=== PATIENT | female | born 1965 | race Two or more races ===

== ENCOUNTER 2020-09-17 14:28 | Outpatient (REF) | payer MEDICARE, MEDICAID, SELFPAY ==
[2020-09-17 17:22] LABS: T4 Thyroxine 8.6 ug/dL (4.5-12.0); Thyroid Stimulating Hormone 0.69 uIU/mL (0.32-4.0)
[2020-09-17 17:29] LABS: Folate 14.8 ng/mL (> or = 4.0); Vitamin B12 167 pg/mL (200-900)
== END 2020-09-17 14:29 | disposition home or self-care (01) ==
LOC: HO.LAB 14:28
PROVIDERS: PCP Nurse Practitioner Family; Visit Provider Psychiatry & Neurology Neurology
DX: F44.5 Conversion disorder with seizures or convulsions (principal)
CPT/HCPCS: 82607; 82746; 84436; 84443

== ENCOUNTER → 2020-10-27 07:23 | Outpatient (REF) | payer MEDICARE, MEDICAID, SELFPAY ==
--- NOTE | 2020-10-27 08:00 | PFT_ITS ---
Forced vital capacity is slightly decreased. FEV1 slightly decreased, but FEV1/FVC ratio is normal. LOL79-64 slightly decreased. MVV also slightly decreased. Post bronchodilator therapy, there is no significant change. Total lung capacity and residual volume are both moderately decreased. Diffusion capacity normal. CONCLUSION: Restrictive pulmonary disorder, moderately severe. No significant obstructive airway disorder. Clinical correlation recommended. MD GOPI Miller/MODL / [id number]
== END ==
LOC: HO.SL 07:23
PROVIDERS: PCP Nurse Practitioner Family; Visit Provider Hospitalist
DX: G47.33 Obstructive sleep apnea (adult) (pediatric) (principal); J44.9 Chronic obstructive pulmonary disease, unspecified; R06.00 Dyspnea, unspecified
CPT/HCPCS: 94060; 94727; 94729

== ENCOUNTER → 2020-11-18 13:47 | Outpatient (REF) | payer MEDICARE, MEDICAID, SELFPAY | LOC: HO.SL 13:47 | PROVIDERS: PCP Nurse Practitioner Family; Visit Provider Hospitalist | DX: G47.33 Obstructive sleep apnea (adult) (pediatric) (principal) | CPT/HCPCS: 95806 ==

== ENCOUNTER 2020-11-27 09:53 | Outpatient (REF) | payer MEDICARE, MEDICAID, SELFPAY ==
--- NOTE | ~2020-11-27 | XR_ITS ---
EXAMINATION: XR CHEST CLINICAL INFORMATION: Other disorder of lung COMPARISON: None TECHNIQUE: 2 views of the chest were obtained. FINDINGS: The lung volumes are low. The cardiac and mediastinal contours are normal. The lungs are clear. There is no pleural effusion or pneumothorax. There are mild degenerative changes of the spine. XR/XR chest 2V IMPRESSION: Low lung volumes. No evidence for acute disease in the chest.
[2020-11-27 10:23] LABS: MANUAL DIFF FLAG NO
[2020-11-27 10:36] LABS: Basophils Percent Auto 0.5 % (0-2); Eosinophils Absolute Auto 0.1 X10*3/uL (0.0-0.4); Eosinophils Percent Auto 2.9 % (0-4); Hematocrit 41.7 % (37-47); Hemoglobin 13.5 g/dl (12.0-16.0); Imm Gran Abs Auto 0.01 X10*3/uL (0.00-0.03); Imm Gran Pct Auto 0.2 % (0.0-0.4); Lymphocytes Absolute Auto 1.8 X10*3/uL (1.2-4.9); Lymphocytes Percent Auto 43.9 % (20-40); Mean Corpuscular HGB Conc 32.4 g/dl (31.0-35.0); Mean Corpuscular Hemoglobin 29.9 pg (27.0-33.0); Mean Corpuscular Volume 92.5 fL (80-98); Mean Platelet Volume 9.7 fL (9.4-12.3); Monocytes Absolute Auto 0.3 X10*3/uL (0.1-1.2); Monocytes Percent Auto 8.2 % (2-11); Neutrophils Absolute Auto 1.9 X10*3/uL (2.0-8.3); Neutrophils Percent Auto 44.3 % (45-73); Platelet Count 241 X10*3/uL (160-400); Red Blood Count 4.51 X10*6/uL (4.20-5.50); Red Cell Distribution Width 12.8 % (11.0-16.0); White Blood Count 4.2 X10*3/uL (4.8-10.8)
[2020-11-27 11:08] LABS: Alanine Aminotransferase 31 U/L (0-31); Albumin Level 4.4 g/dL (3.5-5.0); Alkaline Phosphatase 72 U/L (39-117); Anion Gap 11 (12-20); Aspartate Amino Transferase 25 U/L (5-31); Bilirubin Total 0.4 mg/dL (0.0-1.0); Blood Urea Nitrogen 27 mg/dL (9-16); Calcium 9.5 mg/dL (8.4-10.2); Carbon Dioxide 30 mmol/L (22-29); Chloride 106 mmol/L (96-108); Cholesterol 227 mg/dL; Estimated Glomerular Filt Rate > 60; Glucose Fasting 85 mg/dL (60-99); HDL Cholesterol 58 mg/dL; LDL Cholesterol Calculated 153 mg/dl; Potassium 4.4 mmol/L (3.3-5.1); Sodium 143 mmol/L (135-145); Total Protein 7.2 g/dL (6.5-8.0); Triglycerides 82 mg/dL
[2020-11-27 11:33] LABS: TSH reflex Free T4 1.56 uIU/mL (0.32-4.0)
== END 2020-11-27 09:54 | disposition home or self-care (01) ==
LOC: HO.LAB 09:53
PROVIDERS: Absent Provider Hospitalist; PCP Nurse Practitioner Family; Visit Provider Nurse Practitioner Family
DX: J98.4 Other disorders of lung (principal); G47.33 Obstructive sleep apnea (adult) (pediatric); J45.40 Moderate persistent asthma, uncomplicated; I10 Essential (primary) hypertension; Z79.899 Other long term (current) drug therapy
CPT/HCPCS: 36415; 71046; 80053; 80061; 84443; 85025; 99212

== ENCOUNTER → 2021-03-12 09:40 | Outpatient (REF) | payer MEDICARE, MEDICAID, SELFPAY ==
--- NOTE | 2021-03-12 09:43 | CA_ITS ---
Acquisition Time: 2021-03-12 09:49:02 Total Exercise Time: 00:06:07 Test Indications: COPD Medications: SEE CHART Protocol: WALLY Max HR: 179 BPM 108% of Pred: 165 BPM Max BP: 096/062 mmHG Max Work Load: 7.1 METS Exercise stress test with exercise 6 min 7 sec of Wally protocol with request to stop due to inability to keep up with treadmill in stage 3, without anginal symptoms, with significant artifact during exercise making assessment for arrythmia inadequate, with low BP at baseline and minimal rise during exercise, with postive chronotronic response to exercise with pulse 43 ( 26% MPHR) at baseline and kourtney to 90 (54% MPHR) at peak exercise, with nondiagnostic EKGs for ischemia due to suboptimal heart rate and atifact during motion. Test reviewed with Dr Garner. Message sent to Genevieve HDZ with results, Recommend pharm nuclear stress test if further eval for ischemia is needed. Recommend holter to eval heart rate trend. Referred By: Aquilino Herrera Overread By: KEHINDE ERVIN
== END ==
LOC: HO.CARD 09:40
PROVIDERS: Visit Provider Nurse Practitioner Family
DX: R07.89 Other chest pain (principal)
CPT/HCPCS: 93017

== ENCOUNTER → 2021-04-06 12:25 | Outpatient (REF) | payer MEDICARE, MEDICAID, SELFPAY ==
--- NOTE | 2021-04-06 12:30 | ECG_ITS ---
Hook-up date: 2021-04-06 12:48:00 Duration: 26:08:00 Test Indications: CARDIAC ARRHYTHMIA, UNSPECIFIED Medications: 61381 QRS complexes * Ventricular ectopics which represent % of total QRS comp. * Supraventricular ectopics which represent % of total QRS comp. * Paced QRS complexs which represent % of total QRS comp. VENTRICULAR ECTOPY * Isolated * Bigeminal Cycles * Couplets * Runs * Beats in Runs * Beats LONGEST at * BPM at :: -- * Beats FASTEST at * BPM at :: -- SUPRAVENTRICULAR ECTOPY * Isolated * Couplets * Runs * Beats in Runs * Beats LONGEST at * BPM at :: -- * Beats FASTEST at * BPM at :: -- HEART RATES 39 MIN at 03:09:12 2021-04-07 52 AVG 97 MAX at 11:17:51 2021-04-07 LONGEST RR 1.5360 secs at 10:08:28 2021-04-07 S-T LEVELS Channel 1 - 128 mm at 12:48:00 2021-04-06 - 128 mm at 12:48:00 2021-04-06 Channel 2 - 128 mm at 12:48:00 2021-04-06 - 128 mm at 12:48:00 2021-04-06 Channel 3 - 128 mm at 03:20:71 -- - 128 mm at 03:20:71 Underlying rhythm is sinus bradycardia; Average ventricular rate 52/min; range 39-97/min; About 80% of the time, rate <60/min; Chest pain in patient diary associated with sinus rhythm. Referred By: Aquilino Herrera Overread By: BON IBARRA
== END ==
LOC: HO.CARD 12:25
PROVIDERS: Visit Provider Nurse Practitioner Family
DX: R07.89 Other chest pain (principal); I49.9 Cardiac arrhythmia, unspecified
CPT/HCPCS: 93225; 93226

== ENCOUNTER → 2021-04-09 08:02 | Outpatient (REF) | payer MEDICARE, MEDICAID, SELFPAY ==
--- NOTE | ~2021-04-09 | NM_ITS ---
Myocardial perfusion study Indication: Chest pain to evaluate for myocardial ischemia Technique: The patient was brought in for a Lexiscan perfusion study on 04/09/2021. Patient performed low-level exercise and was injected 0.4 mg of Lexiscan intravenously. Within a minute of injection, 25 mCi of sestamibi was given intravenously. Images were obtained using the SPECT gamma camera interlaced with the gating device. Images were obtained in supine position. Resting perfusion study was performed on 04/10/2021. Patient was administered 25 mCi of sestamibi intravenously at rest. Images were then obtained in supine position. Images obtained with and without CT attenuation. Total DLP 130 mGy-cm. Images were processed with the software and compared side to side in short axis, horizontal long axis and vertical long axis views. Findings: The stress perfusion study showed nonattenuated images show moderately reduced uptake in the apex of the LV myocardium. Remainder of the LV myocardium is normally perfused. Attenuation corrected images also shows small area of mildly reduced uptake in the apex of the LV myocardium.. The gated study shows normal LV systolic function with calculated LVEF of 72%. LV cavity is normal in size. The gated study shows normal systolic wall thickening and contraction of segments. Resting study shows no change in perfusion pattern compared to stress perfusion study. Gating at rest reveals normal systolic wall motion with ejection fraction at 70%. The findings are consistent with no reversible defect suggestive of ischemia. Fixed apical defect, nontransmural infarct cannot be entirely ruled out.. NM/NM beau perf SPECT rest & str Impression: 1. Myocardial perfusion imaging study shows no evidence of ischemia with fixed apical defect which may suggest nontransmural infarct 2. Gated LVEF is 72% 3. Transient ischemic dilatation not present EKG is nondiagnostic for ischemia
--- NOTE | 2021-04-09 08:35 | CA_ITS ---
Acquisition Time: 2021-04-09 08:33:25 Total Exercise Time: 00:02:00 Test Indications: Abnormal ECG Medications: SEE H Protocol: LEXISCAN Max HR: 094 BPM 56% of Pred: 165 BPM Max BP: 112/064 mmHG Max Work Load: 1.0 METS Pharmacological stress test using Lexiscan while sitting and kicking her feet. Pt tolerated well, denies any anginal sx. Feeling of dizziness reversed with Aminophyline. EKG with no arrhythmias, non-diagnostic for ischemia. Nuclear images to follow. Normotensive response to test. Test reviewed with Dr. Bar. Referred By: Aquilino Herrera Overread By: Vicky Acosta NP
== END ==
LOC: HO.CARD 08:02
PROVIDERS: Visit Provider Nurse Practitioner Family
DX: R07.89 Other chest pain (principal)
CPT/HCPCS: 78452; 93017; A9500; J0280; J2785

== ENCOUNTER → 2021-05-04 15:02 | Outpatient (BNVA) | payer MEDICARE, MEDICAID, SELFPAY | PROVIDERS: PCP Nurse Practitioner Family; Visit Provider Hospitalist | DX: G47.33 Obstructive sleep apnea (adult) (pediatric) (principal); J98.4 Other disorders of lung; J45.40 Moderate persistent asthma, uncomplicated | CPT/HCPCS: 99212 ==

== ENCOUNTER → 2021-06-08 19:42 | Outpatient (REF) | payer MEDICARE, MEDICAID, SELFPAY | LOC: HO.SL 19:42 | PROVIDERS: PCP Nurse Practitioner Family; Visit Provider Hospitalist | DX: G47.33 Obstructive sleep apnea (adult) (pediatric) (principal) | CPT/HCPCS: 95810 ==

== ENCOUNTER 2021-06-15 14:46 | Outpatient (REF) | payer MEDICARE, MEDICAID, SELFPAY ==
[2021-06-15 16:28] LABS: Alanine Aminotransferase 22 U/L (0-31); Albumin Level 4.4 g/dL (3.5-5.0); Alkaline Phosphatase 82 U/L (39-117); Anion Gap 11 (12-20); Aspartate Amino Transferase 19 U/L (5-31); Bilirubin Total 0.5 mg/dL (0.0-1.0); Blood Urea Nitrogen 22 mg/dL (9-16); Calcium 9.5 mg/dL (8.4-10.2); Carbon Dioxide 28 mmol/L (22-29); Chloride 108 mmol/L (96-108); Cholesterol 174 mg/dL; Estimated Glomerular Filt Rate 57; Glucose Random 78 mg/dL (60-115); HDL Cholesterol 63 mg/dL; LDL Cholesterol Calculated 89 mg/dl; Potassium 4.2 mmol/L (3.3-5.1); Sodium 143 mmol/L (135-145); Triglycerides 111 mg/dL
[2021-06-15 17:05] LABS: Folate > 20.0 ng/mL (> or = 4.0); Vitamin B12 456 pg/mL (200-900)
[2021-06-15 17:06] LABS: Appearance Urine HAZY; Color Urine YELLOW; Glucose Urine UA NEG (NEG); Leukocyte Esterase Urine 1+ (NEG); Nitrite Urine NEG (NEG); Specific Gravity - Urine >= 1.030 (1.005-1.025); Urine Blood NEG (NEG); Urine Ketones NEG (NEG); Urine Protein NEG (NEG-TRACE)
[2021-06-15 17:18] LABS: WBC Urine 30-49 /HPF (0-4)
[2021-06-15 17:19] LABS: Bacteria Urine TRACE /LPF; RBC Urine 0-2 /HPF (0); Squamous Epithelial Cell Urine TRACE /LPF
== END 2021-06-15 14:47 | disposition home or self-care (01) ==
LOC: HO.LAB 14:46
PROVIDERS: PCP Nurse Practitioner Family; Referring Provider Nurse Practitioner Family; Visit Provider Internal Medicine
DX: R07.2 Precordial pain (principal); R00.1 Bradycardia, unspecified; I10 Essential (primary) hypertension; R39.15 Urgency of urination; E78.5 Hyperlipidemia, unspecified; E53.8 Deficiency of other specified B group vitamins
CPT/HCPCS: 36415; 80053; 80061; 81001; 82607; 82746; 87086; 93005; 99202

== ENCOUNTER → 2021-07-02 14:59 | Outpatient (BNVA) | payer MEDICARE, MEDICAID, SELFPAY | PROVIDERS: PCP Nurse Practitioner Family; Visit Provider Hospitalist | DX: G47.33 Obstructive sleep apnea (adult) (pediatric) (principal); J98.4 Other disorders of lung; J45.40 Moderate persistent asthma, uncomplicated | CPT/HCPCS: 99212 ==

== ENCOUNTER 2021-07-03 14:32 | Outpatient (REF) | payer MEDICARE, MEDICAID, SELFPAY ==
--- NOTE | ~2021-07-03 | CT_ITS ---
EXAMINATION: CT HEAD WITHOUT CONTRAST CLINICAL INFORMATION: MCI. COMPARISON: None TECHNIQUE: Contiguous axial imaging was performed from the skull base to vertex without intravenous administration of contrast. This CT examination was performed using dose optimization techniques as appropriate, variously including the following: *Automated exposure control *Adjustment of mA and/or kV according to patient size (this includes techniques or standardized protocols for targeted exams where dose is matched to indication/reason for exam; i.e. extremities or head) *Use of iterative reconstruction technique DLP: 645 mGy-cm FINDINGS: There is no evidence of acute intracranial hemorrhage or territorial infarction. No abnormal mass effect or midline shift is seen. Godoy to white matter differentiation is well preserved. No extra-axial fluid collections are identified. The ventricles are normal in size. There is no abnormal attenuation within the brain parenchyma. The osseous structures and soft tissues are normal. The mastoid air cells and visualized portions of the paranasal sinuses are well aerated. CT/CT head/brain wo con IMPRESSION: No acute intracranial process seen.
== END 2021-07-03 14:33 | disposition home or self-care (01) ==
LOC: HO.CT 14:32
PROVIDERS: Visit Provider Psychiatry & Neurology Neurology
DX: G31.84 Mild cognitive impairment of uncertain or unknown etiology (principal)
CPT/HCPCS: 70450

== ENCOUNTER 2021-07-15 14:38 | Outpatient (REF) | payer MEDICARE, MEDICAID, SELFPAY ==
--- NOTE | ~2021-07-15 | MM_ITS ---
EXAMINATION: MM SCREENING DIGITAL BREAST TOMOSYNTHESIS, BILATERAL CLINICAL INFORMATION: Screening. Asymptomatic. The lifetime risk of breast cancer based on the Tyrer-Cuzick Model is 5%. COMPARISON: Mammography: 05/08/2020 (new baseline) TECHNIQUE: Digital breast tomosynthesis is performed in both the craniocaudal and mediolateral oblique views along with computer-aided detection (CAD). Synthesized 2D images are generated from the tomosynthesis. FINDINGS: There are scattered areas of fibroglandular density (ACR BI-RADS breast composition Category b). There are no significant masses, abnormal calcifications, or other abnormalities. Parenchymal pattern is similar to the prior new baseline exam. The axilla and skin contours are unremarkable. No significant changes. MM/MM tomosynthesis screening BI IMPRESSION: No significant changes from prior new baseline exam. ASSESSMENT: BI-RADS 1: Negative RECOMMENDATION: Routine annual mammography screening. This patient's information was entered into a reminder system with a target due date for their next mammogram.
== END 2021-07-15 14:39 | disposition home or self-care (01) ==
LOC: HO.MAMMO 14:38
PROVIDERS: Visit Provider Nurse Practitioner Family
DX: Z12.31 Encounter for screening mammogram for malignant neoplasm of breast (principal)
CPT/HCPCS: 77063; 77067

== ENCOUNTER → 2021-07-30 14:59 | Outpatient (BNVA) | payer MEDICARE, MEDICAID, SELFPAY | PROVIDERS: PCP Nurse Practitioner Family; Visit Provider Internal Medicine Gastroenterology | DX: G47.33 Obstructive sleep apnea (adult) (pediatric) (principal); Z83.71 Family history of colonic polyps | CPT/HCPCS: 99212 ==

== ENCOUNTER 2021-09-29 10:10 | Day surgery (SDC) | payer MEDICARE, MEDICAID, SELFPAY ==
[2021-09-22 11:01] VITALS: BMI 34.3
--- NOTE | 2021-09-28 09:56 | HO.ANESPROP2 ---
Documented by User: Yolande Elizabeth NP 09/28/21 10:00 [facility] Active Problems Active Problems: All Active Problems (Updated 07/30/21 @ 16:37 by Geovany Ulloa MD) Family history of colonic polyps (Acute) Colon cancer screening (Acute) Essential hypertension (Acute) Precordial chest pain (Acute) Urinary urgency (Acute) Bradycardia (Acute) Irregular heart rate (Acute) B12 deficiency (Acute) Chest discomfort (Acute) Asthma (Acute) Dyslipidemia (Acute) Chronic restrictive lung disease (Acute) Epilepsy (Acute) Epilepsy, unspecified, intractable, with status epilepticus (Acute) Age related osteoporosis (Acute) Essential (primary) hypertension (Acute) TRACI (obstructive sleep apnea) (Acute) Asthma-COPD overlap syndrome (Acute) Past Medical History Medical History Asthma Asthma-COPD overlap syndrome Chronic restrictive lung disease MCI (mild cognitive impairment) TRACI (obstructive sleep apnea) Family History Family History Father HTN (hypertension) Stroke Diabetes mellitus Maternal Grandmother Cancer Mother Diabetes mellitus HTN (hypertension) Stroke Surgical History Surgical History History of appendectomy History of hernia repair History of hysterectomy Hx of cholecystectomy Hx of colonoscopy Social History Social History Alcohol intake: never Patient Tobacco Use Status: Never used Tobacco e-Cigarette/Vaping Use: Never Used Use of substances other than those prescribed or required for medical reasons: No Are you DNR?: No Advance Directives: No Advance Directives Information Provided: Yes Meds Allergies Allergy/AdvReac Type Severity Reaction Status Date / Time aspirin Allergy Severe Swollen Verified 07/30/21 15:00 penicillamine Allergy Severe Rash and Verified 07/30/21 15:00 Hives povidone-iodine [Betadine] Allergy Severe Rash and Verified 07/30/21 15:00 Hives primidone Allergy Severe anger Verified 07/30/21 15:00 soap [Betadine] Allergy Severe Rash and Verified 07/30/21 15:00 Hives Peant Butter Allergy Severe Rash and Uncoded 07/30/21 15:00 Hives Seafood Allergy Severe Rash Uncoded 07/30/21 15:00 Home Medications Medication Instructions Recorded Confirmed Last Taken Type alendronate 70 mg tablet 70 mg PO QWEEK 11/03/20 07/30/21 Unknown History haloperidol 5 mg tablet 5 mg PO BEDTIME 11/03/20 07/30/21 Unknown History montelukast 10 mg tablet 10 mg PO DAILY 11/03/20 07/30/21 Unknown History prazosin 5 mg capsule 5 mg PO BEDTIME 11/03/20 07/30/21 Unknown History sertraline 100 mg tablet 200 mg PO DAILY 11/03/20 07/30/21 Unknown History prazosin 2 mg capsule 2 mg PO BEDTIME 02/24/21 07/30/21 Unknown History mirtazapine 7.5 mg tablet 7.5 mg PO BEDTIME 05/04/21 07/30/21 Unknown History aripiprazole 15 mg tablet 10 mg PO DAILY tab 07/30/21 07/30/21 Unknown History quetiapine 50 mg tablet 50 mg PO BEDTIME 07/30/21 07/30/21 Unknown History Exam Exam Date and Time: September 28, 2021 0956 Height,Weight and Vital Signs: Height 4 ft 11 in Weight 77.111 kg Pertinent Lab Results Pertinent Lab Results: Laboratory Tests 06/15/21 15:42 Sodium 143 Potassium 4.2 Chloride 108 Carbon Dioxide 28 BUN 22 H Creatinine 1.01 Laboratory Tests 11/27/20 09:58 WBC 4.2 L Hgb 13.5 Hct 41.7 Plt Count 241 Narrative Narrative: Per cardiac visit 05/2021: EKG 05/2021 sinus bradycardia; poor R-wave progression across the precordial leads most likely from his body habitus.? Echocardiogram from [facility] shows LVEF of 60-65%; wall motion abnormalities and otherwise unremarkable. In the exercise stress test, she was able to exercise for 7.1 Mets without any anginal-type symptoms with lot of artifact on the EKG part; suboptimal heart rate response possibly from beta-ragini use.? Study repeated with Lexiscan and that showed no evidence of any ischemia; fixed apical defect was noted and could not exclude nontransmural infarct, but gating was within normal limits. PFT 10/2020 CONCLUSION:? Restrictive pulmonary disorder, moderately severe. ? No significant obstructive airway disorder. ? Clinical correlation recommended. Assessment and Plan Assessment Anesthesia Assessment: Chart Reviewed Documented by User: Dallin Gage 09/29/21 11:15 HPI - Anesthesia Eval Consult details Narrative: 56 F for Colnoscopy PMFSH Past Medical History Medical History Asthma Asthma-COPD overlap syndrome Chronic restrictive lung disease MCI (mild cognitive impairment) TRACI (obstructive sleep apnea) Functional capacity: independent ambulation Family History Family History Father HTN (hypertension) Stroke Diabetes mellitus Maternal Grandmother Cancer Mother Diabetes mellitus HTN (hypertension) Stroke Family history of problems with anesthesia: No Surgical History Surgical History History of appendectomy History of hernia repair History of hysterectomy Hx of cholecystectomy Hx of colonoscopy History of Problems with Anesthesia: No Social History Social History Alcohol intake: never Patient Tobacco Use Status: Never used Tobacco e-Cigarette/Vaping Use: Never Used Use of substances other than those prescribed or required for medical reasons: No Are you DNR?: No Advance Directives: No Advance Directives Information Provided: Yes Meds Allergies Allergy/AdvReac Type Severity Reaction Status Date / Time aspirin Allergy Severe Swollen Verified 07/30/21 15:00 penicillamine Allergy Severe Rash and Verified 07/30/21 15:00 Hives povidone-iodine [Betadine] Allergy Severe Rash and Verified 07/30/21 15:00 Hives primidone Allergy Severe anger Verified 07/30/21 15:00 soap [Betadine] Allergy Severe Rash and Verified 07/30/21 15:00 Hives Peant Butter Allergy Severe Rash and Uncoded 07/30/21 15:00 Hives Seafood Allergy Severe Rash Uncoded 07/30/21 15:00 Home Medications Medication Instructions Recorded Confirmed Last Taken Type alendronate 70 mg tablet 70 mg PO QWEEK 11/03/20 07/30/21 Unknown History haloperidol 5 mg tablet 5 mg PO BEDTIME 11/03/20 07/30/21 Unknown History montelukast 10 mg tablet 10 mg PO DAILY 11/03/20 07/30/21 Unknown History prazosin 5 mg capsule 5 mg PO BEDTIME 11/03/20 07/30/21 Unknown History sertraline 100 mg tablet 200 mg PO DAILY 11/03/20 07/30/21 Unknown History prazosin 2 mg capsule 2 mg PO BEDTIME 02/24/21 07/30/21 Unknown History mirtazapine 7.5 mg tablet 7.5 mg PO BEDTIME 05/04/21 07/30/21 Unknown History aripiprazole 15 mg tablet 10 mg PO DAILY tab 07/30/21 07/30/21 Unknown History quetiapine 50 mg tablet 50 mg PO BEDTIME 07/30/21 07/30/21 Unknown History Exam Airway Mallampati Class: IV TM Dist: >3cm Neck ROM: Full Loose/Missing/Broken Teeth: Yes Heart: rrr Lungs: bl breath sounds Assessment and Plan Assessment Anesthesia Assessment: Anesthesia Plan Discussed (Patient declined credit administrator . Speaking pashto. ) Final Anesthetic Review Family History of Problems with Anesthesia: No History of Problems with Anesthesia: No NPO: Yes ASA Class: III Patient Risk: Intermediate Procedure Risk: Intermediate Anesthetic Plan Anesthetic Plan: MAC: Disposition: Standard PACU
--- NOTE | 2021-09-29 10:23 | MHC.SHP ---
Pre-Procedural Eval Section A Date of Service: 09/29/21 The patient is an INPATIENT: No The History & Physical has been completed within 30 days and I have reviewed it.: No Section B Chief Complaint: screening Details of Present Illness: Colon cancer screening Relevant Family History (Specify if Yes): Yes Relevant Social History: None Present Medications: see Short Stay Collaborative assessment Medical History: Significant History (Asthma-COPD overlap syndrome Chronic restrictive lung disease MCI (mild cognitive impairment) TRACI (obstructive sleep apnea)) History of Previous Operations: Relevant previous surgery/procedure and date(s) (History of appendectomy History of hernia repair History of hysterectomy Hx of cholecystectomy Hx of colonoscopy) Allergies: Allergies Allergy/AdvReac Type Severity Reaction Status Date / Time aspirin Allergy Severe Swollen Verified 07/30/21 15:00 penicillamine Allergy Severe Rash and Verified 07/30/21 15:00 Hives povidone-iodine [Betadine] Allergy Severe Rash and Verified 07/30/21 15:00 Hives primidone Allergy Severe anger Verified 07/30/21 15:00 soap [Betadine] Allergy Severe Rash and Verified 07/30/21 15:00 Hives Peant Butter Allergy Severe Rash and Uncoded 07/30/21 15:00 Hives Seafood Allergy Severe Rash Uncoded 07/30/21 15:00 Review of Systems Sugical H&P ROS: Negative: Constitution, Cardiovascular, Respiratory and Gastrointestinal Exam Surgical H&P Exam: Normal: Heart, Normal: Lungs, Normal: Extremities and Normal: Abdomen Plan Diagnosis/Plan: Unchanged I have reviewed the history and physical and performed a pertinent physical examination on my patient. No changes have occurred unless specified.
--- NOTE | 2021-09-29 10:25 | PM.PROC ---
Brief Operative Note Date of procedure: 09/29/21 Procedure: COLONOSCOPY TILL CECUM WITH Consent: Indications for the procedure and potential complications of bleeding, perforation, reaction to medications and missed diagnosis were discussed with the patient and informed consent was obtained. Instrument: Olympus PCF H 190 L variable stiffness pediatric colonoscope Monitoring: Vital signs and clinical assessment, intermittent blood pressure monitoring, continuous EKG monitoring, Pulse oximetry and Carbon Dioxide monitoring were done throughout the procedure. Colon withdrawl time was [] minutes. Procedure: The patient was placed in the left lateral decubitis position and pre-procedure medications were administered. After a digital rectal examination of the ano-rectum, the video colonoscope was inserted into the rectum and advanced through the colon to the cecum. The colonoscope was slowly withdrawn in a retrograde panoramic fashion and the colon mucosa was carefully examined including a retroflexed view of the rectum. Findings and interventions are described below. Procedure Difficulty: [Without difficulty] [LLQ pressure applied to intubate the transverse colon/cecum] Findings: Terminal Ileum: Not evaluated Cecum: Normal Ascending Colon: Normal Transverse Colon: Normal Descending Colon: Normal Sigmoid Colon: Moderate diverticulosis Rectum: Normal Ano-rectum: Moderate internal hemorrhoids Colon preparation: [Excellent] [Good] [Fair] [poor] Impression and Post Procedure Diagnosis: Colonoscopy Findings: [] polyps removed Moderate diverticulosis seen in the []colon Moderate hemorrhoids on retroflexed exam. Plan: Await pathology results Patient has an appointment on 10/15/21 in the GI Clinic with Geovany Ulloa M.D. Repeat Colonoscopy interval based on path results - in 3-5 years if polyps are adenomatous and 10 years if polyps are hyperplastic. Above findings were reviewed with the patient and [colon polyps] and [diverticulosis] handouts were given in the discharge area
[2021-09-29 10:40] VITALS: BP 121/65; PULSE 56; RESP 16; TEMP 36.8; O2SAT 98; BMI 33.5
[2021-09-29] MEDS: Lactated Ringers 1,000 ML 100 ML IVCONT (10:50)
--- NOTE | 2021-09-29 11:20 | P.BOP_ITS ---
Brief Operative Note Date of Service: 09/29/21 Pre-op diagnosis: Colon cancer screening Post-op diagnosis: other (Diverticulosis, hemorrhoids) Procedure: COLONOSCOPY TILL CECUM Consent: Indications for the procedure and potential complications of bleeding, perforation, reaction to medications and missed diagnosis were discussed with the patient and informed consent was obtained. Instrument: Olympus PCF H 190 L variable stiffness pediatric colonoscope Monitoring: Vital signs and clinical assessment, intermittent blood pressure monitoring, continuous EKG monitoring, Pulse oximetry and Carbon Dioxide monitoring were done throughout the procedure. Colon withdrawl time was 18 minutes. Procedure: The patient was placed in the left lateral decubitis position and pre-procedure medications were administered. After a digital rectal examination of the ano-rectum, the video colonoscope was inserted into the rectum and advanced through the colon to the cecum. The colonoscope was slowly withdrawn in a retrograde panoramic fashion and the colon mucosa was carefully examined including a retroflexed view of the rectum. Findings and interventions are described below. Procedure Difficulty: Without difficulty Findings: Terminal Ileum: Not evaluated Cecum: Normal Ascending Colon: Normal Transverse Colon: Normal Descending Colon: Normal Sigmoid Colon: Moderate diverticulosis Rectum: Normal Ano-rectum: Moderate internal hemorrhoids Colon preparation: Good Impression and Post Procedure Diagnosis: Colonoscopy Findings: No polyps were detected. Moderate diverticulosis seen in the sigmoid colon Moderate hemorrhoids on retroflexed exam. Plan: Patient has an appointment on 10/15/21 in the GI Clinic with Geovany Ulloa M.D. Repeat Colonoscopy in 5 years due to family hx of colon polyps (Mom in her 50's).. Above findings were reviewed with the patient and diverticulosis handouts were given in the discharge area Surgeon: Geovany Ulloa MD Anesthesia: MAC (Kiki Pacheco CRNA) Was an Fellmongering Machine Operator used for this Procedure?: Yes Fellmongering Machine Operator: Arianna Aguilar Estimated blood loss (mL): 0 Pathology: none sent Condition: stable Disposition: PACU
--- NOTE | 2021-09-29 11:24 | P.CONAN_ITS ---
[facility] Active Problems Active Problems: All Active Problems (Updated 07/30/21 @ 16:37 by Geovany Ulloa MD) Family history of colonic polyps (Acute) Colon cancer screening (Acute) Essential hypertension (Acute) Precordial chest pain (Acute) Urinary urgency (Acute) Bradycardia (Acute) Irregular heart rate (Acute) B12 deficiency (Acute) Chest discomfort (Acute) Asthma (Acute) Dyslipidemia (Acute) Chronic restrictive lung disease (Acute) Epilepsy (Acute) Epilepsy, unspecified, intractable, with status epilepticus (Acute) Age related osteoporosis (Acute) Essential (primary) hypertension (Acute) TRACI (obstructive sleep apnea) (Acute) Asthma-COPD overlap syndrome (Acute) Past Medical History Medical History Asthma Asthma-COPD overlap syndrome Chronic restrictive lung disease MCI (mild cognitive impairment) TRACI (obstructive sleep apnea) Functional capacity: independent ambulation Family History Family History Father HTN (hypertension) Stroke Diabetes mellitus Maternal Grandmother Cancer Mother Diabetes mellitus HTN (hypertension) Stroke Family history of problems with anesthesia: No Surgical History Surgical History History of appendectomy History of hernia repair History of hysterectomy Hx of cholecystectomy Hx of colonoscopy History of Problems with Anesthesia: No Social History Social History Alcohol intake: never Patient Tobacco Use Status: Never used Tobacco e-Cigarette/Vaping Use: Never Used Use of substances other than those prescribed or required for medical reasons: No Are you DNR?: No Advance Directives: No Advance Directives Information Provided: Yes Meds Allergies Allergy/AdvReac Type Severity Reaction Status Date / Time aspirin Allergy Severe Swollen Verified 07/30/21 15:00 penicillamine Allergy Severe Rash and Verified 07/30/21 15:00 Hives povidone-iodine [Betadine] Allergy Severe Rash and Verified 07/30/21 15:00 Hives primidone Allergy Severe anger Verified 07/30/21 15:00 soap [Betadine] Allergy Severe Rash and Verified 07/30/21 15:00 Hives Peant Butter Allergy Severe Rash and Uncoded 07/30/21 15:00 Hives Seafood Allergy Severe Rash Uncoded 07/30/21 15:00 Active Medications: Current Medications Albuterol Sulfate (Albuterol Sulfate (0.083%) 2.5 Mg/3 Ml Vial.Neb) 2.5 mg INHALE ONCE PRN PRN Reason: Shortness of Breath/Wheezing Lactated Ringer's (Lr) 1,000 mls @ 100 mls/hr IVCONT .Q10H SHALOM Last Admin: 09/29/21 10:50 Dose: 100 mls/hr Documented by: Home Medications Medication Instructions Recorded Confirmed Last Taken Type alendronate 70 mg tablet 70 mg PO QWEEK 11/03/20 07/30/21 Unknown History haloperidol 5 mg tablet 5 mg PO BEDTIME 11/03/20 07/30/21 Unknown History montelukast 10 mg tablet 10 mg PO DAILY 11/03/20 07/30/21 Unknown History prazosin 5 mg capsule 5 mg PO BEDTIME 11/03/20 07/30/21 Unknown History sertraline 100 mg tablet 200 mg PO DAILY 11/03/20 07/30/21 Unknown History prazosin 2 mg capsule 2 mg PO BEDTIME 02/24/21 07/30/21 Unknown History mirtazapine 7.5 mg tablet 7.5 mg PO BEDTIME 05/04/21 07/30/21 Unknown History aripiprazole 15 mg tablet 10 mg PO DAILY tab 07/30/21 07/30/21 Unknown History quetiapine 50 mg tablet 50 mg PO BEDTIME 07/30/21 07/30/21 Unknown History Exam Exam Date and Time: September 29, 2021 1124 Height,Weight and Vital Signs: Height 4 ft 11 in Weight 75.296 kg Last Vital Signs Temp 98.2 F 09/29/21 10:40 Pulse 56 09/29/21 10:40 Resp 16 09/29/21 10:40 BP 121/65 09/29/21 10:40 Pulse Ox 98 09/29/21 10:40 Assessment and Plan Assessment Anesthesia Assessment: Anesthesia Plan Discussed Final Anesthetic Review Family History of Problems with Anesthesia: No History of Problems with Anesthesia: No
[2021-09-29 12:05] VITALS: BP 100/54; PULSE 87; RESP 16; TEMP 36.1; O2SAT 98
[2021-09-29 12:20] VITALS: BP 116/63; PULSE 67; RESP 16; TEMP 36.1; O2SAT 100
--- NOTE | 2021-10-02 16:04 | P.OP_ITS ---
Operative Note Operative Note Date of Service: 09/29/21 Narrative: Pre-op diagnosis:?Colon cancer screening Post-op diagnosis:?other (Diverticulosis, hemorrhoids) Procedure:? COLONOSCOPY TILL CECUM Consent: Indications for the procedure and potential complications of bleeding, perforation, reaction to medications and missed diagnosis were discussed with the patient and informed consent was obtained. Instrument: Olympus PCF H 190 L variable stiffness pediatric colonoscope Monitoring: Vital signs and clinical assessment, intermittent blood pressure monitoring, continuous EKG monitoring, Pulse oximetry and Carbon Dioxide monitoring were done throughout the procedure. Colon withdrawl time was 18 minutes. Procedure: The patient was placed in the left lateral decubitis position and pre-procedure medications were administered. After a digital rectal examination of the ano-rectum, the video colonoscope was inserted into the rectum and advanced through the colon to the cecum. The colonoscope was slowly withdrawn in a retrograde panoramic fashion and the colon mucosa was carefully examined including a retroflexed view of the rectum. Findings and interventions are described below. Procedure Difficulty: Without difficulty Findings: Terminal Ileum: Not evaluated Cecum:? Normal Ascending Colon:? Normal Transverse Colon:? Normal Descending Colon:? Normal Sigmoid Colon:? Moderate diverticulosis Rectum:? Normal Ano-rectum:? Moderate internal hemorrhoids Colon preparation:? Good? Impression and Post Procedure Diagnosis: Colonoscopy Findings: No polyps were detected. Moderate diverticulosis seen in the sigmoid colon Moderate hemorrhoids on retroflexed exam. Plan: Patient has an appointment on 10/15/21 in the GI Clinic with? ? Geovany Ulloa M.D. Repeat Colonoscopy in 5 years due to family hx of colon polyps (Mom in her 50's).. Above findings were reviewed with the patient and diverticulosis handouts were given in the discharge area Surgeon:?Geovany Ulloa MD Anesthesia:?MAC (Kiki Pacheco CRNA) Was an Project Development Director used for this Procedure?:?Yes Project Development Director:?Arianna Aguilar Estimated blood loss (mL):?0 Pathology:?none sent Condition:?stable Disposition:?PACU
== END 2021-09-29 13:03 | disposition home or self-care (01) ==
PROVIDERS: PCP Nurse Practitioner Family; Visit Provider Internal Medicine Gastroenterology
PROC: 0DJD8ZZ Inspection of Lower Intestinal Tract, Via Natural or Artificial Opening Endoscopic (ICD-10-PCS; CPT 45378; principal; 2021-09-29 11:00)
DX: Z12.11 Encounter for screening for malignant neoplasm of colon (principal); Z83.71 Family history of colonic polyps; K57.30 Diverticulosis of large intestine without perforation or abscess without bleeding; K64.8 Other hemorrhoids; J44.9 Chronic obstructive pulmonary disease, unspecified; J98.4 Other disorders of lung; I10 Essential (primary) hypertension; G31.84 Mild cognitive impairment of uncertain or unknown etiology; G47.33 Obstructive sleep apnea (adult) (pediatric); Z79.51 Long term (current) use of inhaled steroids; Z79.899 Other long term (current) drug therapy; Z88.0 Allergy status to penicillin; Z90.49 Acquired absence of other specified parts of digestive tract
CPT/HCPCS: G0105

== ENCOUNTER → 2021-10-15 11:39 | Outpatient (BNVA) | payer MEDICARE, MEDICAID, SELFPAY | PROVIDERS: PCP Nurse Practitioner Family; Visit Provider Internal Medicine Gastroenterology | DX: K57.90 Diverticulosis of intestine, part unspecified, without perforation or abscess without bleeding (principal); K64.9 Unspecified hemorrhoids; Z83.71 Family history of colonic polyps; Z71.2 Person consulting for explanation of examination or test findings; Z79.899 Other long term (current) drug therapy | CPT/HCPCS: Q3014 ==

== ENCOUNTER → 2021-12-08 14:51 | Outpatient (BNVA) | payer MEDICARE, MEDICAID, SELFPAY | PROVIDERS: PCP Nurse Practitioner Family; Referring Provider Nurse Practitioner Family; Visit Provider Nurse Practitioner Family | DX: R07.2 Precordial pain (principal); R00.1 Bradycardia, unspecified; I10 Essential (primary) hypertension; Z79.899 Other long term (current) drug therapy | CPT/HCPCS: 93005; 99212 ==

== ENCOUNTER → 2022-01-04 14:37 | Outpatient (BNVA) | payer MEDICARE, MEDICAID, SELFPAY | PROVIDERS: PCP Nurse Practitioner Family; Visit Provider Hospitalist | DX: G47.33 Obstructive sleep apnea (adult) (pediatric) (principal); J45.40 Moderate persistent asthma, uncomplicated; J98.4 Other disorders of lung | CPT/HCPCS: 99212 ==

== ENCOUNTER → 2022-03-08 15:28 | Outpatient (REF) | payer MEDICARE, MEDICAID, SELFPAY | LOC: HO.SL 15:28 | PROVIDERS: PCP Nurse Practitioner Family; Visit Provider Hospitalist | DX: G47.33 Obstructive sleep apnea (adult) (pediatric) (principal) | CPT/HCPCS: 95806 ==

== ENCOUNTER 2022-03-23 10:37 | Outpatient (REF) | payer MEDICARE, MEDICAID, SELFPAY ==
[2022-03-23 11:21] LABS: Baso%MD 0.5 %; Eos%MD 2.1 %; Hematocrit 43.5 % (37.0-47.0); Hemoglobin 14.4 g/dl (12.0-16.0); IG%MD 0.5 %; Lymph%MD 45.7 %; Mean Corpuscular HGB Conc 33.1 g/dl (31.0-35.0); Mean Corpuscular Hemoglobin 29.4 pg (27.0-33.0); Mean Corpuscular Volume 88.8 fL (80.0-98.0); Mean Platelet Volume 9.1 fL (9.4-12.3); Mono%MD 8.4 %; Neut%MD 42.8 %; Platelet Count 212 X10*3/uL (160-400); Red Cell Distribution Width 12.7 % (11.0-16.0); White Blood Count 4.3 X10*3/uL (4.8-10.8)
[2022-03-23 11:39] LABS: Estimated Average Glucose 94 mg/dL; Hemoglobin A1c % 4.9 %
[2022-03-23 12:00] LABS: Anion Gap 12 (12-20); Blood Urea Nitrogen 22 mg/dL (9-16); Calcium 9.5 mg/dL (8.4-10.2); Carbon Dioxide 27 mmol/L (22-29); Chloride 107 mmol/L (96-108); Cholesterol 218 mg/dL; Estimated Glomerular Filt Rate > 60; Glucose Fasting 88 mg/dL (60-99); HDL Cholesterol 62 mg/dL; LDL Cholesterol Calculated 140 mg/dl; Potassium 4.2 mmol/L (3.3-5.1); Sodium 142 mmol/L (135-145); Triglycerides 81 mg/dL
[2022-03-23 12:27] LABS: Free T4 (Free Thyroxine) 1.16 ng/dL (0.71-1.85); Thyroid Stimulating Hormone 1.54 uIU/mL (0.32-4.0)
[2022-03-23 12:55] LABS: Band Neutrophils Percent 2 % (3-5); Basophils Abs Manual 0.1 X10*3/uL (0.0-0.2); Basophils Percent Manual 2 % (0-2); Eosinophils Absolute Manual 0.2 X10*3/uL (0.0-0.4); Eosinophils Percent Manual 4 % (0-4); Lymphocytes Absolute Manual 2.4 X10*3/uL (1.2-4.9); Lymphocytes Percent Manual 55 % (20-40); Monocytes Absolute Manual 0.2 X10*3/uL (0.1-1.2); Monocytes Percent Manual 5 % (2-11); Neutrophils Absolute Manual 1.5 X10*3/uL (2.0-8.3); Neutrophils Percent Manual 32 % (45-73)
[2022-03-23 12:57] LABS: Platelet Estimate NORMAL (NORMAL); Platelet Morphology Comment NORMAL; RBC Morphology NORMAL
[2022-03-25 01:25] LABS: Prolactin 1.8 ng/mL
== END 2022-03-23 10:38 | disposition home or self-care (01) ==
LOC: HO.LAB 10:37
PROVIDERS: PCP Nurse Practitioner Family; Visit Provider Clinical Nurse Specialist Psychiatric/Mental Health, Child & Adolescent
DX: F25.1 Schizoaffective disorder, depressive type (principal); Z79.899 Other long term (current) drug therapy
CPT/HCPCS: 36415; 80048; 80061; 83036; 84146; 84439; 84443; 85007; 85027

== ENCOUNTER 2022-04-16 13:59 | Outpatient (REF) | payer MEDICARE, MEDICAID, SELFPAY ==
[2022-04-16 14:42] LABS: COVID-19 Test Negative (Negative); IDNOW Serial# 16C4AD1C
== END 2022-04-16 14:00 | disposition home or self-care (01) ==
LOC: HO.LAB 13:59
PROVIDERS: PCP Nurse Practitioner Family; Visit Provider Hospitalist
DX: J44.9 Chronic obstructive pulmonary disease, unspecified (principal); J45.41 Moderate persistent asthma with (acute) exacerbation; J06.9 Acute upper respiratory infection, unspecified; J98.4 Other disorders of lung; G47.33 Obstructive sleep apnea (adult) (pediatric); Z20.822 Contact with and (suspected) exposure to COVID-19
CPT/HCPCS: 87635; 87811; 99212

== ENCOUNTER 2022-07-08 14:33 | Outpatient (REF) | payer OTHER, SELFPAY ==
--- NOTE | ~2022-07-08 | MM_ITS ---
EXAMINATION: BONE DENSITOMETRY CLINICAL INDICATION: Age-related osteoporosis without current pathological fracture. COMPARISON: Baseline BD dated 05/08/2020. TECHNIQUE: Using a infibond DXA System (software version: 13.1) manufactured by [employer], dual-energy x-ray absorptiometry was performed of the lumbar spine and left hip. The images are of good technical quality. Summary results are attached. FINDINGS: AP SPINE L1-L4: Current: BMD 1.113 g/cm2, Z-score -0.4, T-score -0.6, normal, 7.3% decrease from baseline (<5% change is not significant). Baseline: BMD 1.200 g/cm2. LEFT FEMUR, NECK: Current: BMD 1.034 g/cm2, Z-score 0.6, T-score 0.0, normal. Baseline: BMD 1.067 g/cm2. LEFT FEMUR, TOTAL: Current: BMD 1.085 g/cm2, Z-score 0.8, T-score 0.6, normal, 2.4% decrease from baseline (<5% change is not significant). Baseline: BMD 1.112 g/cm2. IDENTIFIED RISK FACTORS: Early menopause, secondary osteoporosis, hysterectomy, bilateral oophorectomy, anticonvulsant, osteoporosis, height loss. HISTORY OF FRACTURE: None listed. MEDICATIONS: Vitamin D, bisphosphonate. MM/XR DEXA axial skeleton IMPRESSION: 1. DIAGNOSIS: Normal bone density based on the lowest T-score value of -0.6 in the lumbar spine applying World Health Organization criteria. 2. 10-YEAR FRACTURE RISK PREDICTION, FRAX: According to the guidelines, FRAX calculation should only be performed on patients in the osteopenia bone density category. Therefore, FRAX was not performed on this patient. 3. Treatment Recommendations: NOF guidelines recommend consideration for treatment in postmenopausal women and men age 50 and older presenting with the following: -A hip or vertebral (clinical or morphometric) fracture. -T-score less than or equal to -2.5 at the femoral neck or spine after appropriate evaluation to exclude secondary causes. -Low bone mass at the hip or spine and a 10-year fracture probability by FRAX of greater than or equal to 3% for hip fracture or greater than or equal to 20% for major osteoporotic fracture based on the [place] adapted WHO algorithm. 4. Other Recommendations: All treatment decisions require clinical judgment and consideration of individual patient factors, including patient preferences, comorbidities, previous drug use, risk factors not captured in the FRAX model (e.g. frailty, falls, vitamin D deficiency, increased bone turnover, interval significant decline in bone density) and possible under or overestimation of fracture risk by FRAX. FUTURE SCAN RECOMMENDATION: People with diagnosed cases of osteoporosis or at high risk for fracture should have regular bone mineral density tests. For patients eligible for Medicare, routine testing is allowed once every 2 years. The testing frequency can be increased to one year for patients who have rapidly progressing disease, those who are receiving or discontinuing medical therapy to restore bone mass, or have additional risk factors.
== END 2022-07-08 14:34 | disposition home or self-care (01) ==
LOC: HO.MAMMO 14:33
PROVIDERS: PCP Nurse Practitioner Family; Visit Provider Nurse Practitioner Family
DX: Z13.820 Encounter for screening for osteoporosis (principal); M81.0 Age-related osteoporosis without current pathological fracture; Z78.0 Asymptomatic menopausal state
CPT/HCPCS: 77080

== ENCOUNTER 2022-07-19 14:20 | Outpatient (REF) | payer OTHER, SELFPAY ==
--- NOTE | ~2022-07-19 | MM_ITS ---
EXAMINATION: MM SCREENING DIGITAL BREAST TOMOSYNTHESIS, BILATERAL CLINICAL INFORMATION: Screening. Asymptomatic. The lifetime risk of breast cancer based on the Tyrer-Cuzick Model is 5%. COMPARISON: Mammography: 07/15/2021 and 05/08/2020. TECHNIQUE: Digital breast tomosynthesis is performed in both the craniocaudal and mediolateral oblique views along with computer-aided detection (CAD). Synthesized 2-D images are generated from the tomosynthesis. FINDINGS: There are scattered areas of fibroglandular density (ACR BI-RADS breast composition Category b). There is a stable parenchymal pattern within the right breast without new abnormal dominant mass or suspicious grouping of microcalcifications. Multiple circumscribed densities are noted within the left breast with one new one seen in the central region approximately 6 cm from the nipple measuring 8 x 6 mm in size with somewhat lobular border. Ultrasound examination is recommended for further evaluation. MM/MM tomosynthesis screening BI IMPRESSION: Left breast density for further evaluation with ultrasound. ASSESSMENT: BI-RADS 0: Incomplete - Need Additional Imaging Evaluation. RECOMMENDATION: Left breast ultrasound. This patient's information was entered into a reminder system with a target due date for their next mammogram.
== END 2022-07-19 14:21 | disposition home or self-care (01) ==
LOC: HO.MAMMO 14:20
PROVIDERS: PCP Nurse Practitioner Family; Visit Provider Nurse Practitioner Family
DX: Z12.31 Encounter for screening mammogram for malignant neoplasm of breast (principal)
CPT/HCPCS: 77063; 77067

== ENCOUNTER 2022-07-23 12:37 | Outpatient (REF) | payer OTHER, SELFPAY ==
--- NOTE | ~2022-07-23 | US_ITS ---
EXAMINATION: US DIAGNOSTIC ULTRASOUND BREAST, LEFT CLINICAL INFORMATION: Left breast density central aspect. COMPARISON: Mammography of July 19, 2022 and studies dating back to May 08, 2020. TECHNIQUE: Ultrasound of the breast is performed with real-time chacko scale imaging and color Doppler. FINDINGS: There are numerous cysts present with the largest being at approximately the 12:00 position 6 cm from the nipple measuring approximately 1.1 x 0.4 x 1.0 cm in size and likely represents the mammographic finding. There is no solid mass, architectural abnormality, duct ectasia, or edema in the soft tissue planes. Results are discussed with the patient at time of visit. US/US breast LT limited IMPRESSION: Numerous left breast cyst with no suspicious solid lesions identified. ASSESSMENT: BI-RADS 2: Benign RECOMMENDATION: Routine annual mammography screening. This patient's information was entered into a reminder system with a target due date for their next mammogram.
== END 2022-07-23 12:38 | disposition home or self-care (01) ==
LOC: HO.MAMMO 12:37
PROVIDERS: PCP Nurse Practitioner Family; Visit Provider Nurse Practitioner Family
DX: R92.2 Inconclusive mammogram (principal)
CPT/HCPCS: 76642

== ENCOUNTER 2022-08-04 09:56 | Outpatient (REF) | payer OTHER, SELFPAY ==
[2022-08-04 10:15] LABS: MANUAL DIFF FLAG NO
[2022-08-04 11:00] LABS: Basophils Percent Auto 0.7 % (0-2); Eosinophils Absolute Auto 0.1 X10*3/uL (0.0-0.4); Eosinophils Percent Auto 2.9 % (0-4); Hematocrit 41.4 % (37.0-47.0); Hemoglobin 13.7 g/dl (12.0-16.0); Imm Gran Abs Auto 0.03 X10*3/uL (0.00-0.03); Imm Gran Pct Auto 0.7 % (0.0-0.4); Lymphocytes Absolute Auto 1.8 X10*3/uL (1.2-4.9); Lymphocytes Percent Auto 39.5 % (20-40); Mean Corpuscular HGB Conc 33.1 g/dl (31.0-35.0); Mean Corpuscular Hemoglobin 29.3 pg (27.0-33.0); Mean Corpuscular Volume 88.7 fL (80.0-98.0); Monocytes Absolute Auto 0.4 X10*3/uL (0.1-1.2); Neutrophils Absolute Auto 2.1 x10*3/uL (2.0-8.3); Neutrophils Percent Auto 47.2 % (45-73); Platelet Count 227 X10*3/uL (160-400); Red Blood Count 4.67 X10*6/uL (4.20-5.50); Red Cell Distribution Width 12.7 % (11.0-16.0); White Blood Count 4.4 X10*3/uL (4.8-10.8)
[2022-08-04 11:29] LABS: Alanine Aminotransferase 28 U/L (0-31); Albumin Level 4.4 g/dL (3.5-5.0); Alkaline Phosphatase 82 U/L (39-117); Anion Gap 15 (12-20); Aspartate Amino Transferase 22 U/L (5-31); Bilirubin Total 0.4 mg/dL (0.0-1.0); Blood Urea Nitrogen 17 mg/dL (9-16); Calcium 9.6 mg/dL (8.4-10.2); Carbon Dioxide 26 mmol/L (22-29); Chloride 108 mmol/L (96-108); Cholesterol 162 mg/dL; Estimated Glomerular Filt Rate > 60; Glucose Random 90 mg/dL (60-115); HDL Cholesterol 57 mg/dL; LDL Cholesterol Calculated 84 mg/dl; Sodium 145 mmol/L (135-145); Total Protein 7.3 g/dL (6.5-8.0); Triglycerides 105 mg/dL
[2022-08-04 11:40] LABS: Appearance Urine Clear; Color Urine Yellow; Glucose Urine UA Negative (Negative); Leukocyte Esterase Urine Negative (Negative); Nitrite Urine Negative (Negative); Specific Gravity - Urine >= 1.030 (1.005-1.025); Urine Blood Negative (Negative); Urine Ketones Negative (Negative); Urine Protein Negative (Neg-Trace)
[2022-08-04 12:04] LABS: Folate 10.8 ng/mL (> or = 4.0); Vitamin B12 304 pg/mL (200-900)
== END 2022-08-04 09:57 | disposition home or self-care (01) ==
LOC: HO.LAB 09:56
PROVIDERS: PCP Nurse Practitioner Family; Visit Provider Nurse Practitioner Family
DX: E53.8 Deficiency of other specified B group vitamins (principal); E78.5 Hyperlipidemia, unspecified
CPT/HCPCS: 36415; 80053; 80061; 81003; 82607; 82746; 84443; 85025

== ENCOUNTER → 2022-08-17 13:31 | Outpatient (BNVA) | payer OTHER, SELFPAY | PROVIDERS: PCP Nurse Practitioner Family; Referring Provider Nurse Practitioner Family; Visit Provider Nurse Practitioner Family | DX: R00.1 Bradycardia, unspecified (principal); R53.1 Weakness; I10 Essential (primary) hypertension | CPT/HCPCS: 93005; 99212 ==

== ENCOUNTER → 2022-09-01 10:44 | Outpatient (REF) | payer OTHER, SELFPAY ==
--- NOTE | 2022-09-01 10:45 | HM_ITS ---
Conclusion: 1. Patient was monitored for total period of 6 days and 19 minutes 2. Baseline was normal sinus rhythm with average heart of 71 beats per minute 3. No significant pauses or bradycardia noted 4. Very rare ectopy noted 5. Patient reported symptoms of fatigue which correlated with sinus rhythm MTDD
== END ==
LOC: HO.CARD 10:44
PROVIDERS: Visit Provider Nurse Practitioner Family
DX: R00.1 Bradycardia, unspecified (principal); R35.1 Nocturia
CPT/HCPCS: 93242

== ENCOUNTER → 2022-09-07 14:15 | Outpatient (BNVA) | payer OTHER, SELFPAY | PROVIDERS: PCP Nurse Practitioner Family; Visit Provider Hospitalist | DX: J45.41 Moderate persistent asthma with (acute) exacerbation (principal); J98.4 Other disorders of lung; G47.33 Obstructive sleep apnea (adult) (pediatric); Z79.899 Other long term (current) drug therapy | CPT/HCPCS: 99212 ==

== ENCOUNTER → 2022-11-21 22:37 | Outpatient (REF) | payer OTHER, SELFPAY | LOC: HO.SL 22:37 | PROVIDERS: PCP Nurse Practitioner Family; Visit Provider Hospitalist | DX: G47.33 Obstructive sleep apnea (adult) (pediatric) (principal); Z86.73 Personal history of transient ischemic attack (TIA), and cerebral infarction without residual deficits | CPT/HCPCS: 95810 ==

== ENCOUNTER → 2022-12-07 15:28 | Outpatient (BNVA) | payer OTHER, SELFPAY | PROVIDERS: PCP Nurse Practitioner Family; Visit Provider Hospitalist | DX: G47.33 Obstructive sleep apnea (adult) (pediatric) (principal); J45.41 Moderate persistent asthma with (acute) exacerbation; J98.4 Other disorders of lung | CPT/HCPCS: Q3014 ==

== ENCOUNTER 2022-12-30 14:15 | Outpatient (REF) | payer OTHER, SELFPAY ==
[2022-12-30 16:38] LABS: MANUAL DIFF FLAG NO
[2022-12-30 16:40] LABS: Basophils Percent Auto 0.6 % (0-2); Eosinophils Absolute Auto 0.1 X10*3/uL (0.0-0.4); Eosinophils Percent Auto 1.4 % (0-4); Hematocrit 43.4 % (37.0-47.0); Hemoglobin 14.3 g/dl (12.0-16.0); Imm Gran Abs Auto 0.03 X10*3/uL (0.00-0.03); Imm Gran Pct Auto 0.6 % (0.0-0.4); Lymphocytes Absolute Auto 1.5 X10*3/uL (1.2-4.9); Lymphocytes Percent Auto 29.4 % (20-40); Mean Corpuscular HGB Conc 32.9 g/dl (31.0-35.0); Mean Platelet Volume 9.3 fL (9.4-12.3); Monocytes Absolute Auto 0.5 X10*3/uL (0.1-1.2); Monocytes Percent Auto 9.1 % (2-11); Neutrophils Absolute Auto 3.1 x10*3/uL (2.0-8.3); Neutrophils Percent Auto 58.9 % (45-73); Platelet Count 270 X10*3/uL (160-400); Red Blood Count 4.93 X10*6/uL (4.20-5.50); Red Cell Distribution Width 13.1 % (11.0-16.0); White Blood Count 5.2 X10*3/uL (4.8-10.8)
[2022-12-30 16:53] LABS: Appearance Urine Cloudy; Color Urine Yellow; Glucose Urine UA Negative (Negative); Leukocyte Esterase Urine Trace (Negative); Nitrite Urine Negative (Negative); PH 5.5 (5.0-9.0); Specific Gravity - Urine 1.025 (1.005-1.025); UMIC TRIGGER UA YES; Urine Blood Negative (Negative); Urine Ketones Negative (Negative); Urine Protein Negative (Neg-Trace)
[2022-12-30 16:59] LABS: Alanine Aminotransferase 19 U/L (0-31); Albumin Level 4.4 g/dL (3.5-5.0); Alkaline Phosphatase 87 U/L (39-117); Anion Gap 14 (12-20); Aspartate Amino Transferase 18 U/L (5-31); Bilirubin Total 0.5 mg/dL (0.0-1.0); Blood Urea Nitrogen 16 mg/dL (9-16); Calcium 9.8 mg/dL (8.4-10.2); Carbon Dioxide 28 mmol/L (22-29); Chloride 107 mmol/L (96-108); Estimated Glomerular Filt Rate > 60; Glucose Random 111 mg/dL (60-115); Potassium 4.4 mmol/L (3.3-5.1); Sodium 145 mmol/L (135-145); Total Protein 7.3 g/dL (6.5-8.0)
[2022-12-30 17:07] LABS: B Type Natriuretic Peptide < 10 pg/mL (<100)
[2022-12-30 17:07] LABS: Bacteria Urine 4+ (None Seen); Hyaline Casts Urine 0-2 /LPF (0-2); RBC Urine 0-2 /HPF (0-2); WBC Urine 0-5 /HPF (0-5)
== END 2022-12-30 14:16 | disposition home or self-care (01) ==
LOC: HO.HMGCLDS 14:15
PROVIDERS: PCP Nurse Practitioner Family; Visit Provider Nurse Practitioner Family
DX: R34 Anuria and oliguria (principal)
CPT/HCPCS: 36415; 80053; 81001; 83880; 85025; 87086

== ENCOUNTER 2023-05-09 13:45 | Outpatient (AMB) | payer OTHER, SELFPAY ==
[2023-05-09 14:09] VITALS: PULSE 70; O2SAT 97; BMI 40.1
--- NOTE | 2023-05-09 14:09 | A.OFFVIS_ITS ---
Intake Vital Signs 05/09/23 14:09 Height 4 ft 11 in Weight 198 lb 6.656 oz BMI 40.1 Pulse 70 Pulse Source Pulse Oximeter Pulse Oximetry (%) 97 Oxygen Delivery Method Room Air Intake Visit Reasons: Obstructive sleep apnea follow-up Elevator Constructor Helper Required: No Allergies aspirin Allergy (Severe, Verified 05/09/23 14:10) Swollen penicillamine Allergy (Severe, Verified 05/09/23 14:10) Rash and Hives povidone-iodine [Betadine] Allergy (Severe, Verified 05/09/23 14:10) Rash and Hives primidone Allergy (Severe, Verified 05/09/23 14:10) anger soap [Betadine] Allergy (Severe, Verified 05/09/23 14:10) Rash and Hives Peant Butter Allergy (Severe, Uncoded 05/09/23 14:10) Rash and Hives Seafood Allergy (Severe, Uncoded 05/09/23 14:10) Rash beta blockers Adverse Reaction (Intermediate, Uncoded 05/09/23 14:10) Unknown HPI HPI Comments History of Present Illness Details The patient is a 57-year-old woman with a known history of asthma COPD overlap syndrome in addition to obstructive sleep apnea. She recently moved from [place] back in September of this year. Since then she has been complaining of daytime drowsiness. Her [place] score is elevated 14/24. She did have a sleep study back in 2013 which she was noted to have an AHI around 34. She was placed on CPAP in the CPAP therapy has been affecting beneficial at the time. However, he has noted that her machine was very mold the and in compatible with use so therefore she could not use any longer. At this point the patient is symptomatic she has an underlying history of sleep apnea in needs to undergo a repeat sleep study in order to start CPAP therapy as soon as possible. She also has had respiratory symptoms for most of her life. She had pulmonary function studies demonstrating significant small airways disease. She has been on Symbicort 80 or 4.5 2 puffs twice a day. Although she still waking up with coughing wheezing. We did talk about her use of lisinopril can also worsen the her cough but she has been taking this for many years. We talked about optimizing her respiratory therapy as she continues to have wheezing. I did teacher how to use a spacer as well that she can use with along with her Symbicort. 12/07/2022 the patient has a telehealth visit today. The patient overall is doing well from a respiratory status. Has been using the Symbicort regularly with good effect. As far as her left-sided weakness appears to be stable. She did undergo a repeat sleep study in view of her ongoing daytime drowsiness in the fact that her initial sleep study was poor without any REM sleep. 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 Otherwise she has [id number] sleep apnea. The patient is significantly symptomatic in does have a history of cerebrovascular disease therefore be important to start her on PAP therapy. She had been on PAP therapy in the past before moving to the [facility]. Therefore, she is acquainted with the equipment and she is looking for to starting the therapy that was helping her in the past. 05/09/2023 the patient is here for pulmonary follow-up visit. The patient overall is doing about the same. Although she is complaining of significant headaches and sinus pressure. the patient has been using her new CPAP. She has a nasal mask. This is likely contributing to the sinus congestion. The patient would benefit from a fullface mask. I did have an F 30 mask available that she tried and she tolerated well. Therefore will go ahead and switch her at this time. The patient also has been using her respiratory therapy with good effect. the patient recently traveled to [place] to see a family member new 1 in the ICU was gravely ill. [facility] Medical History Asthma Asthma-COPD overlap syndrome Chronic restrictive lung disease Conversion disorder MCI (mild cognitive impairment) TRACI (obstructive sleep apnea) Surgical History History of appendectomy History of hernia repair History of hysterectomy Hx of cholecystectomy Hx of colonoscopy Family History Father HTN (hypertension) Stroke Diabetes mellitus Maternal Grandmother Cancer Mother Diabetes mellitus HTN (hypertension) Stroke Social History Housing: Apartment Alcohol intake: never Patient Tobacco Use Status: Never used Tobacco e-Cigarette/Vaping Use: Never Used Second Hand Smoke Exposure: No service: No Current occupational status: disabled Cognitive needs: No Hearing needs: No Vision needs: No Review of Systems Const Denies chills, Reports daytime sleepiness, Reports difficulty sleeping, Reports fatigue, Denies fever(s), Reports headache(s), Reports malaise, Reports snoring, Reports stops breathing during sleep and Reports weakness Eyes Denies blurry vision and Denies diplopia ENT Denies dizziness, Reports headache(s), Denies epistaxis, Reports nasal congestion, Reports nasal discharge, Reports sinus pressure and Reports sore throat Card Denies chest pain, Denies chest pain at rest, Denies chest pain with activity, Denies rapid heart rate, Denies dyspnea and Denies dyspnea on exertion Resp Denies cough, Denies dyspnea, Denies dyspnea on exertion and Reports snoring GI Denies abdominal pain, Denies melena, Denies hematochezia, Denies nausea and Denies vomiting Denies hematuria Neuro Denies dizziness, Reports headache(s), Reports Sensory deficit (Neuro) and Reports weakness Endo Reports fatigue Physical Exam Vital Signs: Last Vital Signs Pulse 70 05/09/23 14:09 Pulse Ox 97 05/09/23 14:09 Oxygen Delivery Method Room Air 05/09/23 14:09 BMI result Body Mass Index 40.1 Const General: alert HEENT Head: Yes normocephalic Face and sinus: Yes sinus tenderness Neck Neck: Yes normal visual inspection, Yes full ROM and Yes no lymphadenopathy Chest Chest palpation & inspection: normal inspection of the chest Resp Auscultation: wheezes and diminished lung sounds Cardio Rate: regular rate Rhythm: regular rhythm Heart sounds: S1 normal heart sound present and S2 normal heart sound present GI Palpation (GI): Soft to palpation and nontender Auscultation: normal bowel sounds Skin General skin exam: rashes and/or lesions noted Neuro Sensory Exam: Sensory deficit (Neuro) Assessment & Plan Assessment & Plan (1) Asthma: Code(s): J45.909 - Unspecified asthma, uncomplicated Qualifiers: Asthma complication type: with acute exacerbation Asthma persistence: persistent Asthma severity: moderate Qualified Code(s): J45.41 - Moderate persistent asthma with (acute) exacerbation (2) Chronic restrictive lung disease: Code(s): J98.4 - Other disorders of lung (3) TRACI (obstructive sleep apnea): Code(s): G47.33 - Obstructive sleep apnea (adult) (pediatric) Plan: No evidence of sleep apnea in the in lab PSG, although, no REM sleep (4) Sinusitis: Code(s): J32.9 - Chronic sinusitis, unspecified Qualifiers: Sinusitis location: unspecified location Chronicity: subacute Qualified Code(s): J01.90 - Acute sinusitis, unspecified Plan Continue Symbicort FRANNIE as needed Fluticasone nasal spray continue APAP adjusted 6-10 change CPAP mask to F30, start doxycycline F/U 4-6 months, should bring her cpap Medications: New doxycycline monohydrate 100 mg PO BID 14 days 28 tabs 0RF Changed From albuterol sulfate 90 mcg/actuation 2 puffs PO Q6H PRN 8.5 grams 6RF for wheezing To albuterol sulfate 90 mcg/actuation 2 puffs inhalation Q6H PRN 8.5 grams 11RF for wheezing Refilled Symbicort 160-4.5 mcg/actuation (budesonide-formoterol) 2 puffs PO BID 10.2 grams 11RF NS Coding Level of Care Code Est Pt Level 4 (15600) Diagnoses Asthma J45.41 Asthma complication type: with acute exacerbation Asthma persistence: persistent Asthma severity: moderate Chronic restrictive lung disease J98.4 TRACI (obstructive sleep apnea) G47.33 Sinusitis J01.90 Sinusitis location: unspecified location Chronicity: subacute Time Spent (min) 20
== END 2023-05-09 14:32 | disposition home or self-care (01) ==
PROVIDERS: PCP Nurse Practitioner Family; Visit Provider Hospitalist
DX: J45.41 Moderate persistent asthma with (acute) exacerbation (principal); J98.4 Other disorders of lung; G47.33 Obstructive sleep apnea (adult) (pediatric); J01.90 Acute sinusitis, unspecified
CPT/HCPCS: 99214

== ENCOUNTER → 2023-05-09 13:45 | Outpatient (BNVA) | payer OTHER, SELFPAY | PROVIDERS: Visit Provider Hospitalist | DX: J98.4 Other disorders of lung (principal); J45.41 Moderate persistent asthma with (acute) exacerbation; J01.90 Acute sinusitis, unspecified; G47.33 Obstructive sleep apnea (adult) (pediatric); Z99.89 Dependence on other enabling machines and devices | CPT/HCPCS: 99212 ==

== ENCOUNTER 2023-06-30 14:50 | Outpatient (AMB) | payer OTHER, SELFPAY ==
[2023-06-30 15:41] VITALS: BP 122/80; PULSE 98; BMI 39.1
--- NOTE | 2023-06-30 15:41 | MHC.OFFVIS ---
Intake Vital Signs 06/30/23 15:41 Height 4 ft 11 in Weight 193 lb 9.054 oz BMI 39.1 BP 122/80 Blood Pressure Location Lt brachial Position Sitting Pulse 98 Intake Visit Reasons: OVERDUE FOLLOW UP Intake Note: patient is having palpitations Dba Manager Required: No Allergies aspirin Allergy (Severe, Verified 06/30/23 15:43) Swollen penicillamine Allergy (Severe, Verified 06/30/23 15:43) Rash and Hives povidone-iodine [Betadine] Allergy (Severe, Verified 06/30/23 15:43) Rash and Hives primidone Allergy (Severe, Verified 06/30/23 15:43) anger soap [Betadine] Allergy (Severe, Verified 06/30/23 15:43) Rash and Hives Peant Butter Allergy (Severe, Uncoded 05/09/23 14:10) Rash and Hives Seafood Allergy (Severe, Uncoded 05/09/23 14:10) Rash beta blockers Adverse Reaction (Intermediate, Uncoded 05/09/23 14:10) Unknown Medication List - Last Reconciled 06/30/23 by Halle Peters NP-C albuterol sulfate 90 mcg/actuation 2 puffs inhalation Q6H PRN amitriptyline 50 mg PO BEDTIME aripiprazole 15 mg PO DAILY atorvastatin 10 mg PO BEDTIME blood pressure monitor (Blood Pressure Kit) As directed-brachial blood pressure monitor to check blood pressure daily. bupropion HCl 300 mg PO QAM cane As directed CPAP (CPAP Machine/Device) As directed diclofenac potassium 50 mg PO BID PRN epinephrine (EpiPen 2-John) 0.3 mg (0.3 mL) IM Q4H PRN fluticasone propionate 50 mcg/actuation 2 sprays intranasal DAILY 30 days folic acid 1 mg PO DAILY 90 days levothyroxine 25 mcg PO QAM losartan 50 mg PO DAILY montelukast 10 mg PO DAILY 90 days [shower chair As directed] Symbicort 160-4.5 mcg/actuation (budesonide-formoterol) 2 puffs PO BID NS temazepam 15 mg PO BEDTIME PRN thiamine HCl (vitamin B1) 100 mg PO DAILY walker daily use HPI OVERDUE FOLLOW UP HPI Details Marcela is a 58-year-old female with past medical history of hypertension, hyperlipidemia, obesity, obstructive sleep apnea, prior evaluation for chest discomfort without significant findings, admission to [facility] 08/11/2022 with inability to move left side. Testing did not confirm CVA. Neurology concluded complex migraine versus conversion disorder. She does have sinus bradycardia at times. She was previously on metoprolol which was stopped. Today she reports that she has been doing generally well since her last visit 08/17/2022. She is still having difficulty moving her left arm, at the shoulder. Left leg is now working well and she is able to ambulate. She tells me that neurology continues to say this is migraine related. She has no new neurological symptoms. She denies chest discomfort at rest or with activity. She can feel her heart beat fast at times. No shortness of breath, presyncope, syncope, PND, orthopnea or edema. She is mostly sedentary. She tells me that her mouth has been very dry and at time she has some difficulty with swallowing. [facility] Medical History Conversion disorder MCI (mild cognitive impairment) Asthma Chronic restrictive lung disease TRACI (obstructive sleep apnea) Asthma-COPD overlap syndrome Surgical History Hx of colonoscopy History of hernia repair Hx of cholecystectomy History of appendectomy History of hysterectomy Family History Father HTN (hypertension) Stroke Diabetes mellitus Maternal Grandmother Cancer Mother Diabetes mellitus HTN (hypertension) Stroke Social History Housing: Apartment Alcohol intake: never Patient Tobacco Use Status: Never used Tobacco e-Cigarette/Vaping Use: Never Used Second Hand Smoke Exposure: No service: No Current occupational status: disabled Cognitive needs: No Hearing needs: No Vision needs: No Review of Systems Const All systems reviewed & are unremarkable except as noted in HPI and below ENT Denies dizziness Card Denies chest pain, Denies chest pain at rest, Denies chest pain with activity, Reports rapid heart rate, Denies pedal edema, Denies edema, Denies leg edema, Denies lightheadedness, Denies palpitations, Denies dyspnea, Denies dyspnea on exertion and Denies orthopnea Resp Denies cough, Denies dyspnea and Denies dyspnea on exertion GI Denies hematochezia and Denies change in stool character Musc Details: Left arm weakness Denies abnormal gait, Reports limited range of motion, Denies muscle cramps, Denies muscle weakness, Denies numbness, Denies radiating pain into limb, Denies stiffness and Denies tingling Neuro Denies abnormal gait, Denies dizziness, Denies numbness and Denies tingling Endo Denies palpitations Physical Exam Vital Signs: Last Vital Signs Pulse 98 06/30/23 15:41 BP 122/80 06/30/23 15:41 BMI result Body Mass Index 39.1 Const General: cooperative, healthy appearing, comfortable and no acute distress Orientation/consciousness: patient oriented x3 Neck Neck: Yes normal visual inspection Resp Effort & Inspection: normal respiratory effort Auscultation: clear to auscultation bilaterally, no crackles, no rales, no rhonchi and no wheezes Cardio Jugular venous distension: no JVD Rate: regular rate Rhythm: regular rhythm Heart sounds: S1 normal heart sound present, S2 normal heart sound present, no murmurs and no rubs Neuro General: patient oriented x3 Extrem Other: Weakness and limited range of motion left arm General: Yes normal to inspection Psych Appearance: grossly normal Mental Status: mental status grossly normal Office Procedures EKG Details: Today, read by me, normal sinus rhythm, no acute ST or T-wave abnormalities, rate 88, QTC 445 milliseconds [id number], Complete Assessment & Plan Assessment & Plan (1) Bradycardia: Code(s): R00.1 - Bradycardia, unspecified Plan: Episode of symptomatic bradycardia during last [facility] admission, 07/2022. Also had hypotension with blood pressure down to 60/40. Notes indicate that she did take a dose of metoprolol prior to her ER arrival that day as she had an elevated blood pressure reading. She has a history of having bradycardia in the past with metoprolol use. She was evaluated by the manager spa Dr. Carranza, at [facility], notes reviewed. Electrolytes were stable, normal troponin, TSH and magnesium normal. There was no indication for permanent pacemaker placement. Her bradycardia was in the setting Temazipam and metoprolol. It was recommended that she not have any AV ridge blocking agents. It was also recommended that sleep apnea be treated if found to be present. She did have a sleep study on 03/15/2022 which was negative for sleep apnea, she did have moderate snoring. Holter monitor done 09/01/2022 for 6 days showed sinus rhythm with average heart rate 71, no significant pauses or bradycardia, rare ectopy. Today she reports some heart palpitations were heart is beating fast. No presyncope, syncope, falls. An EKG done today shows normal sinus rhythm, heart rate 88. Will recheck Holter monitor to assess for average heart rate, for any AFib, any concerning pauses or bradycardia. Plan to call her with results unless sooner visit as warranted. She continues to be off all rate slowing medications. Cardiology follow-up in 1 year, sooner if needed (2) Essential hypertension: Code(s): I10 - Essential (primary) hypertension Plan: History of hypertension. She had been stable on losartan 50 mg daily. During hospital admission last year she did have a hypotensive bradycardic episode as above. No documented hypotension since then. Continue current meds. (3) Left-sided weakness: Code(s): R53.1 - Weakness Plan: [facility] admission on 08/11/2022 with headache, dizziness, left-sided weakness. She did have a complete workup with a CT scan of the head showing no acute findings, MRI of the head and neck showing no occlusions or stenosis, MRI of the brain showing nonspecific flare hyperintensities. No finding suggestive of CVA. She was evaluated by Neurology which confirms no acute stroke, she is thought to have complex migraine versus conversion disorder. She has followed with Neurology as an outpatient and now felt to have more of a conversion disorder. She does have underlying psychiatric issues. Her mobility has increased over the last year. She has some weakness of the left arm however much improved. She is able to ambulate and use left leg normally now. Orders: Orders ECG 3 day holter monitor Today R00.1 - Bradycardia, unspecified, R00.2 - Palpitations Coding Level of Care Code Est Pt Level 4 (06268) Diagnoses Bradycardia R00.1 Essential hypertension I10 Left-sided weakness R53.1 CPT Codes EKG - CPT: 14793-[id number], Complete ([id number]) Time Spent (min) 28
== END 2023-06-30 16:12 | disposition home or self-care (01) ==
PROVIDERS: PCP Nurse Practitioner Family; Visit Provider Nurse Practitioner Family
DX: R00.1 Bradycardia, unspecified (principal)
CPT/HCPCS: 93010; 99214

== ENCOUNTER → 2023-06-30 14:50 | Outpatient (BNVA) | payer OTHER, SELFPAY | PROVIDERS: PCP Nurse Practitioner Family; Visit Provider Nurse Practitioner Family | DX: R00.1 Bradycardia, unspecified (principal); I10 Essential (primary) hypertension; R53.1 Weakness | CPT/HCPCS: 93005; 99212 ==

== ENCOUNTER 2023-07-04 14:47 | Outpatient (AMB) | payer OTHER, SELFPAY ==
[2023-07-04 15:03] VITALS: BP 128/82; PULSE 109; O2SAT 97; BMI 39.0
--- NOTE | 2023-07-04 15:03 | MHC.PC.OV ---
Vital Signs 07/04/23 15:03 Height 4 ft 11 in Weight 193 lb 2 oz BMI 39.0 BP 128/82 Blood Pressure Location Rt brachial Position Sitting Pulse 109 H Pulse Source Pulse Oximeter Pulse Oximetry (%) 97 Oxygen Delivery Method Room Air Intake Visit Reasons: 6m follow up Allergies aspirin Allergy (Severe, Verified 07/04/23 16:58) Swollen penicillamine Allergy (Severe, Verified 07/04/23 16:58) Rash and Hives povidone-iodine [Betadine] Allergy (Severe, Verified 07/04/23 16:58) Rash and Hives primidone Allergy (Severe, Verified 07/04/23 16:58) anger soap [Betadine] Allergy (Severe, Verified 07/04/23 16:58) Rash and Hives Peant Butter Allergy (Severe, Uncoded 07/04/23 16:58) Rash and Hives Seafood Allergy (Severe, Uncoded 07/04/23 16:58) Anaphylaxis beta blockers Adverse Reaction (Intermediate, Uncoded 07/04/23 16:58) Unknown Medication List - Last Reconciled 07/04/23 by BENNIE ReynaP- albuterol sulfate 90 mcg/actuation 2 puffs inhalation Q6H PRN amitriptyline 50 mg PO BEDTIME aripiprazole 15 mg PO DAILY atorvastatin 10 mg PO BEDTIME blood pressure monitor (Blood Pressure Kit) As directed-brachial blood pressure monitor to check blood pressure daily. bupropion HCl 300 mg PO QAM cane As directed CPAP (CPAP Machine/Device) As directed diclofenac potassium 50 mg PO BID PRN epinephrine (EpiPen 2-John) 0.3 mg (0.3 mL) IM Q4H PRN fluticasone propionate 50 mcg/actuation 2 sprays intranasal DAILY 30 days folic acid 1 mg PO DAILY 90 days hydroxyzine HCl 25 mg PO BID PRN levothyroxine 25 mcg PO QAM losartan 50 mg PO DAILY montelukast 10 mg PO DAILY 90 days [shower chair As directed] Symbicort 160-4.5 mcg/actuation (budesonide-formoterol) 2 puffs PO BID NS thiamine HCl (vitamin B1) 100 mg PO DAILY walker daily use Tobacco use date assessed: 07/04/23 Dental Screening Dental Screen Date: 07/04/23 Did you have a dental visit in the last 12 months?: Yes Did you have a dental problem in the last 6 months where you did not have access to dental care?: No Was dental information given to patient?: Patient has dentist HPI 6m follow up HPI Details Pt c/o dysphagia (only solids). She does report dry mouth due to medications. Will order barium swallow and refer to GI. Pt also c/o left shoulder pain. Will order XR. Pt has a hx of B12 deficiency, will order labs. Denies fever, chills, and dizziness. PFSH Medical History Conversion disorder MCI (mild cognitive impairment) Asthma Chronic restrictive lung disease TRACI (obstructive sleep apnea) Asthma-COPD overlap syndrome Surgical History Hx of colonoscopy History of hernia repair Hx of cholecystectomy History of appendectomy History of hysterectomy Family History Father HTN (hypertension) Stroke Diabetes mellitus Maternal Grandmother Cancer Mother Diabetes mellitus HTN (hypertension) Stroke Social History Housing: Apartment Alcohol intake: never Patient Tobacco Use Status: Never used Tobacco e-Cigarette/Vaping Use: Never Used Second Hand Smoke Exposure: No service: No Current occupational status: disabled Cognitive needs: No Hearing needs: No Vision needs: No Questionnaire Thrive Questionnaire Date Thrive assessed: 08/17/22 KIMBERLY-7 AMB Questionnaire KIMBERLY-7 Date KIMBERLY - 7 assessed: 08/17/22 Source: Developed by Drs. Americo Jimenez, Iris Ramirez, Patrick Trevino and colleagues, with an educational prabha from [employer]. Review of Systems Const Reports as per HPI Physical exam (Primary Care) Vital Signs: Last Vital Signs Pulse 109 H 07/04/23 15:03 BP 128/82 07/04/23 15:03 Pulse Ox 97 07/04/23 15:03 Oxygen Delivery Method Room Air 07/04/23 15:03 BMI result Body Mass Index 39.0 Tobacco/Smoking Status: Tobacco use Status Tobacco use date assessed 07/04/23 07/04/23 15:12 Patient Tobacco Use Status Never used Tobacco 07/04/23 15:12 e-Cigarette/Vaping Use Never Used 07/04/23 15:12 Thrive Assessment: Date of Thrive Assessment Date Thrive assessed 08/17/22 07/04/23 15:12 Const General: cooperative Nutritional Appearance: obese Orientation/consciousness: patient oriented x3 Resp Effort & Inspection: normal respiratory effort Auscultation: clear to auscultation bilaterally Cardio Rate: regular rate Rhythm: regular rhythm Heart sounds: S1 normal heart sound present and S2 normal heart sound present Neuro General: patient oriented x3 Extrem Other: left shoulder: + cotto, + jobes, + neers Psych Appearance: grossly normal Mental Status: mental status grossly normal Speech and movement: Normal speech and movement present Affect: normal affect Attitude: cooperative Thought process: Normal thought process present Thought content: Normal thought content present Insight: Good insight present (Psych) Judgement: Good judgement present (Psych) Assessment and Plan Assessment & Plan (1) Dysphagia: Code(s): R13.10 - Dysphagia, unspecified Plan: Barium swallow ordered, referred to GI (2) Palpitations: Code(s): R00.2 - Palpitations Plan: Labs ordered (3) B12 deficiency: Code(s): E53.8 - Deficiency of other specified B group vitamins Plan: Labs ordered (4) Left shoulder pain: Code(s): M25.512 - Pain in left shoulder Plan: XR ordered Plan The patient agreed to the use of a medical library assistant for this encounter. Scribed for SHALINI Rahman by Michaelle Ceja medical library assistant, on 07/04/2023 at 15:20 EST Orders: Orders Comprehensive [place]. Panel Fast Today R00.2 - Palpitations TSH reflex Free T4 Today R00.2 - Palpitations UA CC w/rflx Micro + Cult Today R00.2 - Palpitations XR shoulder LT min 2V Today M25.512 - Pain in left shoulder FL barium swallow modified Today R13.10 - Dysphagia, unspecified Complete Blood Count Auto Diff Today R00.2 - Palpitations Lipid Panel Today R00.2 - Palpitations Vitamin B12 and Folate Today E53.8 - Deficiency of other specified B group vitamins Referrals Gastroenterology Referral R13.10 - Dysphagia, unspecified Medications: Refilled epinephrine (EpiPen 2-John) 0.3 mg (0.3 mL) IM Q4H PRN 2 ea 1RF anaphylaxis Coding Level of Care Code Est Pt Level 3 (97565) Diagnoses Dysphagia R13.10 Palpitations R00.2 B12 deficiency E53.8 Left shoulder pain M25.512
== END 2023-07-04 15:38 | disposition home or self-care (01) ==
PROVIDERS: Visit Provider Nurse Practitioner Family
DX: R13.10 Dysphagia, unspecified (principal); R00.2 Palpitations; E53.8 Deficiency of other specified B group vitamins; M25.512 Pain in left shoulder
CPT/HCPCS: 99213

== ENCOUNTER 2023-07-04 15:34 | Outpatient (REF) | payer OTHER, SELFPAY ==
--- NOTE | ~2023-07-04 | XR_ITS ---
EXAMINATION: XR SHOULDER, LEFT CLINICAL INFORMATION: Pain. COMPARISON: None available. TECHNIQUE: AP neutral, Grashey and scapula Y views of the left shoulder are submitted. FINDINGS: Bony alignment and mineralization are normal. The glenohumeral joint is intact. There is mild to moderate osteoarthritic change of the glenohumeral joint. The acromioclavicular and coracoclavicular intervals are normal. There is cortical irregularity of the greater tuberosity of the proximal left humerus. No soft tissue calcification or foreign body is seen. There is no left pneumothorax. XR/XR shoulder LT min 2V IMPRESSION: 1. There is mild to moderate osteoarthritic change of the left glenohumeral joint. 2. There is cortical irregularity of the greater tuberosity of the proximal left humerus, which can be associated with rotator cuff impingement. No ana maria calcific tendinitis is noted.
== END 2023-07-04 15:35 | disposition home or self-care (01) ==
LOC: HO.HMGCX 15:34
PROVIDERS: PCP Nurse Practitioner Family; Visit Provider Nurse Practitioner Family
DX: M25.512 Pain in left shoulder (principal)
CPT/HCPCS: 73030

== ENCOUNTER → 2023-07-08 12:20 | Outpatient (REF) | payer OTHER, SELFPAY ==
--- NOTE | 2023-07-08 12:29 | HM_ITS ---
* Total monitoring time 3 days. * Underlying rhythm is sinus. Average ventricular rate 75/Min. Range 46 to 133/Min. * Very rare supraventricular and ventricular ectopy. * No sustained arrhythmias. * No significant pauses or AV blocks. * Tachycardia in patient diary correlates with sinus rhythm. MTDD
[2023-07-08 12:40] LABS: MANUAL DIFF FLAG NO
[2023-07-08 13:46] LABS: Basophils Percent Auto 0.7 % (0-2); Eosinophils Absolute Auto 0.1 X10*3/uL (0.0-0.4); Eosinophils Percent Auto 1.5 % (0-4); Hematocrit 43.5 % (37.0-47.0); Hemoglobin 14.3 g/dl (12.0-16.0); Imm Gran Abs Auto 0.03 X10*3/uL (0.00-0.03); Imm Gran Pct Auto 0.6 % (0.0-0.4); Lymphocytes Absolute Auto 1.7 X10*3/uL (1.2-4.9); Lymphocytes Percent Auto 32.2 % (20-40); Mean Corpuscular HGB Conc 32.9 g/dl (31.0-35.0); Mean Corpuscular Hemoglobin 28.9 pg (27.0-33.0); Mean Corpuscular Volume 88.1 fL (80.0-98.0); Mean Platelet Volume 9.4 fL (9.4-12.3); Monocytes Absolute Auto 0.3 X10*3/uL (0.1-1.2); Monocytes Percent Auto 6.4 % (2-11); Neutrophils Absolute Auto 3.1 x10*3/uL (2.0-8.3); Neutrophils Percent Auto 58.6 % (45-73); Platelet Count 276 X10*3/uL (160-400); Red Blood Count 4.94 X10*6/uL (4.20-5.50); Red Cell Distribution Width 13.3 % (11.0-16.0); White Blood Count 5.3 X10*3/uL (4.8-10.8)
[2023-07-08 13:58] LABS: Appearance Urine Cloudy; Color Urine Yellow; Glucose Urine UA Negative (Negative); Leukocyte Esterase Urine Trace (Negative); Nitrite Urine Negative (Negative); PH 5.5 (5.0-9.0); Specific Gravity - Urine 1.025 (1.005-1.025); UMIC TRIGGER UACC YES; Urine Blood Negative (Negative); Urine Ketones Negative (Negative); Urine Protein Negative (Neg-Trace)
[2023-07-08 14:11] LABS: Bacteria Urine 4+ (None Seen); Hyaline Casts Urine 0-2 /LPF (0-2); RBC Urine 0-2 /HPF (0-2); UACC Culture Trigger YES
[2023-07-08 14:58] LABS: Alanine Aminotransferase 18 U/L (0-31); Albumin Level 4.6 g/dL (3.5-5.0); Alkaline Phosphatase 95 U/L (39-117); Anion Gap 13 (12-20); Aspartate Amino Transferase 20 U/L (5-31); Bilirubin Total 0.4 mg/dL (0.0-1.0); Blood Urea Nitrogen 16 mg/dL (9-16); Calcium 9.9 mg/dL (8.4-10.2); Carbon Dioxide 25 mmol/L (22-29); Chloride 109 mmol/L (96-108); Cholesterol 162 mg/dL (<200); Estimated Glomerular Filt Rate > 60; Glucose Fasting 83 mg/dL (60-99); HDL Cholesterol 57 mg/dL (>40); LDL Cholesterol Calculated 88 mg/dL (<100); Sodium 143 mmol/L (135-145); TSH reflex Free T4 1.12 uIU/mL (0.32-4.0); Triglycerides 89 mg/dL (<150)
[2023-07-08 15:02] LABS: Folate 15.7 ng/mL (> or = 4.0); Vitamin B12 1131 pg/mL (200-900)
== END ==
LOC: HO.CARD 12:20
PROVIDERS: Absent Provider Nurse Practitioner Family; PCP Nurse Practitioner Family; Visit Provider Nurse Practitioner Family
DX: R00.1 Bradycardia, unspecified (principal); R00.2 Palpitations; E53.8 Deficiency of other specified B group vitamins; R82.90 Unspecified abnormal findings in urine; E78.5 Hyperlipidemia, unspecified; E66.9 Obesity, unspecified
CPT/HCPCS: 36415; 80053; 80061; 81001; 82607; 82746; 84443; 85025; 87086; 93242

== ENCOUNTER → 2023-07-08 12:29 | Outpatient (BNV) | payer OTHER, SELFPAY | PROVIDERS: Absent Provider Nurse Practitioner Family; PCP Nurse Practitioner Family; Visit Provider Internal Medicine | DX: I47.10 Supraventricular tachycardia, unspecified (principal) | CPT/HCPCS: 93244 ==

== ENCOUNTER 2023-07-25 14:48 | Outpatient (REF) | payer OTHER, SELFPAY ==
--- NOTE | ~2023-07-25 | MM_ITS ---
EXAMINATION: MM SCREENING DIGITAL BREAST TOMOSYNTHESIS, BILATERAL CLINICAL INFORMATION: Screening. Asymptomatic. COMPARISON: Mammography: This study is compared with prior exams dating back to 2019. TECHNIQUE: Digital breast tomosynthesis is performed in both the craniocaudal and mediolateral oblique views along with computer-aided detection (CAD). Synthesized 2D images are generated from the tomosynthesis. FINDINGS: There are scattered areas of fibroglandular density (ACR BI-RADS breast composition Category b). In the lateral aspect of the left breast, in the CC projection only, there are grouped punctate calcifications for which magnification imaging is advised. Magnification imaging should occur in the CC projection and whole breast magnification should occur in the lateral projection. In the right breast, there are no are no significant masses, abnormal calcifications, or other abnormalities. MM/MM tomosynthesis screening BI IMPRESSION: No mammographic evidence of malignancy. ASSESSMENT: BI-RADS BI-RADS 0 - Incomplete: Needs additional Imaging. RECOMMENDATION: Additional views of the left breast Radiology department staff will contact the patient for additional imaging. Additional Imaging required This examination should not preclude the clinical evaluation of a suspicious palpable abnormality. This patient's information was entered into a reminder system with a target due date for their next mammogram.
== END 2023-07-25 14:49 | disposition home or self-care (01) ==
LOC: HO.MAMMO 14:48
PROVIDERS: PCP Nurse Practitioner Family; Visit Provider Nurse Practitioner Family
DX: Z12.31 Encounter for screening mammogram for malignant neoplasm of breast (principal)
CPT/HCPCS: 77063; 77067

== ENCOUNTER → 2023-07-25 15:30 | Outpatient (BNV) | payer OTHER, SELFPAY | PROVIDERS: PCP Nurse Practitioner Family; Visit Provider Radiology Diagnostic Radiology | DX: Z12.31 Encounter for screening mammogram for malignant neoplasm of breast (principal) | CPT/HCPCS: 77063; 77067 ==

== ENCOUNTER 2023-08-12 10:42 | Outpatient (REF) | payer OTHER, SELFPAY ==
--- NOTE | ~2023-08-12 | FL_ITS ---
EXAMINATION: Modified Barium Swallows CLINICAL INFORMATION: Dysphagia COMPARISON: None TECHNIQUE: Modified barium swallow was performed under lateral fluoroscopy with patient in standing position. Different consistency of barium was administered by the speech therapist. FINDINGS: Following oral administration of multiple consistencies of barium, there is laryngeal penetration or aspiration noted. FLUOROSCOPY TIME: 40 seconds Number of Spot Images: 14 DOSE AREA PRODUCT: 301 uGy-m2 (microgray-meter squared) FL/FL barium swallow modified IMPRESSION: No laryngeal penetration or aspiration noted Refer to the speech therapy report for further clarification This procedure was performed by Amilcar Resendiz PA-C, and supervised by Dr. Allen
--- NOTE | 2023-08-12 13:10 | MHC.SL.IMP ---
Date of Plan of Treatment: 08/12/23 Onset of Symptoms/Illness: 07/04/23 Date Treatment Started: 08/12/23 Admitting Diagnosis: Dysphagia, unspecified Primary Speech & Language Diagnosis: R13.10 Dysphagia Secondary Speech & Language Diagnosis: Reason for Today's Visit: [id number] Modified Barium Swallow Study Comments: Pre-evaluation Dietary Consistencies: Regular Pre-evaluation Liquid Consistency: Thin Pre-evaluation Medication Administration: Whole with Liquid Medical History: Conversion disorder MCI (mild cognitive impairment) Asthma Chronic restrictive lung disease TRACI (obstructive sleep apnea) Asthma-COPD overlap syndrome Oral Motor Exam Facial Symmetry: Symmetrical Facial Movement: Oral-Facial Facial Miscellaneous Observations: Mouth Occlusion: Normal Oral-Facial Teeth Characteristics: Intact/Normal Oral-Facial Teeth Miscellaneous Observation: Oral-Facial Lip Pucker Description: Normal Oral-Facial Smile (Lips) Description: Normal Oral-Facial Puff Cheeks Description: Normal Oral-Facial Lip Miscellaneous Comment: Tongue Size: Normal Tongue Frenum Length: Normal Oral Expression Ability: Understands Concepts Is patient able to manage secretions?: Yes Is patient able to produce volitional cough?: Yes Food and Liquid Trials: Oral Impairment: Lip Closure: 1=Interlabial escape; no progression to anterior tip Oral Impairment: Tongue Control During Bolus Hold: 0=Cohesive bolus between tongue to palatal seal Oral Impairment: Bolus Preparation/Mastication: 0=Timely and efficient chewing and mashing Oral Impairment: Bolus Transport/Lingual Motion: 0=Brisk tongue motion Oral Impairment: Oral Residue: 1=Trace residue lining oral structures Oral Impairment:Initiation of Pharyngeal Swallow: 1=Bolus head in valleculae Pharyngeal Impairment: Soft Palate Elevation: 0=No bolus between soft palate (SP)/pharyngeal wall (PW) Pharyngeal Impairment: Laryngeal Elevation: 0=Complete superior movement of thyroid cartilage (see description) Pharyngeal Impairment: Anterior Hyoid Excursion: 0=Complete anterior movement Pharyngeal Impairment: Epiglottic Movement: 0=Complete inversion Pharyngeal Impairment: Laryngeal Vestibular Closure:: 0=Complete: no air/contrast in laryngeal vestibule Pharyngeal Impairment: Pharyngeal Stripping Wave: 0=Present: complete Pharyngeal Impairment: Pharyngeal Contraction: Did not test Pharyngeal Impairment: Pharyngoesophageal Segment Openin=Partial distention/partial duration: partial obstruction of flow Pharyngeal Impairment: Tongue Base (TB) Retraction: 1=Trace column of contrast/air between TB and posterior PW Pharyngeal Impairment: Pharyngeal Residue: 1=Trace residue within or on pharyngeal structures Pharyngeal Impairment: Esophageal Clearance Upright Position: 0=Complete clearance: esophageal coating Impressions and Recommendations Clinical Observations: Lip closure for intraoral bolus containment resulted in interlabial escape, without progression to the anterior lip. Tongue control during bolus hold maintained a cohesive bolus held between tongue to palate seal. Bolus preparation and mastication resulted in timely and efficient chewing and mashing. Bolus transport/lingual motion was with brisk tongue motion. Oral residue was a trace, lining oral structures. Initiation of the pharyngeal swallow occurred when the bolus head was in the valleculae. Soft palate elevation resulted in no bolus between the soft palate and the pharyngeal wall. Laryngeal elevation demonstrated complete superior movement of the thyroid cartilage with complete approximation of the arytenoids to the epiglottic petiole. Anterior hyoid excursion demonstrated complete anterior movement. Epiglottic movement resulted in complete inversion. Laryngeal vestibular closure was complete, as indicated by no air or contrast within the laryngeal vestibule at the height of the swallow. Pharyngeal stripping wave was present and complete. Pharyngeal contraction could not be determined due to logistical reasons not related to physiologic impairment. Pharyngoesophageal segment opening demonstrated partial distension/partial duration, with partial obstruction of bolus flow. Tongue base retraction allowed a trace column of contrast or air between the retracted tongue base and the posterior pharyngeal wall. Pharyngeal residue was a trace within or on pharyngeal structures. Esophageal clearance in the upright position could not be assessed due to logistical reasons not related to physiologic impairment. Oral Impairment Score: 1 Pharyngeal Impairment Score: 1 (absence of score, component 13) Esophageal Impairment Score: --- (absence of score, component 17) Laryngeal Penetration and Aspiration: Neither penetration nor aspiration was observed in today's study with Cookie, Pudding-thick, Thin. Summary: Pt demonstrated oropharyngeal swallow abilities deemed within functional limits with no risk to airway protection. Pharyngeal residue was mild and passage of the bolus was timely contrary to her reported symptoms. She had Puree Solids, Ground Solids and Advanced Solids in Barium contrast as well as Thin Liquid Barium. With solid trials there was notable retention in the distal esophagus which may warrant further diagnostic imaging via Esophogram or EGD. Given her primary complaint of dryness when she swallows, visual imaging may be preferred. Liquid Intake Recommendation: Thin Liquid Intake Strategies: Unrestricted Dietary Recommendations: Regular Medication Administration: Whole with Liquid Please contact the pharmacy regarding appropriate crushable or liquid drug formulations that are available whenever modified delivery is recommended. Compensatory Strategies Recommended: Sitting Upright (90 deg) Small Bites and Sips Alternate Liquids/Solids Rate of Ingestion Change Oral Check Supervision during eating and or drinking: None Needed Recommended Treatments: Compens. Strategy Educat. Recommendation for Speech Therapy: NA:Typical Evaluation Text Comment: It is important to note MBSS objective studies are snapshots in time and Patient function might vary with factors such as time of day or concomitant medical conditions. For this reason, the final treatment plan for this patient should rest with their medical care team. Additional recommendations should be considered with the totality of the Patient in mind. Thank for the opportunity to participate in the care of this patient. If you have any questions about the content of this report, please contact the [facility] at [facility]. Frequency/Duration: N/a Date Range for Service Requested: N/a Timeline to reassess: PRN Organization Development Consultant Clinician/Clinical Fellow: No Supervisory Statement: N/A Speech Language Pathologist: Tavon Oleary M.A., CCC-HOP WEIGHER
== END 2023-08-12 10:43 | disposition home or self-care (01) ==
LOC: HO.XRAY 10:42
PROVIDERS: PCP Nurse Practitioner Family; Visit Provider Nurse Practitioner Family
DX: R13.10 Dysphagia, unspecified (principal)
CPT/HCPCS: 74230; 92611

== ENCOUNTER → 2023-08-12 10:43 | Outpatient (BNV) | payer OTHER, SELFPAY | PROVIDERS: PCP Nurse Practitioner Family; Visit Provider Radiology Diagnostic Radiology | DX: R13.10 Dysphagia, unspecified (principal) | CPT/HCPCS: 74230 ==

== ENCOUNTER 2023-08-29 08:44 | Outpatient (REF) | payer OTHER, SELFPAY ==
--- NOTE | ~2023-08-29 | MM_ITS ---
EXAMINATION: MM DIAGNOSTIC DIGITAL MAMMOGRAPHY, LEFT CLINICAL INFORMATION: The patient presents for further evaluation of calcifications in the lateral aspect the left breast as noted on screening mammography from 07/25/2023. COMPARISON: Mammography: This study is compared with prior mammograms dating back to 2019. TECHNIQUE: Digital mammography is performed in the following views: Magnification imaging in the CC and lateral projections of the left breast was performed. FINDINGS: There are scattered areas of fibroglandular density (ACR BI-RADS breast composition Category b). There are faint, scattered calcifications in the lateral aspect of the left breast which are probably benign. Short interval six-month follow-up mammography is advised to document lack of significant change. Results are provided to the patient at time of visit by the technologist. MM/MM added views LT IMPRESSION: Probably benign left breast calcifications. Six-month follow-up mammography is advised. ASSESSMENT: BI-RADS BI-RADS 3 - Probably benign finding(s) - 12 month follow-up suggested RECOMMENDATION: 6 Month F/U This patient's information was entered into a reminder system with a target due date for their next mammogram.
== END 2023-08-29 08:45 | disposition home or self-care (01) ==
LOC: HO.MAMMO 08:44
PROVIDERS: PCP Nurse Practitioner Family; Visit Provider Nurse Practitioner Family
DX: R92.1 Mammographic calcification found on diagnostic imaging of breast (principal)
CPT/HCPCS: 77065

== ENCOUNTER → 2023-08-29 09:30 | Outpatient (BNV) | payer OTHER, SELFPAY | PROVIDERS: PCP Nurse Practitioner Family; Visit Provider Radiology Diagnostic Radiology | DX: R92.1 Mammographic calcification found on diagnostic imaging of breast (principal) | CPT/HCPCS: 77065 ==

== ENCOUNTER 2023-09-05 14:43 | Outpatient (AMB) | payer OTHER, SELFPAY ==
[2023-09-05 14:56] VITALS: PULSE 76; O2SAT 98; BMI 37.8
--- NOTE | 2023-09-05 14:56 | A.OFFVIS_ITS ---
Intake Vital Signs 09/05/23 14:56 Height 4 ft 11 in Weight 187 lb BMI 37.8 Pulse 76 Pulse Source Pulse Oximeter Pulse Oximetry (%) 98 Oxygen Delivery Method Room Air Intake Visit Reasons: Obstructive sleep apnea follow-up Continuous Pillowcase Cutter Required: No Allergies aspirin Allergy (Severe, Verified 09/05/23 14:57) Swollen penicillamine Allergy (Severe, Verified 09/05/23 14:57) Rash and Hives povidone-iodine [Betadine] Allergy (Severe, Verified 09/05/23 14:57) Rash and Hives primidone Allergy (Severe, Verified 09/05/23 14:57) anger soap [Betadine] Allergy (Severe, Verified 09/05/23 14:57) Rash and Hives Peant Butter Allergy (Severe, Uncoded 09/05/23 14:57) Rash and Hives Seafood Allergy (Severe, Uncoded 09/05/23 14:57) Anaphylaxis beta blockers Adverse Reaction (Intermediate, Uncoded 09/05/23 14:57) Unknown HPI HPI Comments History of Present Illness Details The patient is a 58-year-old woman with a known history of asthma COPD overlap syndrome in addition to obstructive sleep apnea. She recently moved from [place] back in September of this year. Since then she has been complaining of daytime drowsiness. Her [place] score is elevated 14/24. She did have a sleep study back in 2013 which she was noted to have an AHI around 34. She was placed on CPAP in the CPAP therapy has been affecting beneficial at the time. However, he has noted that her machine was very mold the and in compatible with use so therefore she could not use any longer. At this point the patient is symptomatic she has an underlying history of sleep apnea in needs to undergo a repeat sleep study in order to start CPAP therapy as soon as possible. She also has had respiratory symptoms for most of her life. She had pulmonary function studies demonstrating significant small airways disease. She has been on Symbicort 80 or 4.5 2 puffs twice a day. Although she still waking up with coughing wheezing. We did talk about her use of lisinopril can also worsen the her cough but she has been taking this for many years. We talked about optimizing her respiratory therapy as she continues to have wheezing. I did teacher how to use a spacer as well that she can use with along with her Symbicort. 12/07/2022 the patient has a telehealth v isit today. The patient overall is doing well from a respiratory status. Has been using the Symbicort regularly with good effect. As far as her left-sided weakness appears to be stable. She did undergo a repeat sleep study in view of her ongoing daytime drowsiness in the fact that her initial sleep study was poor without any REM sleep. 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 Otherwise she has [id number] sleep apnea. The patient is significantly symptomatic in does have a history of cerebrovascular disease therefore be important to start her on PAP therapy. She had been on PAP therapy in the past before moving to the [facility]. Therefore, she is acquainted with the equipment and she is looking for to starting the therapy that was helping her in the past. 05/09/2023 the patient is here for pulmonary follow-up visit. The patient overall is doing about the same. Although she is complaining of significant headaches and sinus pressure. the patient has been using her new CPAP. She has a nasal mask. This is likely contributing to the sinus congestion. The patient would benefit from a fullface mask. I did have an F 30 mask available that she tried and she tolerated well. Therefore will go ahead and switch her at this time. The patient also has been using her respiratory therapy with good effect. the patient recently traveled to [place] to see a family member new 1 in the ICU was gravely ill. 09/05/2023 the patient is here for pulmo nary follow-up visit. The patient overall is doing well. She continues uses CPAP every night. She is doing well with a fullface mask. Although she is still snoring. Her sister complained that she was still snoring while using her CPAP. I did download the machine. She is using more than 4 hours a night. Her average pressure is around 9.7 cm and it looks like the maximum pressure is at 10. Therefore likely the machine want to give her additional pressures. Will go ahead and increase her pressures up to 12 cm. I am hopeful that this will improve her snoring. Although her AHI is down to 0.6. As far as her breathing she has been doing well. She does have her inhaler she has not had to use her rescue therapy. She has not had any exacerbations. She continues use home as prescribed. [facility] Medical History Conversion disorder MCI (mild cognitive impairment) Asthma Chronic restrictive lung disease TRACI (obstructive sleep apnea) Asthma-COPD overlap syndrome Surgical History Hx of colonoscopy History of hernia repair Hx of cholecystectomy History of appendectomy History of hysterectomy Family History Father HTN (hypertension) Stroke Diabetes mellitus Maternal Grandmother Cancer Mother Diabetes mellitus HTN (hypertension) Stroke Social History Housing: Apartment Alcohol intake: never Patient Tobacco Use Status: Never used Tobacco e-Cigarette/Vaping Use: Never Used Second Hand Smoke Exposure: No service: No Current occupational status: disabled Cognitive needs: No Hearing needs: No Vision needs: No Review of Systems Const Denies chills, Denies daytime sleepiness, Denies fatigue, Denies fever(s), Denies headache(s) and Reports snoring Eyes Denies blurry vision and Denies diplopia ENT Denies dizziness, Reports dry mouth, Denies headache(s), Denies epistaxis, Reports nasal congestion, Reports nasal discharge, Reports sinus pressure and Reports sore throat Card Denies chest pain, Denies chest pain at rest, Denies chest pain with activity, Denies rapid heart rate, Denies dyspnea and Denies dyspnea on exertion Resp Denies cough, Denies dyspnea, Denies dyspnea on exertion and Reports snoring GI Denies abdominal pain, Denies melena, Denies hematochezia, Denies nausea and Denies vomiting Denies hematuria Neuro Denies dizziness, Denies headache(s) and Reports Sensory deficit (Neuro) Endo Denies fatigue Physical Exam Vital Signs: Last Vital Signs Pulse 76 09/05/23 14:56 Pulse Ox 98 09/05/23 14:56 Oxygen Delivery Method Room Air 09/05/23 14:56 BMI result Body Mass Index 37.8 Const General: alert HEENT Head: Yes normocephalic Face and sinus: Yes sinus tenderness Neck Neck: Yes normal visual inspection, Yes full ROM and Yes no lymphadenopathy Chest Chest palpation & inspection: normal inspection of the chest Resp Auscultation: wheezes and diminished lung sounds Cardio Rate: regular rate Rhythm: regular rhythm Heart sounds: S1 normal heart sound present and S2 normal heart sound present GI Palpation (GI): Soft to palpation and nontender Auscultation: normal bowel sounds Skin General skin exam: rashes and/or lesions noted Neuro Sensory Exam: Sensory deficit (Neuro) Assessment & Plan Assessment & Plan (1) Asthma: Code(s): J45.909 - Unspecified asthma, uncomplicated Qualifiers: Asthma complication type: with acute exacerbation Asthma persistence: persistent Asthma severity: moderate Qualified Code(s): J45.41 - Moderate persistent asthma with (acute) exacerbation (2) Chronic restrictive lung disease: Code(s): J98.4 - Other disorders of lung (3) TRACI (obstructive sleep apnea): Code(s): G47.33 - Obstructive sleep apnea (adult) (pediatric) Plan: No evidence of sleep apnea in the in lab PSG, although, no REM sleep Plan Continue Symbicort FRANNIE as needed Fluticasone nasal spray continue APAP adjusted 6-10 to 6-12 change CPAP mask to F30, need climate tubing F/U 8-12 months Coding Level of Care Code Est Pt Level 4 (73239) Diagnoses Moderate persistent asthma with acute exacerbation J45.41 Asthma complication type: with acute exacerbation Asthma persistence: persistent Asthma severity: moderate Chronic restrictive lung disease J98.4 TRACI (obstructive sleep apnea) G47.33 Time Spent (min) 17
== END 2023-09-05 15:15 | disposition home or self-care (01) ==
PROVIDERS: PCP Nurse Practitioner Family; Visit Provider Hospitalist
DX: J45.41 Moderate persistent asthma with (acute) exacerbation (principal); J98.4 Other disorders of lung; G47.33 Obstructive sleep apnea (adult) (pediatric)
CPT/HCPCS: 99214

== ENCOUNTER → 2023-09-05 14:43 | Outpatient (BNVA) | payer OTHER, SELFPAY | PROVIDERS: PCP Nurse Practitioner Family; Visit Provider Hospitalist | DX: G47.33 Obstructive sleep apnea (adult) (pediatric) (principal); J45.41 Moderate persistent asthma with (acute) exacerbation; J98.4 Other disorders of lung | CPT/HCPCS: 99212 ==

== ENCOUNTER 2023-09-12 07:11 | Outpatient (AMB) | payer OTHER, SELFPAY ==
--- NOTE | 2023-09-12 07:19 | MHC.OFFVIS ---
Intake Vital Signs 09/12/23 07:27 Height 4 ft 11 in Weight 189 lb BMI 38.2 BP 140/70 H Blood Pressure Location Lt brachial Position Sitting Intake Visit Reasons: Dysphagia Intake Note: Patient follow up for dysphagia. Patient cc: dysphagia, nauseas, acid reflex and she also complain having bad breath. Denies any other GI issues. Conditioner Tumbler Operator Required: Yes Conditioner Tumbler Operator Name: Andreina [id number] Patel [facility] [place] Accompanied by: Self / Same As Patient Allergies aspirin Allergy (Severe, Verified 09/12/23 07:22) Swollen penicillamine Allergy (Severe, Verified 09/12/23 07:22) Rash and Hives povidone-iodine [Betadine] Allergy (Severe, Verified 09/12/23 07:22) Rash and Hives primidone Allergy (Severe, Verified 09/12/23 07:22) anger soap [Betadine] Allergy (Severe, Verified 09/12/23 07:22) Rash and Hives Peant Butter Allergy (Severe, Uncoded 09/05/23 14:57) Rash and Hives Seafood Allergy (Severe, Uncoded 09/05/23 14:57) Anaphylaxis beta blockers Adverse Reaction (Intermediate, Uncoded 09/05/23 14:57) Unknown Medication List - Last Reconciled 09/12/23 by Geovany Ulloa MD albuterol sulfate 90 mcg/actuation 2 puffs inhalation Q6H PRN amitriptyline 50 mg PO BEDTIME aripiprazole 15 mg PO DAILY atorvastatin 10 mg PO BEDTIME blood pressure monitor (Blood Pressure Kit) As directed-brachial blood pressure monitor to check blood pressure daily. bupropion HCl 300 mg PO QAM cane As directed CPAP (CPAP Machine/Device) As directed diclofenac potassium 50 mg PO BID PRN epinephrine (EpiPen 2-John) 0.3 mg (0.3 mL) IM Q4H PRN fluticasone propionate 50 mcg/actuation 2 sprays intranasal DAILY 30 days folic acid 1 mg PO DAILY 90 days hydroxyzine HCl 25 mg PO BID PRN levothyroxine 25 mcg PO QAM losartan 50 mg PO DAILY montelukast 10 mg PO DAILY 90 days [shower chair As directed] Symbicort 160-4.5 mcg/actuation (budesonide-formoterol) 2 puffs PO BID NS thiamine HCl (vitamin B1) 100 mg PO DAILY walker daily use HPI Dysphagia HPI Details GI clinic visit for this 58-year-old female for evaluation of dysphagia. Patient returns after hiatus of 2 years (last seen in Sep, 2021 ? [facility] RE[facility] 09/29/21 COLONOSCOPY SHOWED No polyps were detected. Moderate diverticulosis seen in the sigmoid colon Moderate hemorrhoids on retroflexed exam. Plan: Patient has an appointment on 10/15/21 in the GI Clinic with? ? Geovany Ulloa M.D. Repeat Colonoscopy in 5 years due to family hx of colon polyps (Mom in her 50's).. ?TODAY'S VISIT: ?Telephone delivery engineer, Andreina #? [id number] [facility] [place] revenue field auditor, Laurie Patient cc: dysphagia, nauseas, acid reflex and she also complain having bad breath. Denies any other GI issues. Pt complains of dysphagia to solid food for the past two months Dysphagia is associated with hard foods like chicken. She had three episodes of food impaction and felt she was going to pass out. She had to regurgitate the food Mouth gets dry Pt also complains of intermittent heartburn and bad breath and takes TUMS prn. PAST VISITS: Colonoscopy results reviewed with the patient. She notes heartburn associated with intake of spicy foods Denies abd pain, and afraid to eat certain foods associated with choking She admits to wt loss of 5 lbs. Denies recent change in bowel habits, constipation, diarrhea,? black stools or rectal bleeding. ? Patient denies major cardiac? or pulmonary problems, ?Pt has asthma and admits to loud snoring and sleep apnea -? uses a CPAP machine. ?Denies problems with? anesthesia in the past. ?Denies being on chronic? anticoagulation. ?Patient denies known family history of colon cancer? or other GI malignancies. ?Mom had colon polyps in her 50's. ?GM may have? had gastric cancer. ENDOSCOPIC STUDIES:?Colonoscopy in [place] 5 yrs ago - negative per patient [facility] Medical History Conversion disorder MCI (mild cognitive impairment) Asthma Chronic restrictive lung disease TRACI (obstructive sleep apnea) Asthma-COPD overlap syndrome Surgical History Hx of colonoscopy History of hernia repair Hx of cholecystectomy History of appendectomy History of hysterectomy Family History Father HTN (hypertension) Stroke Diabetes mellitus Maternal Grandmother Cancer Mother Diabetes mellitus HTN (hypertension) Stroke Social History Housing: Apartment Alcohol intake: never Patient Tobacco Use Status: Never used Tobacco e-Cigarette/Vaping Use: Never Used Second Hand Smoke Exposure: No service: No Current occupational status: disabled Cognitive needs: No Hearing needs: No Vision needs: No Review of Systems Const All systems reviewed & are unremarkable except as noted in HPI and below Physical Exam Vital Signs: Last Vital Signs BP 140/70 H 09/12/23 07:27 BMI result Body Mass Index 38.2 Const General: healthy appearing and no acute distress Nutritional Appearance: obese Orientation/consciousness: patient oriented x3 Limitations: language barrier HEENT Head: Yes normal to inspection Ears: hearing grossly normal bilaterally Eyes Sclerae: sclerae normal Pupils: Equal, round and reactive pupils present Neck Neck: Yes normal visual inspection Chest Chest palpation & inspection: normal inspection of the chest Resp Effort & Inspection: normal respiratory effort Auscultation: clear to auscultation bilaterally Cardio Palpation: normal PMI Rate: regular rate Rhythm: regular rhythm Heart sounds: S1 normal heart sound present, S2 normal heart sound present and no murmurs GI Palpation (GI): Soft to palpation, nontender and No hepatosplenomegaly present Auscultation: normal bowel sounds Rectal Exam - Female: deferred Skin General skin exam: no rashes or lesions noted Neuro General: patient oriented x3, gait normal and moves all extremities Cranial nerves: Yes Equal, round and reactive pupils present Psych Appearance: grossly normal Mental Status: mental status grossly normal Assessment & Plan Assessment & Plan (1) Dysphagia: Code(s): R13.10 - Dysphagia, unspecified (2) Family history of colonic polyps: Code(s): Z83.71 - Family history of colonic polyps (3) Colon cancer screening: Comment: 09/29/21 colonoscopy showed moderate diverticulosis and moderate hemorrhoids. No polyps were detected. Plan: Repeat Colonoscopy in 5 years due to family hx of colon polyps (Mom in her 50's) - due in Sep, 2026. Code(s): Z12.11 - Encounter for screening for malignant neoplasm of colon (4) B12 deficiency: Code(s): E53.8 - Deficiency of other specified B group vitamins (5) GERD (gastroesophageal reflux disease): Code(s): K21.9 - Gastro-esophageal reflux disease without esophagitis Plan 58 YF with Htn, asthma-COPD overlap syndrome, TRACI seen in GI for evaluation of solid-food dysphagia for the past 2 months. Patient was advised further evaluation with an upper endoscopy with possible dilation - will be scheduled in Sep since pt will be in [place] from 09/13 till Oct 01, 2023 Colonoscopy procedure and potential complications including bleeding, perforation, reaction to anesthetic and aspiration were reviewed with the patient with the help of a Japanese revenue field auditor. She was advised to start omeprazole 20 mg daily. FU in 2 months Medications: New omeprazole 20 mg PO DAILY 30 days 30 caps 3RF K21.9 - Gastro-esophageal reflux disease without esophagitis Coding Level of Care Code Est Pt Level 4 (68165) Diagnoses Dysphagia R13.10 Family history of colonic polyps Z83.71 Colon cancer screening Z12.11 B12 deficiency E53.8 GERD (gastroesophageal reflux disease) K21.9 Time Spent (min) 25
[2023-09-12 07:27] VITALS: BP 140/70; BMI 38.2
== END 2023-09-12 07:58 | disposition home or self-care (01) ==
PROVIDERS: PCP Nurse Practitioner Family; Visit Provider Internal Medicine Gastroenterology
DX: R13.10 Dysphagia, unspecified (principal); Z83.71 Family history of colonic polyps; Z12.11 Encounter for screening for malignant neoplasm of colon; E53.8 Deficiency of other specified B group vitamins; K21.9 Gastro-esophageal reflux disease without esophagitis
CPT/HCPCS: 99214

== ENCOUNTER → 2023-09-12 07:11 | Outpatient (BNVA) | payer OTHER, SELFPAY | PROVIDERS: PCP Nurse Practitioner Family; Visit Provider Internal Medicine Gastroenterology | DX: Z12.11 Encounter for screening for malignant neoplasm of colon (principal); E53.8 Deficiency of other specified B group vitamins; K21.9 Gastro-esophageal reflux disease without esophagitis; R13.10 Dysphagia, unspecified; Z83.719 Family history of colon polyps, unspecified | CPT/HCPCS: 99212 ==

== ENCOUNTER 2023-10-04 15:15 | Outpatient (AMB) | payer OTHER, SELFPAY ==
--- NOTE | 2023-10-04 15:33 | MHC.PC.OV ---
Vital Signs 10/04/23 15:39 Height 4 ft 11 in Weight 185 lb BMI 37.4 BP 118/72 Blood Pressure Location Rt brachial Position Sitting Pulse 94 Pulse Source Pulse Oximeter Pulse Oximetry (%) 97 Oxygen Delivery Method Room Air Intake Visit Reasons: 3 month follow up Intake Note: Patient here to talk about sinus congestion, chest congestion and mentioned she had a fever the other day. states she started feeling this way on 09/28 Allergies aspirin Allergy (Severe, Verified 10/04/23 15:41) Swollen penicillamine Allergy (Severe, Verified 10/04/23 15:41) Rash and Hives povidone-iodine [Betadine] Allergy (Severe, Verified 10/04/23 15:41) Rash and Hives primidone Allergy (Severe, Verified 10/04/23 15:41) anger soap [Betadine] Allergy (Severe, Verified 10/04/23 15:41) Rash and Hives Peant Butter Allergy (Severe, Uncoded 10/04/23 15:41) Rash and Hives Seafood Allergy (Severe, Uncoded 10/04/23 15:41) Anaphylaxis beta blockers Adverse Reaction (Intermediate, Uncoded 10/04/23 15:41) Unknown Medication List - Last Reconciled 10/04/23 by Aquilino Herrera, PERL PROGRAMMER- albuterol sulfate 90 mcg/actuation 2 puffs inhalation Q6H PRN amitriptyline 100 mg PO BEDTIME aripiprazole 15 mg PO DAILY atorvastatin 10 mg PO BEDTIME blood pressure monitor (Blood Pressure Kit) As directed-brachial blood pressure monitor to check blood pressure daily. bupropion HCl 300 mg PO QAM cane As directed CPAP As directed CPAP (CPAP Machine/Device) As directed diclofenac potassium 50 mg PO BID PRN epinephrine (EpiPen 2-John) 0.3 mg (0.3 mL) IM Q4H PRN fluticasone propionate 50 mcg/actuation 2 sprays intranasal DAILY 30 days folic acid 1 mg PO DAILY 90 days hydroxyzine HCl 25 mg PO BID PRN levothyroxine 25 mcg PO QAM losartan 50 mg PO DAILY montelukast 10 mg PO DAILY 90 days omeprazole 20 mg PO DAILY 30 days [shower chair As directed] Symbicort 160-4.5 mcg/actuation (budesonide-formoterol) 2 puffs PO BID NS thiamine HCl (vitamin B1) 100 mg PO DAILY walker daily use Tobacco use date assessed: 10/04/23 Dental Screening Dental Screen Date: 10/04/23 Did you have a dental visit in the last 12 months?: Yes Did you have a dental problem in the last 6 months where you did not have access to dental care?: No Was dental information given to patient?: Patient has dentist HPI 3 month follow up HPI Details Pt c/o nasal and chest congestion since 09/28. She also had a recent subjective fever. Will swab for COVID/flu/RSV. Will send prednisone. Denies current fever, chills, chest pain, and shortness of breath. [facility] Medical History Conversion disorder MCI (mild cognitive impairment) Asthma Chronic restrictive lung disease TRACI (obstructive sleep apnea) Asthma-COPD overlap syndrome Surgical History Hx of colonoscopy History of hernia repair Hx of cholecystectomy History of appendectomy History of hysterectomy Family History Father HTN (hypertension) Stroke Diabetes mellitus Maternal Grandmother Cancer Mother Diabetes mellitus HTN (hypertension) Stroke Social History Housing: Apartment Alcohol intake: never Patient Tobacco Use Status: Never used Tobacco e-Cigarette/Vaping Use: Never Used Second Hand Smoke Exposure: No service: No Current occupational status: disabled Cognitive needs: No Hearing needs: No Vision needs: No Questionnaire PHQ-9 Over the last 2 weeks, how often have you been bothered by any of the following problems? 37477 - PHQ-9 Billing: Patient declined-do not bill Source: Developed by Drs. Americo Jimenez, Iris Ramirez, Patrick Trevino and colleagues, with an educational prabha from [employer]. Thrive Questionnaire Date Thrive assessed: 10/04/23 I am a: Patient What is your living situation today?: I have a steady place to live Within the past 12 months, did the food you bought not last and you didn't have the money to get more?: Sometimes True Within the past 12 months, did you worry whether your food would run out before you got money to buy more?: Sometimes True Do you have trouble paying for medicines?: No Do you have trouble getting transportation to medical appointments?: No Do you have trouble paying your heating and electricity bill?: No Do you have trouble taking care of your child, family member or friend?: No Do you have trouble with day-to-day activities such as bathing, preparing meals, shopping, managing finances, etc.?: Yes Are you currently unemployed and looking for a job?: No Are you interested in more education?: Yes AUDIT C Alcohol Use Questionnaire (AUDIT-C) 1. How often do you have a drink containing alcohol?: Never 3. How often do you have six or more drinks on one occasion?: Never Total Score: 0 Score Reviewed/Action Taken: No KIMBERLY-7 AMB Questionnaire KIMBERLY-7 Date KIMBERLY - 7 assessed: 10/04/23 Feeling nervous, anxious, or on edge: 3 = Nearly every day Not being able to stop or control worryin = Nearly every day Worrying too much about different things: 2 = More than half the days Trouble relaxin = Nearly every day Being so restless that it is hard to sit still: 3 = Nearly every day Becoming easily annoyed or irritable: 3 = Nearly every day Feeling afraid as if something awful might happen: 3 = Nearly every day Total KIMBERLY-7 score (0-4 normal; 5-9 mild; 10-14 moderate; 15-21 severe): 20 Source: Developed by Drs. Americo Jimenez, Iris Ramirez, Patrick Trevino and colleagues, with an educational prabha from [employer]. KIMBERLY-7 Assessment Billing KIMBERLY-7 Assessment Tool: KIMBERLY-7 Assessment 67734 Review of Systems Const Reports as per HPI Physical exam (Primary Care) Vital Signs: Last Vital Signs Pulse 94 10/04/23 15:39 BP 118/72 10/04/23 15:39 Pulse Ox 97 10/04/23 15:39 Oxygen Delivery Method Room Air 10/04/23 15:39 BMI result Body Mass Index 37.4 Tobacco/Smoking Status: Tobacco use Status Tobacco use date assessed 10/04/23 10/04/23 15:45 Patient Tobacco Use Status Never used Tobacco 10/04/23 15:35 e-Cigarette/Vaping Use Never Used 10/04/23 15:35 Thrive Assessment: Date of Thrive Assessment Date Thrive assessed 10/04/23 10/04/23 16:16 Const General: cooperative Nutritional Appearance: obese Orientation/consciousness: patient oriented x3 HENMT Ears: TM's normal bilaterally Neck Neck: Yes no lymphadenopathy Resp Effort & Inspection: normal respiratory effort Auscultation: wheezes throughout Cardio Rate: regular rate Rhythm: regular rhythm Heart sounds: S1 normal heart sound present and S2 normal heart sound present Neuro General: patient oriented x3 Psych Appearance: grossly normal Mental Status: mental status grossly normal Speech and movement: Normal speech and movement present Affect: normal affect Attitude: cooperative Thought process: Normal thought process present Thought content: Normal thought content present Insight: Good insight present (Psych) Judgement: Good judgement present (Psych) Assessment and Plan Assessment & Plan (1) Viral illness: Code(s): B34.9 - Viral infection, unspecified Plan: viral swab completed, prednisone given. Pt may take OTC muccinex Plan The patient agreed to the use of a medical claims processor for this encounter. Scribed for SHALINI Rahman by Michaelle Ceja medical claims processor, on 10/04/2023 at 16:05 EST. Orders: Orders SARS-CoV2/FLU/RSV Today R09.89 - Other specified symptoms and signs involving the circulatory and respiratory systems Medications: New prednisone 50 mg PO DAILY 6 tabs 0RF 6 days Coding Level of Care Code Est Pt Level 3 (82631) Diagnoses Viral illness B34.9 Additional Codes KIMBERLY-7 Assessment Billing - KIMBERLY-7 Assessment Tool: KIMBERLY-7 Assessment 86935 ([id number])
[2023-10-04 15:39] VITALS: BP 118/72; PULSE 94; O2SAT 97; BMI 37.4
== END 2023-10-04 16:50 | disposition home or self-care (01) ==
PROVIDERS: PCP Nurse Practitioner Family; Visit Provider Nurse Practitioner Family
DX: B34.9 Viral infection, unspecified (principal)
CPT/HCPCS: 99213

== ENCOUNTER 2023-10-04 16:08 | Outpatient (REF) | payer OTHER, SELFPAY ==
[2023-10-05 12:46] LABS: Influenza A PCR NEGATIVE (Negative); Influenza B PCR NEGATIVE (Negative); Resp Syncy Virus RNA Qual PCR NEGATIVE (Negative); SARS COV2 PCR INHOUSE POSITIVE (Negative)
== END 2023-10-04 16:09 | disposition home or self-care (01) ==
LOC: HO.LNP 16:08
PROVIDERS: Visit Provider Nurse Practitioner Family
DX: R09.89 Other specified symptoms and signs involving the circulatory and respiratory systems (principal); Z11.52 Encounter for screening for COVID-19; Z20.828 Contact with and (suspected) exposure to other viral communicable diseases
CPT/HCPCS: 0241U

== ENCOUNTER 2023-10-31 14:55 | Outpatient (AMB) | payer OTHER, SELFPAY ==
[2023-10-31 14:57] VITALS: BP 160/100; PULSE 62; TEMP 36.8; O2SAT 98; BMI 38.6
--- NOTE | 2023-10-31 14:57 | AM.OFFWIN_ITS ---
Intake Vital Signs 10/31/23 14:57 Height 4 ft 11 in Weight 86.636 kg BMI 38.6 BP 160/100 H Blood Pressure Location Rt brachial Position Sitting Pulse 62 Pulse Source Pulse Oximeter Temp 98.2 F Temp Source Temporal Artery Scan Pulse Oximetry (%) 98 Oxygen Delivery Method Room Air Intake Visit Reasons: EST/abd pain (lobby) Intake Note: pt is here today for abd pain started 1week ago Patient Tobacco Use Status: Never used Tobacco Allergies aspirin Allergy (Severe, Verified 10/31/23 14:57) Swollen penicillamine Allergy (Severe, Verified 10/31/23 14:57) Rash and Hives povidone-iodine [Betadine] Allergy (Severe, Verified 10/31/23 14:57) Rash and Hives primidone Allergy (Severe, Verified 10/31/23 14:57) anger soap [Betadine] Allergy (Severe, Verified 10/31/23 14:57) Rash and Hives Peant Butter Allergy (Severe, Uncoded 10/04/23 15:41) Rash and Hives Seafood Allergy (Severe, Uncoded 10/04/23 15:41) Anaphylaxis beta blockers Adverse Reaction (Intermediate, Uncoded 10/04/23 15:41) Unknown Do you need a note to return to daycare/school/sports/work: No HPI HPI Comments History of Present Illness Details 58-year-old female presents to the clini c for evaluation of abdominal pain, abdominal pain is diffuse in nature however worse in the epigastric region, worse after eating. Patient tells me this is the worse pain she has had and this is what prompted her to come in to the clinic to be evaluated. She has never had pain like this before. She tells me her gallbladder is clinically absent. She also reports consistent diarrhea over the past week. In tells me she has just not feeling right. Denies blood in diarrhea. Denies fevers, chills, chest pain, shortness of breath, nausea and vomiting. Physical exam moderate discomfort with palpation of abdomen to the upper quadrants including epigastric region. Normoactive bowel sounds. Negative Rovsing, McBurney's point. Concerns for GERD versus gastritis versus diverticulitis versus pancreatitis. Unlikely cholecystitis as it is absent. Unlikely surgical abdomen. No signs of sepsis at this time or disection. Plan patient will go to [facility] and will be going by private vehicle her sister will drive her. [facility] Medical History Conversion disorder MCI (mild cognitive impairment) Asthma Chronic restrictive lung disease TRACI (obstructive sleep apnea) Asthma-COPD overlap syndrome Surgical History Hx of colonoscopy History of hernia repair Hx of cholecystectomy History of appendectomy History of hysterectomy Family History Father HTN (hypertension) Stroke Diabetes mellitus Maternal Grandmother Cancer Mother Diabetes mellitus HTN (hypertension) Stroke Social History Housing: Apartment Alcohol intake: never Patient Tobacco Use Status: Never used Tobacco e-Cigarette/Vaping Use: Never Used Second Hand Smoke Exposure: No service: No Current occupational status: disabled Cognitive needs: No Hearing needs: No Vision needs: No Review of Systems Const All systems reviewed & are unremarkable except as noted in HPI and below Physical Exam Vital Signs: Last Vital Signs Temp 98.2 F 10/31/23 14:57 Pulse 62 10/31/23 14:57 BP 160/100 H 10/31/23 14:57 Pulse Ox 98 10/31/23 14:57 Oxygen Delivery Method Room Air 10/31/23 14:57 BMI result Body Mass Index 38.6 Hypertension likely secondary to pain. Appearance: Alert.? Oriented X3.? No acute distress.? Head: Normocephalic, atraumatic, no step-offs or deformities Eyes: Pupils equal, round and reactive to light.? ENT: Pharynx normal.? Neck: Normal inspection.? Neck supple.? CVS: Normal heart rate and rhythm.? Pulses normal.? Respiratory: No respiratory distress.? Breath sounds normal.? Abdomen: Soft amoderate discomfort with palpation of abdomen to the upper quadrants including epigastric region. Normoactive bowel sounds. Negative Rovsing, McBurney's point. Skin: Skin warm and dry.? Normal skin color.? Normal skin turgor.? Neuro: Oriented X 3.? No motor deficit.? 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 Assessment & Plan Assessment & Plan (1) Abdominal pain: Code(s): R10.9 - Unspecified abdominal pain Plan patient will go to [facility] for eval. Coding Level of Care Code Est Pt Level 3 (98017) Diagnoses Abdominal pain R10.9
== END 2023-10-31 15:48 | disposition home or self-care (01) ==
PROVIDERS: PCP Nurse Practitioner Family; Visit Provider Physician Assistant
DX: R10.9 Unspecified abdominal pain (principal)
CPT/HCPCS: 81003; 99213

== ENCOUNTER 2023-12-30 14:47 | Outpatient (AMB) | payer OTHER, SELFPAY ==
--- NOTE | 2023-12-30 14:57 | A.OFFVIS_ITS ---
Intake Vital Signs 12/30/23 14:58 Height 4 ft 11 in Weight 186 lb BMI 37.6 Pulse 71 Pulse Source Pulse Oximeter Pulse Oximetry (%) 97 Oxygen Delivery Method Room Air Intake Visit Reasons: traci Low Voltage Electrician Required: No Allergies aspirin Allergy (Severe, Verified 12/30/23 14:59) Swollen penicillamine Allergy (Severe, Verified 12/30/23 14:59) Rash and Hives povidone-iodine [Betadine] Allergy (Severe, Verified 12/30/23 14:59) Rash and Hives primidone Allergy (Severe, Verified 12/30/23 14:59) anger soap [Betadine] Allergy (Severe, Verified 12/30/23 14:59) Rash and Hives Peant Butter Allergy (Severe, Uncoded 12/30/23 14:59) Rash and Hives Seafood Allergy (Severe, Uncoded 12/30/23 14:59) Anaphylaxis beta blockers Adverse Reaction (Intermediate, Uncoded 12/30/23 14:59) Unknown HPI HPI Comments History of Present Illness Details The patient is a 58-year-old woman with a known history of asthma COPD overlap syndrome in addition to obstructive sleep apnea. She recently moved from [place] back in September of this year. Since then she has been complaining of daytime drowsiness. Her [place] score is elevated 14/24. She did have a sleep study back in 2013 which she was noted to have an AHI around 34. She was placed on CPAP in the CPAP therapy has been affecting beneficial at the time. However, he has noted that her machine was very mold the and in compatible with use so therefore she could not use any longer. At this point the patient is symptomatic she has an underlying history of sleep apnea in needs to undergo a repeat sleep study in order to start CPAP therapy as soon as possible. She also has had respiratory symptoms for most of her life. She had pulmonary function studies demonstrating significant small airways disease. She has been on Symbicort 80 or 4.5 2 puffs twice a day. Although she still waking up with coughing wheezing. We did talk about her use of lisinopril can also worsen the her cough but she has been taking this for many years. We talked about optimizing her respiratory therapy as she continues to have wheezing. I did teacher how to use a spacer as well that she can use with along with her Symbicort. 05/09/2023 the patient is here for pulmonary follow-up visit. The patient overall is doing about the same. Although she is complaining of significant headaches and sinus pressure. the patient has been using her new CPAP. She has a nasal mask. This is likely contributing to the sinus congestion. The patient would benefit from a fullface mask. I did have an F 30 mask available that she tried and she tolerated well. Therefore will go ahead and switch her at this time. The patient also has been using her respiratory therapy with good effect. the patient recently traveled to [place] to see a family member jessica Baldwin in the ICU was gravely ill. 09/05/2023 the patient is here for pulmo nary follow-up visit. The patient over all is doing well. She continues uses CPAP every night. She is doing well with a fullface mask. Although she is still snoring. Her sister complained that she was still snoring while using her CPAP. I did download the machine. She is using more than 4 hours a night. Her average pressure is around 9.7 cm and it looks like the maximum pressure is at 10. Therefore likely the machine want to give her additional pressures. Will go ahead and increase her pressures up to 12 cm. I am hopeful that this will improve her snoring. Although her AHI is down to 0.6. As far as her breathing she has been doing well. She does have her inhaler she has not had to use her rescue therapy. She has not had any exacerbations. She continues use home as prescribed. 12/30/2023 the patient is here for pulmona ry follow-up visit. Overall the patient has been doing well. She has been using the CPAP every night for more than 4 hours a night. The CPAP therapy has been affecting beneficial. Her AHI is been stable below 5. The patient also continues use respiratory therapy with good effect. Has not had any recent exacerbations. She does not use her rescue inhaler often. Typically this and twice a week. She did have a choking episode back in October. She was taken to [facility]. She had x-rays there. No evidence of any foreign body in the airway. She was able to vomit whenever she had stuck in her esophagus. She is back to her baseline. [facility] Medical History Conversion disorder MCI (mild cognitive impairment) Asthma Chronic restrictive lung disease TRACI (obstructive sleep apnea) Asthma-COPD overlap syndrome Surgical History Hx of colonoscopy History of hernia repair Hx of cholecystectomy History of appendectomy History of hysterectomy Family History Father HTN (hypertension) Stroke Diabetes mellitus Maternal Grandmother Cancer Mother Diabetes mellitus HTN (hypertension) Stroke Social History Housing: Apartment Alcohol intake: never Patient Tobacco Use Status: Never used Tobacco e-Cigarette/Vaping Use: Never Used Second Hand Smoke Exposure: No service: No Current occupational status: disabled Cognitive needs: No Hearing needs: No Vision needs: No Review of Systems Const Denies chills, Denies daytime sleepiness, Denies fatigue, Denies fever(s), Denies headache(s) and Reports snoring Eyes Denies blurry vision and Denies diplopia ENT Denies dizziness, Reports dry mouth, Denies headache(s), Denies epistaxis, Reports nasal congestion, Reports nasal discharge, Reports sinus pressure and Reports sore throat Card Denies chest pain, Denies chest pain at rest, Denies chest pain with activity, Denies rapid heart rate, Denies dyspnea and Denies dyspnea on exertion Resp Denies cough, Denies dyspnea, Denies dyspnea on exertion and Reports snoring GI Denies abdominal pain, Denies melena, Denies hematochezia, Denies nausea and Denies vomiting Denies hematuria Neuro Denies dizziness, Denies headache(s) and Reports Sensory deficit (Neuro) Endo Denies fatigue Physical Exam Vital Signs: Last Vital Signs Pulse 71 12/30/23 14:58 Pulse Ox 97 12/30/23 14:58 Oxygen Delivery Method Room Air 12/30/23 14:58 BMI result Body Mass Index 37.6 Const General: alert HEENT Head: Yes normocephalic Face and sinus: Yes sinus tenderness Neck Neck: Yes normal visual inspection, Yes full ROM and Yes no lymphadenopathy Chest Chest palpation & inspection: normal inspection of the chest Resp Auscultation: wheezes and diminished lung sounds Cardio Rate: regular rate Rhythm: regular rhythm Heart sounds: S1 normal heart sound present and S2 normal heart sound present GI Palpation (GI): Soft to palpation and nontender Auscultation: normal bowel sounds Skin General skin exam: rashes and/or lesions noted Neuro Sensory Exam: Sensory deficit (Neuro) Assessment & Plan Assessment & Plan (1) Asthma: Code(s): J45.909 - Unspecified asthma, uncomplicated Qualifiers: Asthma severity: moderate Asthma persistence: persistent Asthma complication type: with acute exacerbation Qualified Code(s): J45.41 - Moderate persistent asthma with (acute) exacerbation (2) Chronic restrictive lung disease: Code(s): J98.4 - Other disorders of lung (3) TRACI (obstructive sleep apnea): Code(s): G47.33 - Obstructive sleep apnea (adult) (pediatric) Plan Continue Symbicort FRANNIE as needed Fluticasone nasal spray continue APAP adjusted 6-12 CPAP mask to F30, need supplies F/U 8-12 months Coding Level of Care Code Est Pt Level 4 (84332) Diagnoses Moderate persistent asthma with acute exacerbation J45.41 Asthma severity: moderate Asthma persistence: persistent Asthma complication type: with acute exacerbation Chronic restrictive lung disease J98.4 TRACI (obstructive sleep apnea) G47.33 Time Spent (min) 16
[2023-12-30 14:58] VITALS: PULSE 71; O2SAT 97; BMI 37.6
== END 2023-12-30 15:18 | disposition home or self-care (01) ==
PROVIDERS: PCP Nurse Practitioner Family; Visit Provider Hospitalist
DX: J45.41 Moderate persistent asthma with (acute) exacerbation (principal); J98.4 Other disorders of lung; G47.33 Obstructive sleep apnea (adult) (pediatric)
CPT/HCPCS: 99214

== ENCOUNTER → 2023-12-30 14:47 | Outpatient (BNVA) | payer OTHER, SELFPAY | PROVIDERS: PCP Nurse Practitioner Family; Visit Provider Hospitalist | DX: G47.33 Obstructive sleep apnea (adult) (pediatric) (principal); J45.41 Moderate persistent asthma with (acute) exacerbation; J98.4 Other disorders of lung; M35.1 Other overlap syndromes; Z99.89 Dependence on other enabling machines and devices | CPT/HCPCS: 99212 ==

== ENCOUNTER 2024-01-09 12:56 | Outpatient (AMB) | payer OTHER, SELFPAY ==
--- NOTE | 2024-01-09 12:58 | MHC.PC.OV ---
Vital Signs 01/09/24 13:02 Weight 188 lb BP 122/78 Blood Pressure Location Lt brachial Position Sitting Pulse 81 Pulse Source Pulse Oximeter Pulse Oximetry (%) 97 Oxygen Delivery Method Room Air Intake Visit Reasons: 3 month fu Intake Note: Patient here to f/u on HTN. pt needs a refill on epi pen as she recently had to use her last on. Allergies aspirin Allergy (Severe, Verified 01/09/24 15:57) Swollen penicillamine Allergy (Severe, Verified 01/09/24 15:57) Rash and Hives povidone-iodine [Betadine] Allergy (Severe, Verified 01/09/24 15:57) Rash and Hives primidone Allergy (Severe, Verified 01/09/24 15:57) anger soap [Betadine] Allergy (Severe, Verified 01/09/24 15:57) Rash and Hives Peant Butter Allergy (Severe, Uncoded 01/09/24 15:57) Rash and Hives Seafood Allergy (Severe, Uncoded 01/09/24 15:57) Anaphylaxis beta blockers Adverse Reaction (Intermediate, Uncoded 01/09/24 15:57) Unknown Medication List - Last Reconciled 01/09/24 by Aquilino Herrera, MEDIA/INSTRUCTIONAL DESIGNER- albuterol sulfate 90 mcg/actuation 2 puffs inhalation Q6H PRN amitriptyline 100 mg PO BEDTIME aripiprazole 15 mg PO DAILY atorvastatin 10 mg PO BEDTIME blood pressure monitor (Blood Pressure Kit) As directed-brachial blood pressure monitor to check blood pressure daily. bupropion HCl XL 300 mg PO QAM cane As directed CPAP As directed CPAP (CPAP Machine/Device) As directed diclofenac potassium 50 mg PO BID PRN epinephrine (EpiPen 2-John) 0.3 mg (0.3 mL) IM Q4H PRN fluticasone propionate 50 mcg/actuation 2 sprays intranasal DAILY 30 days folic acid 1 mg PO DAILY 90 days hydroxyzine pamoate 25 mg PO BID levothyroxine 25 mcg PO QAM losartan 50 mg PO DAILY montelukast 10 mg PO DAILY 90 days omeprazole 20 mg PO DAILY 30 days [shower chair As directed] Symbicort 160-4.5 mcg/actuation (budesonide-formoterol) 2 puffs PO BID NS thiamine HCl (vitamin B1) 100 mg PO DAILY walker daily use Tobacco use date assessed: 10/04/23 Dental Screening Dental Screen Date: 10/04/23 HPI 3 month fu HPI Details HTN: Blood pressure is stable, managed with losartan 50mg. Will order labs. Denies chest pain, shortness of breath, headache, dizziness, and blurred vision. Pt c/o ongoing left shoulder pain. She has an XR which showed mild to moderate osteoarthritic change of the left glenohumeral joint. Cortical irregularity of the greater tuberosity of the proximal left humerus, which can be associated with rotator cuff impingement. No ana maria calcific tendinitis is noted. Will refer to PT. [facility] Medical History Conversion disorder MCI (mild cognitive impairment) Asthma Chronic restrictive lung disease RTACI (obstructive sleep apnea) Asthma-COPD overlap syndrome Surgical History Hx of colonoscopy History of hernia repair Hx of cholecystectomy History of appendectomy History of hysterectomy Family History Father HTN (hypertension) Stroke Diabetes mellitus Maternal Grandmother Cancer Mother Diabetes mellitus HTN (hypertension) Stroke Social History Housing: Apartment Alcohol intake: never Patient Tobacco Use Status: Never used Tobacco e-Cigarette/Vaping Use: Never Used Second Hand Smoke Exposure: No service: No Current occupational status: disabled Cognitive needs: No Hearing needs: No Vision needs: No Questionnaire Thrive Questionnaire Date Thrive assessed: 10/04/23 KIMBERLY-7 AMB Questionnaire KIMBERLY-7 Date KIMBERLY - 7 assessed: 10/04/23 Source: Developed by Drs. Americo Jimenez, Iris Ramirez, Patrick Trevino and colleagues, with an educational prabha from [employer]. Review of Systems Const Reports as per HPI Physical exam (Primary Care) Vital Signs: Last Vital Signs Pulse 81 01/09/24 13:02 BP 122/78 01/09/24 13:02 Pulse Ox 97 01/09/24 13:02 Oxygen Delivery Method Room Air 01/09/24 13:02 Tobacco/Smoking Status: Tobacco use Status Tobacco use date assessed 10/04/23 01/09/24 12:59 Patient Tobacco Use Status Never used Tobacco 01/09/24 12:59 e-Cigarette/Vaping Use Never Used 01/09/24 12:59 Thrive Assessment: Date of Thrive Assessment Date Thrive assessed 10/04/23 01/09/24 12:59 Const General: cooperative Orientation/consciousness: patient oriented x3 Resp Effort & Inspection: normal respiratory effort Auscultation: clear to auscultation bilaterally Cardio Rate: regular rate Rhythm: regular rhythm Heart sounds: S1 normal heart sound present and S2 normal heart sound present Neuro General: patient oriented x3 Psych Appearance: grossly normal Mental Status: mental status grossly normal Speech and movement: Normal speech and movement present Affect: normal affect Attitude: cooperative Thought process: Normal thought process present Thought content: Normal thought content present Insight: Good insight present (Psych) Judgement: Good judgement present (Psych) Assessment and Plan Assessment & Plan (1) Left shoulder pain: Code(s): M25.512 - Pain in left shoulder Plan: Referred to PT (2) Essential hypertension: Code(s): I10 - Essential (primary) hypertension Plan: Stable, labs ordered Plan The patient agreed to the use of a medical data entry clerk for this encounter. Scribed for SHALINI Rahman by Michaelle Ceja medical data entry clerk, on 01/09/2024 at 13:40 EST. Orders: Orders PT Evaluation and Treatment Today M25.512 - Pain in left shoulder Comprehensive [place]. Panel Fast Today I10 - Essential (primary) hypertension TSH reflex Free T4 Today I10 - Essential (primary) hypertension UA CC w/rflx Micro + Cult Today I10 - Essential (primary) hypertension Complete Blood Count Auto Diff Today I10 - Essential (primary) hypertension Lipid Panel Today I10 - Essential (primary) hypertension Medications: Refilled epinephrine (EpiPen 2-John) 0.3 mg (0.3 mL) IM Q4H PRN 2 ea 1RF anaphylaxis Coding Level of Care Code Est Pt Level 3 (84939) Diagnoses Left shoulder pain M25.512 Essential hypertension I10
[2024-01-09 13:02] VITALS: BP 122/78; PULSE 81; O2SAT 97
== END 2024-01-09 13:56 | disposition home or self-care (01) ==
PROVIDERS: PCP Nurse Practitioner Family; Visit Provider Nurse Practitioner Family
DX: M25.512 Pain in left shoulder (principal); I10 Essential (primary) hypertension
CPT/HCPCS: 99213

== ENCOUNTER 2024-01-13 08:18 | Outpatient (REF) | payer OTHER, SELFPAY ==
[2024-01-13 08:34] LABS: MANUAL DIFF FLAG NO
[2024-01-13 09:14] LABS: Appearance Urine Cloudy; Color Urine Dark Yellow; Glucose Urine UA Negative (Negative); Leukocyte Esterase Urine Trace (Negative); Nitrite Urine Negative (Negative); PH 5.5 (5.0-9.0); Specific Gravity - Urine >= 1.030 (1.005-1.025); UMIC TRIGGER UACC YES; Urine Blood Negative (Negative); Urine Ketones Trace mg/dL (Negative); Urine Protein Trace mg/dL (Neg-Trace)
[2024-01-13 09:19] LABS: Basophils Percent Auto 0.5 % (0-2); Eosinophils Absolute Auto 0.1 X10*3/uL (0.0-0.4); Eosinophils Percent Auto 1.5 % (0-4); Hematocrit 42.9 % (37.0-47.0); Hemoglobin 14.2 g/dl (12.0-16.0); Imm Gran Abs Auto 0.03 X10*3/uL (0.00-0.03); Imm Gran Pct Auto 0.5 % (0.0-0.4); Lymphocytes Absolute Auto 2.3 X10*3/uL (1.2-4.9); Lymphocytes Percent Auto 34.1 % (20-40); Mean Corpuscular HGB Conc 33.1 g/dl (31.0-35.0); Mean Corpuscular Hemoglobin 29.5 pg (27.0-33.0); Mean Corpuscular Volume 89.2 fL (80.0-98.0); Mean Platelet Volume 9.4 fL (9.4-12.3); Monocytes Absolute Auto 0.5 X10*3/uL (0.1-1.2); Monocytes Percent Auto 7.4 % (2-11); Neutrophils Absolute Auto 3.7 x10*3/uL (2.0-8.3); Platelet Count 293 X10*3/uL (160-400); Red Blood Count 4.81 X10*6/uL (4.20-5.50); Red Cell Distribution Width 13.3 % (11.0-16.0); White Blood Count 6.6 X10*3/uL (4.8-10.8)
[2024-01-13 09:19] LABS: Bacteria Urine None Seen (None Seen); RBC Urine 0-2 /HPF (0-2); WBC Urine 0-5 /HPF (0-5)
[2024-01-13 10:17] LABS: Alanine Aminotransferase 21 U/L (0-31); Albumin Level 4.7 g/dL (3.5-5.0); Alkaline Phosphatase 85 U/L (39-117); Anion Gap 13 (12-20); Aspartate Amino Transferase 24 U/L (5-31); Bilirubin Total 0.7 mg/dL (0.0-1.0); Blood Urea Nitrogen 15 mg/dL (9-16); Carbon Dioxide 28 mmol/L (22-29); Chloride 107 mmol/L (96-108); Cholesterol 177 mg/dL (<200); Estimated Glomerular Filt Rate > 60; Glucose Fasting 90 mg/dL (60-99); HDL Cholesterol 56 mg/dL (>40); LDL Cholesterol Calculated 106 mg/dL (<100); Potassium 3.8 mmol/L (3.3-5.1); Sodium 144 mmol/L (135-145); Triglycerides 77 mg/dL (<150)
[2024-01-13 10:22] LABS: TSH reflex Free T4 2.96 uIU/mL (0.32-4.0)
== END 2024-01-13 08:19 | disposition home or self-care (01) ==
LOC: HO.LAB 08:18
PROVIDERS: PCP Nurse Practitioner Family; Visit Provider Nurse Practitioner Family
DX: Z13.89 Encounter for screening for other disorder (principal)
CPT/HCPCS: 36415; 80053; 80061; 81001; 84443; 85025

== ENCOUNTER 2024-01-13 08:41 | Day surgery (SDC) | payer OTHER, SELFPAY ==
--- NOTE | 2024-01-13 09:22 | MHC.SHP ---
Pre-Procedural Eval Section A - 24 Hr Update-Section A only Date of Service: 01/13/24 The patient is an INPATIENT: No The patient has been examined within 24 hours of the surgical procedure. The History & Physical has been completed within 30 days and I have reviewed it.: No Section B - Complete if H&P > 30 days Chief Complaint: GERD, dysphagia Relevant Family History (Specify if Yes): No Relevant Social History: None Present Medications: see Short Stay Collaborative assessment Medical History: Significant History (Conversion disorder MCI (mild cognitive impairment) Asthma Chronic restrictive lung disease TRACI (obstructive sleep apnea) Asthma-COPD overlap syndrome) History of Previous Operations: Relevant previous surgery/procedure and date(s) (Hx of colonoscopy History of hernia repair Hx of cholecystectomy History of appendectomy History of hysterectomy) Allergies: Allergies Allergy/AdvReac Type Severity Reaction Status Date / Time aspirin Allergy Severe Swollen Verified 01/09/24 15:57 penicillamine Allergy Severe Rash and Verified 01/09/24 15:57 Hives povidone-iodine [Betadine] Allergy Severe Rash and Verified 01/09/24 15:57 Hives primidone Allergy Severe anger Verified 01/09/24 15:57 soap [Betadine] Allergy Severe Rash and Verified 01/09/24 15:57 Hives Peant Butter Allergy Severe Rash and Uncoded 01/09/24 15:57 Hives Seafood Allergy Severe Anaphylaxis Uncoded 01/09/24 15:57 beta blockers AdvReac Intermediate Unknown Uncoded 01/09/24 15:57 Review of Systems Sugical H&P ROS: Negative: Constitution, Cardiovascular, Respiratory and Gastrointestinal Exam Surgical H&P Exam: Normal: Heart, Normal: Lungs, Normal: Extremities and Normal: Abdomen Plan Diagnosis/Plan: Unchanged I have reviewed the history and physical and performed a pertinent physical examination on my patient. No changes have occurred unless specified. Time Spent With Patient Time: Total time managing care of this patient today ____ minutes.
[2024-01-13 09:41] VITALS: BP 134/64; PULSE 65; RESP 18; TEMP 36.2; O2SAT 96
--- NOTE | 2024-01-13 10:01 | W.PM.OPN ---
Operative Note Operative Note Date of Service: 01/13/24 Narrative: FLEXIBLE TRANSORAL UPPER GASTROINTESTINAL ENDOSCOPY WITH BIOPSIES AND ESOPHAGEAL BALLOON DILATION Pre-op diagnosis: GERD, Dysphagia Post-op diagnosis: GERD, Gastritis, gastric nodule Endoscopist:? Geovany Ulloa MD Anesthesia:?MAC UPPER ENDOSCOPY Consent: Indications for the procedure and potential complications of bleeding, perforation, reaction to medications and missed diagnosis were discussed with the patient and informed consent was obtained. Instrument: Olympus GIF H 190 mid size upper endoscope Monitoring: Vital signs and clinical assessment, continuous EKG monitoring, Pulse oximetry, Carbon Dioxide monitoring and blood pressure monitoring were done throughout the procedure. Procedure: The patient was placed in the left lateral decubitis position and pre-procedure medications were administered and a bite block was placed. The endoscope was inserted into the mouth and advanced under direct vision to the third part of duodenum. A careful inspection was made as the upper endoscope was withdrawn including a retroflexed examination of the proximal stomach; Findings and interventions are described below. Findings: Larynx: Normal Esophagus: GE junction at 33 cms. Mildly tortuous esophagus with increased tertiary contractions without stricture or ring. Empiric balloon dilation of distal esophagus was performed with a 20 mm (60 F) CRE balloon x 60 seconds Stomach: A 4-5 mm benign appearing nodule in the gastric fundus - biopsied. Mild gastric erythema with a few superficial erosions in the antrum - biopsies were obtained from the antrum. Grade 2 flap valve on retroflexed examination of the cardia. Duodenum: Mild duodenitis in the bulb and normal descending duodenum Intervention: Biopsies as noted above Impression and Post Procedure Diagnosis: Endoscopy Findings: ESOPHAGUS: Dysphagia likely due to esophageal motility disorder Esophageal balloon dilation was performed. STOMACH: Antral gastritis and benign-appearing nodule in the fundus DUODENUM: Mild duodenitis in the bulb Plan: Pt has a FU appointment on 01/26/[address] Ulloa. If dysphagia persists, I will schedule a barium swallow Above findings were reviewed with the patient and relevant handouts were given and the discharge area.
[2024-01-13] MEDS: Lactated Ringers 1,000 ML 50 ML IVCONT (10:22)
[2024-01-13 10:28] VITALS: BMI 37.8
--- NOTE | 2024-01-13 10:35 | HO.ANESPROP2 ---
[facility] Active Problems Active Problems: All Active Problems Viral illness (Acute) GERD (gastroesophageal reflux disease) (Acute) Left shoulder pain (Acute) Dysphagia (Acute) Palpitations (Acute) Sinusitis (Acute) Decreased urine output (Acute) CVA (cerebral vascular accident) (Acute) Left-sided weakness (Acute) Blurred vision, bilateral (Acute) URI (upper respiratory infection) (Acute) Medicare annual wellness visit, initial (Acute) Family history of colonic polyps (Acute) Colon cancer screening (Acute) Essential hypertension (Acute) Precordial chest pain (Acute) Urinary urgency (Acute) Bradycardia (Acute) Irregular heart rate (Acute) B12 deficiency (Acute) Chest discomfort (Acute) Asthma (Acute) Dyslipidemia (Acute) Chronic restrictive lung disease (Acute) Epilepsy (Acute) Epilepsy, unspecified, intractable, with status epilepticus (Acute) Age related osteoporosis (Acute) Essential (primary) hypertension (Acute) TRACI (obstructive sleep apnea) (Acute) Asthma-COPD overlap syndrome (Acute) Past Medical History Medical History Conversion disorder MCI (mild cognitive impairment) Asthma Chronic restrictive lung disease TRACI (obstructive sleep apnea) Asthma-COPD overlap syndrome Family History Family History Father HTN (hypertension) Stroke Diabetes mellitus Maternal Grandmother Cancer Mother Diabetes mellitus HTN (hypertension) Stroke Family history of problems with anesthesia: No Surgical History Surgical History Hx of colonoscopy History of hernia repair Hx of cholecystectomy History of appendectomy History of hysterectomy History of Problems with Anesthesia: No Social History Social History Housing: Apartment Alcohol intake: never Patient Tobacco Use Status: Never used Tobacco e-Cigarette/Vaping Use: Never Used Second Hand Smoke Exposure: No Use of substances other than those prescribed or required for medical reasons: No Are you DNR?: No Advance Directives: No Advance Directives Information Provided: Yes service: No Current occupational status: disabled Cognitive needs: No Hearing needs: No Vision needs: No Meds Allergies Allergy/AdvReac Type Severity Reaction Status Date / Time aspirin Allergy Severe Swollen Verified 01/09/24 15:57 penicillamine Allergy Severe Rash and Verified 01/09/24 15:57 Hives povidone-iodine [Betadine] Allergy Severe Rash and Verified 01/09/24 15:57 Hives primidone Allergy Severe anger Verified 01/09/24 15:57 soap [Betadine] Allergy Severe Rash and Verified 01/09/24 15:57 Hives Peant Butter Allergy Severe Rash and Uncoded 01/09/24 15:57 Hives Seafood Allergy Severe Anaphylaxis Uncoded 01/09/24 15:57 beta blockers AdvReac Intermediate Unknown Uncoded 01/09/24 15:57 Active Medications: Current Medications Lactated Ringer's (Lr) 1,000 mls @ 50 mls/hr IVCONT .Q20H SHALOM Last Admin: 01/13/24 10:22 Dose: 50 mls/hr Home Medications ?Medication ?Instructions ?Recorded ?Confirmed ?Last Taken ?Type aripiprazole 15 mg tablet 15 mg PO DAILY 08/17/22 01/13/24 01/13/24 History bupropion HCl 300 mg 24 hr tablet, 300 mg PO QAM 08/17/22 01/13/24 Unknown History extended release CPAP (CPAP Machine/Device) 05/09/23 01/09/24 Unknown History CPAP 10/04/23 01/09/24 Unknown History amitriptyline 50 mg tablet 100 mg PO BEDTIME 10/04/23 01/13/24 Unknown History hydroxyzine pamoate 25 mg capsule 25 mg PO BID 10/31/23 01/13/24 Unknown History Exam Height,Weight and Vital Signs: Height 4 ft 11 in Weight 85.003 kg Last Vital Signs Temp 97.1 F 01/13/24 09:41 Pulse 65 01/13/24 09:41 Resp 18 01/13/24 09:41 BP 134/64 01/13/24 09:41 Pulse Ox 96 01/13/24 09:41 O2 Del Method Room Air 01/13/24 09:41 Airway Mallampati Class: III TM Dist: >3cm Neck ROM: Full Assessment and Plan Assessment Anesthesia Assessment: Anesthesia Plan Discussed and Chart Reviewed Final Anesthetic Review Family History of Problems with Anesthesia: No History of Problems with Anesthesia: No NPO: Yes ASA Class: III Final Preanesthetic Review: No Changes in Pt Med Stat, Meds/Allgs Chart Reviewed, Consent Obtained/Reviewed and Anes Risks/Benef Reviewed Patient Risk: Intermediate Procedure Risk: Low Anesthetic Plan Anesthetic Plan: TIVA Disposition: Standard PACU
[2024-01-13 11:14] VITALS: BP 89/56; PULSE 76; RESP 16; TEMP 36.1; O2SAT 100
[2024-01-13 11:25] VITALS: BP 131/78; PULSE 72; RESP 16; O2SAT 98
[2024-01-13 11:38] VITALS: BP 121/74; PULSE 63; RESP 16; TEMP 36.1; O2SAT 99
== END 2024-01-13 11:53 | disposition home or self-care (01) ==
PROVIDERS: PCP Nurse Practitioner Family; Visit Provider Internal Medicine Gastroenterology
PROC: (CPT 43249; principal; 2024-01-13 10:40)
DX: K21.9 Gastro-esophageal reflux disease without esophagitis (principal); R13.10 Dysphagia, unspecified; K29.50 Unspecified chronic gastritis without bleeding; K31.9 Disease of stomach and duodenum, unspecified; K29.80 Duodenitis without bleeding; J44.9 Chronic obstructive pulmonary disease, unspecified; J98.4 Other disorders of lung; G47.33 Obstructive sleep apnea (adult) (pediatric); F06.70 Mild neurocognitive disorder due to known physiological condition without behavioral disturbance; F44.9 Dissociative and conversion disorder, unspecified; Z99.89 Dependence on other enabling machines and devices; Z79.899 Other long term (current) drug therapy; Z90.49 Acquired absence of other specified parts of digestive tract; Z88.0 Allergy status to penicillin; Z88.8 Allergy status to other drugs, medicaments and biological substances
CPT/HCPCS: 43249; 43239; 36415; 80053; 80061; 81001; 84443; 85025; 88305; 88313; 88342; C1726; J2704

== ENCOUNTER → 2024-01-13 08:41 | Outpatient (BNV) | payer OTHER, SELFPAY | PROVIDERS: PCP Nurse Practitioner Family; Visit Provider Internal Medicine Gastroenterology | DX: K21.9 Gastro-esophageal reflux disease without esophagitis (principal); K29.80 Duodenitis without bleeding; K31.89 Other diseases of stomach and duodenum; R13.10 Dysphagia, unspecified | CPT/HCPCS: 43239; 43249 ==

== ENCOUNTER 2024-01-26 09:29 | Outpatient (AMB) | payer OTHER, SELFPAY ==
--- NOTE | 2024-01-26 09:46 | MHC.OFFVIS ---
Vital Signs 01/26/24 09:47 Height 4 ft 11 in Weight 184 lb BMI 37.2 BP 139/67 Blood Pressure Location Lt brachial Position Sitting Pulse 90 Intake Visit Reasons: S/P EGD with dilation; Dr Ulloa Intake Note: Patient follow up for EGD with dilation results Sales Office Administrator Required: Yes Sales Office Administrator Name: [facility] Interpeter Accompanied by: Self / Same As Patient Allergies aspirin Allergy (Severe, Verified 01/26/24 09:45) Swollen penicillamine Allergy (Severe, Verified 01/26/24 09:45) Rash and Hives povidone-iodine [Betadine] Allergy (Severe, Verified 01/26/24 09:45) Rash and Hives primidone Allergy (Severe, Verified 01/26/24 09:45) anger soap [Betadine] Allergy (Severe, Verified 01/26/24 09:45) Rash and Hives Peant Butter Allergy (Severe, Uncoded 01/09/24 15:57) Rash and Hives Seafood Allergy (Severe, Uncoded 01/09/24 15:57) Anaphylaxis beta blockers Adverse Reaction (Intermediate, Uncoded 01/09/24 15:57) Unknown Medication List - Last Reconciled 01/26/24 by Geovany Ulloa MD albuterol sulfate 90 mcg/actuation 2 puffs inhalation Q6H PRN amitriptyline 100 mg PO BEDTIME aripiprazole 15 mg PO DAILY atorvastatin 10 mg PO BEDTIME blood pressure monitor (Blood Pressure Kit) As directed-brachial blood pressure monitor to check blood pressure daily. bupropion HCl XL 300 mg PO QAM cane As directed CPAP As directed CPAP (CPAP Machine/Device) As directed diclofenac potassium 50 mg PO BID PRN epinephrine (EpiPen 2-John) 0.3 mg (0.3 mL) IM Q4H PRN fluticasone propionate 50 mcg/actuation 2 sprays intranasal DAILY 30 days folic acid 1 mg PO DAILY 90 days hydroxyzine pamoate 25 mg PO BID levothyroxine 25 mcg PO QAM losartan 50 mg PO DAILY montelukast 10 mg PO DAILY 90 days omeprazole 20 mg PO DAILY 30 days [shower chair As directed] Symbicort 160-4.5 mcg/actuation (budesonide-formoterol) 2 puffs PO BID NS thiamine HCl (vitamin B1) 100 mg PO DAILY walker daily use HPI HPI S/P EGD with dilation; Dr Ulloa: Details: GI clinic visit for this 58-year-old female for evaluation of dysphagia. Patient returns after hiatus of 2 years (last seen in Sep, 2021 ? LABS IN? [facility] :12/20/19 REVIEWED 01/13/24 EGD SHOWED: ESOPHAGUS: Dysphagia likely due to esophageal motility disorder Esophageal balloon dilation was performed. STOMACH: Antral gastritis and benign-appearing nodule in the fundus DUODENUM: Mild duodenitis in the bulb Plan: If dysphagia persists, I will schedule a barium swallow BIOPSIES SHOWED: A. Gastric antrum, biopsy: Gastric antral mucosa with minimal chronic inactive gastritis; negative for H.pylori, intestinal metaplasia and dysplasia. B. Gastric fundus, nodule, biopsy: Gastric fundic mucosa with focal lymphoid aggregate and rare neutrophil, otherwise no specific change; negative for H pylori, intestinal metaplasia and dysplasia (see comment). C. Esophagus, proximal, biopsy: Squamous mucosa with no specific change; no columnar mucosa present 09/29/21 COLONOSCOPY SHOWED No polyps were detected. Moderate diverticulosis seen in the sigmoid colon Moderate hemorrhoids on retroflexed exam. Plan: Patient has an appointment on 10/15/21 in the GI Clinic with? ? Geovany Ulloa M.D. Repeat Colonoscopy in 5 years due to family hx of colon polyps (Mom in her 50's).. ?TODAY'S VISIT: ?[facility] [place] language therapist, Marya Patient cc: dysphagia, nauseas, acid reflex and she also complain having bad breath. Denies any other GI issues. EGD and biopsy results were reviewed with the patient Pt complains of dysphagia to solid food for the past two months Dysphagia is associated with hard foods like chicken. She had three episodes of food impaction and felt she was going to pass out. She had to regurgitate the food Mouth gets dry Pt also complains of intermittent heartburn and bad breath and takes TUMS prn. PAST VISITS: Colonoscopy results reviewed with the patient. She notes heartburn associated with intake of spicy foods Denies abd pain, and afraid to eat certain foods associated with choking She admits to wt loss of 5 lbs. Denies recent change in bowel habits, constipation, diarrhea,? black stools or rectal bleeding. ? Patient denies major cardiac? or pulmonary problems, ?Pt has asthma and admits to loud snoring and sleep apnea -? uses a CPAP machine. ?Denies problems with? anesthesia in the past. ?Denies being on chronic? anticoagulation. ?Patient denies known family history of colon cancer? or other GI malignancies. ?Mom had colon polyps in her 50's. ?GM may have? had gastric cancer. ENDOSCOPIC STUDIES:?Colonoscopy in [place] 5 yrs ago - negative per patient PFSH Medical History Conversion disorder MCI (mild cognitive impairment) Asthma Chronic restrictive lung disease TRACI (obstructive sleep apnea) Asthma-COPD overlap syndrome Surgical History History of esophagogastroduodenoscopy (EGD) Hx of colonoscopy History of hernia repair Hx of cholecystectomy History of appendectomy History of hysterectomy Family History Father HTN (hypertension) Stroke Diabetes mellitus Maternal Grandmother Cancer Mother Diabetes mellitus HTN (hypertension) Stroke Social History Housing: Apartment Alcohol intake: never Patient Tobacco Use Status: Never used Tobacco e-Cigarette/Vaping Use: Never Used Second Hand Smoke Exposure: No service: No Current occupational status: disabled Cognitive needs: No Hearing needs: No Vision needs: No Review of Systems Const All systems reviewed & are unremarkable except as noted in HPI and below Physical Exam Vital Signs: Last Vital Signs Pulse 90 01/26/24 09:47 BP 139/67 01/26/24 09:47 BMI result Body Mass Index 37.2 Const General: healthy appearing and no acute distress Nutritional Appearance: obese Orientation/consciousness: patient oriented x3 Limitations: language barrier and ambulation with cane HEENT Head: Yes normal to inspection Ears: hearing grossly normal bilaterally Mouth: Normal oral and palatal mucosa present Eyes Sclerae: sclerae normal Pupils: Equal, round and reactive pupils present Neck Neck: Yes normal visual inspection Chest Chest palpation & inspection: normal inspection of the chest Resp Effort & Inspection: normal respiratory effort Auscultation: clear to auscultation bilaterally Cardio Palpation: normal PMI Rate: regular rate Rhythm: regular rhythm Heart sounds: S1 normal heart sound present, S2 normal heart sound present and no murmurs GI Palpation (GI): Soft to palpation, nontender and No hepatosplenomegaly present Auscultation: normal bowel sounds Rectal Exam - Female: deferred Skin General skin exam: no rashes or lesions noted Neuro General: patient oriented x3, gait normal and moves all extremities Cranial nerves: Yes Equal, round and reactive pupils present Psych Appearance: grossly normal Mental Status: mental status grossly normal Assessment & Plan Assessment & Plan (1) B12 deficiency: Code(s): E53.8 - Deficiency of other specified B group vitamins Category: Medical (2) Colon cancer screening: Comment: 09/29/21 colonoscopy showed moderate diverticulosis and moderate hemorrhoids. No polyps were detected. Plan: Repeat Colonoscopy in 5 years due to family hx of colon polyps (Mom in her 50's) - due in Sep, 2026. Code(s): Z12.11 - Encounter for screening for malignant neoplasm of colon Category: Medical (3) Dysphagia: Code(s): R13.10 - Dysphagia, unspecified Category: Medical (4) GERD (gastroesophageal reflux disease): Code(s): K21.9 - Gastro-esophageal reflux disease without esophagitis Category: Medical Plan 58 YF with Htn, asthma-COPD overlap syndrome, TRACI seen in GI for evaluation of solid-food dysphagia for the past 2 months. Patient was advised further evaluation with an upper endoscopy with possible dilation - will be scheduled in Sep since pt will be in [place] from 09/13 till Oct 01, 2023 EGD procedure and potential complications including bleeding, perforation, reaction to anesthetic and aspiration were reviewed with the patient with the help of a Tajik language therapist. She was advised to start omeprazole 20 mg daily. 01/26/24 FU of solid food dysphagia for the past 6 months with 3 episodes of food impaction No change in symptoms after EGD and dilation Patient advised to schedule a barium swallow for further evaluation - I will contact her with results FU in 5 month Orders: Orders FL barium swallow Today R13.10 - Dysphagia, unspecified Coding Level of Care Code Est Pt Level 3 (85087) Diagnoses B12 deficiency E53.8 Colon cancer screening Z12.11 Dysphagia R13.10 GERD (gastroesophageal reflux disease) K21.9 Time Spent (min) 18
[2024-01-26 09:47] VITALS: BP 139/67; PULSE 90; BMI 37.2
== END 2024-01-26 10:47 | disposition home or self-care (01) ==
PROVIDERS: PCP Nurse Practitioner Family; Visit Provider Internal Medicine Gastroenterology
DX: E53.8 Deficiency of other specified B group vitamins (principal); Z12.11 Encounter for screening for malignant neoplasm of colon; R13.10 Dysphagia, unspecified; K21.9 Gastro-esophageal reflux disease without esophagitis
CPT/HCPCS: 99213

== ENCOUNTER → 2024-01-26 09:29 | Outpatient (BNVA) | payer OTHER, SELFPAY | PROVIDERS: PCP Nurse Practitioner Family; Visit Provider Internal Medicine Gastroenterology | DX: Z12.11 Encounter for screening for malignant neoplasm of colon (principal); K21.9 Gastro-esophageal reflux disease without esophagitis; E53.8 Deficiency of other specified B group vitamins; R13.10 Dysphagia, unspecified | CPT/HCPCS: 99212 ==

== ENCOUNTER 2024-02-29 10:00 | Outpatient (RCR) | payer OTHER, SELFPAY ==
--- NOTE | 2024-02-10 11:27 | MHC.PT.EP ---
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 SHE HAS A H/O EPILEPSY. SHE IS Rt HAND DOMINANT. TH EPt HAS DECR POSTURE, LIMTED Lt SH AROM, IMPINGEMENT TYPE PAIN PATTERN, (+) Lt SH COMPLEX STRENGTH DEFICITS, AND Lt ANT/POST SH PAIN. SHE IS LIMITED W ADLs REQ Lt UE LIFTING/ PUSHING/ SIDELYING. THE Pt HAS (+) NEER'S AND GAMEZ ITALIA SIGNS Lt. THE Pt WOULD BENEFIT FROM PT TO ADDRESS THE ABOVE FINDINGS, ESPEC PAIN MGMT. Frequency and Duration: The patient will be seen 2 x WK x 4 WKS Short Term Goals: *DECR Lt SH PAIN TO 2-310 *IMPROVE Lt SH AROM *INITIATE HEP-> ACTIV POST RC/ SCAP MM *INDEP POSTURAL CORRECTION Filter Changing Technician Goals: *INDEP HEP AND SELF SX MGMT TECHN *IMPROVED ADL KAYLA/PERF W Lt UE EVIDENT W IMPROVED SPADI (AT EVAL 11/130) *Lt SH STRENGTH IMPROVED BY 1 GRADE Treatment Plan: Modalities to reduce pain, spasms and effusion. Manual therapy to restore motion and function. Therapeutic exercise to improve strength and flexibility. Neuromuscular re-education for posture and balance. Therapeutic activities to return to functional activities of daily living. Electronically signed by: EMY CORNEJO,PT Please sign and return to therapist. Thank you for your referral.
--- NOTE | 2024-02-29 10:58 | MHC.PT.DC ---
[facility] [place] Office [place] Office [place] Office [address] Sabiha Diallo [address] [phone] F: [phone] F: [phone] F: [phone] F: [phone] Physical Therapy Discharge Report Diagnosis: PAIN IN LEFT SHOULDER Date of Surgery: Date of Evaluation: 02/10/24 Date of Discharge: 02/29/24 Treatments to Date: 7 Cancellations to Date: 0 No Shows to Date: 0 Discharge Status: Patient Elected to Stop Discharge Summary: THE Pt HAS INCR PAIN AND LIMITED MOBILITY IN HER Lt SH- SHE HAS A HEP OF MANAGEABLE THER EX- SHE REQUESTED D/C FROM PT AT THIS TIME AND HAS A F/U W HER MD ON April- HER AROM AND AAROM Lt SH IS LIMITED BY PAIN IN HER Lt SH (SUB ACROM/ SUPRASPIN, DELT, BICEP MM)- SHE DID NOT MEET HER PT GOALS-> EXACERBATION OF Lt SH S/P RECENT FALL-> REFERRING Pt BACK TO HER MD FOR FURTHER ASSESSMENT. Electronically signed by: EMY CORNEJO,PT Please sign and return to therapist. Thank you for your referral.
== END 2024-02-29 10:58 | disposition home or self-care (01) ==
LOC: HO.PT 10:00
PROVIDERS: PCP Nurse Practitioner Family; Visit Provider Nurse Practitioner Family
DX: M25.512 Pain in left shoulder (principal)
CPT/HCPCS: 97110; 97162

== ENCOUNTER 2024-03-01 10:35 | Outpatient (REF) | payer OTHER, SELFPAY ==
--- NOTE | ~2024-03-01 | MM_ITS ---
EXAMINATION: MM DIAGNOSTIC DIGITAL BREAST TOMOSYNTHESIS, LEFT CLINICAL INFORMATION: 6 month Follow-up microcalcifications upper outer quadrant left breast, mid to posterior one third. COMPARISON: Mammography: 08/29/2023, 07/25/2023 (BI-RADS 0), 07/19/2022, 07/15/2021, 05/08/2020. Left breast ultrasound 07/15/2022. TECHNIQUE: Digital left breast tomosynthesis is performed in both the craniocaudal and mediolateral oblique views along with computer-aided detection (CAD). Synthesized 2D images are generated from the tomosynthesis. In addition, 2-D spot magnification left CC and ML views were obtained. FINDINGS: There are scattered areas of fibroglandular density (ACR BI-RADS breast composition Category b). There are stable subtle punctate loosely grouped microcalcifications in the outer left breast, best appreciated on the CC projection. There appear to be 2 lateral groups, mid depth. On the prior ML view, these were noted in the upper mid aspect left breast, very loosely grouped. They're not well seen on today's ML magnification view.. In retrospect, these likely appear stable in hindsight dating back to 2019, with no aggressive changes, pleomorphism, linear, or branching forms, or suspicious distribution, although no more remote magnification views to directly compare to. These remain probably benign. Otherwise, stable circumscribed oval nodules in the mid and anterior left breast, known to represent simple cysts from prior ultrasound. Stable parenchymal pattern. No developing vicious mass or architectural distortion. No suspicious skin or axillary abnormality. MM/MM tomosynthesis diagnostic LT IMPRESSION: Stable loosely grouped microcalcifications lateral left breast. These remain probably benign. Six-month interval follow-up magnification views left breast recommended when the patient is due for bilateral screening. Similar left breast parenchymal pattern with several small stable cysts. No findings suspicious for malignancy. ASSESSMENT: BI-RADS BI-RADS 3 - Probably benign finding(s) - 6 month follow-up suggested RECOMMENDATION: 6 Month F/U Results were provided to the patient at time of visit by the technologist. This patient's information was entered into a reminder system with a target due date for their next mammogram.
== END 2024-03-01 10:36 | disposition home or self-care (01) ==
LOC: HO.MAMMO 10:35
PROVIDERS: PCP Nurse Practitioner Family; Visit Provider Nurse Practitioner Family
DX: R92.1 Mammographic calcification found on diagnostic imaging of breast (principal)
CPT/HCPCS: 77061; 77065

== ENCOUNTER → 2024-03-01 11:30 | Outpatient (BNV) | payer OTHER, SELFPAY | PROVIDERS: PCP Nurse Practitioner Family; Visit Provider Radiology Diagnostic Radiology | DX: R92.0 Mammographic microcalcification found on diagnostic imaging of breast (principal) | CPT/HCPCS: 77065; G0279 ==

== ENCOUNTER 2024-04-19 12:11 | Outpatient (AMB) | payer OTHER, SELFPAY ==
--- NOTE | 2024-04-19 12:36 | AM.OFFWIN_ITS ---
Intake Vital Signs 04/19/24 12:37 Height 4 ft 11 in Weight 195 lb BMI 39.4 BP 128/76 Blood Pressure Location Rt radial Position Standing Pulse 73 Pulse Source Pulse Oximeter Temp 98.4 F Temp Source Oral Pulse Oximetry (%) 98 Oxygen Delivery Method Room Air Intake Visit Reasons: BAck Pain Intake Note: pt is here c/o back pain. Started 02/13/24. Fell on sidewalk Patient Tobacco Use Status: Never used Tobacco Allergies aspirin Allergy (Severe, Verified 04/19/24 12:36) Swollen penicillamine Allergy (Severe, Verified 04/19/24 12:36) Rash and Hives povidone-iodine [Betadine] Allergy (Severe, Verified 04/19/24 12:36) Rash and Hives primidone Allergy (Severe, Verified 04/19/24 12:36) anger soap [Betadine] Allergy (Severe, Verified 04/19/24 12:36) Rash and Hives Peant Butter Allergy (Severe, Uncoded 04/19/24 12:36) Rash and Hives Seafood Allergy (Severe, Uncoded 04/19/24 12:36) Anaphylaxis beta blockers Adverse Reaction (Intermediate, Uncoded 04/19/24 12:36) Unknown Do you need a note to return to daycare/school/sports/work: No HPI BAck Pain HPI Details This note is constructed using voice recognition software. While every effort has been made to ensure accuracy, chemistry instructor errors may have been included. 58 y.o. female presents with a two-month history of low back pain after falling forward landing on the cement. She notes that she was seen in her home and initially prescribed a topical cream which did not seem to help. She later was seen in the emergency room last week, where she was prescribed muscle relaxer and lidocaine patch. She was unable to obtain the lidocaine patch due to insurance coverage, but was able to try the muscle relaxer which did not work unless she double the dose. Her pain persists in her lower back, and makes it difficult to get up and down off the toilet and perform her normal ADLs. She denies loss of control of bowel or bladder, Numbness or tingling in her legs. She is unable to take NSAIDs due to allergy profile, so she does take Tylenol which does nothing for her pain. She has an appointment pending with her primary care provider, however this is not until later next month. X-ray was obtained in the emergency room last week and reflected arthritis but no fracture present. [facility] Medical History Conversion disorder MCI (mild cognitive impairment) Asthma Chronic restrictive lung disease TRACI (obstructive sleep apnea) Asthma-COPD overlap syndrome Surgical History History of esophagogastroduodenoscopy (EGD) Hx of colonoscopy History of hernia repair Hx of cholecystectomy History of appendectomy History of hysterectomy Family History Father HTN (hypertension) Stroke Diabetes mellitus Maternal Grandmother Cancer Mother Diabetes mellitus HTN (hypertension) Stroke Social History Housing: Apartment Alcohol intake: never Patient Tobacco Use Status: Never used Tobacco e-Cigarette/Vaping Use: Never Used Second Hand Smoke Exposure: No service: No Current occupational status: disabled Cognitive needs: No Hearing needs: No Vision needs: No Review of Systems Const All systems reviewed & are unremarkable except as noted in HPI and below Physical Exam Vital Signs: Last Vital Signs Temp 98.4 F 04/19/24 12:37 Pulse 73 04/19/24 12:37 BP 128/76 04/19/24 12:37 Pulse Ox 98 04/19/24 12:37 Oxygen Delivery Method Room Air 04/19/24 12:37 BMI result Body Mass Index 39.4 Const General: cooperative, healthy appearing, comfortable, no acute distress and alert Orientation/consciousness: patient oriented x3 Limitations: no limitations General: Yes no CVA tenderness Back/Spine/Pelvis Other: Tender to palpation in lumbar region and radiating bilaterally. Patient declined to laterally rotate or extend due to pain. No palpable increase muscle bulging present. Intact distal neurovascular exam. Back: no CVA tenderness Skin General skin exam: no rashes or lesions noted, elasticity normal and turgor normal Neuro General: patient oriented x3 Extrem General: Yes normal to inspection, Yes full ROM, Yes capillary refill normal and Yes normal exam except as noted Psych Appearance: grossly normal Mental Status: mental status grossly normal Speech and movement: Normal speech and movement present Affect: normal affect Assessment & Plan Assessment & Plan (1) Low back pain: Code(s): M54.50 - Low back pain, unspecified Qualifiers: Chronicity: chronic Back pain laterality: bilateral Sciatica presence: without sciatica Qualified Code(s): M54.50 - Low back pain, unspecified; G89.29 - Other chronic pain Plan: Chronic low back pain following injury 2 months ago with follow-up x-ray negative for fracture, and no improvement with conservative measures. Given that her insurance did not cover the lidocaine 5% patches, I did instruct her to purchase the [id number] 4% patches to attempt relief. Additionally given that she is unable to take NSAIDs we did a trial of prednisone with taper for anti-inflammatory effects. Advised to keep appointment next month with PCP, may benefit from referral to pain management versus physical therapy versus both. Unfortunately she has been dealing with this for 2 months and not having any improvement. Advised to continue trial of muscle relaxers ordered in the emergency room but to attempt to maintain within the dosing that was ordered as additional dosing is not recommended. It is likely that the muscle relaxer we will not actually help her pain given the nature of injury and the prolonged time that she has dealt with this. We did not repeat imaging given that they were just obtained one-week ago. Message to PCP to facilitate coordination of care as able. Plan See above for full details and plan. Medications: New prednisone see taper instructions: 5 pills daily for 2 days, then 4 pills daily for 2 days, then 3 pills daily for 2 days, then 2 pills daily for 2 days, then 1 pill daily for 2 days. 10 mg PO DIRECTED 30 tabs 0RF Coding Level of Care Code Est Pt Level 4 (18190) Diagnoses Chronic bilateral low back pain without sciatica M54.50; G89.29 Chronicity: chronic Back pain laterality: bilateral Sciatica presence: without sciatica
[2024-04-19 12:37] VITALS: BP 128/76; PULSE 73; TEMP 36.9; O2SAT 98; BMI 39.4
== END 2024-04-19 14:04 | disposition home or self-care (01) ==
PROVIDERS: PCP Nurse Practitioner Family; Visit Provider Registered Nurse
DX: M54.50 Low back pain, unspecified (principal); G89.29 Other chronic pain
CPT/HCPCS: 99214

== ENCOUNTER 2024-04-30 15:04 | Outpatient (AMB) | payer MEDICARE, MEDICAID, SELFPAY ==
--- NOTE | 2024-04-30 15:33 | MHC.PC.OV ---
Vital Signs 04/30/24 15:36 Height 4 ft 11 in Weight 196 lb BMI 39.6 BP 120/80 Blood Pressure Location Lt brachial Position Sitting Pulse 85 Pulse Source Pulse Oximeter Pulse Oximetry (%) 98 Oxygen Delivery Method Room Air Intake Visit Reasons: Back pain-referral to pain manag Intake Note: Patient here to have pain management referral placed for back pain, she was recently seen in [place] and states she is unable to twist or bend which has been going on for about 2 months. Allergies aspirin Allergy (Severe, Verified 04/30/24 15:37) Swollen penicillamine Allergy (Severe, Verified 04/30/24 15:37) Rash and Hives povidone-iodine [Betadine] Allergy (Severe, Verified 04/30/24 15:37) Rash and Hives primidone Allergy (Severe, Verified 04/30/24 15:37) anger soap [Betadine] Allergy (Severe, Verified 04/30/24 15:37) Rash and Hives Peant Butter Allergy (Severe, Uncoded 04/30/24 15:37) Rash and Hives Seafood Allergy (Severe, Uncoded 04/30/24 15:37) Anaphylaxis beta blockers Adverse Reaction (Intermediate, Uncoded 04/30/24 15:37) Unknown Tobacco use date assessed: 10/04/23 Dental Screening Dental Screen Date: 10/04/23 HPI Back pain-referral to pain manag HPI Details Pt reports falling 2 months ago. She was seen in the ER on 04/10 due to low back pain. XR showed mild degenerative disc changes L1-2 and L2-3 disc levels with ventral spondylosis, no visible acute fracture or dislocation seen. Pt was d/c with methocarbamol. Pt was seen in the walk-in on 04/19 for ongoing pain. She was given prednisone. Pt reports ongoing pain today with radicular symptoms to her buttocks, she has no radicular symptoms down her legs. Will send lidocaine patches. Will also refer to PT and massage therapy. Denies any signs of cauda equina. [facility], [facility] Medical History (Updated 04/19/24 @ 15:16 by MINO Reyna) Conversion disorder MCI (mild cognitive impairment) Asthma Chronic restrictive lung disease TRACI (obstructive sleep apnea) Asthma-COPD overlap syndrome Surgical History History of esophagogastroduodenoscopy (EGD) Hx of colonoscopy History of hernia repair Hx of cholecystectomy History of appendectomy History of hysterectomy Family History Father HTN (hypertension) Stroke Diabetes mellitus Maternal Grandmother Cancer Mother Diabetes mellitus HTN (hypertension) Stroke Social History Housing: Apartment Alcohol intake: never Patient Tobacco Use Status: Never used Tobacco e-Cigarette/Vaping Use: Never Used Second Hand Smoke Exposure: No service: No Current occupational status: disabled Cognitive needs: No Hearing needs: No Vision needs: No Questionnaire PHQ-9 Over the last 2 weeks, how often have you been bothered by any of the following problems? 1. Little interest or pleasure in doing things: several days 2. Feeling down, depressed, or hopeless: several days 3. Trouble falling or staying asleep, or sleeping too much: several days 4. Feeling tired or having little energy: more than half the days 5. Poor appetite or overeating: nearly every day 6. Feeling bad about yourself - or that you are a failure or have let yourself or your family down: not at all 7. Trouble concentrating on things, such as reading the newspaper or watching television: several days 8. Moving or speaking so slowly that other people could have noticed. Or the opposite - being so fidgety or restless that you have been moving around a lot more than usual: more than half the days 9. Thoughts that you would be better off or of hurting yourself in some way: not at all Total score: 11 Depression Screening Interpretation: Positive Depression Screening Done: Yes 74389 - PHQ-9 Billing: Yes Source: Developed by Drs. Americo Jimenez, Iris Ramirez, Patrick Trevino and colleagues, with an educational prabha from [employer]. Thrive Questionnaire Date Thrive assessed: 10/04/23 I am a: Patient What is your living situation today?: I have a steady place to live Within the past 12 months, did the food you bought not last and you didn't have the money to get more?: Sometimes True Within the past 12 months, did you worry whether your food would run out before you got money to buy more?: Often true Do you have trouble paying for medicines?: Yes Do you have trouble getting transportation to medical appointments?: Yes Do you have trouble paying your heating and electricity bill?: No Do you have trouble taking care of your child, family member or friend?: No Do you have trouble with day-to-day activities such as bathing, preparing meals, shopping, managing finances, etc.?: Yes Are you currently unemployed and looking for a job?: No Are you interested in more education?: No Please select the resources that you would like help with: Food, Paying for medicine and Utilities Currently or been in a relationship where the following occur: No concerns reported THRIVE Score: 3 AUDIT C Alcohol Use Questionnaire (AUDIT-C) 1. How often do you have a drink containing alcohol?: Never Total Score: 0 KIMBERLY-7 AMB Questionnaire KIMBERLY-7 Date KIMBERLY - 7 assessed: 04/30/24 Feeling nervous, anxious, or on edge: 1 = Several days Not being able to stop or control worryin = More than half the days Worrying too much about different things: 2 = More than half the days Trouble relaxin = More than half the days Being so restless that it is hard to sit still: 2 = More than half the days Becoming easily annoyed or irritable: 1 = Several days Feeling afraid as if something awful might happen: 1 = Several days Total KIMBERLY-7 score (0-4 normal; 5-9 mild; 10-14 moderate; 15-21 severe): 11 Source: Developed by Drs. Americo Jimenez, Iris Ramirez, Patrick Trevino and colleagues, with an educational prabha from [employer]. KIMBERLY-7 Assessment Billing KIMBERLY-7 Assessment Tool: KIMBERLY-7 Assessment 31226 Review of Systems Const Reports as per HPI Physical exam (Primary Care) Vital Signs: Last Vital Signs Pulse 85 04/30/24 15:36 BP 120/80 04/30/24 15:36 Pulse Ox 98 04/30/24 15:36 Oxygen Delivery Method Room Air 04/30/24 15:36 BMI result Body Mass Index 39.6 Tobacco/Smoking Status: Tobacco use Status Tobacco use date assessed 10/04/23 04/30/24 15:35 Patient Tobacco Use Status Never used Tobacco 04/30/24 15:35 e-Cigarette/Vaping Use Never Used 04/30/24 15:35 PHQ-9: PHQ-9 Score PHQ-9: Total score 11 04/30/24 15:46 Depression Screening Interpretation: Positive Thrive Assessment: Date of Thrive Assessment Date Thrive assessed 10/04/23 04/30/24 15:35 Currently or been in a relationship where the following occur: No concerns reported Const General: cooperative Nutritional Appearance: obese Orientation/consciousness: patient oriented x3 Resp Effort & Inspection: normal respiratory effort Auscultation: clear to auscultation bilaterally Cardio Rate: regular rate Rhythm: regular rhythm Heart sounds: S1 normal heart sound present and S2 normal heart sound present Back/Spine/Pelvis Other: no increase in lower back pain with heel and toe walking, tenderness with palpation of lower transverse back Neuro General: patient oriented x3 Psych Appearance: grossly normal Mental Status: mental status grossly normal Speech and movement: Normal speech and movement present Affect: normal affect Attitude: cooperative Thought process: Normal thought process present Thought content: Normal thought content present Insight: Good insight present (Psych) Judgement: Good judgement present (Psych) Assessment and Plan Assessment & Plan (1) Lower back pain: Code(s): M54.50 - Low back pain, unspecified Plan: massage therapy and PT Orders: Orders PT Evaluation and Treatment Today M54.50 - Low back pain, unspecified Referrals Massage Therapy Referral M54.50 - Low back pain, unspecified Medications: New lidocaine 5% leave on most painful area for up to 12 hrs 2 patches topical DAILY 30 ea 0RF Coding Level of Care Code Est Pt Level 3 (49967) Diagnoses Lower back pain M54.50 Additional Codes KIMBERLY-7 Assessment Billing - KIMBERLY-7 Assessment Tool: KIMBERLY-7 Assessment 85269 ([id number])
[2024-04-30 15:36] VITALS: BP 120/80; PULSE 85; O2SAT 98; BMI 39.6
== END 2024-04-30 16:44 | disposition home or self-care (01) ==
PROVIDERS: PCP Nurse Practitioner Family; Visit Provider Nurse Practitioner Family
DX: M54.50 Low back pain, unspecified (principal)
CPT/HCPCS: 99213

== ENCOUNTER 2024-05-30 09:13 | Outpatient (REF) | payer OTHER, MEDICAID, SELFPAY ==
--- NOTE | ~2024-05-30 | FL_ITS ---
EXAMINATION: XR FLUOROSCOPY UPPER GI WITH AIR CLINICAL INFORMATION: Dysphagia. Recent EGD did not demonstrate a stricture. COMPARISON: None TECHNIQUE: Fluoroscopic air contrast upper GI examination was performed utilizing standard techniques with thin and thick barium and effervescent granules. Numerous spot images were obtained. FINDINGS: Lateral cine images of the oropharynx and hypopharynx demonstrate normal swallow mechanism with normal epiglottic inversion and soft palate elevation. Trace laryngeal penetration is seen with thick barium. No tracheal penetration, glottic or subglottic aspiration identified. No nasopharyngeal reflux present. Hypopharyngeal structures appear normal without evidence of mass or diverticulum. There was no significant cricopharyngeal achalasia. Cholecystectomy clips are present. Dual and single contrast images of the esophagus demonstrate a normal caliber and contour. The mid and distal esophageal mucosa has a granular appearance, suggestive of esophagitis. Esophageal peristalsis is mild to moderately disorganized. There is mild to moderate narrowing of the GE junction appears represent a wide open Schatzki's ring. A small type I hiatal hernia is present. Gastroesophageal reflux is observed up to the level of the aortic arch. Dual contrast and single contrast images of the stomach demonstrated a normal contour. There are a few small focal areas of contrast pooling in the fundus the stomach that could represent small superficial ulcers. No masses are seen. Contrast freely passed into the gastric antrum and duodenal bulb without delay. Single and air-contrast images of the duodenal bulb demonstrate no abnormality. The duodenal sweep has a normal appearance, course, and mucosal fold appearance. The imaged proximal jejunum has a normal fold pattern and caliber. FLUOROSCOPY TIME: 3 minutes 59 seconds Number of Spot Images: 6 Number of Cine: 14 DOSE AREA PRODUCT: 2610 uGy-m2 (microgray-meter squared) FL/FL barium swallow IMPRESSION: 1. Trace laryngeal penetration with thick barium. 2. Mild to moderately disorganized esophageal peristalsis. 3. Mild narrowing of the GE junction that appears to represent a wide open Schatzki's ring. 4. Small type I hiatal hernia with moderate gastroesophageal reflux. 5. There are few small foci of contrast pooling in the fundus of the stomach that could represent small superficial apthous ulcers. Recommend correlation with recent EGD. This procedure was performed by Amilcar Resendiz PA-C, and supervised by Dr. Allen Electronically signed by: Jhony Allen MD 05/31/2024 10:46 AM EDT RP
== END 2024-05-30 09:14 | disposition home or self-care (01) ==
LOC: HO.XRAY 09:13
PROVIDERS: PCP Nurse Practitioner Family; Visit Provider Internal Medicine Gastroenterology
DX: R13.10 Dysphagia, unspecified (principal)
CPT/HCPCS: 74220

== ENCOUNTER → 2024-05-30 09:16 | Outpatient (BNV) | payer MEDICARE, MEDICAID, SELFPAY | PROVIDERS: PCP Nurse Practitioner Family; Visit Provider Radiology Diagnostic Radiology | DX: R13.10 Dysphagia, unspecified (principal) | CPT/HCPCS: 74246 ==

== ENCOUNTER 2024-06-28 10:18 | Outpatient (AMB) | payer MEDICARE, OTHER, MEDICAID, SELFPAY ==
--- NOTE | 2024-06-28 10:36 | A.OFFVIS_ITS ---
Vital Signs 06/28/24 10:39 Height 4 ft 11 in Weight 198 lb BMI 40.0 BP 136/64 Blood Pressure Location Lt brachial Position Sitting Pulse 87 Intake Visit Reasons: 5 month follow up Intake Note: Patient follow up for B12 deficiency and Barium swallow results. Patient cc: still with difficulty swallowing. 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 Accompanied by: Self / Same As Patient Allergies aspirin Allergy (Severe, Verified 06/28/24 10:36) Swollen penicillamine Allergy (Severe, Verified 06/28/24 10:36) Rash and Hives povidone-iodine [Betadine] Allergy (Severe, Verified 06/28/24 10:36) Rash and Hives primidone Allergy (Severe, Verified 06/28/24 10:36) anger soap [Betadine] Allergy (Severe, Verified 06/28/24 10:36) Rash and Hives Peant Butter Allergy (Severe, Uncoded 04/30/24 15:37) Rash and Hives Seafood Allergy (Severe, Uncoded 04/30/24 15:37) Anaphylaxis beta blockers Adverse Reaction (Intermediate, Uncoded 04/30/24 15:37) Unknown Medication List - Last Reconciled 06/28/24 by Geovany Ulloa MD albuterol sulfate 90 mcg/actuation 2 puffs inhalation Q6H PRN amitriptyline 100 mg PO BEDTIME aripiprazole 15 mg PO DAILY atorvastatin 10 mg PO BEDTIME blood pressure monitor (Blood Pressure Kit) As directed-brachial blood pressure monitor to check blood pressure daily. bupropion HCl XL 300 mg PO QAM cane As directed CPAP As directed CPAP (CPAP Machine/Device) As directed diclofenac potassium 50 mg PO BID PRN diclofenac sodium 1% (Arthritis Pain (diclofenac)) 2 grams topical QID epinephrine (EpiPen 2-John) 0.3 mg (0.3 mL) IM Q4H PRN fluticasone propionate 50 mcg/actuation 2 sprays intranasal DAILY 30 days folic acid 1 mg PO DAILY 90 days hydroxyzine pamoate 25 mg PO BID levothyroxine 25 mcg PO QAM lidocaine 5% 2 patches topical DAILY losartan 50 mg PO DAILY montelukast 10 mg PO DAILY 90 days omeprazole 20 mg PO DAILY 30 days [shower chair As directed] Symbicort 160-4.5 mcg/actuation (budesonide-formoterol) 2 puffs PO BID NS thiamine HCl (vitamin B1) 100 mg PO DAILY walker daily use HPI HPI 5 month follow up: Details: GI clinic visit for this 58-year-old female for evaluation of dysphagia. 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 Can have a food impaction when she eats meats. Barium swallow results were reviewed PAST VISITS: Patient cc: dysphagia, nauseas, acid reflex and she also complain having bad breath. Denies any other GI issues. EGD and biopsy results were reviewed with the patient Pt complains of dysphagia to solid food for the past two months Dysphagia is associated with hard foods like chicken. She had three episodes of food impaction and felt she was going to pass out. She had to regurgitate the food Mouth gets dry Pt also complains of intermittent heartburn and bad breath and takes TUMS prn. PAST VISITS: Colonoscopy results reviewed with the patient. She notes heartburn associated with intake of spicy foods Denies abd pain, and afraid to eat certain foods associated with choking She admits to wt loss of 5 lbs. Denies recent change in bowel habits, constipation, diarrhea,? black stools or rectal bleeding. ? Patient denies major cardiac? or pulmonary problems, ?Pt has asthma and admits to loud snoring and sleep apnea -? uses a CPAP machine. ?Denies problems with? anesthesia in the past. ?Denies being on chronic? anticoagulation. ?Patient denies known family history of colon cancer? or other GI malignancies. ?Mom had colon polyps in her 50's. ?GM may have? had gastric cancer. ENDOSCOPIC STUDIES:?Colonoscopy in [place] 5 yrs ago - negative per patient LABS IN? MEDITECH :12/20/19 REVIEWED 05/30/24: BARIUM SWALLOW SHOWED: 1. Trace laryngeal penetration with thick barium. 2. Mild to moderately disorganized esophageal peristalsis. 3. Mild narrowing of the GE junction that appears to represent a wide open Schatzki's ring. 4. Small type I hiatal hernia with moderate gastroesophageal reflux. 5. There are few small foci of contrast pooling in the fundus of the stomach that could represent small superficial apthous ulcers. Recommend correlation with recent EGD. Of note - pt had an EGD with dilation in December, 01/13/24 EGD SHOWED: ESOPHAGUS: Dysphagia likely due to esophageal motility disorder Esophageal balloon dilation was performed. STOMACH: Antral gastritis and benign-appearing nodule in the fundus DUODENUM: Mild duodenitis in the bulb Plan: If dysphagia persists, I will schedule a barium swallow BIOPSIES SHOWED: A. Gastric antrum, biopsy: Gastric antral mucosa with minimal chronic inactive gastritis; negative for H.pylori, intestinal metaplasia and dysplasia. B. Gastric fundus, nodule, biopsy: Gastric fundic mucosa with focal lymphoid aggregate and rare neutrophil, otherwise no specific change; negative for H pylori, intestinal metaplasia and dysplasia (see comment). C. Esophagus, proximal, biopsy: Squamous mucosa with no specific change; no columnar mucosa present 09/29/21 COLONOSCOPY SHOWED No polyps were detected. Moderate diverticulosis seen in the sigmoid colon Moderate hemorrhoids on retroflexed exam. Plan: Patient has an appointment on 10/15/21 in the GI Clinic with? ? Geovany Ulloa M.D. Repeat Colonoscopy in 5 years due to family hx of colon polyps (Mom in her 50's).. [facility] Medical History (Updated 06/28/24 @ 11:12 by Geovany Ulloa MD) Conversion disorder MCI (mild cognitive impairment) Asthma Chronic restrictive lung disease TRACI (obstructive sleep apnea) Asthma-COPD overlap syndrome Surgical History History of esophagogastroduodenoscopy (EGD) Hx of colonoscopy History of hernia repair Hx of cholecystectomy History of appendectomy History of hysterectomy Family History Father HTN (hypertension) Stroke Diabetes mellitus Maternal Grandmother Cancer Mother Diabetes mellitus HTN (hypertension) Stroke Social History Housing: Apartment Alcohol intake: never Patient Tobacco Use Status: Never used Tobacco e-Cigarette/Vaping Use: Never Used Second Hand Smoke Exposure: No service: No Current occupational status: disabled Cognitive needs: No Hearing needs: No Vision needs: No Review of Systems Const All systems reviewed & are unremarkable except as noted in HPI and below Physical Exam Vital Signs: Last Vital Signs Pulse 87 06/28/24 10:39 BP 136/64 06/28/24 10:39 BMI result Body Mass Index 40.0 Const General: healthy appearing and no acute distress Nutritional Appearance: obese (morbidly obese) Orientation/consciousness: patient oriented x3 Limitations: no limitations HEENT Head: Yes normal to inspection Ears: hearing grossly normal bilaterally Mouth: Normal oral and palatal mucosa present Eyes Sclerae: sclerae normal Pupils: Equal, round and reactive pupils present Neck Neck: Yes normal visual inspection Chest Chest palpation & inspection: normal inspection of the chest Resp Effort & Inspection: normal respiratory effort Auscultation: clear to auscultation bilaterally Cardio Palpation: normal PMI Rate: regular rate Rhythm: regular rhythm Heart sounds: S1 normal heart sound present, S2 normal heart sound present and no murmurs GI Palpation (GI): Soft to palpation, nontender and No hepatosplenomegaly present Auscultation: normal bowel sounds Rectal Exam - Female: deferred Skin General skin exam: no rashes or lesions noted Neuro General: patient oriented x3, gait normal and moves all extremities Cranial nerves: Yes Equal, round and reactive pupils present Psych Appearance: grossly normal Mental Status: mental status grossly normal Assessment & Plan Assessment & Plan (1) B12 deficiency: Code(s): E53.8 - Deficiency of other specified B group vitamins Category: Medical (2) Colon cancer screening: Comment: 09/29/21 colonoscopy showed moderate diverticulosis and moderate hemorrhoids. No polyps were detected. Plan: Repeat Colonoscopy in 5 years due to family hx of colon polyps (Mom in her 50's) - due in Sep, 2026. Code(s): Z12.11 - Encounter for screening for malignant neoplasm of colon Category: Medical (3) Dysphagia: Code(s): R13.10 - Dysphagia, unspecified Category: Medical (4) GERD (gastroesophageal reflux disease): Code(s): K21.9 - Gastro-esophageal reflux disease without esophagitis Category: Medical (5) Morbid obesity: Code(s): E66.01 - Morbid (severe) obesity due to excess calories Category: Medical Plan 59 YF with Htn, asthma-COPD overlap syndrome, TRACI seen in GI for evaluation of solid-food dysphagia for the past several months. EGD was performed and findings as noted above. She was advised to start omeprazole 20 mg daily. 01/26/24 FU of solid food dysphagia for the past 6 months with 3 episodes of food impaction No change in symptoms after EGD and dilation Patient advised to schedule a barium swallow for further evaluation - I will contact her with results 06/28/24 Barium swallow results were reviewed Pt advised to chew her food well, cut meat into small pieces, eat slowly and take sips of fluids while eating. Can be scheduled for a repeat EGD when she has her next colonoscopy in Sep, 2026 Pt advised to call if she notices worsening dysphagia Morbid obesity with normal LFTs - advised wt reduction, ultrasound with elastography to rule out occult cirrhosis FU in 6 months Orders: Orders US abdomen ortiz w elastography Today E66.01 - Morbid (severe) obesity due to excess calories Coding Level of Care Code Est Pt Level 3 (29832) Diagnoses B12 deficiency E53.8 Colon cancer screening Z12.11 Dysphagia R13.10 GERD (gastroesophageal reflux disease) K21.9 Morbid obesity E66.01 Time Spent (min) 20
[2024-06-28 10:39] VITALS: BP 136/64; PULSE 87; BMI 40.0
== END 2024-06-28 11:15 | disposition home or self-care (01) ==
PROVIDERS: PCP Nurse Practitioner Family; Visit Provider Internal Medicine Gastroenterology
DX: E53.8 Deficiency of other specified B group vitamins (principal); Z12.11 Encounter for screening for malignant neoplasm of colon; R13.10 Dysphagia, unspecified; K21.9 Gastro-esophageal reflux disease without esophagitis; E66.01 Morbid (severe) obesity due to excess calories
CPT/HCPCS: 99213

== ENCOUNTER → 2024-06-28 10:18 | Outpatient (BNVA) | payer OTHER, SELFPAY | PROVIDERS: PCP Nurse Practitioner Family; Visit Provider Internal Medicine Gastroenterology | DX: Z12.11 Encounter for screening for malignant neoplasm of colon (principal); K21.9 Gastro-esophageal reflux disease without esophagitis; E53.8 Deficiency of other specified B group vitamins; R13.10 Dysphagia, unspecified; E66.01 Morbid (severe) obesity due to excess calories; Z68.41 Body mass index [BMI] 40.0-44.9, adult | CPT/HCPCS: 99212 ==

== ENCOUNTER 2024-07-05 13:57 | Outpatient (AMB) | payer OTHER, MEDICAID, SELFPAY ==
[2024-07-05 14:02] VITALS: BP 130/80; PULSE 80; BMI 39.8
--- NOTE | 2024-07-05 14:02 | A.OFFVIS_ITS ---
Vital Signs 07/05/24 14:02 Height 4 ft 11 in Weight 197 lb 1.492 oz BMI 39.8 BP 130/80 Blood Pressure Location Lt brachial Position Sitting Pulse 80 Pulse Source Monitor Intake Visit Reasons: 1 yr follow up All Purpose Clerk Required: No Allergies aspirin Allergy (Severe, Verified 07/05/24 14:05) Swollen penicillamine Allergy (Severe, Verified 07/05/24 14:05) Rash and Hives povidone-iodine [Betadine] Allergy (Severe, Verified 07/05/24 14:05) Rash and Hives primidone Allergy (Severe, Verified 07/05/24 14:05) anger soap [Betadine] Allergy (Severe, Verified 07/05/24 14:05) Rash and Hives Peant Butter Allergy (Severe, Uncoded 07/05/24 14:05) Rash and Hives Seafood Allergy (Severe, Uncoded 07/05/24 14:05) Anaphylaxis beta blockers Adverse Reaction (Intermediate, Uncoded 07/05/24 14:05) Unknown Medication List - Last Reconciled 07/05/24 by KELTON Hdez albuterol sulfate 90 mcg/actuation 2 puffs inhalation Q6H PRN amitriptyline 100 mg PO BEDTIME aripiprazole 15 mg PO DAILY atorvastatin 10 mg PO BEDTIME blood pressure monitor (Blood Pressure Kit) As directed-brachial blood pressure monitor to check blood pressure daily. bupropion HCl XL 300 mg PO QAM cane As directed CPAP As directed CPAP (CPAP Machine/Device) As directed diclofenac potassium 50 mg PO BID PRN diclofenac sodium 1% (Arthritis Pain (diclofenac)) 2 grams topical QID epinephrine (EpiPen 2-John) 0.3 mg (0.3 mL) IM Q4H PRN fluticasone propionate 50 mcg/actuation 2 sprays intranasal DAILY 30 days folic acid 1 mg PO DAILY 90 days hydroxyzine pamoate 25 mg PO BID levothyroxine 25 mcg PO QAM lidocaine 5% 2 patches topical DAILY losartan 50 mg PO DAILY montelukast 10 mg PO DAILY 90 days omeprazole 20 mg PO DAILY 30 days [shower chair As directed] Symbicort 160-4.5 mcg/actuation (budesonide-formoterol) 2 puffs PO BID NS thiamine HCl (vitamin B1) 100 mg PO DAILY walker daily use HPI HPI 1 yr follow up: Details: Marcela is a 59-year-old female with past medical history of hypertension, hyperlipidemia, obesity, obstructive sleep apnea, prior evaluation for chest discomfort without significant findings, sinus bradycardia, admission to [facility] 08/11/2022 with inability to move left side. Testing did not confirm CVA. Neurology concluded complex migraine versus conversion disorder. She now presents for follow-up. Today she reports that she has been doing generally well since her last visit 06/30/2023. She is able to move her left arm but states she does have some arthritis in the shoulder. Her left leg is working well and she is able to ambulate normally. She has no new neurological symptoms. She denies chest discomfort at rest or with activity. No heart palpitations, lightheadedness, presyncope, syncope. No shortness of breath, PND, orthopnea or edema. She is mostly sedentary. Her brother recently of an MD, age 65. She tells me that her mother had fatal MD at age 63. She has another brother who has diabetes and did have a heart attack age 45. He is still alive. [facility] Medical History Conversion disorder MCI (mild cognitive impairment) Asthma Chronic restrictive lung disease TRACI (obstructive sleep apnea) Asthma-COPD overlap syndrome Surgical History History of esophagogastroduodenoscopy (EGD) Hx of colonoscopy History of hernia repair Hx of cholecystectomy History of appendectomy History of hysterectomy Family History Father HTN (hypertension) Stroke Diabetes mellitus Maternal Grandmother Cancer Mother Diabetes mellitus HTN (hypertension) Stroke Brother Stroke Social History Housing: Apartment Alcohol intake: never Patient Tobacco Use Status: Never used Tobacco e-Cigarette/Vaping Use: Never Used Second Hand Smoke Exposure: No service: No Current occupational status: disabled Cognitive needs: No Hearing needs: No Vision needs: No Review of Systems Const All systems reviewed & are unremarkable except as noted in HPI and below ENT Denies dizziness Card Denies chest pain, Denies chest pain at rest, Denies chest pain with activity, Denies rapid heart rate, Denies pedal edema, Denies edema, Denies leg edema, Denies lightheadedness, Denies palpitations, Denies dyspnea, Denies dyspnea on exertion and Denies orthopnea Resp Denies cough, Denies dyspnea and Denies dyspnea on exertion GI Denies hematochezia and Denies change in stool character Musc Denies abnormal gait, Denies limited range of motion, Denies muscle cramps, Denies muscle weakness, Denies numbness, Denies radiating pain into limb, Denies stiffness and Denies tingling Neuro Denies abnormal gait, Denies dizziness, Denies numbness and Denies tingling Endo Denies palpitations Physical Exam Vital Signs: Last Vital Signs Pulse 80 07/05/24 14:02 BP 130/80 07/05/24 14:02 BMI result Body Mass Index 39.8 Const General: cooperative, healthy appearing, comfortable and no acute distress Orientation/consciousness: patient oriented x3 Neck Neck: Yes normal visual inspection Resp Effort & Inspection: normal respiratory effort Auscultation: clear to auscultation bilaterally, no crackles, no rales, no rhon chi and no wheezes Cardio Jugular venous distension: no JVD Rate: regular rate Rhythm: regular rhythm Heart sounds: S1 normal heart sound present, S2 normal heart sound present, no murmurs and no rubs Neuro General: patient oriented x3 Extrem Other: Weakness and limited range of motion left arm General: Yes normal to inspection Psych Appearance: grossly normal Mental Status: mental status grossly normal Office Procedures EKG Details: Today, read by me, normal sinus rhythm, rate 80, QTC 438 milliseconds [id number], Complete Assessment & Plan Assessment & Plan (1) Bradycardia: Code(s): R00.1 - Bradycardia, unspecified Category: Medical Plan: Episode of symptomatic bradycardia during [facility] admission, 07/2022. Also had hypotension with blood pressure down to 60/40. Notes indicate that she did take a dose of metoprolol prior to her ER arrival that day as she had an elevated blood pressure reading. She has a history of having bradycardia in the past with metoprolol use. She was evaluated by the social media specialist Dr. Carranza, at [facility], notes reviewed. Electrolytes were stable, normal troponin, TSH and magnesium normal. There was no indication for permanent pacemaker placement. Her bradycardia was in the setting Temazipam and metoprolol. It was recommended that she not have any AV ridge blocking agents. It was also recommended that sleep apnea be treated if found to be present. She did have a sleep study on 03/15/2022 which was negative for sleep apnea, she did have moderate snoring. Holter monitor done 09/01/2022 for 6 days showed sinus rhythm with average heart rate 71, no significant pauses or bradycardia, rare ectopy. A repeat Holter was done 07/08/2023 showing sinus rhythm with average heart rate 73. Today she reports doing well since her last visit a year ago. EKG today shows sinus rhythm rate 80. She has had no lightheadedness, presyncope, syncope, falls. She remains off all rate slowing medications. Cardiology follow-up in 1 year, sooner if needed (2) Essential hypertension: Code(s): I10 - Essential (primary) hypertension Category: Medical Plan: History of hypertension. She continues on losartan 50 mg daily. Labs done 01/13/2024 showed potassium 3.8, creatinine 0.86. No med changes made. (3) Left-sided weakness: Code(s): R53.1 - Weakness Category: Medical Plan: [facility] admission on 08/11/2022 with headache, dizziness, left-sided weakness. She did have a complete workup with a CT scan of the head showing no acute findings, MRI of the head and neck showing no occlusions or stenosis, MRI of the brain showing nonspecific flare hyperintensities. No finding suggestive of CVA. She was evaluated by Neurology which confirms no acute stroke, she is thought to have complex migraine versus conversion disorder. She has followed with Neurology as an outpatient and now felt to have more of a conversion disorder. She does have underlying psychiatric issues. Her mobility has essentially normalized since that time. (4) Family history of early CAD: Code(s): Z82.49 - Family history of ischemic heart disease and other diseases of the circulatory system Category: Medical Plan: She reports family history of early CAD. Younger brother had MD age 45, he does have diabetes. Older brother had fatal MD recently, age 65. Mother had fatal MD age 63. Patient has no known history of CAD. She denies any anginal sounding symptoms. Signs and symptoms of angina reviewed with her in detail. Continue with risk factor modification including good blood pressure and cholesterol control. She does not have diabetes. Continue activity as tolerated. Benefits a weight loss reviewed. Plan Time spent on chart review, documentation, interview, assessment Coding Level of Care Code Est Pt Level 4 (74769) Complex EM visit Add On G2211 Diagnoses Bradycardia R00.1 Essential hypertension I10 Left-sided weakness R53.1 Family history of early CAD Z82.49 CPT Codes EKG - CPT: [id number], Complete ([id number]) Time Spent (min) 30
== END 2024-07-05 14:33 | disposition home or self-care (01) ==
PROVIDERS: PCP Nurse Practitioner Family; Visit Provider Nurse Practitioner Family
DX: R00.1 Bradycardia, unspecified (principal); I10 Essential (primary) hypertension; R53.1 Weakness; Z82.49 Family history of ischemic heart disease and other diseases of the circulatory system
CPT/HCPCS: 93010; 99214; G2211

== ENCOUNTER → 2024-07-05 13:57 | Outpatient (BNVA) | payer OTHER, MEDICAID, SELFPAY | PROVIDERS: PCP Nurse Practitioner Family; Visit Provider Nurse Practitioner Family | DX: I10 Essential (primary) hypertension (principal); E78.5 Hyperlipidemia, unspecified; E66.9 Obesity, unspecified; R00.1 Bradycardia, unspecified; R53.1 Weakness; G47.33 Obstructive sleep apnea (adult) (pediatric); Z82.49 Family history of ischemic heart disease and other diseases of the circulatory system; Z68.39 Body mass index [BMI] 39.0-39.9, adult | CPT/HCPCS: 93005; 99212 ==

== ENCOUNTER 2024-07-16 10:00 | Outpatient (RCR) | payer OTHER, SELFPAY ==
--- NOTE | 2024-06-22 14:07 | MHC.PT.EP ---
[facility] [place] [facility] [place] [facility] [place] [facility] [address] [phone] F: [phone] F: [phone] F: [phone] F: [phone] Physical Therapy Plan of Care Date of Evaluation: 06/22/24 Date of Surgery: Diagnosis: Low back pain Assessment: Pt is a 59 y/o F with hx of epilepsy, conversion disorder and mild cognitive impairment who is referred to PT for eval and treat of low back pain resulting in decreased tolerance or ability for bending forward to lift something, sleeping, walking and sitting for extended periods of time secondary to decreased lumbar ROM, decreased hip strength, R anterior innominate rotation and TTP over R PSIS. Pt is motivated and is deemed an appropriate candidate to receive skilled PT services to address their physical impairments in order to improve their function. Frequency and Duration: The patient will be seen 2x/week for 4 weeks. Short Term Goals: Initiate home exercise program. Pt will report at most 4/10 pain; initial 7/10. Pt will improve lumbar flex ROM to 80%; initial 40%. Snf Goals: Pt will report I with home exercise program. Pt will report being able to walk intermediate distances; initial unable to walk intermediate distance due to pain. Pt will report pain does not disturb sleep; initial sleep is only 3/4 of normal amount due to pain. Pt will improve Janee score by at least 10 points. Treatment Plan: Modalities to reduce pain, spasms and effusion. Manual therapy to restore motion and function. Therapeutic exercise to improve strength and flexibility. Neuromuscular re-education for posture and balance. Therapeutic activities to return to functional activities of daily living. Electronically signed by: Howard Perea PT. Please sign and return to therapist. Thank you for your referral.
--- NOTE | 2024-07-16 11:17 | MHC.PT.DC ---
[facility] [place] Office [place] [facility] [place] Office [address] Sabiha Diallo 140 [facility] [phone] F: [phone] F: [phone] F: [phone] F: [phone] Physical Therapy Discharge Report Diagnosis: Low back pain Date of Surgery: Date of Evaluation: 06/22/24 Date of Discharge: 07/16/24 Treatments to Date: 8 Cancellations to Date: No Shows to Date: Discharge Status: Achieved Goals Improved Function Independent with HEP Discharge Summary: Pt has been an active and motivated participant in her therapy in and out of the clinic, she persists with lower levels of pain which she reports is manageable with the help of her program. She is in agreement with DC at this time. Electronically signed by: Howard Perea PT. Please sign and return to therapist. Thank you for your referral.
--- NOTE | 2024-07-16 11:31 | MHC.PT.DC ---
[facility] [place] Office [place] Office [place] Office [address] Sabiha Diallo 140 [facility] [phone] F: [phone] F: [phone] F: [phone] F: [phone] Physical Therapy Discharge Report Diagnosis: Low back pain Date of Surgery: Date of Evaluation: 06/22/24 Date of Discharge: 07/16/24 Treatments to Date: 8 Cancellations to Date: No Shows to Date: Discharge Status: Achieved Goals Improved Function Independent with HEP Discharge Summary: Pt has been an active and motivated participant in her therapy in and out of the clinic, she persists with lower levels of pain which she reports is manageable with the help of her program. She is in agreement with DC at this time. Electronically signed by: Howard Perea PT. Please sign and return to therapist. Thank you for your referral.
== END 2024-07-16 11:29 | disposition home or self-care (01) ==
LOC: HO.PT 10:00
PROVIDERS: PCP Nurse Practitioner Family; Visit Provider Nurse Practitioner Family
DX: M54.50 Low back pain, unspecified (principal)
CPT/HCPCS: 97110; 97161

== ENCOUNTER 2024-07-18 07:18 | Outpatient (REF) | payer OTHER, SELFPAY | END 2024-07-18 07:19 | disposition home or self-care (01) | LOC: HO.US 07:18 | PROVIDERS: PCP Nurse Practitioner Family; Visit Provider Internal Medicine Gastroenterology | DX: E66.01 Morbid (severe) obesity due to excess calories (principal) | CPT/HCPCS: 76705; 76981 ==

== ENCOUNTER 2024-10-18 12:47 | Outpatient (REF) | payer OTHER, SELFPAY ==
--- NOTE | ~2024-10-18 | MM_ITS ---
EXAMINATION: MM DIAGNOSTIC DIGITAL BREAST TOMOSYNTHESIS, BILATERAL CLINICAL INFORMATION: 1 year follow-up for calcifications in the lateral left breast on CC view. COMPARISON: Mammography: Comparison is made with relevant prior exams. TECHNIQUE: Digital breast mammography with tomosynthesis is performed in both the craniocaudal and mediolateral oblique views along with computer-aided detection (CAD). FINDINGS: The breasts are heterogeneously dense, which may obscure small masses (ACR BI-RADS breast composition Category c). There are bilateral circumscribed oval masses which wax and wane consistent with benign fibrocystic changes some are stable. Punctate grouped calcifications best seen lateral breast CC magnification views are not significantly changed from prior magnification views dating back for one year. No suspicious masses or other abnormal findings. Results are provided to the patient at time of visit by the technologist. MM/MM tomosynthesis diagnostic BI IMPRESSION: Right: Benign. Left: Calcifications in the lateral left breast stable for one year on magnification views. Recommend diagnostic follow up in one year when the patient is due for bilateral mammography to demonstrate 2 years of stability. ASSESSMENT: BI-RADS BI-RADS 3 - Probably benign finding(s) - 12 month follow-up suggested RECOMMENDATION: 12 month diagnostic follow up This patient's information was entered into a reminder system with a target due date for their next mammogram. Electronically signed by: Yessi Raza DO 10/18/2024 01:46 PM [facility]IDEL
== END 2024-10-18 12:48 | disposition home or self-care (01) ==
LOC: HO.MAMMO 12:47
PROVIDERS: PCP Nurse Practitioner Family; Visit Provider Nurse Practitioner Family
DX: R92.1 Mammographic calcification found on diagnostic imaging of breast (principal)
CPT/HCPCS: 77062; 77066

== ENCOUNTER → 2024-10-18 13:00 | Outpatient (BNV) | payer OTHER, SELFPAY | PROVIDERS: PCP Nurse Practitioner Family; Visit Provider Internal Medicine | DX: R92.1 Mammographic calcification found on diagnostic imaging of breast (principal) | CPT/HCPCS: 77066; G0279 ==

== ENCOUNTER 2024-11-15 15:34 | Outpatient (AMB) | payer OTHER, SELFPAY ==
[2024-11-15 16:03] VITALS: BP 136/80; PULSE 68; TEMP 36.8; O2SAT 98
--- NOTE | 2024-11-15 16:03 | AM.OFFWIN_ITS ---
Intake Vital Signs 11/15/24 16:03 Weight 206 lb BP 136/80 Blood Pressure Location Lt brachial Position Sitting Pulse 68 Pulse Source Pulse Oximeter Temp 98.3 F Temp Source Oral Pulse Oximetry (%) 98 Oxygen Delivery Method Room Air Intake Visit Reasons: EP Eye irritation, sore throat, ear pain, headache Intake Note: Patient here bilat eye redness and discharge, bilat ear pain and headaches which started two days ago. Patient Tobacco Use Status: Never used Tobacco Allergies aspirin Allergy (Severe, Verified 11/15/24 16:09) Swollen penicillamine Allergy (Severe, Verified 11/15/24 16:09) Rash and Hives povidone-iodine [Betadine] Allergy (Severe, Verified 11/15/24 16:09) Rash and Hives primidone Allergy (Severe, Verified 11/15/24 16:09) anger soap [Betadine] Allergy (Severe, Verified 11/15/24 16:09) Rash and Hives Peant Butter Allergy (Severe, Uncoded 11/15/24 16:09) Rash and Hives Seafood Allergy (Severe, Uncoded 11/15/24 16:09) Anaphylaxis beta blockers Adverse Reaction (Intermediate, Uncoded 11/15/24 16:09) Unknown Do you need a note to return to daycare/school/sports/work: No HPI HPI Comments History of Present Illness Details 59 y/o female patient who presents to [facility] walk in clinic with c/o B/L ear pain/pressure, B/L eye irritation/redness/discharged and headaches x 2 days. [facility] Medical History (Updated 11/15/24 @ 16:31 by Marleny Ames NP) Bacterial conjunctivitis Acute respiratory disease Conversion disorder MCI (mild cognitive impairment) Asthma Chronic restrictive lung disease TRACI (obstructive sleep apnea) Asthma-COPD overlap syndrome Surgical History History of esophagogastroduodenoscopy (EGD) Hx of colonoscopy History of hernia repair Hx of cholecystectomy History of appendectomy History of hysterectomy Family History Father HTN (hypertension) Stroke Diabetes mellitus Maternal Grandmother Cancer Mother Diabetes mellitus HTN (hypertension) Stroke Brother Stroke Social History Housing: Apartment Alcohol intake: never Patient Tobacco Use Status: Never used Tobacco e-Cigarette/Vaping Use: Never Used Second Hand Smoke Exposure: No service: No Current occupational status: disabled Cognitive needs: No Hearing needs: No Vision needs: No Review of Systems Const All systems reviewed & are unremarkable except as noted in HPI and below Physical Exam Vital Signs: Last Vital Signs Temp 98.3 F 11/15/24 16:03 Pulse 68 11/15/24 16:03 BP 136/80 11/15/24 16:03 Pulse Ox 98 11/15/24 16:03 Oxygen Delivery Method Room Air 11/15/24 16:03 Const General: cooperative and no acute distress Nutritional Appearance: obese Orientation/consciousness: patient oriented x3 HEENT Head: Yes normocephalic Ears: external ears normal and TM abnormal bulging bilateral and with fluid behind the TM bilateral General nose exam: Abnormal mucous membranes and turbinates present boggy and Nasal discharge present Face and sinus: Yes sinus tenderness Mouth: moist mucous membranes Throat: Yes uvula midline Eyes Conjunctivae: conjunctival abnormal left conjunctival injection and discharge Pupils: Equal, round and reactive pupils present EOM: EOMs intact bilaterally Resp Effort & Inspection: normal respiratory effort and able to speak in complete sentences Auscultation: clear to auscultation bilaterally, no crackles, no rales, no rhonchi and no wheezes Cardio Heart sounds: S1 normal heart sound present and S2 normal heart sound present Neuro General: patient oriented x3 Cranial nerves: Yes Equal, round and reactive pupils present Assessment & Plan Assessment & Plan (1) Acute respiratory disease: Code(s): J06.9 - Acute upper respiratory infection, unspecified Plan: Ordered SARs OTC cold remedies Acetaminophen for pain relief Rest and hydrate well with warm fluids. (2) Bacterial conjunctivitis: Code(s): H10.9 - Unspecified conjunctivitis Plan: Wash eyes with warm clean water and soap Maintain good Hand hygiene Ordered Abx eye Drops. Orders: Orders SARS-CoV2/FLU/RSV Today J06.9 - Acute upper respiratory infection, unspecified Medications: New ciprofloxacin HCl 0.3% put 1-2 drps in affected eye(s) every 2hr up to 8 times/day x2days; then 4 times/day x5days ophthalmic (eye) 5 mL 0RF H10.9 - Unspecified conjunctivitis pseudoephedrine HCl ER (Sudafed 12 Hour) 120 mg PO Q12H 30 tabs 0RF J06.9 - Acute upper respiratory infection, unspecified Coding Level of Care Code Est Pt Level 4 (47054) Diagnoses Acute respiratory disease J06.9 Bacterial conjunctivitis H10.9 Time Spent (min) 20
--- OUTSIDE RECORDS SUMMARY | 2024-11-15 16:35 | XMS_ITS | Continuity of Care Document ---
Author Organization [employer] [place] [facility] [employer] Address [address] [place] [address] Care Team Providers Care Toy Stuffer Name Role Phone HIM CCA OTHER Assessment Encounter Date Assessment Date Assessment LastModified by Organization Details LastModified Time 11/14/2024 11/14/2024 I provided real -time medical direction via phone for this encounter and was available for additional phone-based assistance as needed. I have reviewed and agree with the Assessment and Plan as documented by the Molded Goods Inspector Trimmer. Patient given the opportunity to ask questions. Our service contacted for an assessment of: Viral URI symptoms As per above, patient with approximately several days of viral URI symptoms. Denies fever or chills. Denies chest pain, shortness of breath, dyspnea on exertion. Positive nasal congestion and dry cough. Positive sick contacts. Patient also had right eye erythema that subsequently improved and now has developed left eye conjunctiva erythema without any drainage. She has felt that her eyes have been itchy bilaterally. Per eating disorder specialist on the scene, vital signs are stable and patient is afebrile. No wheezing heard on exam. COVID and Flu are both negative. See uploaded pictures. No increased work of breathing and no distress. No drainage from either eye. Vision grossly intact. Impression: Common cold and viral URI Plan: Continue with [id number] medications to control symptoms. Red flags discussed as to when to seek a higher level care. I do not see any evidence of bacterial conjunctivitis. Given the fact that she had improvement in the right eye symptoms without any course of treatment suggest dry eye over viral conjunctivitis or bacterial conjunctivitis. Will monitor and we discussed red flags as to when to recall the service. Patient agreement with the plan Allergies: Reviewed PCP f/u: We discussed the diagnostic uncertainty of home visits and the risk associated with this. In this case, the patient and I felt this to be an acceptable and reasonable amount of risk given the benefit of avoiding an ED visit. We discussed the need to seek care urgently/emergent ly in the setting of any new or worsening serious symptoms, particularly fever chills [email or web address] Not available 11/14/2024 22:33:36 Plan of Treatment Reminders Order Date Submit Date Provider Last Modified By Organization Details Last Modified Time Details Appointments None recorded. Lab rapid flu (A+B) [address], [id number], 22:31:53 rapid SARS CoV 2 Ag, QL IA, respiratory specimen [address], [address] [place] [address], [phone], 22:31:54 Referral None recorded. Procedures None recorded. Surgeries None recorded. Imaging None recorded. Medication Orders None recorded. Patient TargetsNo targets recorded. Patient InstructionsNo instructions recorded. Reason for Referral None Reported. Results Created Date Observation Date Name Description Value Unit Range Abnormal Flag Note LastModifiedBy Organization Detail LastModifiedTime 11/14/1911/14/2024 rapid SARS CoV 2 Ag, QL IA, respi rator y speci men rapid SARS CoV 2 Ag, QL IA, respiratory specimen negati ve Not Available [facility] [address] [place] [address], [phone], 11/14/2024 22:31:42 11/14/19 25 11/14/2024 rapid flu (A+B) Flu negati ve Not Available [facility] [address] [place] [address], [phone], 11/14/2024 22:31:41 Result Notes None recorded. Medical Equipment None Reported. Allergies Allergen ID Allergen Name Allergen Category Reaction Reaction Severity Criticality Documentation Date Start Date Code Code System Note Provider Name and Address Organization Details Recorded Time 48076 Product containin g penicilli n (product) medicatio n Not available Not available Not available 11/14/2024 02957 8001 SNOMED Not Available [facility] - [facility] 10:56:19 48617 aspirin medicatio n Not available Not available Not available 11/14/2024 1191 RxNorm Not Available [facility] - [facility] 5 10:56:19 Medications Name Sig Start Date Stop Date Status Note LastModified by Organization Details LastModified Time losartan 50 mg tablet TAKE 1 TABLET BY MOUTH DAILY active Not Available Not Available No t Available atorvastatin 10 mg tablet TAKE 1 TABLET BY MOUTH AT BEDTIME active Not Available Not Available No t Available sucralfate 1 gram tablet TAKE 1 TABLET BY MOUTH FOUR TIMES DAILY active Not Available Not Available No t Available omeprazole 40 mg capsule,delay ed release TAKE 1 CAPSULE BY MOUTH DAILY active Not Available Not Available No t Available doxycycline monohydrate 100 mg tablet TAKE 1 TABLET BY MOUTH TWICE DAILY FOR 14 DAYS active Not Available Not Available No t Available amitriptyline 50 mg tablet TAKE 1 TABLET BY MOUTH EVERY DAY AT BEDTIME active Not Available Not Available N ot Available acetaminophen 500 mg tablet TAKE 2 TABLETS BY MOUTH EVERY 8 HOURS FOR 5 DAYS NEEDED active Not Available Not Available No t Available levothyroxine 25 mcg tablet TAKE 1 TABLET BY MOUTH EVERY MORNING active Not Available Not Available No t Available famotidine 20 mg tablet TAKE 1 TABLET BY MOUTH TWICE DAILY NEEDED FOR GI DISTRESS active Not Available Not Available No t Available prednisone 50 mg tablet TAKE 1 TABLET BY MOUTH DAILY FOR 6 DAYS active Not Available Not Available No t Available montelukast 10 mg tablet TAKE 1 TABLET BY MOUTH DAILY active Not Available Not Available No t Available epinephrine 0.3 mg/0.3 mL injection, auto-injector INJECT 0.3 ML IN THE MUSCLE EVERY 4 HOURS NEEDED FOR ANAPHYLAXI S. CALL 911 active Not Available Not Available No t Available albuterol sulfate HFA 90 mcg/actuation aerosol inhaler INHALE 2 PUFFS BY MOUTH EVERY 6 HOURS NEEDED FOR WHEEZING active Not Available Not Available No t Available amitriptyline 100 mg tablet TAKE 1 TABLET BY MOUTH EVERY DAY AT BEDTIME active Not Available Not Available N ot Available hydroxyzine pamoate 25 mg capsule TAKE 1 CAPSULE BY MOUTH TWICE DAILY NEEDED active Not Available Not Available No t Available aripiprazole 10 mg tablet TAKE 1 TABLET BY MOUTH 1 TIME DAILY active Not Available Not Available N ot Available aripiprazole 15 mg tablet TAKE 1 TABLET BY MOUTH ONCE DAILY active Not Available Not Available No t Available bupropion HCl XL 300 mg 24 hr tablet, extended release TAKE 1 TABLET BY MOUTH EVERY MORNING active Not Available Not Available No t Available Symbicort 160 mcg-4.5 mcg/actuation HFA aerosol inhaler INHALE 2 PUFFS BY MOUTH TWICE DAILY active Not Available Not Available No t Available diclofenac 1 % topical gel APPLY 2 GRAMS TOPICALLY TO THE AFFECTED AREA FOUR TIMES DAILY active Not Available Not Available No t Available Vitals Date Recorded Respiratory rate Heart rate Body height Body weight Body temperature Oxygen saturation Oxygen saturation in Arterial blood by Pulse oximetry Systolic blood pressure Diastolic blood pressure Provider Name and Address Organization Details Last Updated DateTime 14 /min 80 /min 167.64 cm 01628.4 g 98 [degF] 98 % 98 % 170 mm[Hg] 90 mm[Hg] Not Available [facility] 20:15:50 Social History None recorded. Functional Status None recorded. Mental Status None recorded. Family History Nothing Reported. Medical History No medical history recorded. Gynecological HistoryNo gynecological history recorded. Obstetrics History GPAL:G 0 P 0 0 0 0 Past Encounters Encounter ID Performer Location Encounter Start Date Encounter Closed Date Diagnosis/Indication Diagnosis SNOMED-CT Code Diagnosis ICD10 Code Diagnosis Note [id number] Soheila Braxton MD [facility] [address] [place] [phone] 11/14/2024 20:15:45 11/15/2024 08:43:51 Viral syndrome 648478186 B34.9 Health Concerns Section Related Observation LastModified by Organization Detai ls LastModified Time None Recorded Concern Status LastModified by Organization Details LastModified Time None Recorded Payers Encounter Date Sequence Insurance Name Policy Number Policy Borjas Covered Member ID Borjas Member ID Guarantor Name 11/14/2024 1 [facility] - DOS ON OR AFTER 2022 - DUAL ELIGIBLE - SNF OPTIONS AND ONE CARE (MEDICARE REPLACEMENT/ADV ANTAGE - HMO) Marcela Medellin [id number] Marcela Medellin Notes Date Note Type Note Provider Name and Address Organization Details Recorded Time 11/14/2024 text/html [facility] Nurse Triage Notes (Arianna Stein - RN): Denies: Sudden onset of dental pain, unable to manage own secretions Nosebleed lasting longer than one hour; unable to stop bleeding Throat swelling/difficult swallowing Chief Complaints: Sore throat, Earache PMH: COPD/Asthma, Hyperlipidemia, Hypertension, Hypothyroidism PMH Reviewed at 11/14/2024:56 Allergies Reviewed at 11/14/2024:56 Comments: Patient calling in to place a referral, identified via name and . In addition to PMH patient has a fatty liver. Patient with an earache, sore throat, headache, red eyes, stuffy nose and chills. She denies fever, no body aches, no chest congestion or wheezing. She would like to be evaluated. Molded Goods Inspector Trimmer Organization Information for Aquilino [employer] Legal Name: [facility] Transportation Address: [address] [place] [address], [place], [facility], Ict Analyst: Amos Gates MD CLIA No.: [id number] Molded Goods Inspector Trimmer POC Test Results from [facility] Rapid COVID antigen (19:43:42) COVID: - Rapid influenza antigen (19:43:42) Flu: - .................... .................... .................... .................... .................... .................... .................... . Molded Goods Inspector Trimmer Note From [facility]: Patient alert and oriented complains of cold symptoms, nasal congestion, sore throat, cough head congestion times four days. patient reports her right eye was red and itchy, it resolves, but now left eye is red and itchy with discharge. Patient reports normal vision. Patient complains of frequent nonproductive cough. Patient denies chest pain, nausea, difficulty breathing, fever, chills, vomiting, or diarrhea. Patient denies abdominal pain or any other pain or complaints. Patient pink warm dry secondary exam unremarkable. Lung sounds clear negative increase work of breathing positive full sentences, lymph nodes, swollen and tender on right side. Eyes in pictures left eye red with yellow discharge. Abdomen soft non tender extremities unremarkable no edema noted. Patient negative for Covid and flu via rapid POC. [facility] advises patient likely viral infection that will pass in 7 to 10 days. Red flags, patient education what to expect next steps, supportive care and others discussed. Patient demonstrates understanding of care and plan. .................... .................... .................... .................... .................... .................... .................... . [facility] Consulted: Soheila Braxton .................... .................... .................... .................... .................... .................... .................... . Disposition: Fulfilled Soheila Braxton MD [address] [facility],[address], [place], [phone], [facility] 11/14/2024 22:34:00 OBGyn Episode No OBEpisode recorded.
--- OUTSIDE RECORDS SUMMARY | 2024-11-15 16:35 | XMS_ITS | Data Portability ---
Author Organization [facility] [employer] Address [address] [place] [address] Care Team Providers Care Die Casting Supervisor Name Role Phone HIM CCA OTHER Assessment Encounter Date Assessment Date Assessment LastModified by Organization Details LastModified Time 11/14/2024 11/14/2024 I provided real -time medical direction via phone for this encounter and was available for additional phone-based assistance as needed. I have reviewed and agree with the Assessment and Plan as documented by the Nursing Education Specialist. Patient given the opportunity to ask questions. [...] her eyes have been itchy bilaterally. Per animated cartoons painter on the scene, vital signs are stable and patient is afebrile. No wheezing heard on exam. COVID and Flu are both negative. See uploaded pictures. No increased work of breathing and no distress. No drainage from either eye. Vision grossly intact. Impression: Common cold and viral URI Plan: Continue with [id number] medications to control symptoms. Red flags discussed [...] or worsening serious symptoms, particularly fever chills [facility]4 Not available 11/14/2024 22:33:36 Plan of Treatment Reminders Order Date Submit Date Provider Last Modified By Organization Details Last Modified Time Details Appointments None recorded. Lab rapid flu (A+B) 2024 025 [place] [address] Main - [facility], [address] [place] [address], [phone], 5 22:31:53 rapid SARS CoV 2 Ag, QL IA, respiratory specimen [address], [address] [place] [address], [id number], 22:31:54 Referral None recorded. Procedures None recorded. Surgeries None recorded. Imaging None recorded. Medication Orders acetaminoph en 500 mg tablet 2023 024 gbaci Not available 14:56:15 acetaminoph en 500 mg tablet 2023 024 [id number], [address] [place], [place], [phone], 4 14:58:01 diclofenac 1 % topical gel 2023 [facility] #[id number], [address], [place], [phone], 4 14:58:05 Patient TargetsNo targets recorded. Patient InstructionsNo instructions recorded. Reason for Referral None Reported. Results Created Date Observation Date Name Description Value Unit Range Abnormal Flag Note LastModifiedBy Organization Detail LastModifiedTime 11/14/19 25 11/14/2024 rapid SARS CoV 2 Ag, QL IA, respi rator y speci men rapid SARS CoV 2 Ag, QL IA, respiratory specimen negati ve Not Available Main - [facility] ed [address] [place] [address], [phone], 11/14/2024 22:31:42 11/14/19 25 11/14/2024 rapid flu (A+B) Flu negati ve Not Available Main - [facility] ed [address] [facility], [place], [phone], 11/14/2024 22:31:41 Result Notes None recorded. Medical Equipment None Reported. Allergies Allergen ID Allergen Name Allergen Category Reaction Reaction Severity Criticality Documentation Date Start Date Code Code System Note Provider Name and Address Organization Details Recorded Time 57323 Product containin g penicilli n (product) medicatio n Not available Not available Not available 11/14/2024 62369 8001 SNOMED Not Available [facility] - production 5 10:56:19 35363 aspirin medicatio n Not available Not available Not available 11/14/2024 1191 RxNorm Not Available [facility] 10:56:19 Medications Name Sig [...] Available No t Available Vitals Date Recorded Body temperature Heart rate Respiratory rate Oxygen saturation Oxygen saturation in Arterial blood by Pulse oximetry Systolic blood pressure Diastolic blood pressure Provider Name and Address Organization Details Last Updated DateTime 4 98.4 [degF] 83 /min 16 /min 97 % 97 % 144 mm[Hg] 92 mm[Hg] Not Available [employer] - production 4 14:52:47 Date Recorded Respiratory rate Heart rate Body height Body weight Body temperature Oxygen saturation Oxygen saturation in Arterial blood by Pulse oximetry Systolic blood pressure Diastolic blood pressure Provider Name and Address Organization Details Last Updated DateTime 5 14 /min 80 /min 167.64 cm 74557.4 g 98 [degF] 98 % 98 % 170 mm[Hg] 90 mm[Hg] Not Available [facility] - production 5 20:15:50 Social History None recorded. Functional Status None recorded. Mental Status None recorded. Family History Nothing Reported. Medical History No medical history recorded. Gynecological HistoryNo gynecological history recorded. Obstetrics History GPAL:G 0 P 0 0 0 0 Past Encounters Encounter ID Performer Location Encounter Start Date Encounter Closed Date Diagnosis/Indication Diagnosis SNOMED-CT Code Diagnosis ICD10 Code Diagnosis Note [id number] MAYRA DONOVAN MD Main - [facility] [address] [place] [phone] 02/22/2024 14:52:45 02/23/2024 10:29:44 Contusion of left chest wall [id number] [id number] S20.212A Evaluation in the field was performed by my animated cartoons painter colleague, as noted above, I provided real-time direction and supervisio n for this visit. 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 Denies any bruising or abrasions. Pt with c/o left breast and left chest area pain especially when she moves around, moves her arms around or takes a deep breathe. Denies headstrike , SOB, chest pressure, N/V.Pt is allergic to NSAIDs and has not Tylenol at home, so has not taken anything for pain. Pt with known left shoulder chronic pain and currently is working with PT. Impression :Contusion of the left shoulder and left anterior chest wall Plan:-Pt allergic to NSAIDs. Tylenol 1000 mg PO x1 given by the animated cartoons painter. Rx sent to her pharmacy for 30 tablet ( 1 gram every 8 hrs as needed x5 day )-Diclofen ac gel sent to her pharmacy-A dvised to f/u with PCP in few days-Red flags discussed with the patient Primary care, consider__ _ Dispositio n: We discussed the diagnostic uncertaint y of home visits and the risk associated with this. In this case, the patient and I felt this to be an acceptable and reasonable amount of risk given the benefit of avoiding an ED visit. We discussed the need to seek care urgently/e mergently in the setting of any new or worsening serious symptoms, particular ly worsening pain, SOB, nausea, vomiting , fever, cough , dizziness or any other concerns. [id number] Soheila Braxton MD Main - [facility] [address] [place] [phone] 11/14/2024 20:15:45 11/15/2024 08:43:51 Viral syndrome [id number] B34.9 Health Concerns Section Related Observation LastModified by Organization Detai ls LastModified Time None Recorded Concern Status LastModified by Organization Details LastModified Time None Recorded Advance Directives Directive None Recorded Payers Encounter Date Sequence Insurance Name Policy Number Policy Borjas Covered Member ID Borjas Member ID Guarantor Name 02/22/2024 1 [facility] - DOS ON OR AFTER 2022 - DUAL ELIGIBLE - LONGTERM OPTIONS AND ONE CARE (MEDICARE REPLACEMENT/ADV ANTAGE - HMO) Marcela Terrellro [id number] Marcela Terrellro 11/14/2024 1 [facility] - DOS ON OR AFTER 2022 - DUAL ELIGIBLE - LONGTERM OPTIONS AND ONE CARE (MEDICARE REPLACEMENT/ADV ANTAGE - HMO) Marcela Terrellro [id number] Marcela Medellin Notes Date Note Type Note Provider Name and Address Organization Details Recorded Time 02/22/2024 text/html HPI: Molly is a 58 yo Omani/Occitan speaking female with hx of asthma, COPD, Chronic restrictive lung disease, MCI, Migraines, Hemiplegia affecting left nondominant side, schizoaffective disorder, MDD, KIMBERLY, PTSD, conversion disorder with motor symptom or deficit, conversion 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 Allergies to PCN, ASA, Peanut Butter OS, povidone iodine, Primidone, and Feliz Crab (anaphylaxis). Mbr Service Rep calling into the CRU with Mbr on the line reporting that Molly fell on Tuesday and her chest still hurts from the fall. Denies any bruising or abrasions. This CRU RN was connected to the Mbr and the Mbr reported that she fell outside on the sidewalk Tuesday and hit her left chest area. Mbr c/o left breast and left chest area pain especially when she moves around, moves her arms around or takes a deep breathe. Reports a little SOB but denies any other s/s. Mbr denies hitting her head when she fell. Mbr reported that she did not go to seek medical attention or call her MD. Mbr states her left chest and left breast area still hurts but does not want to go to the hospital. Offerd INSTED for eval and assessment and she agreed. Confirmed address and phone number. Instructed Mbr to call 911 with worsening s/s, sob. ..................... ..................... ..................... ..................... ..................... ..................... ............... [facility] Nurse Triage Notes (Devika Hinojosa): Comments: Member is aware we do not offer exrays but wanted an assessment to be completed ..................... ..................... ..................... ..................... ..................... ..................... ............... Nursing Education Specialist Note From Channing Wan: Dispatched to the call address for the female with shoulder/chest pain. Pt states she tripped over uneven sidewalk on Tuesday. She states she fell flat on her chest, denies LOC or head strike. Pt advises that she has arthritis in that shoulder and cannot lift it beyond horizontal at baseline and gets PT. Pt states she has not taken anything for the pain as she is allergic to NSAIDs and has no Tylenol in the home. Pt denies shortness of breath of difficulty breathing but states when she takes a deep breath the movement of the shoulder and muscles in that area hurt. Pt was found opening door, CAOx4, airway open and patent, breathing non labored, able to speak in full sentences, -JVD, -HEENT, skin color appropriate for race/warm/dry with good turgor, mucous membranes pink and moist, +CMSx4, -bruising or deformities noted. [facility] consulted. Pt given 1g PO Tylenol and script called into preferred pharmacy. Red flags discussed. ALL times are approx. ..................... ..................... ..................... ..................... ..................... ..................... ............... Disposition: Fulfilled MAYRA DONOVAN MD [address] [place] [address],[address], [place], [phone], [facility] 02/22/2024 15:43:17 11/14/2024 text/html [facility] Nurse Triage Notes (Arianna Stein - RN): Denies: Sudden onset of dental pain, unable to manage own secretions Nosebleed lasting longer than one hour; unable to stop bleeding Throat swelling/difficult swallowing Chief Complaints: Sore throat, Earache PMH: COPD/Asthma, Hyperlipidemia, Hypertension, Hypothyroidism PMH Reviewed at 11/14/2024 - 10:56 Allergies Reviewed at 11/14/2024 - 10:56 Comments: Patient calling in to place a referral, identified via name and . In addition to PMH patient has a fatty liver. Patient with an earache, sore throat, headache, red eyes, stuffy nose and chills. She denies fever, no body aches, no chest congestion or wheezing. She would like to be evaluated. Nursing Education Specialist Organization Information for [facility] [email or web address] Legal Name: [facility] Address: [address] [place] [address], [place] [address], Dev Manager: Amos GRIFFIN No.: [id number] Nursing Education Specialist POC Test Results from Aquilino Edwards - [facility] Rapid COVID antigen (19:43:42) COVID: - Rapid influenza antigen (19:43:42) Flu: - ..................... ..................... ..................... ..................... ..................... ..................... ............... Nursing Education Specialist Note From Aquilino Edwards: Patient alert and [...] for Covid and flu via rapid POC. [facility] advises patient likely viral infection that will pass in 7 to 10 days. Red flags, patient education what to expect next steps, supportive care and others discussed. Patient demonstrates understanding of care and plan. ..................... ..................... ..................... ..................... ..................... ..................... ............... [facility] Consulted: Soheila Braxton ..................... ..................... ..................... ..................... ..................... ..................... ............... Disposition: Fulfilled Soheila Braxton MD [address] [facility], [place], [address], [employer] 11/14/2024 22:34:00 OBGyn Episode No OBEpisode recorded.
== END 2024-11-15 16:31 | disposition home or self-care (01) ==
PROVIDERS: PCP Nurse Practitioner Family; Visit Provider Nurse Practitioner Family
DX: J06.9 Acute upper respiratory infection, unspecified (principal); H10.9 Unspecified conjunctivitis

== ENCOUNTER 2024-11-15 15:34 | Outpatient (REF) | payer OTHER, SELFPAY ==
[2024-11-16 12:31] LABS: Influenza A PCR NEGATIVE (Negative); Influenza B PCR NEGATIVE (Negative); Resp Syncy Virus RNA Qual PCR NEGATIVE (Negative); SARS COV2 PCR INHOUSE NEGATIVE (Negative)
== END 2024-11-15 15:35 | disposition home or self-care (01) ==
LOC: HO.LAB 15:34
PROVIDERS: PCP Nurse Practitioner Family; Visit Provider Nurse Practitioner Family
DX: J06.9 Acute upper respiratory infection, unspecified (principal); H10.9 Unspecified conjunctivitis
CPT/HCPCS: 0241U; 99212

== ENCOUNTER 2024-12-25 10:08 | Outpatient (AMB) | payer OTHER, SELFPAY ==
--- NOTE | 2024-12-25 10:26 | MHC.OFFVIS ---
Vital Signs 12/25/24 10:27 Height 4 ft 11 in Weight 210 lb BMI 42.4 BP 125/62 Blood Pressure Location Lt brachial Position Sitting Pulse 59 Pulse Oximetry (%) 98 Oxygen Delivery Method Room Air Intake Visit Reasons: f/u dysphagia GERD and B12 deficiency Intake Note: Patient follow up for B12 deficiency and US result. Patient denies any GI issues for today. Assistant Press Operator Offset Required: No Accompanied by: Self / Same As Patient Allergies aspirin Allergy (Severe, Verified 12/25/24 10:26) Swollen penicillamine Allergy (Severe, Verified 12/25/24 10:26) Rash and Hives povidone-iodine [Betadine] Allergy (Severe, Verified 12/25/24 10:26) Rash and Hives primidone Allergy (Severe, Verified 12/25/24 10:26) anger soap [Betadine] Allergy (Severe, Verified 12/25/24 10:26) Rash and Hives Peant Butter Allergy (Severe, Uncoded 11/15/24 16:09) Rash and Hives Seafood Allergy (Severe, Uncoded 11/15/24 16:09) Anaphylaxis beta blockers Adverse Reaction (Intermediate, Uncoded 11/15/24 16:09) Unknown Medication List - Last Reconciled 12/25/24 by Geovany Ulloa MD albuterol sulfate 90 mcg/actuation 2 puffs inhalation Q6H PRN amitriptyline 100 mg PO BEDTIME aripiprazole 15 mg PO DAILY atorvastatin 10 mg PO BEDTIME blood pressure monitor (Blood Pressure Kit) As directed-brachial blood pressure monitor to check blood pressure daily. bupropion HCl XL 300 mg PO QAM cane As directed ciprofloxacin HCl 0.3% put 1-2 drps in affected eye(s) every 2hr up to 8 times/day x2days; then 4 times/day x5days ophthalmic (eye) CPAP As directed CPAP (CPAP Machine/Device) As directed diclofenac potassium 50 mg PO BID PRN diclofenac sodium 1% (Arthritis Pain (diclofenac)) 2 grams topical QID epinephrine (EpiPen 2-John) 0.3 mg (0.3 mL) IM Q4H PRN fluticasone propionate 50 mcg/actuation 2 sprays intranasal DAILY 30 days folic acid 1 mg PO DAILY 90 days hydroxyzine pamoate 25 mg PO BID levothyroxine 25 mcg PO QAM lidocaine 5% 2 patches topical DAILY losartan 50 mg PO DAILY montelukast 10 mg PO DAILY 90 days omeprazole 20 mg PO DAILY 30 days pseudoephedrine HCl ER (Sudafed 12 Hour) 120 mg PO Q12H [shower chair As directed] Symbicort 160-4.5 mcg/actuation (budesonide-formoterol) 2 puffs PO BID NS thiamine HCl (vitamin B1) 100 mg PO DAILY walker daily use HPI HPI f/u dysphagia GERD and B12 deficiency: Details: GI clinic visit for this 59-year-old female for evaluation of dysphagia. 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 Doing OK Notes improvement in swallowing with dietary modification Wt gain of 50 lbs over the past 4 years Pt attributes her wt gain to using Prednisone in the past - had it 2-3 times last year PAST VISITS: Patient returns after hiatus of 2 years (last seen in Sep, 2021) Patient cc: dysphagia, nauseas, acid reflex and she also complain having bad breath. Continues to have dysphagia Intermittent food impaction (approx once a month) and feels dizzy and feels she is going to pass out. Can have a food impaction when she eats meats. Barium swallow results were reviewed EGD and biopsy results were reviewed with the patient Pt complains of dysphagia to solid food for the past two months Dysphagia is associated with hard foods like chicken. She had three episodes of food impaction and felt she was going to pass out. She had to regurgitate the food Mouth gets dry Pt also complains of intermittent heartburn and bad breath and takes TUMS prn. PAST VISITS: Colonoscopy results reviewed with the patient. She notes heartburn associated with intake of spicy foods Denies abd pain, and afraid to eat certain foods associated with choking She admits to wt loss of 5 lbs. Denies recent change in bowel habits, constipation, diarrhea,? black stools or rectal bleeding. ? Patient denies major cardiac? or pulmonary problems, ?Pt has asthma and admits to loud snoring and sleep apnea -? uses a CPAP machine. ?Denies problems with? anesthesia in the past. ?Denies being on chronic? anticoagulation. ?Patient denies known family history of colon cancer? or other GI malignancies. ?Mom had colon polyps in her 50's. ?GM may have? had gastric cancer. ENDOSCOPIC STUDIES:?Colonoscopy in [place] 5 yrs ago - negative per patient LABS IN? MEDITECH :12/20/19 REVIEWED 05/30/24: BARIUM SWALLOW SHOWED: 1. Trace laryngeal penetration with thick barium. 2. Mild to moderately disorganized esophageal peristalsis. 3. Mild narrowing of the GE junction that appears to represent a wide open Schatzki's ring. 4. Small type I hiatal hernia with moderate gastroesophageal reflux. 5. There are few small foci of contrast pooling in the fundus of the stomach that could represent small superficial apthous ulcers. Recommend correlation with recent EGD. Of note - pt had an EGD with dilation in December, 01/13/24 EGD SHOWED: ESOPHAGUS: Dysphagia likely due to esophageal motility disorder Esophageal balloon dilation was performed. STOMACH: Antral gastritis and benign-appearing nodule in the fundus DUODENUM: Mild duodenitis in the bulb Plan: If dysphagia persists, I will schedule a barium swallow BIOPSIES SHOWED: A. Gastric antrum, biopsy: Gastric antral mucosa with minimal chronic inactive gastritis; negative for H.pylori, intestinal metaplasia and dysplasia. B. Gastric fundus, nodule, biopsy: Gastric fundic mucosa with focal lymphoid aggregate and rare neutrophil, otherwise no specific change; negative for H pylori, intestinal metaplasia and dysplasia (see comment). C. Esophagus, proximal, biopsy: Squamous mucosa with no specific change; no columnar mucosa present 09/29/21 COLONOSCOPY SHOWED No polyps were detected. Moderate diverticulosis seen in the sigmoid colon Moderate hemorrhoids on retroflexed exam. Plan: Patient has an appointment on 10/15/21 in the GI Clinic with? ? Geovany Ulloa M.D. Repeat Colonoscopy in 5 years due to family hx of colon polyps (Mom in her 50's) [facility] Medical History (Updated 12/25/24 @ 11:18 by Geovany Ulloa MD) Bacterial conjunctivitis Acute respiratory disease Conversion disorder MCI (mild cognitive impairment) Asthma Chronic restrictive lung disease TRACI (obstructive sleep apnea) Asthma-COPD overlap syndrome Surgical History History of esophagogastroduodenoscopy (EGD) Hx of colonoscopy History of hernia repair Hx of cholecystectomy History of appendectomy History of hysterectomy Family History Father HTN (hypertension) Stroke Diabetes mellitus Maternal Grandmother Cancer Mother Diabetes mellitus HTN (hypertension) Stroke Brother Stroke Social History Housing: Apartment Alcohol intake: never Patient Tobacco Use Status: Never used Tobacco e-Cigarette/Vaping Use: Never Used Second Hand Smoke Exposure: No service: No Current occupational status: disabled Cognitive needs: No Hearing needs: No Vision needs: No Review of Systems Const All systems reviewed & are unremarkable except as noted in HPI and below Physical Exam Vital Signs: Last Vital Signs Pulse 59 12/25/24 10:27 BP 125/62 12/25/24 10:27 Pulse Ox 98 12/25/24 10:27 Oxygen Delivery Method Room Air 12/25/24 10:27 BMI result Body Mass Index 42.4 Const General: healthy appearing and no acute distress Nutritional Appearance: obese Orientation/consciousness: patient oriented x3 Limitations: language barrier HEENT Head: Yes normal to inspection Ears: hearing grossly normal bilaterally Eyes Sclerae: sclerae normal Pupils: Equal, round and reactive pupils present Neck Neck: Yes normal visual inspection Chest Chest palpation & inspection: normal inspection of the chest Resp Effort & Inspection: normal respiratory effort Auscultation: clear to auscultation bilaterally Cardio Palpation: normal PMI Rate: regular rate Rhythm: regular rhythm Heart sounds: S1 normal heart sound present, S2 normal heart sound present and no murmurs GI Palpation (GI): Soft to palpation, nontender and No hepatosplenomegaly present Auscultation: normal bowel sounds Rectal Exam - Female: deferred Skin General skin exam: no rashes or lesions noted Neuro General: patient oriented x3, gait normal and moves all extremities Cranial nerves: Yes Equal, round and reactive pupils present Psych Appearance: grossly normal Mental Status: mental status grossly normal Assessment & Plan Assessment & Plan (1) B12 deficiency: Code(s): E53.8 - Deficiency of other specified B group vitamins Category: Medical (2) Colon cancer screening: Comment: 09/29/21 colonoscopy showed moderate diverticulosis and moderate hemorrhoids. No polyps were detected. Plan: Repeat Colonoscopy in 5 years due to family hx of colon polyps (Mom in her 50's) - due in Sep, 2026. Code(s): Z12.11 - Encounter for screening for malignant neoplasm of colon Category: Medical (3) Family history of colonic polyps: Code(s): Z83.71 - Family history of colonic polyps Category: Medical (4) Dysphagia: Code(s): R13.10 - Dysphagia, unspecified Category: Medical (5) GERD (gastroesophageal reflux disease): Code(s): K21.9 - Gastro-esophageal reflux disease without esophagitis Category: Medical (6) Morbid obesity with BMI of 40.0-44.9, adult: Code(s): E66.01 - Morbid (severe) obesity due to excess calories; Z68.41 - Body mass index [BMI] 40.0-44.9, adult Category: Medical Plan 59 YF with Htn, asthma-COPD overlap syndrome, TRACI seen in GI for evaluation of solid-food dysphagia for the past several months. EGD was performed and findings as noted above. She was advised to start omeprazole 20 mg daily. 01/26/24 FU of solid food dysphagia for the past 6 months with 3 episodes of food impaction No change in symptoms after EGD and dilation Patient advised to schedule a barium swallow for further evaluation - I will contact her with results 06/28/24 Barium swallow results were reviewed Pt advised to chew her food well, cut meat into small pieces, eat slowly and take sips of fluids while eating. Can be scheduled for a repeat EGD when she has her next colonoscopy in Sep, 2026 Pt advised to call if she notices worsening dysphagia Morbid obesity with normal LFTs - advised wt reduction, ultrasound with elastography to rule out occult cirrhosis 12/25/24 Notes improvement in swallowing with dietary modification Wt gain of 50 lbs over the past 4 years Pt attributes her wt gain to using Prednisone in the past - had it 2-3 times last year Ref to Talent Development Manager for dietary advice regarding wt loss FU in 6 month Orders: Referrals Talent Development Manager Nutrition Referral E66.01 - Morbid (severe) obesity due to excess calories, Z68.41 - Body mass index [BMI] 40.0-44.9, adult Coding Level of Care Code Est Pt Level 3 (51431) Diagnoses B12 deficiency E53.8 Colon cancer screening Z12.11 Family history of colonic polyps Z83.71 Dysphagia R13.10 GERD (gastroesophageal reflux disease) K21.9 Morbid obesity with BMI of 40.0-44.9, adult E66.01; Z68.41 Time Spent (min) 19
[2024-12-25 10:27] VITALS: BP 125/62; PULSE 59; O2SAT 98; BMI 42.4
--- OUTSIDE RECORDS SUMMARY | 2024-12-25 11:51 | XMS_ITS | Data Portability ---
Author Organization [employer] [place] Address [address] [place] [address] Care Team Providers Care Director Customer Name Role Phone HIM CCA OTHER Assessment Encounter Date Assessment Date Assessment LastModified by Organization Details LastModified Time 11/14/2024 11/14/2024 I provided real -time medical direction via phone for this encounter and was available for additional phone-based assistance as needed. I have reviewed and agree with the Assessment and Plan as documented by the Vac Press Operator. Patient given the opportunity to ask questions. [...] her eyes have been itchy bilaterally. Per [facility] on the scene, vital signs are stable and patient is afebrile. No wheezing heard on exam. COVID and Flu are both negative. See uploaded pictures. No increased work of breathing and no distress. No drainage from either eye. Vision grossly intact. Impression: Common cold and viral URI Plan: Continue with [id number] medications to control symptoms. Red flags discussed [...] or worsening serious symptoms, particularly fever chills [facility] Not available 11/14/2024 22:33:36 Plan of Treatment Reminders Order Date Submit Date Provider Last Modified By Organization Details Last Modified Time Details Appointments None recorded. Lab rapid flu (A+B) 2024 025 [place] [id number] Main - [facility], [address] [place] [address], [phone], 5 22:31:53 rapid SARS CoV 2 Ag, QL IA, respiratory specimen [address], [address] [place] [address], [phone], 22:31:54 Referral None recorded. Procedures None recorded. Surgeries None recorded. Imaging None recorded. Medication Orders acetaminoph en 500 mg tablet 2023 024 [facility] Not available 14:56:15 acetaminoph en 500 mg tablet 2023 024 [facility][id number], [address] [place], [place], [phone], 4 14:58:01 diclofenac 1 % topical gel 2023 [facility] #[id number], [address] [place], [place], [phone], 4 14:58:05 Patient TargetsNo targets recorded. Patient InstructionsNo instructions recorded. Reason for Referral None Reported. Results Created Date Observation Date Name Description Value Unit Range Abnormal Flag Note LastModifiedBy Organization Detail LastModifiedTime 11/14/19 25 11/14/2024 rapid SARS CoV 2 Ag, QL IA, respi rator y speci men rapid SARS CoV 2 Ag, QL IA, respiratory specimen negati ve Not Available Main - [facility] ed [address] [place] [address], [phone], 11/14/2024 22:31:42 11/14/19 25 11/14/2024 rapid flu (A+B) Flu negati ve Not Available Main - [facility] ed [address] [facility], [place], [phone], 11/14/2024 22:31:41 Result Notes None recorded. Medical Equipment None Reported. Allergies Allergen ID Allergen Name Allergen Category Reaction Reaction Severity Criticality Documentation Date Start Date Code Code System Note Provider Name and Address Organization Details Recorded Time 39608 Product containin g penicilli n (product) medicatio n Not available Not available Not available 11/14/2024 59032 8001 SNOMED Not Available [facility] - production 5 10:56:19 76735 aspirin medicatio n Not available Not available Not available 11/14/2024 1191 RxNorm Not Available [facility] - production 5 10:56:19 Medications Name Sig [...] % 144 mm[Hg] 92 mm[Hg] Not Available [employer] - production 4 14:52:47 Date Recorded Respiratory rate Heart rate Body height Body weight Body temperature Oxygen saturation Oxygen saturation in Arterial blood by Pulse oximetry Systolic blood pressure Diastolic blood pressure Provider Name and Address Organization Details Last Updated DateTime 5 14 /min 80 /min 167.64 cm 27558.4 g 98 [degF] 98 % 98 % 170 mm[Hg] 90 mm[Hg] Not Available [facility] - production 5 20:15:50 Social History None recorded. Functional Status None recorded. Mental Status None recorded. Family History Nothing Reported. Medical History No medical history recorded. Gynecological HistoryNo gynecological history recorded. Obstetrics History GPAL:G 0 P 0 0 0 0 Past Encounters Encounter ID Performer Location Encounter Start Date Encounter Closed Date Diagnosis/Indication Diagnosis SNOMED-CT Code Diagnosis ICD10 Code Diagnosis Note [id number] MAYRA DONOVAN MD Main - [facility] [address] [place] [phone] 02/22/2024 14:52:45 02/23/2024 10:29:44 Contusion of left chest wall [id number] S20.212A Evaluation in the field was performed by my [facility] colleague, as noted above, I provided real-time [...] 1000 mg PO x1 given by the [facility]. Rx sent to her pharmacy for 30 [...] cough , dizziness or any other concerns. [id number] Soheila Braxton MD Main - [facility] [address] [place] [phone] 11/14/2024 20:15:45 11/15/2024 08:43:51 Viral syndrome [id number] B34.9 Health Concerns Section Related Observation LastModified by Organization Detai ls LastModified Time None Recorded Concern Status LastModified by Organization Details LastModified Time None Recorded Advance Directives Directive None Recorded Payers Encounter Date Sequence Insurance Name Policy Number Policy Borjas Covered Member ID Borjas Member ID Guarantor Name 02/22/2024 1 [facility] - DOS ON OR AFTER 2022 - DUAL ELIGIBLE - FDC OPTIONS AND ONE CARE (MEDICARE REPLACEMENT/ADV ANTAGE - HMO) Marcela Terrellro [id number] Marcela Terrellro 11/14/2024 1 [facility] - DOS ON OR AFTER 2022 - DUAL ELIGIBLE - FDC OPTIONS AND ONE CARE (MEDICARE REPLACEMENT/ADV ANTAGE - HMO) Marcela Terrellro [id number] Marcela Medellin Notes Date Note Type Note Provider Name and Address Organization Details Recorded Time 02/22/2024 text/html HPI: Molly is a 58 yo Yoruba/Czech speaking female with hx of asthma, COPD, [...] ..................... ..................... ..................... ..................... ..................... ..................... ............... Vac Press Operator Note From Channing Wan: Dispatched to the [...] ..................... ............... Disposition: Fulfilled MAYRA DONOVAN MD [address] [place] [address],[address], [place], [address], [employer] 02/22/2024 15:43:17 11/14/2024 text/html CRC Nurse Triage [...] wheezing. She would like to be evaluated. Vac Press Operator Organization Information for Aquilino Edwards [employer] Name: [facility] Address: [address] [place] [address], [place] [address], Senior Warehouse Clerk: Amos GRIFFIN No.: [id number] Vac Press Operator POC Test Results from Aquilino Edwards - [facility] Rapid COVID antigen (19:43:42) COVID: - Rapid influenza antigen (19:43:42) Flu: - ..................... ..................... ..................... ..................... ..................... ..................... ............... Vac Press Operator Note From Aquilino Edwards: Patient alert and [...] for Covid and flu via rapid POC. [facility] advises patient likely viral infection that will pass in 7 to 10 days. Red flags, patient education what to expect next steps, supportive care and others discussed. Patient demonstrates understanding of care and plan. ..................... ..................... ..................... ..................... ..................... ..................... ............... [facility] Consulted: Soheila Braxton ..................... ..................... ..................... ..................... ..................... ..................... ............... Disposition: Fulfilled Soheila Braxton MD [address] [facility],[address], [place], [address], [employer] 11/14/2024 22:34:00 OBGyn Episode No OBEpisode recorded.
== END 2024-12-26 11:24 | disposition home or self-care (01) ==
LOC: HO.HGI 10:09
PROVIDERS: PCP Nurse Practitioner Family; Visit Provider Internal Medicine Gastroenterology
DX: E53.8 Deficiency of other specified B group vitamins (principal); R13.10 Dysphagia, unspecified; K21.9 Gastro-esophageal reflux disease without esophagitis; E66.01 Morbid (severe) obesity due to excess calories; Z68.41 Body mass index [BMI] 40.0-44.9, adult
CPT/HCPCS: 99213

== ENCOUNTER → 2024-12-25 10:08 | Outpatient (BNVA) | payer OTHER, SELFPAY | PROVIDERS: PCP Nurse Practitioner Family; Visit Provider Internal Medicine Gastroenterology | DX: K21.9 Gastro-esophageal reflux disease without esophagitis (principal); R13.10 Dysphagia, unspecified; E53.8 Deficiency of other specified B group vitamins; E66.01 Morbid (severe) obesity due to excess calories; Z68.41 Body mass index [BMI] 40.0-44.9, adult; Z83.719 Family history of colon polyps, unspecified | CPT/HCPCS: 99212 ==

== ENCOUNTER 2025-01-01 15:05 | Outpatient (AMB) | payer OTHER, MEDICAID, SELFPAY ==
[2025-01-01 15:10] VITALS: BP 120/68; PULSE 89; O2SAT 96; BMI 43.2
--- NOTE | 2025-01-01 15:10 | A.OFFVIS_ITS ---
Vital Signs 01/01/25 15:10 Height 4 ft 11 in Weight 213 lb 13.574 oz BMI 43.2 BP 120/68 Blood Pressure Location Rt radial Position Sitting Pulse 89 Pulse Source Pulse Oximeter Pulse Oximetry (%) 96 Oxygen Delivery Method Room Air Intake Visit Reasons: Obstructive sleep apnea Allergies aspirin Allergy (Severe, Verified 01/01/25 15:14) Swollen penicillamine Allergy (Severe, Verified 01/01/25 15:14) Rash and Hives povidone-iodine [Betadine] Allergy (Severe, Verified 01/01/25 15:14) Rash and Hives primidone Allergy (Severe, Verified 01/01/25 15:14) anger soap [Betadine] Allergy (Severe, Verified 01/01/25 15:14) Rash and Hives Peant Butter Allergy (Severe, Uncoded 01/01/25 15:14) Rash and Hives Seafood Allergy (Severe, Uncoded 01/01/25 15:14) Anaphylaxis beta blockers Adverse Reaction (Intermediate, Uncoded 01/01/25 15:14) Unknown HPI Comments Details: The patient is a 59-year-old woman with a known history of asthma COPD overlap syndrome in addition to obstructive sleep apnea. She recently moved from [place] back in September of this year. Since then she has been complaining of daytime drowsiness. Her Lagrange score is elevated 14/24. She did have a sleep study back in 2013 which she was noted to have an AHI around 34. She was placed on CPAP in the CPAP therapy has been affecting beneficial at the time. However, he has noted that her machine was very mold the and in compatible with use so therefore she could not use any longer. At this point the patient is symptomatic she has an underlying history of sleep apnea in needs to undergo a repeat sleep study in order to start CPAP therapy as soon as possible. She also has had respiratory symptoms for most of her life. She had pulmonary function studies demonstrating significant small airways disease. She has been on Symbicort 80 or 4.5 2 puffs twice a day. Although she still waking up with coughing wheezing. We did talk about her use of lisinopril can also worsen the her cough but she has been taking this for many years. We talked about optimizing her respiratory therapy as she continues to have wheezing. I did teacher how to use a spacer as well that she can use with along with her Symbicort. 05/09/2023 the patient is here for pulmonary follow-up visit. The patient overall is doing about the same. Although she is complaining of significant headaches and sinus pressure. the patient has been using her new CPAP. She has a nasal mask. This is likely contributing to the sinus congestion. The patient would benefit from a fullface mask. I did have an F 30 mask available that she tried and she tolerated well. Therefore will go ahead and switch her at this time. The patient also has been using her respiratory therapy with good effect. the patient recently traveled to [place] to see a family member jessica Baldwin in the ICU was gravely ill. 09/05/2023 the patient is here for pulmonary follow-up visit. The patient overall is doing well. She continues uses CPAP every night. She is doing well with a fullface mask. Although she is still snoring. Her sister complained that she was still snoring while using her CPAP. I did download the machine. She is using more than 4 hours a night. Her average pressure is around 9.7 cm and it looks like the maximum pressure is at 10. Therefore likely the machine want to give her additional pressures. Will go ahead and increase her pressures up to 12 cm. I am hopeful that this will improve her snoring. Although her AHI is down to 0.6. As far as her breathing she has been doing well. She does have her inhaler she has not had to use her rescue therapy. She has not had any exacerbations. She continues use home as prescribed. 12/30/2023 the patient is here for pulmonary follow-up visit. Overall the patient has been doing well. She has been using the CPAP every night for more than 4 hours a night. The CPAP therapy has been affecting beneficial. Her AHI is been stable below 5. The patient also continues use respiratory therapy with good effect. Has not had any recent exacerbations. She does not use her rescue inhaler often. Typically this and twice a week. She did have a choking episode back in October. She was taken to [facility]. She had x-rays there. No evidence of any foreign body in the airway. She was able to vomit whenever she had stuck in her esophagus. She is back to her baseline. 01/01/2025 the patient is here for pulmonary follow-up visit. Since we last spoke about a year ago she has been sick about 3 4 time. She had multiple viral syndrome so with the winter. More recently she gets sick again with a respiratory virus. Has significant sinus congestion. Moderate severity. The patient also also having significant chest tightness and wheezing. She has been using her rescue inhaler although has not not been helping much. She also has been using her Symbicort. She picked up [id number] Mucinex although is on ly slightly helpful. She has been noticing increasing wheezing is bothering her. The patient is also trying to lose weight. She is trying to avoid prednisone because of the weight gain issues. Although right now she does have significant wheezing. Will try to provide her with a nebulizer. I did call [facility] to see they can deliver BATOOL. In addition to that she will start doxycycline for sinusitis and also bronchitis. If the patient is no better she will start a short Medrol pack of 6 days. She is also in the meantime continue to uses CPAP. CPAP therapy has been affecting beneficial. He is actually APAP set up 6-12. Her average pressure is 12. Therefore increase it to maximum 14. The patient is also having a dry mouth. We did talk about how to change her temperature and humidity to avoid drying out the water too quickly. The patient will return 6 months. If she has any issues she will call for an earlier assessment. [facility] Medical History (Updated 01/01/25 @ 15:57 by Aleksander Braxton MD) Bacterial conjunctivitis Acute respiratory disease Conversion disorder MCI (mild cognitive impairment) Asthma Chronic restrictive lung disease TRACI (obstructive sleep apnea) Asthma-COPD overlap syndrome Surgical History History of esophagogastroduodenoscopy (EGD) Hx of colonoscopy History of hernia repair Hx of cholecystectomy History of appendectomy History of hysterectomy Family History Father HTN (hypertension) Stroke Diabetes mellitus Maternal Grandmother Cancer Mother Diabetes mellitus HTN (hypertension) Stroke Brother Stroke Social History Housing: Apartment Alcohol intake: never Patient Tobacco Use Status: Never used Tobacco e-Cigarette/Vaping Use: Never Used Second Hand Smoke Exposure: No service: No Current occupational status: disabled Cognitive needs: No Hearing needs: No Vision needs: No Review of Systems Const Denies chills, Denies daytime sleepiness, Denies fatigue, Denies fever(s), Denies headache(s) and Reports snoring Eyes Denies blurry vision and Denies diplopia ENT Denies dizziness, Reports dry mouth, Denies headache(s), Denies epistaxis, Reports nasal congestion, Reports nasal discharge, Reports sinus pressure and Reports sore throat Card Denies chest pain, Denies chest pain at rest, Denies chest pain with activity, Denies rapid heart rate, Denies dyspnea and Reports dyspnea on exertion Resp Reports chest congestion, Reports cough, Denies dyspnea, Reports dyspnea on exertion, Reports snoring and Reports wheezing GI Denies abdominal pain, Denies melena, Denies hematochezia, Denies nausea and Denies vomiting Denies hematuria Neuro Denies dizziness, Denies headache(s) and Reports Sensory deficit (Neuro) Endo Denies fatigue Aller/Immun Reports wheezing Physical Exam Vital Signs: Last Vital Signs Pulse 89 01/01/25 15:10 BP 120/68 01/01/25 15:10 Pulse Ox 96 01/01/25 15:10 Oxygen Delivery Method Room Air 01/01/25 15:10 BMI result Body Mass Index 43.2 Const General: alert HEENT Head: Yes normocephalic Face and sinus: Yes sinus tenderness Neck Neck: Yes normal visual inspection, Yes full ROM and Yes no lymphadenopathy Chest Chest palpation & inspection: normal inspection of the chest Resp Effort & Inspection: prolonged expiratory phase Auscultation: wheezes and diminished lung sounds Cardio Rate: regular rate Rhythm: regular rhythm Heart sounds: S1 normal heart sound present and S2 normal heart sound present GI Palpation (GI): Soft to palpation and nontender Auscultation: normal bowel sounds Skin General skin exam: rashes and/or lesions noted Neuro Sensory Exam: Sensory deficit (Neuro) Assessment & Plan Assessment & Plan (1) Asthma: Code(s): J45.909 - Unspecified asthma, uncomplicated Category: Medical Qualifiers: Asthma severity: moderate Asthma persistence: persistent Asthma complication type: with acute exacerbation Qualified Code(s): J45.41 - Moderate persistent asthma with (acute) exacerbation (2) Chronic restrictive lung disease: Code(s): J98.4 - Other disorders of lung Category: Medical (3) TRACI (obstructive sleep apnea): Code(s): G47.33 - Obstructive sleep apnea (adult) (pediatric) Category: Medical (4) Bronchitis: Code(s): J40 - Bronchitis, not specified as acute or chronic Category: Medical (5) Sinusitis: Code(s): J32.9 - Chronic sinusitis, unspecified Category: Medical Qualifiers: Sinusitis location: unspecified location Chronicity: subacute Qualified Code(s): J01.90 - Acute sinusitis, unspecified Plan Needs a nebulizer for xopenex/albuterol start Doxycycline start Medrol in 24-48 hours if no better Continue Symbicort FRANNIE as needed Fluticasone nasal spray continue APAP adjusted 6-12->8-14 CPAP mask to F30, need supplies F/U 6 months Medications: New levalbuterol HCl 1.25 mg (3 mL) inhalation BID 30 days 180 mL 6RF J44.9 - Chronic obstructive pulmonary disease, unspecified albuterol sulfate 90 mcg/actuation 2 inhalations inhalation Q6H 30 days PRN 18 grams 12RF shortness of breath or wheezing J44.9 - Chronic obstructive pulmonary disease, unspecified doxycycline monohydrate 100 mg PO BID 14 days 28 tabs 0RF methylprednisolone (Medrol (John)) PO PER PKG DIR 6 days 21 ea 0RF Refilled Symbicort 160-4.5 mcg/actuation (budesonide-formoterol) 2 puffs PO BID 10.2 grams 11RF NS Coding Level of Care Code Est Pt Level 4 (37335) Complex EM visit Add On G2211 Diagnoses Moderate persistent asthma with acute exacerbation J45.41 Asthma severity: moderate Asthma persistence: persistent Asthma complication type: with acute exacerbation Chronic restrictive lung disease J98.4 TRACI (obstructive sleep apnea) G47.33 Bronchitis J40 Subacute sinusitis, unspecified location J01.90 Sinusitis location: unspecified location Chronicity: subacute Time Spent (min) 17
== END 2025-01-01 15:52 | disposition home or self-care (01) ==
LOC: HO.HPS 15:06
PROVIDERS: PCP Nurse Practitioner Family; Visit Provider Hospitalist
DX: J45.41 Moderate persistent asthma with (acute) exacerbation (principal); J98.4 Other disorders of lung; G47.33 Obstructive sleep apnea (adult) (pediatric); J40 Bronchitis, not specified as acute or chronic; J01.90 Acute sinusitis, unspecified
CPT/HCPCS: 99214; G2211

== ENCOUNTER → 2025-01-01 15:05 | Outpatient (BNVA) | payer OTHER, SELFPAY | PROVIDERS: PCP Nurse Practitioner Family; Visit Provider Hospitalist | DX: J45.41 Moderate persistent asthma with (acute) exacerbation (principal); J98.4 Other disorders of lung; J40 Bronchitis, not specified as acute or chronic; J01.90 Acute sinusitis, unspecified; G47.33 Obstructive sleep apnea (adult) (pediatric); R07.89 Other chest pain; Z99.89 Dependence on other enabling machines and devices | CPT/HCPCS: 99212 ==

== ENCOUNTER 2025-02-04 09:30 | Outpatient (AMB) | payer OTHER, SELFPAY ==
--- OUTSIDE RECORDS SUMMARY | 2025-02-04 09:45 | XMS_ITS | Data Portability ---
Author Organization [employer] [facility] [place] Address [address] [place] [address] Care Team Providers Care Roping Tender Name Role Phone HIM CCA OTHER Assessment Encounter Date Assessment Date Assessment LastModified by Organization Details LastModified Time 11/14/2024 11/14/2024 I provided real -time medical direction via phone for this encounter and was available for additional phone-based assistance as needed. I have reviewed and agree with the Assessment and Plan as documented by the Revenue Stamp Cutter. Patient given the opportunity to ask questions. [...] her eyes have been itchy bilaterally. Per reading interventionist on the scene, vital signs are stable and patient is afebrile. No wheezing heard on exam. COVID and Flu are both negative. See uploaded pictures. No increased work of breathing and no distress. No drainage from either eye. Vision grossly intact. Impression: Common cold and viral URI Plan: Continue with [id number]-cxvadce medications to control symptoms. Red flags discussed [...] or worsening serious symptoms, particularly fever chills [email or web address] Not available 11/14/2024 22:33:36 Plan of Treatment Reminders Order Date Submit Date Provider Last Modified By Organization Details Last Modified Time Details Appointments None recorded. Lab rapid flu (A+B) [address], [phone] 22:31:53 rapid SARS CoV 2 Ag, QL IA, respiratory specimen [address], [address] [place] [address], [phone] 22:31:54 Referral None recorded. Procedures None recorded. Surgeries None recorded. Imaging None recorded. Medication Orders acetaminoph en 500 mg tablet 2023 024 [email or web address] Not available 14:56:15 acetaminoph en 500 mg tablet 2023 024 [id number], [address], [place], [id number], 4 14:58:01 diclofenac 1 % topical gel 2023 024 [facility] #[id number], [address], [place], [id number], 4 14:58:05 Patient TargetsNo targets recorded. Patient InstructionsNo instructions recorded. Reason for Referral None Reported. Results Created Date Observation Date Name Description Value Unit Range Abnormal Flag Note LastModifiedBy Organization Detail LastModifiedTime 11/14/1911/14/2024 rapid SARS CoV 2 Ag, QL IA, respi rator y speci men rapid SARS CoV 2 Ag, QL IA, respiratory specimen negati ve Not Available [facility] ed [address] [place] [address], [phone] 11/14/2024 22:31:42 11/14/1911/14/2024 rapid flu (A+B) Flu negati ve Not Available [facility] [address] [place] [address], [phone] 11/14/2024 22:31:41 Result Notes None recorded. Medical Equipment None Reported. Allergies Allergen ID Allergen Name Allergen Category Reaction Reaction Severity Criticality Documentation Date Start Date Code Code System Note Provider Name and Address Organization Details Recorded Time 71038 Product containin g penicilli n (product) medicatio n Not available Not available Not available 11/14/2024 95163 8001 SN[facility]ED [facility] 10:56:19 50776 aspirin medicatio n Not available Not available Not available 11/14/2024 1191 RxNorm Not Available [facility] 10:56:19 Medications Name Sig [...] % 144 mm[Hg] 92 mm[Hg] Not Available [employer] 4 14:52:47 Date Recorded Respiratory rate Heart rate Body height Body weight Body temperature Oxygen saturation Oxygen saturation in Arterial blood by Pulse oximetry Systolic blood pressure Diastolic blood pressure Provider Name and Address Organization Details Last Updated DateTime 5 14 /min 80 /min 167.64 cm 59853.4 g 98 [degF] 98 % 98 % 170 mm[Hg] 90 mm[Hg] Not Available [facility] 5 20:15:50 Social History None recorded. Functional Status None recorded. Mental Status None recorded. Family History Nothing Reported. Medical History No medical history recorded. Gynecological HistoryNo gynecological history recorded. Obstetrics History GPAL:G 0 P 0 0 0 0 Past Encounters Encounter ID Performer Location Encounter Start Date Encounter Closed Date Diagnosis/Indication Diagnosis SNOMED-CT Code Diagnosis ICD10 Code Diagnosis Note [id number] MAYRA DONOVAN MD [facility] [address] [place] [phone] 02/22/2024 14:52:45 02/23/2024 10:29:44 Contusion of left chest wall [id number] S20.212A Evaluation in the field was performed by my reading interventionist colleague, as noted above, I provided real-time [...] 1000 mg PO x1 given by the reading interventionist. Rx sent to her pharmacy for 30 [...] cough , dizziness or any other concerns. [id number] Soheila Braxton MD [facility] [address] [place] [phone] 11/14/2024 20:15:45 11/15/2024 08:43:51 Viral syndrome [id number] B34.9 Health Concerns Section Related Observation LastModified by Organization Giorgi ross LastModified Time None Recorded Concern Status LastModified by Organization Details LastModified Time None Recorded Advance Directives Directive None Recorded Payers Insurance Date Sequence Insurance Name Policy Number Policy Borjas Covered Member ID Borjas Member ID Guarantor Name 11/14/2024 1 [facility] - DOS ON OR AFTER 2022 - DUAL ELIGIBLE - SNF OPTIONS AND ONE CARE (MEDICARE REPLACEMENT/ADV ANTAGE - HMO) Marcela Medellin [id number] Marcela Medellin Notes Date Note Type Note Provider Name and Address Organization Details Recorded Time 02/22/2024 text/html HPI: Molly is a 58 yo Belarusian/Martiniquais speaking female with hx of asthma, COPD, [...] not want to go to the hospital. [facility] for eval and assessment and she agreed. Confirmed address and phone number. Instructed Mbr to call 911 with worsening s/s, sob. ..................... ..................... ..................... ..................... ..................... ..................... ............... [facility] Nurse Triage Notes (Devika Hinojosa): Comments: Member is aware we do not offer exrays but wanted an assessment to be completed ..................... ..................... ..................... ..................... ..................... ..................... ............... Revenue Stamp Cutter Note From Channing Wan: Dispatched to the [...] and moist, +CMSx4, -bruising or deformities noted. C consulted. Pt given 1g PO Tylenol and script called into preferred pharmacy. Red flags discussed. ALL times are approx. ..................... ..................... ..................... ..................... ..................... ..................... ............... Disposition: Romi DONOVAN MD [address] [facility],[address], [place], [phone], [employer] 02/22/2024 15:43:17 11/14/2024 text/html [facility] Nurse Triage Notes (Arianna Stein - RN): Denies: Sudden onset of dental pain, unable to manage own secretions Nosebleed lasting longer than one hour; unable to stop bleeding Throat swelling/difficult swallowing Chief Complaints: Sore throat, Earache PMH: COPD/Asthma, Hyperlipidemia, Hypertension, Hypothyroidism PMH Reviewed at 11/14/2024:56 Allergies Reviewed at 11/14/2024 10:56 Comments: Patient calling in to place a referral, identified via name and . In addition to PMH patient has a fatty liver. Patient with an earache, sore throat, headache, red eyes, stuffy nose and chills. She denies fever, no body aches, no chest congestion or wheezing. She would like to be evaluated. Revenue Stamp Cutter Organization Information for [facility] Business Legal Name: [facility] Address: [address] [place], [place] [address] [address], Patient Biller: Amos Gates MD CLIA No.: [id number] Revenue Stamp Cutter POC Test Results from [facility] Rapid COVID antigen (19:43:42) COVID: - Rapid influenza antigen (19:43:42) Flu: - ..................... ..................... ..................... ..................... ..................... ..................... ............... Revenue Stamp Cutter Note From [facility]: Patient alert and [...] for Covid and flu via rapid POC. [facility] advises patient likely viral infection that will pass in 7 to 10 days. Red flags, patient education what to expect next steps, supportive care and others discussed. Patient demonstrates understanding of care and plan. ..................... ..................... ..................... ..................... ..................... ..................... ............... [facility] Consulted: Soheila Braxton ..................... ..................... ..................... ..................... ..................... ..................... ............... Disposition: Romi Braxton MD [address] [place] [address],[address] [facility], [place], [phone], [employer] 11/14/2024 22:34:00 OBGyn Episode No OBEpisode recorded.
--- NOTE | 2025-02-04 10:20 | A.OFFVIS_ITS ---
VS Expanded 02/04/25 10:21 02/06/25 11:48 Height 4 ft 11 in 4 ft 11 in Weight 215 lb 6.266 oz 215 lb BMI 43.5 43.4 Intake Visit Reasons: obesity Allergies aspirin Allergy (Severe, Verified 01/01/25 15:14) Swollen penicillamine Allergy (Severe, Verified 01/01/25 15:14) Rash and Hives povidone-iodine [Betadine] Allergy (Severe, Verified 01/01/25 15:14) Rash and Hives primidone Allergy (Severe, Verified 01/01/25 15:14) anger soap [Betadine] Allergy (Severe, Verified 01/01/25 15:14) Rash and Hives Peant Butter Allergy (Severe, Uncoded 01/01/25 15:14) Rash and Hives Seafood Allergy (Severe, Uncoded 01/01/25 15:14) Anaphylaxis beta blockers Adverse Reaction (Intermediate, Uncoded 01/01/25 15:14) Unknown Nutrition Presentation Details: Pt presents for MNT for obesity. 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 Pt reports trying multiple diet plans for weight loss without success, and doing combination of meal replacements and meal supplements Typical meal water, 8 am: high protein pancakes with light syrup, water L: rice/chicken/salad D:same as lunch snack:fruit/ogurts food frequency fish: allergic dairy : 0-2/d non starchy vex/wk starches >20 beverages: water/tea/diet sodas fried foods : 0/reports using air fryer pastries and similar: 0-1/d physical activity: ADL etoh/smoking - denies pt taking MVI + additional vitamin on and off (B1, B12,folic acid, vit D, Vit C BS Monitoring Most Recent Diabetes Results: No Data to Display THO-Zttehou-Kp.Jeor Equation Height: 4 ft 11 in Weight: 215 lb Resting Metabolic Rate: 1459.59 Calculated Activity Level: Sedentary Calories Needed to Maintain Weight: 1751.51 Diagnosis Nutrition problem #1: overweight/obesity As related to (etiology) #1: diagnosis As evidenced by (sign/symptom) #1: high BMI PFSH Medical History (Updated 01/01/25 @ 15:57 by Aleksander Braxton MD) Bacterial conjunctivitis Acute respiratory disease Conversion disorder MCI (mild cognitive impairment) Asthma Chronic restrictive lung disease TRACI (obstructive sleep apnea) Asthma-COPD overlap syndrome Surgical History History of esophagogastroduodenoscopy (EGD) Hx of colonoscopy History of hernia repair Hx of cholecystectomy History of appendectomy History of hysterectomy Family History Father HTN (hypertension) Stroke Diabetes mellitus Maternal Grandmother Cancer Mother Diabetes mellitus HTN (hypertension) Stroke Brother Stroke Social History Housing: Apartment Alcohol intake: never Patient Tobacco Use Status: Never used Tobacco e-Cigarette/Vaping Use: Never Used Second Hand Smoke Exposure: No service: No Current occupational status: disabled Cognitive needs: No Hearing needs: No Vision needs: No Assessment & Plan Assessment & Plan (1) Morbid obesity: Code(s): E66.01 - Morbid (severe) obesity due to excess calories Category: Medical Plan: Wt: 98 Kg ( 02/17 ) Est kcal needs as per MSJ: 1700 (40% carb, 30% protein/fat) Est fluid needs as per 25-30 ml/d: 2900 Est prot per day as per 1 g/kg bw: 98 Recommend fiber intake : 8-10 g per day and gradually increase to 25-28 g per day for women and 35-38 g for men or as tolerated Recommend sodium intake per day : less than 1500 mg less than 2000 mg Educated patient on: ( R = reviewed V = verbalizes understanding N/R = needs review N/A = not applicable * Food sources of carbohydrate, adequate serving sizes and its role in various health conditions: R V N/R * Differences between complex carbohydrates a simple carbohydrates, role of fiber in diet: R * Lean protein sources of foods: R * Differences between types of fats and role in diet (mono on saturated fat fatty acids, saturated fatty acids, trans fats): R V N/R * Food sources of sodium in salt and healthy modifications for heart health in kidney health: R V R/V * Vitamins and minerals: R V N/R * Healthy plate method concept: R V N/R * Physical activity: Benefits a precaution: R Patient Instructions: Choose whole grain foods and foods with fiber in the diet practice mindful eating Have a meal routine ,3 meals per day , measure food portion sizes and reduce total carb at dinner to 45 g or less and 0-15 g as snack see meal ideas Coding Level of Care Code Nutr Indiv Intake (39963) Diagnoses Morbid obesity E66.01 Time Spent (min) 30
[2025-02-04 10:21] VITALS: BMI 43.5
[2025-02-06 11:48] VITALS: BMI 43.4
== END 2025-02-04 10:47 | disposition home or self-care (01) ==
LOC: HO.ENCR 09:30
PROVIDERS: PCP Nurse Practitioner Family; Visit Provider Dietitian, Registered
DX: E66.01 Morbid (severe) obesity due to excess calories (principal)

== ENCOUNTER → 2025-02-04 09:30 | Outpatient (BNVA) | payer OTHER, SELFPAY | PROVIDERS: PCP Nurse Practitioner Family; Visit Provider Dietitian, Registered | DX: E66.01 Morbid (severe) obesity due to excess calories (principal); Z68.41 Body mass index [BMI] 40.0-44.9, adult | CPT/HCPCS: 97802 ==

== ENCOUNTER 2025-02-21 11:10 | Outpatient (AMB) | payer OTHER, SELFPAY ==
[2025-02-21 11:12] VITALS: BP 126/88; PULSE 78; RESP 16; TEMP 36.9; O2SAT 95; BMI 43.2
--- NOTE | 2025-02-21 11:12 | A.OFFPC_ITS ---
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: No Accompanied by: Self / Same As Patient Allergies aspirin Allergy (Severe, Verified 02/21/25 11:12) Swollen penicillamine Allergy (Severe, Verified 02/21/25 11:12) Rash and Hives povidone-iodine [Betadine] Allergy (Severe, Verified 02/21/25 11:12) Rash and Hives primidone Allergy (Severe, Verified 02/21/25 11:12) anger soap [Betadine] Allergy (Severe, Verified 02/21/25 11:12) Rash and Hives Peant Butter Allergy (Severe, Uncoded 02/21/25 11:12) Rash and Hives Seafood Allergy (Severe, Uncoded 02/21/25 11:12) Anaphylaxis beta blockers Adverse Reaction (Intermediate, Uncoded 02/21/25 11:12) Unknown Tobacco use date assessed: 02/21/25 Dental Screening Dental Screen Date: 02/21/25 Did you have a dental visit in the last 12 months?: No Did you have a dental problem in the last 6 months where you did not have access to dental care?: No Was dental information given to patient?: Patient has dentist HPI Labs HPI Details Chief Complaint The patient is here for management of chronic conditions and laboratory evaluation. History of Present Illness The patient is a 59-year-old female presenting with chronic disease management and laboratory evaluation. She has a history of essential hypertension, with no recent symptoms such as chest pain, shortness of breath, headaches, or blurred vision. Her asthma is well controlled without recent exacerbations. The patient also has a history of dyslipidemia, necessitating a lipid panel for assessment. Her morbid obesity is being monitored as part of her health management strategy. A history of vitamin B12 deficiency is noted, and re-evaluation is planned. Social History Health Maintenance Review of Systems - Cardiovascular: Denies chest pain. - Respiratory: Denies shortness of breat h; has a history of asthma. - Neurological: Denies headaches and césar rred vision. Physical Exam General: Cooperative, healthy appearing, comfortable, no acute distress and well developed Orientation: Patient oriented x3 Limitations: No limitations Head: Normal to inspection Ears: Hearing grossly normal bilaterally Nose: Normal external nose present Face and sinus: Normal facial exam Eyes: Appearance normal, both eyes and all related structures Neck: Normal visual inspection and Yes full ROM Respiratory: Normal respiratory effort and able to speak in complete sentences. Clear to auscultation bilaterally Cardiovascular: Regular rate and rhythm. Normal S1 and S2, no carotid bruits noted GI: Normal to inspection. Soft to palpation and nontender Skin: No rashes or lesions noted Neuro: Patient oriented x3 Extremities: Normal to inspection Results - Labs: Lipid panel, CBC, CMP, vitamin D , vitamin B12 re-evaluation planned. Plan I will conduct laboratory evaluations to manage essential hypertension effectively. The lipid panel will guide dyslipidemia management. As the patient's asthma is well controlled, no changes are necessary. Re-evaluation of vitamin levels will determine continued supplementation needs. Monitoring and lifestyle advice for morbid obesity will continue. Discussion Notes I discussed with the patient the importance of ongoing management for her chronic conditions. We reviewed the plan for laboratory evaluations, including a lipid panel and vitamin B12 re-evaluation. I emphasized the necessity of monitoring her essential hypertension and discussed that her asthma is currently well managed. I outlined the role of lifestyle modifications in managing morbid obesity and the benefits of controlling dyslipidemia to reduce cardiovascular risk. Patient Instructions - Continue current asthma management anju n as symptoms are controlled. - Undergo scheduled laboratory evaluatio ns. - Monitor blood pressure and report any changes or symptoms. - Maintain lifestyle modifications to minal hale in weight management. - Follow up on vitamin B12 re-evaluation results. [facility] Medical History Bacterial conjunctivitis Acute respiratory disease Conversion disorder MCI (mild cognitive impairment) Asthma Chronic restrictive lung disease TRACI (obstructive sleep apnea) Asthma-COPD overlap syndrome Surgical History History of esophagogastroduodenoscopy (EGD) Hx of colonoscopy History of hernia repair Hx of cholecystectomy History of appendectomy History of hysterectomy Family History Father HTN (hypertension) Stroke Diabetes mellitus Maternal Grandmother Cancer Mother Diabetes mellitus HTN (hypertension) Stroke Brother Stroke Social History (Reviewed 02/21/25 @ 11:13 by JAQUAN Dias Housing: Apartment Alcohol intake: never Patient Tobacco Use Status: Never used Tobacco e-Cigarette/Vaping Use: Never Used Second Hand Smoke Exposure: No service: No Current occupational status: disabled Cognitive needs: Yes (walker sometimes) Hearing needs: Yes (b/l hearing aids) Vision needs: Yes (rx glasses) Questionnaire PHQ-9 Over the last 2 weeks, how often have you been bothered by any of the following problems? 1. Little interest or pleasure in doing things: not at all 2. Feeling down, depressed, or hopeless: not at all 3. Trouble falling or staying asleep, or sleeping too much: not at all 4. Feeling tired or having little energy: not at all 5. Poor appetite or overeating: not at all 6. Feeling bad about yourself - or that you are a failure or have let yourself or your family down: not at all 7. Trouble concentrating on things, such as reading the newspaper or watching television: not at all 8. Moving or speaking so slowly that other people could have noticed. Or the opposite - being so fidgety or restless that you have been moving around a lot more than usual: not at all 9. Thoughts that you would be better off or of hurting yourself in some way: not at all Total score: 0 Source: Developed by Drs. Americo Jimenez, Iris Ramirez, Patrick Trevino and colleagues, with an educational prabha from [employer]. Thrive Questionnaire Date Thrive assessed: 02/21/25 I am a: Patient What is your living situation today?: I have a steady place to live Within the past 12 months, did the food you bought not last and you didn't have the money to get more?: Never true Within the past 12 months, did you worry whether your food would run out before you got money to buy more?: Never true Do you have trouble paying for medicines?: No Do you have trouble getting transportation to medical appointments?: No Do you have trouble paying your heating and electricity bill?: No Do you have trouble taking care of your child, family member or friend?: No Do you have trouble with day-to-day activities such as bathing, preparing meals, shopping, managing finances, etc.?: No Are you currently unemployed and looking for a job?: No Are you interested in more education?: No Please select the resources that you would like help with: None THRIVE Score: 0 AUDIT C Alcohol Use Questionnaire (AUDIT-C) 1. How often do you have a drink containing alcohol?: Never 3. How often do you have six or more drinks on one occasion?: Never Total Score: 0 KIMBERLY-7 AMB Questionnaire KIMBERLY-7 Date KIMBERLY - 7 assessed: 02/21/25 Feeling nervous, anxious, or on edge: 0 = Not at all Not being able to stop or control worryin = Not at all Worrying too much about different things: 0 = Not at all Trouble relaxin = Not at all Being so restless that it is hard to sit still: 0 = Not at all Becoming easily annoyed or irritable: 0 = Not at all Feeling afraid as if something awful might happen: 0 = Not at all Total KIMBERLY-7 score (0-4 normal; 5-9 mild; 10-14 moderate; 15-21 severe): 0 Source: Developed by Drs. Americo Jimenez, Iris Ramirez, Patrick Trevino and colleagues, with an educational prabha from [employer]. Physical exam (Primary Care) Vital Signs: Last Vital Signs Temp 98.5 F 02/21/25 11:12 Pulse 78 02/21/25 11:12 Resp 16 02/21/25 11:12 BP 126/88 02/21/25 11:12 Pulse Ox 95 02/21/25 11:12 Oxygen Delivery Method Room Air 02/21/25 11:12 BMI result Body Mass Index 43.2 Tobacco/Smoking Status: Tobacco use Status Tobacco use date assessed 02/21/25 02/21/25 11:14 Patient Tobacco Use Status Never used Tobacco 02/21/25 11:14 e-Cigarette/Vaping Use Never Used 02/21/25 11:14 PHQ-9: PHQ-9 Score PHQ-9: Total score 0 02/21/25 11:32 Thrive Assessment: Date of Thrive Assessment Date Thrive assessed 02/21/25 02/21/25 11:14 Coding Level of Care Code Est Pt Level 3 (62008) Diagnoses Essential hypertension I10 Vitamin D deficiency E55.9 B12 deficiency E53.8 Assessment & Plan Assessment & Plan (1) Essential hypertension: Code(s): I10 - Essential (primary) hypertension Category: Medical (2) Vitamin D deficiency: Code(s): E55.9 - Vitamin D deficiency, unspecified Category: Medical (3) B12 deficiency: Code(s): E53.8 - Deficiency of other specified B group vitamins Category: Medical Plan . Orders: Orders Complete Blood Count Auto Diff Today I10 - Essential (primary) hypertension Vitamin D 25-OH Total Today E55.9 - Vitamin D deficiency, unspecified Vitamin B12 and Folate Today E53.8 - Deficiency of other specified B group vitamins Comprehensive [place]. Panel Fast Today I10 - Essential (primary) hypertension TSH reflex Free T4 Today I10 - Essential (primary) hypertension UA CC w/rflx Micro + Cult Today I10 - Essential (primary) hypertension Lipid Panel Today I10 - Essential (primary) hypertension
--- OUTSIDE RECORDS SUMMARY | 2025-02-21 11:37 | XMS_ITS | Data Portability ---
Author Organization [facility] Address [address] [place] [address] Care Team Providers Care Electric Range Preparer Name Role Phone HIM CCA OTHER Assessment Encounter Date Assessment Date Assessment LastModified by Organization Details LastModified Time 11/14/2024 11/14/2024 I provided real -time medical direction via phone for this encounter and was available for additional phone-based assistance as needed. I have reviewed and agree with the Assessment and Plan as documented by the Instrument Room Technician. Patient given the opportunity to ask questions. [...] her eyes have been itchy bilaterally. Per termite exterminator helper on the scene, vital signs are stable and patient is afebrile. No wheezing heard on exam. COVID and Flu are both negative. See uploaded pictures. No increased work of breathing and no distress. No drainage from either eye. Vision grossly intact. Impression: Common cold and viral URI Plan: Continue with qpqf-aon-yugobku medications to control symptoms. Red flags discussed [...] recorded. Lab rapid flu (A+B) [address], [phone] 22:31:53 rapid SARS CoV 2 Ag, QL IA, respiratory specimen [address], [address] [place] [address], [phone] 22:31:54 Referral None recorded. Procedures None recorded. Surgeries None recorded. Imaging None recorded. Medication Orders acetaminoph en 500 mg tablet 2023 024 gbaci Not available 14:56:15 acetaminoph en 500 mg tablet 2023 024 [facility] #[id number], [address], [place], [id number], 4 14:58:01 diclofenac 1 % topical gel 2023 024 [facility] #51555, [address], [place], [id number], 4 14:58:05 Patient TargetsNo targets recorded. Patient InstructionsNo instructions recorded. Reason for Referral None Reported. Results Created Date Observation Date Name Description Value Unit Range Abnormal Flag Note LastModifiedBy Organization Detail LastModifiedTime 11/14/1911/14/2024 rapid SARS CoV 2 Ag, QL IA, respi rator y speci men rapid SARS CoV 2 Ag, QL IA, respiratory specimen negati ve Not Available [facility] [address] [place] [address], [phone] 11/14/2024 22:31:42 11/14/1911/14/2024 rapid flu (A+B) Flu negati ve Not Available [facility] [address] [place] [address], [phone] 11/14/2024 22:31:41 Result Notes None recorded. Medical Equipment None Reported. Allergies Allergen ID Allergen Name Allergen Category Reaction Reaction Severity Criticality Documentation Date Start Date Code Code System Note Provider Name and Address Organization Details Recorded Time 03072 Product containin g penicilli n (product) medicatio n Not available Not available Not available 11/14/2024 14685 8001 SNOMED Not Available [facility] 5 10:56:19 54081 aspirin medicatio n Not available Not available Not available 11/14/2024 1191 RxNorm Not Available [facility] 5 10:56:19 Medications Name Sig [...] 5 14 /min 80 /min 167.64 cm 46262.4 g 98 [degF] 98 % 98 % 170 mm[Hg] 90 mm[Hg] Not Available [facility] 5 20:15:50 Date Recorded Body temperature Heart rate Respiratory rate Oxygen saturation Oxygen saturation in Arterial blood by Pulse oximetry Systolic blood pressure Diastolic blood pressure Provider Name and Address Organization Details Last Updated DateTime 4 98.4 [degF] 83 /min 16 /min 97 % 97 % 144 mm[Hg] 92 mm[Hg] Not Available [facility] 4 14:52:47 Social History None recorded. Functional Status None recorded. Mental Status None recorded. Family History Nothing Reported. Medical History No medical history recorded. Gynecological HistoryNo gynecological history recorded. Obstetrics History GPAL:G 0 P 0 0 0 0 Past Encounters Encounter ID Performer Location Encounter Start Date Encounter Closed Date Diagnosis/Indication Diagnosis SNOMED-CT Code Diagnosis ICD10 Code Diagnosis Note [id number] MAYRA DONOVAN MD [facility] - [facility] [address] [place] [phone] 02/22/2024 14:52:45 02/23/2024 10:29:44 Contusion of left chest wall [id number] S20.212A Evaluation in the field was performed by my termite exterminator helper colleague, as noted above, I provided real-time [...] 1000 mg PO x1 given by the termite exterminator helper. Rx sent to her pharmacy for 30 [...] cough , dizziness or any other concerns. [id number] Soheila Braxton MD Main - [facility] [address] [place] [phone] 11/14/2024 20:15:45 11/15/2024 08:43:51 Viral syndrome 953252874 B34.9 Health Concerns Section Related Observation LastModified by Organization Giorgi ross LastModified Time None Recorded Concern Status LastModified by Organization Details LastModified Time None Recorded Advance Directives Directive None Recorded Payers Insurance Date Sequence Insurance Name Policy Number Policy Borjas Covered Member ID Borjas Member ID Guarantor Name 11/14/2024 1 [facility] - DOS ON OR AFTER 2022 - DUAL ELIGIBLE - GROUP HOME OPTIONS AND ONE CARE (MEDICARE REPLACEMENT/ADV ANTAGE - HMO) Marcela Medellin [id number] Marcela Medellin Notes Date Note Type Note Provider Name and Address Organization Details Recorded Time 02/22/2024 text/html HPI: Molly is a 58 yo Korean/Serbian speaking female with hx of asthma, COPD, [...] ..................... ..................... ..................... ..................... ..................... ..................... ............... Instrument Room Technician Note From Channing Wan: Dispatched to the [...] ..................... ............... Disposition: Romi DONOVAN MD [address] [facility],[address], [place], [address], [employer] [employer] 02/22/2024 15:43:17 11/14/2024 text/html CRC Nurse Triage [...] wheezing. She would like to be evaluated. Instrument Room Technician Organization Information for [facility] Business Legal Name: [facility] Address: [address] [place], [place] [address] [place] [address], Pusher Runner: Amos Gates MD CLIA No.: [id number] Instrument Room Technician POC Test Results from [facility] Rapid COVID antigen (19:43:42) COVID: - Rapid influenza antigen (19:43:42) Flu: - ..................... ..................... ..................... ..................... ..................... ..................... ............... Instrument Room Technician Note From Aquilino Edwards: Patient alert and [...] for Covid and flu via rapid POC. [facility] advises patient likely viral infection that will pass in 7 to 10 days. Red flags, patient education what to expect next steps, supportive care and others discussed. Patient demonstrates understanding of care and plan. ..................... ..................... ..................... ..................... ..................... ..................... ............... [facility] Consulted: Soheila Braxton ..................... ..................... ..................... ..................... ..................... ..................... ............... Disposition: Romi Braxton MD [address] [place] [address],[address] [facility], [place], [phone], [facility] 11/14/2024 22:34:00 OBGyn Episode No OBEpisode recorded.
== END 2025-02-21 11:48 | disposition home or self-care (01) ==
LOC: HO.HMCC 11:10
PROVIDERS: PCP Nurse Practitioner Family; Visit Provider Nurse Practitioner Family
DX: I10 Essential (primary) hypertension (principal); E55.9 Vitamin D deficiency, unspecified; E53.8 Deficiency of other specified B group vitamins

== ENCOUNTER → 2025-02-21 11:10 | Outpatient (BNVA) | payer OTHER, SELFPAY | PROVIDERS: PCP Nurse Practitioner Family; Visit Provider Nurse Practitioner Family | DX: I10 Essential (primary) hypertension (principal); E55.9 Vitamin D deficiency, unspecified; E53.8 Deficiency of other specified B group vitamins; E66.01 Morbid (severe) obesity due to excess calories; Z68.41 Body mass index [BMI] 40.0-44.9, adult | CPT/HCPCS: 96127; 99212 ==

== ENCOUNTER 2025-03-18 09:13 | Outpatient (AMB) | payer OTHER, SELFPAY ==
--- NOTE | 2025-03-18 09:28 | A.OFFVIS_ITS ---
VS Expanded 03/18/25 09:30 Height 4 ft 11 in Weight 218 lb 4.122 oz BMI 44.1 Intake Visit Reasons: obesity Allergies aspirin Allergy (Severe, Verified 03/24/25 18:05) Swollen penicillamine Allergy (Severe, Verified 03/24/25 18:05) Rash and Hives povidone-iodine (Betadine) Allergy (Severe, Verified 03/24/25 18:05) Rash and Hives soap (Betadine) Allergy (Severe, Verified 03/24/25 18:05) Rash and Hives Peant Butter Allergy (Severe, Uncoded 02/21/25 11:12) Rash and Hives Seafood Allergy (Severe, Uncoded 02/21/25 11:12) Anaphylaxis beta blockers Adverse Reaction (Intermediate, Uncoded 02/21/25 11:12) Unknown Nutrition Presentation Details: Pt presents for MNT f/u for obesity Pt reports following a [employer] meal plan since Oct 2023 (20 g protein shake with the meals, 2-3 times d, often has the protein with the meal ) 9-9:30 B: [employer] protein 2 eggs scrambled/with ham with onion/peppers and slice of bread whole wheat, coffee with diet sugar 1 pm: crackers/fruits dinner: 3 pm 1 cup of rice, chicken fricassee and pasta salad and water snack: fruits or cherries or limbel or yogurt Physical activity ADL etoh/smoking: denies BS Monitoring Most Recent Diabetes Results: Cholesterol, (<200) 170 mg/dL 03/27/25 HDL Cholesterol, (>40) 55 mg/dL 03/27/25 Triglycerides, (<150) 100 mg/dL 03/27/25 Creatinine, (0.5-1.4) 0.72 mg/dL 03/27/25 BUN, (9-16) 33 mg/dL H 03/27/25 Sodium, (135-145) 140 mmol/L 03/27/25 Potassium, (3.3-5.1) 4.2 mmol/L 03/27/25 Chloride, (96-108) 105 mmol/L 03/27/25 Carbon Dioxide, (22-29) 27 mmol/L 03/27/25 Calcium, (8.4-10.2) 9.6 mg/dL 03/27/25 AST, (5-31) 23 U/L 03/27/25 ALT, (0-31) 26 U/L 03/27/25 Total Protein, (6.5-8.0) 7.3 g/dL 03/27/25 Albumin, (3.5-5.0) 4.4 g/dL 03/27/25 [facility] Medical History Bacterial conjunctivitis Acute respiratory disease Conversion disorder MCI (mild cognitive impairment) Asthma Chronic restrictive lung disease TRACI (obstructive sleep apnea) Asthma-COPD overlap syndrome Surgical History History of esophagogastroduodenoscopy (EGD) Hx of colonoscopy History of hernia repair Hx of cholecystectomy History of appendectomy History of hysterectomy Family History Father HTN (hypertension) Stroke Diabetes mellitus Maternal Grandmother Cancer Mother Diabetes mellitus HTN (hypertension) Stroke Brother Stroke Social History Housing: Apartment Alcohol intake: never Patient Tobacco Use Status: Never used Tobacco e-Cigarette/Vaping Use: Never Used Second Hand Smoke Exposure: No service: No Current occupational status: disabled Cognitive needs: Yes (walker sometimes) Hearing needs: Yes (b/l hearing aids) Vision needs: Yes (rx glasses) Assessment & Plan Assessment & Plan (1) Morbid obesity: Code(s): E66.01 - Morbid (severe) obesity due to excess calories Category: Medical Plan: Wt: 98 Kg ( 02/17 ), 99kg(03/20) Est kcal needs as per MSJ: 1700 (40% carb, 30% protein/fat) Est fluid needs as per 25-30 ml/d: 2900 Est prot per day as per 1 g/kg bw: 98 Recommend fiber intake : 8-10 g per day and gradually increase to 25-28 g per day for women and 35-38 g for men or as tolerated Recommend sodium intake per day : less than 1500 mg less than 2000 mg Educated patient on: ( R = reviewed V = verbalizes understanding N/R = needs review N/A = not applicable * Food sources of carbohydrate, adequate serving sizes and its role in various health conditions: R * Differences between complex carbohydrates a simple carbohydrates, role of fiber in diet: R * Lean protein sources of foods: R * Differences between types of fats and role in diet (mono on saturated fat fatty acids, saturated fatty acids, trans fats): R * Food sources of sodium in salt and healthy modifications for heart health in kidney health: R V R/V * Vitamins and minerals: R V N/R * Healthy plate method concept: R * Physical activity: Benefits a precaution: R Patient Instructions: Work on including salads made from non starchy vegetables - incluye ensaladas de vegetales sin almidon Have the protein shake as your snack at noon instead of with your breakfast- Sallie la proteina ame cervantes merienda a las 12 en vez de beberla con el desayuno keep a food record and bring to your next follow up - Mantenga un record de comidas y traigalo con usted a la proxima semana Coding Level of Care Code Nutr Indiv Subseq (09089) Diagnoses Morbid obesity E66.01 Time Spent (min) 30
[2025-03-18 09:30] VITALS: BMI 44.1
--- OUTSIDE RECORDS SUMMARY | 2025-03-18 09:56 | XMS_ITS | Data Portability ---
Author Organization [facility] Address [address] [place] [address] Care Team Providers Care Cavalry Scout Name Role Phone HIM CCA OTHER Assessment Encounter Date Assessment Date Assessment LastModified by Organization Details LastModified Time 11/14/2024 11/14/2024 I provided real -time medical direction via phone for this encounter and was available for additional phone-based assistance as needed. I have reviewed and agree with the Assessment and Plan as documented by the Test Desk Supervisor. Patient given the opportunity to ask questions. [...] her eyes have been itchy bilaterally. Per manager operational on the scene, vital signs are stable and patient is afebrile. No wheezing heard on exam. COVID and Flu are both negative. See uploaded pictures. No increased work of breathing and no distress. No drainage from either eye. Vision grossly intact. Impression: Common cold and viral URI Plan: Continue with kmmq-esx-tgzodlh medications to control symptoms. Red flags discussed [...] recorded. Lab rapid flu (A+B) [address], [address] [place] [address], [phone] 5 22:31:53 rapid SARS CoV 2 Ag, QL IA, respiratory specimen [address], [address] [place] [address], [phone] 22:31:54 Referral None recorded. Procedures None recorded. Surgeries None recorded. Imaging None recorded. Medication Orders acetaminoph en 500 mg tablet 2023 024 gbaci Not available 14:56:15 acetaminoph en 500 mg tablet 2023 [facility]51564, [address], [place], [id number], 4 14:58:01 diclofenac 1 % topical gel 2023 [facility] #29892, [address], [place], [id number], 4 14:58:05 Patient TargetsNo targets recorded. Patient InstructionsNo instructions recorded. Reason for Referral None Reported. Results Created Date Observation Date Name Description Value Unit Range Abnormal Flag Note LastModifiedBy Organization Detail LastModifiedTime 11/14/1911/14/2024 rapid SARS CoV 2 Ag, QL IA, respi rator y speci men rapid SARS CoV 2 Ag, QL IA, respiratory specimen negati ve Not Available [facility] ed [address] [place] [address], [phone] 11/14/2024 22:31:42 11/14/19 25 11/14/2024 rapid flu (A+B) Flu negati ve Not Available [facility] ed [address] [place], [phone] 11/14/2024 22:31:41 Result Notes None recorded. Medical Equipment None Reported. Allergies Allergen ID Allergen Name Allergen Category Reaction Reaction Severity Criticality Documentation Date Start Date Code Code System Note Provider Name and Address Organization Details Recorded Time 55772 Product containin g penicilli n (product) medicatio n Not available Not available Not available 11/14/2024 72808 8001 SNOMED Not Available [facility] - production 5 10:56:19 98934 aspirin medicatio n Not available Not available [...] 5 14 /min 80 /min 167.64 cm 90488.4 g 98 [degF] 98 % 98 % 170 mm[Hg] 90 mm[Hg] Not Available [facility] 5 20:15:50 Date Recorded Body temperature Heart rate Respiratory rate Oxygen saturation Oxygen saturation in Arterial blood by Pulse oximetry Systolic blood pressure Diastolic blood pressure Provider Name and Address Organization Details Last Updated DateTime 4 98.4 [degF] 83 /min 16 /min 97 % 97 % 144 mm[Hg] 92 mm[Hg] Not Available [facility] 4 14:52:47 Social History None recorded. Functional Status None recorded. Mental Status None recorded. Family History Nothing Reported. Medical History No medical history recorded. Gynecological HistoryNo gynecological history recorded. Obstetrics History GPAL:G 0 P 0 0 0 0 Past Encounters Encounter ID Performer Location Encounter Start Date Encounter Closed Date Diagnosis/Indication Diagnosis SNOMED-CT Code Diagnosis ICD10 Code Diagnosis Note [id number] MAYRA DONOVAN MD [facility] - [facility] [address] [place] [phone] 02/22/2024 14:52:45 02/23/2024 10:29:44 Contusion of left chest wall [id number] S20.212A Evaluation in the field was performed by my manager operational colleague, as noted above, I provided real-time [...] 1000 mg PO x1 given by the manager operational. Rx sent to her pharmacy for 30 [...] cough , dizziness or any other concerns. [id number] Soheila Braxton MD Main - [facility] [address] [place] [address] 11/14/2024 20:15:45 11/15/2024 08:43:51 Viral syndrome [id number] B34.9 Health Concerns Section Related Observation LastModified by Organization Detai ls LastModified Time None Recorded Concern Status LastModified by Organization Details LastModified Time None Recorded Advance Directives Directive None Recorded Payers Insurance Date Sequence Insurance Name Policy Number Policy Borjas Covered Member ID Borjas Member ID Guarantor Name 11/14/2024 1 [facility] - DOS ON OR AFTER 2022 - DUAL ELIGIBLE - PENITENTIARY OPTIONS AND ONE CARE (MEDICARE REPLACEMENT/ADV ANTAGE - HMO) Marcela Medellin [id number] Marcela Medellin Notes Date Note Type Note Provider Name and Address Organization Details Recorded Time 02/22/2024 text/html HPI: Molly is a 58 yo Russian/Macanese speaking female with hx of asthma, COPD, [...] ..................... ..................... ..................... ..................... ..................... ..................... ............... Test Desk Supervisor Note From Channing Wan: Dispatched to the [...] ..................... ..................... ............... Disposition: Romi DONOVAN MD [address] [place] [address],[address], [place], [address], [facility] 02/22/2024 15:43:17 11/14/2024 text/html CRC Nurse Triage Notes (Arianna Stein - RN): Denies: Sudden onset of dental pain, unable to manage own secretions Nosebleed lasting longer than one hour; unable to stop bleeding Throat swelling/difficult swallowing Chief Complaints: Sore throat, Earache PMH: COPD/Asthma, Hyperlipidemia, Hypertension, Hypothyroidism PMH Reviewed at 11/14/2024 10:56 Allergies Reviewed at 11/14/2024 10:56 Comments: Patient calling in to place a referral, identified via name and . In addition to PMH patient has a fatty liver. Patient with an earache, sore throat, headache, red eyes, stuffy nose and chills. She denies fever, no body aches, no chest congestion or wheezing. She would like to be evaluated. Test Desk Supervisor Organization Information for Aquilino Edwards Business Legal Name: [facility] Address: [address] [place] [address], [place] [address], Canning Machine Operator: Amos Gates MD CLIA No.: [id number] Test Desk Supervisor POC Test Results from [facility] Rapid COVID antigen (19:43:42) COVID: - Rapid influenza antigen (19:43:42) Flu: - ..................... ..................... ..................... ..................... ..................... ..................... ............... Test Desk Supervisor Note From Aquilino Edwards: Patient alert and [...] for Covid and flu via rapid POC. [facility] advises patient likely viral infection that will pass in 7 to 10 days. Red flags, patient education what to expect next steps, supportive care and others discussed. Patient demonstrates understanding of care and plan. ..................... ..................... ..................... ..................... ..................... ..................... ............... [facility] Consulted: Soheila Braxton ..................... ..................... ..................... ..................... ..................... ..................... ............... Disposition: Fulfilled Soheila Braxton MD [address] [place] [address],[address] [facility], [place], [address], [employer] 11/14/2024 22:34:00 OBGyn Episode No OBEpisode recorded.
== END 2025-03-18 10:19 | disposition home or self-care (01) ==
LOC: HO.ENCR 09:13
PROVIDERS: PCP Nurse Practitioner Family; Visit Provider Dietitian, Registered
DX: E66.01 Morbid (severe) obesity due to excess calories (principal)

== ENCOUNTER → 2025-03-18 09:13 | Outpatient (BNVA) | payer OTHER, SELFPAY | PROVIDERS: PCP Nurse Practitioner Family; Visit Provider Dietitian, Registered | DX: E66.01 Morbid (severe) obesity due to excess calories (principal); Z68.41 Body mass index [BMI] 40.0-44.9, adult; Z71.3 Dietary counseling and surveillance | CPT/HCPCS: 97803 ==

== ENCOUNTER 2025-03-24 17:51 | Emergency (ER) | payer OTHER, SELFPAY ==
--- NOTE | ~2025-03-24 | CT_ITS ---
CLINICAL HISTORY: LUQ pain --- Additional Notes or Special Instructions: pancreatitis? CT ABDOMEN AND PELVIS WITHOUT CONTRAST COMPARISON: None provided. FINDINGS: Exam is mildly motion limited. Exam is also limited due to the lack of IV contrast. Mild nonspecific ground-glass changes are noted within the lower lungs. There also mild atelectatic changes in the left lower lung. Fatty liver is noted. Cholecystectomy clips are present. Stomach is not optimally distended which limits assessment. No CT evidence of acute pancreatitis. Spleen and adrenal glands are unremarkable. Both kidneys are unremarkable. No renal calculi or hydronephrosis. No calculi in the ureters and urinary bladder. Urinary bladder is distended. Calcified phleboliths are noted in the pelvis. The uterus is absent. No evidence of an abdominal aortic aneurysm. No evidence of a bowel obstruction or free air. No pericolonic inflammation. Appendix is not definitively visualized. No lymphadenopathy or loculated fluid collection. No evidence of a bowel containing hernia. Small fat containing umbilical hernia is noted. Bone windows demonstrate no acute abnormalities. Multilevel degenerative changes are noted within the visualized spine. IMPRESSION: 1. No CT evidence of acute pancreatitis. 2. No renal calculi or hydronephrosis. No calculi in the ureters and urinary bladder. 3. No evidence of a bowel obstruction or free air. No pericolonic inflammation. 4. Fatty liver. 5. Mild nonspecific ground-glass changes in the lower lungs. Mild atelectatic changes in the left lower lung. 6. Additional findings are detailed above. This document has been electronically signed by: Etienne Carrizales M.D. on 03/24/2025 23:15:04
[2025-03-24 17:59] VITALS: BP 147/79; PULSE 80; RESP 18; TEMP 36.6; O2SAT 97; BMI 44.3
--- NOTE | 2025-03-24 17:59 | ED_ITS ---
HPI - Abdominal Pain General Chief Complaint: Abdominal Pain Stated Complaint: left abd pain Time Seen by Provider: 03/24/25 20:34 Source: patient Limitations: language barrier History of Present Illness ED Provider: Letty Louis PA-C HPI narrative: 59-year-old female who is morbidly obese with history of asthma COPD overlap, TRACI, hypertension, hyperlipidemia, hypothyroidism, prior CVA with a residual left-sided weakness, who presents with abdominal pain since earlier today. Pain along left side of the abdomen, she describes as ?inflammation?. Pain is nonradiating. Worse with movement of the torso. Patient denies new exercise, heavy lifting or trauma that could have cause her discomfort. Denies nausea vomiting diarrhea or constipation. Denies dysuria hematuria or fever. Related Data Home Medications ?Medication ?Instructions ?Recorded ?Confirmed aripiprazole 15 mg tablet 15 mg PO DAILY 08/17/2210/20 bupropion HCl 300 mg 24 hr tablet, 300 mg PO QAM 08/1712/25/24 extended release CPAP (CPAP Machine/Device) 05/09/23 12/25/24 CPAP 10/04/23 12/25/24 hydroxyzine pamoate 25 mg capsule 25 mg PO BID 4 12/25/24 amitriptyline 100 mg tablet 100 mg PO BEDTIME 04/19/24 12/25/24 diclofenac sodium 1 % topical gel 2 g topical QID 03/2712/25/24 (Arthritis Pain (diclofenac)) ascorbic acid (vitamin C) 500 mg mg PO 01/01/25 capsule cholecalciferol (vitamin D3) 50 50 mcg PO DAILY mcg (2,000 unit) capsule magnesium 250 mg tablet 250 mg PO DAILY 01/01/25 mecobalamin (vitamin B12) 1,000 1,000 mcg PO DAILY 05/20 mcg chewable tablet (B12 Active) multivitamin (Daily Multi-Vitamin 1 tab PO DAILY 01/01 tablet) Previous Rx's ?Medication ?Instructions ?Recorded blood pressure monitor (Blood #1 ea 10/17/20 Pressure Kit) cane #1 ea 11/04/20 shower chair #1 ea 11/04/20 diclofenac potassium 50 mg tablet 50 mg PO BID PRN for pain #60 tabs 06/29/21 fluticasone propionate 50 2 spray intranasal DAILY 30 days 01/04/22 mcg/actuation nasal #15.8 mL spray,suspension thiamine HCl (vitamin B1) 100 mg 100 mg PO DAILY #90 t abs 08/10/22 tablet walker #1 ea 08/17/22 montelukast 10 mg tablet 10 mg PO DAILY 90 days #90 t abs 12/28/22 folic acid 1 mg tablet 1 mg PO DAILY 90 days #90 ta bs 01/17/23 omeprazole 20 mg capsule,delayed 20 mg PO DAILY 30 day s #30 caps 09/12/23 release epinephrine 0.3 mg/0.3 mL 0.3 mg (0.3 mL) IM Q4H PRN 0 01/09/24 injection, auto-injector (EpiPen anaphylaxis #2 ea 2-John) atorvastatin 10 mg tablet 10 mg PO BEDTIME #90 tabs losartan 50 mg tablet 50 mg PO DAILY #90 tabs 03/27 12/17 lidocaine 5 % topical patch 2 patch topical DAILY #30 ea 04/30/24 Symbicort 160 mcg-4.5 2 puff PO BID #10.2 grams mcg/actuation HFA aerosol inhaler (budesonide-formoterol) albuterol sulfate 90 mcg/actuation 2 inh inhalation Q6 H PRN shortness 01/01/25 aerosol inhaler of breath or wheezing 30 day s #18 grams doxycycline monohydrate 100 mg 100 mg PO BID 14 days # 28 tabs 01/01/25 tablet levalbuterol HCl 1.25 mg/3 mL 1.25 mg (3 mL) inhalatio n BID 30 01/01/25 solution for nebulization days #180 mL methylprednisolone 4 mg tablets in See Rx Instructions PO PER PKG DIR 01/01/25 a dose pack (Medrol (John)) 6 days #21 ea levothyroxine 25 mcg tablet 25 mcg PO QAM #90 tabs Allergies Allergy/AdvReac Type Severity Reaction Status Date / Time aspirin Allergy Severe Swollen Verified 03/24/25 18:05 penicillamine Allergy Severe Rash and Verified 03/24/25 18:05 Hives povidone-iodine (Betadine) Allergy Severe Rash and Verified 03/24/25 18:05 Hives soap (Betadine) Allergy Severe Rash and Verified 03/24/25 18:05 Hives Peant Butter Allergy Severe Rash and Uncoded 02/21/25 11:12 Hives Seafood Allergy Severe Anaphylaxis Uncoded 02/21/25 11:12 beta blockers AdvReac Intermediate Unknown Uncoded 02/21/25 11:12 Review of Systems Review of Systems Yes all other systems are reviewed and are negative Constitutional: Denies fatigue and Denies fever(s) Cardiovascular: Denies chest pain and Denies dyspnea Respiratory: Denies cough and Denies dyspnea Gastrointestinal: Reports abdominal pain, Denies constipation, Denies diarrhea, Denies nausea and Denies vomiting Genitourinary: Denies dysuria Endocrine: Denies fatigue PMFSH Past Medical History Attestation statement: The following information was validated with the patient. Medical History Bacterial conjunctivitis Acute respiratory disease Conversion disorder MCI (mild cognitive impairment) Asthma Chronic restrictive lung disease TRACI (obstructive sleep apnea) Asthma-COPD overlap syndrome Surgical History History of esophagogastroduodenoscopy (EGD) Hx of colonoscopy History of hernia repair Hx of cholecystectomy History of appendectomy History of hysterectomy Family History Family History Father HTN (hypertension) Stroke Diabetes mellitus Maternal Grandmother Cancer Mother Diabetes mellitus HTN (hypertension) Stroke Brother Stroke Social History Social History Housing: Apartment Alcohol intake: never Patient Tobacco Use Status: Never used Tobacco e-Cigarette/Vaping Use: Never Used Second Hand Smoke Exposure: No service: No Current occupational status: disabled Cognitive needs: Yes (walker sometimes) Hearing needs: Yes (b/l hearing aids) Vision needs: Yes (rx glasses) Physical Exam ED Vital Signs: Vital Signs - 24 hr 03/24/25 17:59 Temperature 97.9 F Pulse Rate 80 Respiratory Rate 18 Blood Pressure 147/79 H Pulse Oximetry 97 Oxygen Delivery Method Room Air BMI result Body Mass Index 44.3 Const Other: Alert Orientation/consciousness: patient oriented x3 Resp Effort & Inspection: normal respiratory effort Cardio Other: Normal peripheral perfusion GI Other: Abdomen is soft, obese, pain out of proportion with palpation of the abdomen, there was no objective guarding Skin Other: Warm dry no rash Neuro General: patient oriented x3, no focal motor deficits and CN's II-XI intact bilaterally Psych Other: Cooperative Course Course Course Narrative: 03/24/251803 ANDREINA Marie This is a Rapid Medical Examination (RME) performed by Stevie Enriquez PA-C in triage. Full HPI, ROS, assessment and treatment plan per primary provider in the Main ED. Hx: 59 yo F here for eval of LUQ abd pain. worse w/ breathing. assoc nausea w/o vomiting. normal BM today. no urinary sx. PE/vitals: ttp of LUQ Plan: labs Medical Decision Making Medical Decision Making [facility] Narrative: 59-year-old female who is morbidly obese with history of asthma COPD overlap, TRACI, hypertension, hyperlipidemia, hypothyroidism, prior CVA with a residual left-sided weakness, who presents with abdominal pain since earlier today. Pain along left side of the abdomen, she describes as ?inflammation?. Pain is nonradiating. Worse with movement of the torso. Patient denies new exercise, heavy lifting or trauma that could have cause her discomfort. Denies nausea vomiting diarrhea or constipation. Denies dysuria hematuria or fever. Problem: Morbid obesity History: Per patient I have considered the following differential diagnoses: Pancreatitis, diverticulitis, renal colic, abdominal wall strain Plan: Patient's exam is most consistent with some form of abdominal wall strain. Pain worse with movement. She has no mechanism of injury to account for the discomfort. Her pain is out of proportion with her exam, airing on the side of caution obtaining a CT scan. Given left-sided symptoms thought about pancreatitis, although she has no focal left upper quadrant pain. Likewise, thought about diverticulitis, however no focal left lower quadrant pain. Thought about renal colic, however her symptoms are not colicky in nature, she has no related symptoms. She has no active GI symptoms. We will be giving methocarbamol for her discomfort. Screening labs and urinalysis we will be obtained. I have independently reviewed the following tests: Labs: No leukocytosis, not anemic, no electrolyte abnormality, urine not infected, LFTs and lipase normal CT abdomen and pelvis:IMPRESSION: 1. No CT evidence of acute pancreatitis. 2. No renal calculi or hydronephrosis. No calculi in the ureters and urinary bladder. 3. No evidence of a bowel obstruction or free air. No pericolonic inflammation. 4. Fatty liver. 5. Mild nonspecific ground-glass changes in the lower lungs. Mild atelectatic changes in the left lower lung. 6. Additional findings are detailed above. Lab Data 03/24/25 18:23 03/24/25 18:23 Labs: Lab Results 03/24/25 Range/Units 18:23 WBC 7.1 (4.8-10.8) X10*3/uL RBC 4.46 (4.20-5.50) X10*6/uL Hgb 13.0 (12.0-16.0) g/dl Hct 38.4 (37.0-47.0) % MCV 86.1 (80.0-98.0) fL MCH 29.1 (27.0-33.0) pg MCHC 33.9 (31.0-35.0) g/dl RDW 13.4 (11.0-16.0) % Plt Count 255 (160-400) X10*3/uL MPV 8.8 L (9.4-12.3) fL Immature Gran % (Auto) 1.0 H (0.0-0.4) % Neut % (Auto) 56.9 (45-73) % Lymph % (Auto) 29.6 (20-40) % [place] % (Auto) 9.6 (2-11) % Eos % (Auto) 2.3 (0-4) % Baso % (Auto) 0.6 (0-2) % Lymph # (Auto) 2.1 (1.2-4.9) X10*3/uL [place] # (Auto) 0.7 (0.1-1.2) X10*3/uL Eos # (Auto) 0.2 (0.0-0.4) X10*3/uL Baso # (Auto) 0.0 (0.0-0.2) X10*3/uL Abs Immat Gran (auto) 0.07 H (0.00-0.03) X10*3/uL Absolute Neuts (auto) 4.0 (2.0-8.3) x10*3/uL Absolute Nucleated RBC 0.000 (0.0-0.012) X10*3/uL Nucleated RBC % (auto) 0.0 (0.0-0.2) /100WBC Sodium 140 (135-145) mmol/L Potassium 4.3 (3.3-5.1) mmol/L Chloride 106 (96-108) mmol/L Carbon Dioxide 23 (22-29) mmol/L Anion Gap 15 (12-20) BUN 28 H (9-16) mg/dL Creatinine 0.86 (0.5-1.4) mg/dL Estim Creat Clear Calc 73.0 Estimated GFR > 60 Random Glucose 101 (60-115) mg/dL Calcium 9.6 (8.4-10.2) mg/dL Magnesium 2.1 (1.6-2.6) mg/dL Total Bilirubin 0.3 (0.0-1.0) mg/dL AST 30 (5-31) U/L ALT 27 (0-31) U/L Alkaline Phosphatase 89 (39-117) U/L Total Protein 7.7 (6.5-8.0) g/dL Albumin 4.5 (3.5-5.0) g/dL Lipase 29 (8-78) U/L Medications Administered Discontinued Medications Generic Name Dose Route Start Last Admin Trade Name Freq PRN Reason Stop Dose Admin Methocarbamol 1,500 mg 03/25/25 00:27 03/25/25 00:32 Methocarbamol 750 Mg Tablet PO 03/25/25 00:28 1,500 mg ONCE ONE Administration Discharge Plan Discharge Clinical Impression: Abdominal wall pain Patient Disposition: Home, Self-Care Instructions: Abdominal Pain (ED) Additional Instructions: All of your screening labs were normal. There were no acute abnormalities noted on the CT scan of your abdomen and pelvis. Your symptoms are most consistent with the abdominal wall pain. Use the methocarbamol as needed for your discomfort, this is a muscle relaxant, it will cause drowsiness do not drive or operate machinery while taking the medication. You should follow up with your primary care provider for your ongoing discomfort within this region. Prescriptions: No Action (DME) blood pressure monitor [Blood Pressure Kit] Kit See Rx Instructions .ROUTE .MEDSUPPLY Qty: 1 0RF Rx Instructions: As directed-brachial blood pressure monitor to check blood pressure daily. (DME) shower chair See Rx Instructions .Route .MEDSUPPLY Qty: 1 0RF Rx Instructions: As directed (DME) cane Device See Rx Instructions .ROUTE .MEDSUPPLY Qty: 1 0RF Rx Instructions: As directed diclofenac potassium 50 mg tablet 50 mg PO BID PRN (Reason: for pain) Qty: 60 1RF thiamine HCl (vitamin B1) 100 mg tablet 100 mg PO DAILY Qty: 90 0RF montelukast 10 mg tablet 10 mg PO DAILY 90 Days Qty: 90 1RF folic acid 1 mg tablet 1 mg PO DAILY 90 Days Qty: 90 0RF atorvastatin 10 mg tablet 10 mg PO BEDTIME Qty: 90 1RF losartan 50 mg tablet 50 mg PO DAILY Qty: 90 3RF levothyroxine 25 mcg tablet 25 mcg PO QAM Qty: 90 1RF (DME) CPAP Device See Rx Instructions .Route Rx Instructions: As directed hydroxyzine pamoate 25 mg capsule 25 mg PO BID lidocaine 5 % adhesive patch,medicated 2 patch topical DAILY Qty: 30 0RF Rx Instructions: leave on most painful area for up to 12 hrs bupropion HCl 300 mg tablet extended release 24 hr 300 mg PO QAM (DME) walker [facility] [place] Rx Instructions .Route Qty: 1 0RF Rx Instructions: daily use epinephrine [EpiPen 2-John] 0.3 mg/0.3 mL auto-injector 0.3 mg IM Q4H PRN (Reason: anaphylaxis) Qty: 2 1RF amitriptyline 100 mg tablet 100 mg PO BEDTIME diclofenac sodium [Arthritis Pain (diclofenac)] 1 % gel 2 g topical QID Rx Instructions: apply to single elbow, wrist or hand; for hand includes palm/fingers/back of hand fluticasone propionate 50 mcg/actuation spray,suspension 2 spray intranasal DAILY 30 Days Qty: 15.8 11RF (DME) CPAP Machine/Device Device See Rx Instructions .Route Rx Instructions: As directed aripiprazole 15 mg tablet 15 mg PO DAILY omeprazole 20 mg capsule,delayed release(DR/EC) 20 mg PO DAILY 30 Days Qty: 30 3RF ascorbic acid (vitamin C) 500 mg capsule PO cholecalciferol (vitamin D3) 50 mcg (2,000 unit) capsule 50 mcg PO DAILY multivitamin [Daily Multi-Vitamin] Tablet 1 tab PO DAILY mecobalamin (vitamin B12) [B12 Active] 1,000 mcg tablet,chewable 1,000 mcg PO DAILY magnesium 250 mg tablet 250 mg PO DAILY levalbuterol HCl 1.25 mg/3 mL solution for nebulization 1.25 mg inhalation BID 30 Days Qty: 180 6RF budesonide-formoterol [Symbicort] 160-4.5 mcg/actuation HFA aerosol inhaler 2 puff PO BID Qty: 10.2 11RF doxycycline monohydrate 100 mg tablet 100 mg PO BID 14 Days Qty: 28 0RF methylprednisolone [Medrol (John)] 4 mg tablets,dose pack See Rx Instructions PO PER PKG DIR 6 Days Qty: 21 0RF Rx Instructions: PO PER PKG DIR albuterol sulfate 90 mcg/actuation HFA aerosol inhaler 2 inh inhalation Q6H PRN (Reason: shortness of breath or wheezing) 30 Days Qty: 18 12RF Interventions: ED Discharge Assessment Last Done: 03/25/25 01:11 Discharge Date/Time: 03/25/25 01:12 Print Language: Solomon Islander
[2025-03-24 18:29] LABS: Basophils Percent Auto 0.6 % (0-2); Eosinophils Absolute Auto 0.2 X10*3/uL (0.0-0.4); Eosinophils Percent Auto 2.3 % (0-4); Hematocrit 38.4 % (37.0-47.0); Imm Gran Abs Auto 0.07 X10*3/uL (0.00-0.03); Lymphocytes Absolute Auto 2.1 X10*3/uL (1.2-4.9); Lymphocytes Percent Auto 29.6 % (20-40); MANUAL DIFF FLAG NO; Mean Corpuscular HGB Conc 33.9 g/dl (31.0-35.0); Mean Corpuscular Hemoglobin 29.1 pg (27.0-33.0); Mean Corpuscular Volume 86.1 fL (80.0-98.0); Mean Platelet Volume 8.8 fL (9.4-12.3); Monocytes Absolute Auto 0.7 X10*3/uL (0.1-1.2); Monocytes Percent Auto 9.6 % (2-11); Neutrophils Percent Auto 56.9 % (45-73); Platelet Count 255 X10*3/uL (160-400); Red Blood Count 4.46 X10*6/uL (4.20-5.50); Red Cell Distribution Width 13.4 % (11.0-16.0); White Blood Count 7.1 X10*3/uL (4.8-10.8)
[2025-03-24 18:49] LABS: Alanine Aminotransferase 27 U/L (0-31); Albumin Level 4.5 g/dL (3.5-5.0); Alkaline Phosphatase 89 U/L (39-117); Anion Gap 15 (12-20); Aspartate Amino Transferase 30 U/L (5-31); Bilirubin Total 0.3 mg/dL (0.0-1.0); Blood Urea Nitrogen 28 mg/dL (9-16); Calcium 9.6 mg/dL (8.4-10.2); Carbon Dioxide 23 mmol/L (22-29); Chloride 106 mmol/L (96-108); Estimated Glomerular Filt Rate > 60; Glucose Random 101 mg/dL (60-115); Lipase 29 U/L (8-78); Magnesium 2.1 mg/dL (1.6-2.6); Potassium 4.3 mmol/L (3.3-5.1); Sodium 140 mmol/L (135-145); Total Protein 7.7 g/dL (6.5-8.0)
--- OUTSIDE RECORDS SUMMARY | 2025-03-24 19:08 | XMS_ITS | Data Portability ---
Author Organization [facility], [facility] Address [address] [place] [address] Care Team Providers Care Manager Credit Risk Name Role Phone HIM CCA OTHER Assessment Encounter Date Assessment Date Assessment LastModified by Organization Details LastModified Time 11/14/2024 11/14/2024 I provided real -time medical direction via phone for this encounter and was available for additional phone-based assistance as needed. I have reviewed and agree with the Assessment and Plan as documented by the Community Worker. Patient given the opportunity to ask questions. [...] her eyes have been itchy bilaterally. Per casualty claim adjuster on the scene, vital signs are stable and patient is afebrile. No wheezing heard on exam. COVID and Flu are both negative. See uploaded pictures. No increased work of breathing and no distress. No drainage from either eye. Vision grossly intact. Impression: Common cold and viral URI Plan: Continue with [id number] medications to control symptoms. Red flags discussed [...] recorded. Lab rapid flu (A+B) [address], [address] [place] [address], [phone] 5 22:31:53 rapid SARS CoV 2 Ag, QL IA, respiratory specimen [address], [address] [place] [address], [phone] 22:31:54 Referral None recorded. Procedures None recorded. Surgeries None recorded. Imaging None recorded. Medication Orders acetaminoph en 500 mg tablet 2023 024 gbaci Not available 14:56:15 acetaminoph en 500 mg tablet 2023 [facility] #[id number], [address] [place], [place], [phone], 4 14:58:01 diclofenac 1 % topical gel 2023 [facility] #[id number], [address] [place], [place], [phone], 4 14:58:05 Patient TargetsNo targets recorded. Patient InstructionsNo instructions recorded. Reason for Referral None Reported. Results Created Date Observation Date Name Description Value Unit Range Abnormal Flag Note LastModifiedBy Organization Detail LastModifiedTime 11/14/1911/14/2024 rapid SARS CoV 2 Ag, QL IA, respi rator y speci men rapid SARS CoV 2 Ag, QL IA, respiratory specimen negati ve Not Available [facility] ed [address] [place] [address], [id number] 11/14/2024 22:31:42 11/14/19 25 11/14/2024 rapid flu (A+B) Flu negati ve Not Available [facility] [address] [place], [phone] 11/14/2024 22:31:41 Result Notes None recorded. Medical Equipment None Reported. Allergies Allergen ID Allergen Name Allergen Category Reaction Reaction Severity Criticality Documentation Date Start Date Code Code System Note Provider Name and Address Organization Details Recorded Time 74807 Product containin g penicilli n (product) medicatio n Not available Not available Not available 11/14/2024 59841 8001 SNOMED Not Available [facility] - production 5 10:56:19 26305 aspirin medicatio n Not available Not available [...] 5 14 /min 80 /min 167.64 cm 32689.4 g 98 [degF] 98 % 98 % 170 mm[Hg] 90 mm[Hg] Not Available [facility] 5 20:15:50 Date Recorded Body temperature Heart rate Respiratory rate Oxygen saturation Oxygen saturation in Arterial blood by Pulse oximetry Systolic blood pressure Diastolic blood pressure Provider Name and Address Organization Details Last Updated DateTime 4 98.4 [degF] 83 /min 16 /min 97 % 97 % 144 mm[Hg] 92 mm[Hg] Not Available [facility] 4 14:52:47 Social History None recorded. Functional Status None recorded. Mental Status None recorded. Family History Nothing Reported. Medical History No medical history recorded. Gynecological HistoryNo gynecological history recorded. Obstetrics History GPAL:G 0 P 0 0 0 0 Past Encounters Encounter ID Performer Location Encounter Start Date Encounter Closed Date Diagnosis/Indication Diagnosis SNOMED-CT Code Diagnosis ICD10 Code Diagnosis Note [id number] MAYRA DONOVAN MD [facility] - [facility] [address] [place] [phone] 02/22/2024 14:52:45 02/23/2024 10:29:44 Contusion of left chest wall [id number] S20.212A Evaluation in the field was performed by my casualty claim adjuster colleague, as noted above, I provided real-time [...] 1000 mg PO x1 given by the casualty claim adjuster. Rx sent to her pharmacy for 30 [...] cough , dizziness or any other concerns. [id number] Soheila Braxton MD Main - [facility] [address] [place] [phone] 11/14/2024 20:15:45 11/15/2024 08:43:51 Viral syndrome [id number] B34.9 Health Concerns Section Related Observation LastModified by Organization Detai ls LastModified Time None Recorded Concern Status LastModified by Organization Details LastModified Time None Recorded Advance Directives Directive None Recorded Payers Insurance Date Sequence Insurance Name Policy Number Policy Borjas Covered Member ID Borjas Member ID Guarantor Name 11/14/2024 1 [facility] - DOS ON OR AFTER 2022 - DUAL ELIGIBLE - NURSING HOME OPTIONS AND ONE CARE (MEDICARE REPLACEMENT/ADV ANTAGE - HMO) Marcela Medellin [id number] Marcela Medellin Notes Date Note Type Note Provider Name and Address Organization Details Recorded Time 02/22/2024 text/html HPI: Molly is a 58 yo Danish/Kuwaiti speaking female with hx of asthma, COPD, [...] ..................... ..................... ..................... ..................... ..................... ..................... ............... Community Worker Note From Channing Wan: Dispatched to the [...] ..................... ..................... ............... Disposition: Romi DONOVAN MD [address] [place] [address],[address], [place], [phone], [facility] 02/22/2024 15:43:17 11/14/2024 text/html CRC Nurse Triage [...] wheezing. She would like to be evaluated. Community Worker Organization Information for [facility] Business Legal Name: [facility] Address: [address] [place] [address], [place] [address], [employer]: Amos Gates MD CLIA No.: [id number] Community Worker POC Test Results from [facility] Rapid COVID antigen (19:43:42) COVID: - Rapid influenza antigen (19:43:42) Flu: - ..................... ..................... ..................... ..................... ..................... ..................... ............... Community Worker Note From [facility]: Patient alert and [...] for Covid and flu via rapid POC. [facility] advises patient likely viral infection that will pass in 7 to 10 days. Red flags, patient education what to expect next steps, supportive care and others discussed. Patient demonstrates understanding of care and plan. ..................... ..................... ..................... ..................... ..................... ..................... ............... [facility] Consulted: Soheila Braxton ..................... ..................... ..................... ..................... ..................... ..................... ............... Disposition: Fulfilled Soheila Braxton MD [address] [place] [address],[address] [facility], [place], [phone], [facility] [facility], [facility] 11/14/2024 22:34:00 OBGyn Episode No OBEpisode recorded.
[2025-03-25] MEDS: methocarbamoL 750 MG TABLET 1500 MG PO (00:32)
--- NOTE | 2025-03-25 00:33 | PC.NURSE ---
provider Roz Hurst into discuss plan of care with pt, medicated per mar. pt resting in stretcher.
[2025-03-25 01:09] VITALS: BP 137/76; PULSE 70; RESP 16; TEMP 36.7; O2SAT 98
--- NOTE | 2025-03-25 01:10 | PC.NURSE ---
medicated per mar, reviewed discharge instructions wit pt. pt verbalized understanding, no sign of distress upon discharge.
[2025-03-25 01:11] VITALS: BP 137/76; PULSE 70; RESP 16; TEMP 36.7; O2SAT 98
== END 2025-03-25 01:12 | disposition home or self-care (01) ==
PROVIDERS: Physician Assistant Medical; Emergency Provider Emergency Medicine; PCP Nurse Practitioner Family
DX: R10.9 Unspecified abdominal pain (principal); J44.9 Chronic obstructive pulmonary disease, unspecified; I10 Essential (primary) hypertension; E03.9 Hypothyroidism, unspecified; E78.5 Hyperlipidemia, unspecified; E66.9 Obesity, unspecified; Z68.41 Body mass index [BMI] 40.0-44.9, adult
CPT/HCPCS: 36415; 74176; 80053; 83690; 83735; 85025; 99284

== ENCOUNTER → 2025-03-24 20:56 | Outpatient (BNV) | payer OTHER, SELFPAY | PROVIDERS: Emergency Provider Emergency Medicine; PCP Nurse Practitioner Family; Visit Provider Radiology Diagnostic Radiology | DX: R10.12 Left upper quadrant pain (principal) | CPT/HCPCS: 74176 ==

== ENCOUNTER 2025-03-27 07:12 | Outpatient (REF) | payer OTHER, SELFPAY ==
[2025-03-27 07:32] LABS: MANUAL DIFF FLAG NO
[2025-03-27 07:55] LABS: Hematocrit 39.8 % (37.0-47.0); Hemoglobin 13.1 g/dl (12.0-16.0); Imm Gran Abs Auto 0.06 X10*3/uL (0.00-0.03); Imm Gran Pct Auto 1.0 % (0.0-0.4); Lymphocytes Absolute Auto 1.7 X10*3/uL (1.2-4.9); Mean Corpuscular HGB Conc 32.9 g/dl (31.0-35.0); Mean Corpuscular Hemoglobin 28.9 pg (27.0-33.0); Mean Corpuscular Volume 87.7 fL (80.0-98.0); NRBC Abs Auto 0.000 X10*3/uL (0.0-0.012); NRBC Pct Auto 0.0 /100WBC (0.0-0.2); Platelet Count 266 X10*3/uL (160-400); Red Blood Count 4.54 X10*6/uL (4.20-5.50); White Blood Count 5.9 X10*3/uL (4.8-10.8)
[2025-03-27 08:01] LABS: Appearance Urine Clear; Glucose Urine UA Negative (Negative); PH 5.5 (5.0-9.0); Specific Gravity - Urine 1.025 (1.005-1.025); UMIC TRIGGER UACC YES
[2025-03-27 08:35] LABS: Alanine Aminotransferase 26 U/L (0-31); Albumin Level 4.4 g/dL (3.5-5.0); Alkaline Phosphatase 89 U/L (39-117); Anion Gap 12 (12-20); Aspartate Amino Transferase 23 U/L (5-31); Blood Urea Nitrogen 33 mg/dL (9-16); Calcium 9.6 mg/dL (8.4-10.2); Carbon Dioxide 27 mmol/L (22-29); Chloride 105 mmol/L (96-108); Cholesterol 170 mg/dL (<200); Estimated Glomerular Filt Rate > 60; HDL Cholesterol 55 mg/dL (>40); Potassium 4.2 mmol/L (3.3-5.1); Sodium 140 mmol/L (135-145); Total Protein 7.3 g/dL (6.5-8.0); Triglycerides 100 mg/dL (<150)
[2025-03-27 09:07] LABS: Folate 9.0 ng/mL (> or = 4.0); Vitamin B12 381 pg/mL (200-900)
== END 2025-03-27 07:13 | disposition home or self-care (01) ==
LOC: HO.LAB 07:12
PROVIDERS: PCP Nurse Practitioner Family; Visit Provider Nurse Practitioner Family
DX: I10 Essential (primary) hypertension (principal); E53.8 Deficiency of other specified B group vitamins; E55.9 Vitamin D deficiency, unspecified
CPT/HCPCS: 36415; 80053; 80061; 81001; 81003; 82306; 82607; 82746; 84443; 85025

== ENCOUNTER 2025-04-12 14:34 | Outpatient (AMB) | payer OTHER, SELFPAY ==
[2025-04-12 14:36] VITALS: BP 152/90; PULSE 85; TEMP 36.9; O2SAT 95; BMI 45.4
--- NOTE | 2025-04-12 14:36 | MHC.OFFWIV ---
Intake Vital Signs 04/12/25 14:36 04/12/25 14:45 Height 4 ft 11 in Weight 225 lb BMI 45.4 BP 152/90 H 144/90 H Blood Pressure Location Rt brachial Rt brachial Position Sitting Sitting Pulse 85 Pulse Source Pulse Oximeter Temp 98.4 F Temp Source Oral Pulse Oximetry (%) 95 Oxygen Delivery Method Room Air Intake Visit Reasons: EP-b/l legs pain & swollen Intake Note: presents with bilateral leg swelling and right leg pain Patient Tobacco Use Status: Never used Tobacco Allergies aspirin Allergy (Severe, Verified 04/12/25 14:39) Swollen penicillamine Allergy (Severe, Verified 03/24/25 18:05) Rash and Hives povidone-iodine (Betadine) Allergy (Severe, Verified 03/24/25 18:05) Rash and Hives soap (Betadine) Allergy (Severe, Verified 03/24/25 18:05) Rash and Hives Peant Butter Allergy (Severe, Uncoded 02/21/25 11:12) Rash and Hives Seafood Allergy (Severe, Uncoded 02/21/25 11:12) Anaphylaxis beta blockers Adverse Reaction (Intermediate, Uncoded 02/21/25 11:12) Unknown Do you need a note to return to daycare/school/sports/work: No HPI EP-b/l legs pain & swollen HPI Details This is a 59-year-old female patient presents to the walk-in clinic today with a 2 day history of mild lower leg swelling. She states that she noticed her lower legs were a little puffy yesterday, and this has continued today. Denies any pain. Denies any calf pain, shortness of breath, respiratory difficulty/cough or fatigue. No history of CHF. History of hypertension, on losartan. Followed by weight management she has been working on weight loss. Seeing endocrinology via weight management program next week. [facility] Medical History Bacterial conjunctivitis Acute respiratory disease Conversion disorder MCI (mild cognitive impairment) Asthma Chronic restrictive lung disease TRACI (obstructive sleep apnea) Asthma-COPD overlap syndrome Surgical History History of esophagogastroduodenoscopy (EGD) Hx of colonoscopy History of hernia repair Hx of cholecystectomy History of appendectomy History of hysterectomy Family History Father HTN (hypertension) Stroke Diabetes mellitus Maternal Grandmother Cancer Mother Diabetes mellitus HTN (hypertension) Stroke Brother Stroke Social History Housing: Apartment Alcohol intake: never Patient Tobacco Use Status: Never used Tobacco e-Cigarette/Vaping Use: Never Used Second Hand Smoke Exposure: No service: No Current occupational status: disabled Cognitive needs: Yes (walker sometimes) Hearing needs: Yes (b/l hearing aids) Vision needs: Yes (rx glasses) Review of Systems Const All systems reviewed & are unremarkable except as noted in HPI and below Physical Exam Vital Signs: BMI result Body Mass Index 45.4 Const General: cooperative, healthy appearing, comfortable and no acute distress Resp Effort & Inspection: normal respiratory effort Auscultation: clear to auscultation bilaterally Cardio Palpation: normal PMI Rate: regular rate Rhythm: regular rhythm Skin General skin exam: no rashes or lesions noted Extrem Other: No calf tenderness, negative Homans sign bilaterally. mild, non-pitting edema bilateral lower extremities, from knees down. Normal pulses distally. Normal circulation, movement, sensation. General: Yes capillary refill normal Psych Appearance: grossly normal Mental Status: mental status grossly normal Speech and movement: Normal speech and movement present Assessment & Plan Assessment & Plan (1) Swelling of both lower extremities: Code(s): M79.89 - Other specified soft tissue disorders Plan: She has mild, nonpitting lower extremity edema which is new over the last 1-2 days. We discussed trying some compression stockings over the next couple of days to see if this is beneficial. Also encouraged her to keep sodium intake down, which she has been trying to do for weight loss measures anyway. She had recent labs done earlier this month, which are reviewed, and are unremarkable. Aside from the mild edema, physical exam is unremarkable. She does not have any history of CHF, and no current symptoms of such. I encouraged her to elevate legs, try compression stockings, push fluids, and if she is not improved by next week, or certainly if she develops any of the aforementioned symptoms, to return to care or go to the emergency department for evaluation. Patient verbalizes understanding and agrees to plan. Coding Level of Care Code Est Pt Level 4 (26110) Diagnoses Swelling of both lower extremities M79.89
--- OUTSIDE RECORDS SUMMARY | 2025-04-12 14:36 | XMS_ITS | Data Portability ---
Author Organization [employer], [facility] Address [address] [place] [address] Care Team Providers Care Insulation Cupola Charger Name Role Phone HIM CCA OTHER Assessment Encounter Date Assessment Date Assessment LastModified by Organization Details LastModified Time 11/14/2024 11/14/2024 I provided real -time medical direction via phone for this encounter and was available for additional phone-based assistance as needed. I have reviewed and agree with the Assessment and Plan as documented by the Chronic Manager. Patient given the opportunity to ask questions. [...] her eyes have been itchy bilaterally. Per aluminizer on the scene, vital signs are stable and patient is afebrile. No wheezing heard on exam. COVID and Flu are both negative. See uploaded pictures. No increased work of breathing and no distress. No drainage from either eye. Vision grossly intact. Impression: Common cold and viral URI Plan: Continue with ulhx-ipb-uejkpke medications to control symptoms. Red flags discussed [...] recorded. Lab rapid flu (A+B) [address], [address] [place] [address], [id number] 5 22:31:53 rapid SARS CoV 2 Ag, QL IA, respiratory specimen [address], [address] [place] [address], [phone] 22:31:54 Referral None recorded. Procedures None recorded. Surgeries None recorded. Imaging None recorded. Medication Orders acetaminoph en 500 mg tablet 2023 024 gbaci Not available 14:56:15 acetaminoph en 500 mg tablet 2023 [facility] #[id number], [address], [id number], 4 14:58:01 diclofenac 1 % topical gel 2023 [facility] #[id number], [address], [place], [id number], 4 14:58:05 Patient TargetsNo targets recorded. Patient InstructionsNo instructions recorded. Reason for Referral None Reported. Results Created Date Observation Date Name Description Value Unit Range Abnormal Flag Note LastModifiedBy Organization Detail LastModifiedTime 11/14/1911/14/2024 rapid SARS CoV 2 Ag, QL IA, respi rator y speci men rapid SARS CoV 2 Ag, QL IA, respiratory specimen negati ve Not Available [facility] ed [address] [place] [address], [phone] 11/14/2024 22:31:42 11/14/19 25 11/14/2024 rapid flu (A+B) Flu negati ve Not Available [facility] ed [address] [place], [phone] 11/14/2024 22:31:41 Result Notes None recorded. Medical Equipment None Reported. Allergies Allergen ID Allergen Name Allergen Category Reaction Reaction Severity Criticality Documentation Date Start Date Code Code System Note Provider Name and Address Organization Details Recorded Time 83355 Product containin g penicilli n (product) medicatio n Not available Not available Not available 11/14/2024 55238 8001 SNOMED Not Available [facility] - production 5 10:56:19 79213 aspirin medicatio n Not available Not available [...] in Arterial blood by Pulse oximetry Systolic And Diastolic Provider Name and Address Organization Details Last Updated DateTime 5 14 /min 80 /min 167.64 cm 44039.4 g 98 [degF] 98 % 98 % 170/90 mm[Hg] Not Available [employer] 5 20:15:50 Date Recorded Body temperature Heart rate Respiratory rate Oxygen saturation Oxygen saturation in Arterial blood by Pulse oximetry Systolic And Diastolic Provider Name and Address Organization Details Last Updated DateTime 4 98.4 [degF] 83 /min 16 /min 97 % 97 % 144/92 mm[Hg] Not Available [employer] 4 14:52:47 Social History None recorded. Functional Status None recorded. Mental Status None recorded. Family History Nothing Reported. Medical History No medical history recorded. Gynecological HistoryNo gynecological history recorded. Obstetrics History GPAL:G 0 P 0 0 0 0 Past Encounters Encounter ID Performer Location Encounter Start Date Encounter Closed Date Diagnosis/Indication Diagnosis SNOMED-CT Code Diagnosis ICD10 Code Diagnosis Note [id number] MAYRA DONOVAN MD [facility] [address] [place] [phone] 02/22/2024 14:52:45 02/23/2024 10:29:44 Contusion of left chest wall [id number] S20.212A Evaluation in the field was performed by my aluminizer colleague, as noted above, I provided real-time [...] 1000 mg PO x1 given by the aluminizer. Rx sent to her pharmacy for 30 [...] cough , dizziness or any other concerns. [id number] Soheila Braxton MD Main - [facility] [address] [place] [address] 11/14/2024 20:15:45 11/15/2024 08:43:51 Viral syndrome 775966933 B34.9 Health Concerns Section Related Observation LastModified by Organization Detai ls LastModified Time None Recorded Concern Status LastModified by Organization Details LastModified Time None Recorded Advance Directives Directive None Recorded Payers Insurance Date Sequence Insurance Name Policy Number Policy Borjas Covered Member ID Borjas Member ID Guarantor Name 11/14/2024 1 [facility] - DOS ON OR AFTER 2022 - DUAL ELIGIBLE - SNF OPTIONS AND ONE CARE (MEDICARE REPLACEMENT/ADV ANTAGE - HMO) Marcela Medellin [id number] Marcela Medellin Notes Date Note Type Note Provider Name and Address Organization Details Recorded Time 02/22/2024 text/html HPI: Molly is a 58 yo Filipino/Welsh speaking female with hx of asthma, COPD, [...] ..................... ..................... ..................... ..................... ..................... ..................... ............... Chronic Manager Note From Channing Wan: Dispatched to the [...] ..................... ..................... ............... Disposition: Romi DONOVAN MD [address] [place] [address],[address], [place], [address], [employer] 02/22/2024 15:43:17 11/14/2024 text/html CRC Nurse Triage [...] wheezing. She would like to be evaluated. Chronic Manager Organization Information for [employer] Business Legal Name: [facility] Transportation Address: [address] [place] [address], [employer] [address], Bark Peeler: Amos Gates MD CLIA No.: [id number] Chronic Manager POC Test Results from [employer] Rapid COVID antigen (19:43:42) COVID: - Rapid influenza antigen (19:43:42) Flu: - ..................... ..................... ..................... ..................... ..................... ..................... ............... Chronic Manager Note From [employer] [facility]: Patient alert and [...] for Covid and flu via rapid POC. [facility] advises patient likely viral infection that will pass in 7 to 10 days. Red flags, patient education what to expect next steps, supportive care and others discussed. Patient demonstrates understanding of care and plan. ..................... ..................... ..................... ..................... ..................... ..................... ............... [facility] Consulted: Soheila Braxton ..................... ..................... ..................... ..................... ..................... ..................... ............... Disposition: Romi Braxton MD [address] [place] [address],[address] [facility], [place], [address], [employer] 11/14/2024 22:34:00 OBGyn Episode No OBEpisode recorded.
[2025-04-12 14:45] VITALS: BP 144/90
== END 2025-04-12 15:02 | disposition home or self-care (01) ==
PROVIDERS: PCP Nurse Practitioner Family; Visit Provider Nurse Practitioner Family
DX: M79.89 Other specified soft tissue disorders (principal)

== ENCOUNTER → 2025-04-12 14:34 | Outpatient (BNVA) | payer OTHER, SELFPAY | PROVIDERS: PCP Nurse Practitioner Family | DX: M79.89 Other specified soft tissue disorders (principal) | CPT/HCPCS: 99212 ==

== ENCOUNTER 2025-04-16 07:59 | Outpatient (AMB) | payer OTHER, SELFPAY ==
--- OUTSIDE RECORDS SUMMARY | 2025-04-16 08:03 | XMS_ITS | Data Portability ---
Author Organization [facility] Address [address] [place] [address] Care Team Providers Care Concrete Wall Grinder Operator Name Role Phone HIM CCA OTHER Assessment Encounter Date Assessment Date Assessment LastModified by Organization Details LastModified Time 11/14/2024 11/14/2024 I provided real -time medical direction via phone for this encounter and was available for additional phone-based assistance as needed. I have reviewed and agree with the Assessment and Plan as documented by the Computer Support Specialist Instructor. Patient given the opportunity to ask questions. [...] her eyes have been itchy bilaterally. Per latexer on the scene, vital signs are stable and patient is afebrile. No wheezing heard on exam. COVID and Flu are both negative. See uploaded pictures. No increased work of breathing and no distress. No drainage from either eye. Vision grossly intact. Impression: Common cold and viral URI Plan: Continue with xhvl-qjz-dxoxkat medications to control symptoms. Red flags discussed [...] recorded. Lab rapid flu (A+B) [address], [address] [place] [address], [phone] 5 22:31:53 rapid SARS CoV 2 Ag, QL IA, respiratory specimen [address], [address] [place] [address], [phone] 22:31:54 Referral None recorded. Procedures None recorded. Surgeries None recorded. Imaging None recorded. Medication Orders acetaminoph en 500 mg tablet 2023 024 gbaci Not available 14:56:15 acetaminoph en 500 mg tablet 2023 [facility][id number], [address], [place], [id number], 4 14:58:01 diclofenac 1 % topical gel 2023 [facility] #35581, [address], [place], [id number], 4 14:58:05 Patient TargetsNo targets recorded. Patient InstructionsNo instructions recorded. Reason for Referral None Reported. Results Created Date Observation Date Name Description Value Unit Range Abnormal Flag Note LastModifiedBy Organization Detail LastModifiedTime 11/14/1911/14/2024 rapid SARS CoV 2 Ag, QL IA, respi rator y speci men rapid SARS CoV 2 Ag, QL IA, respiratory specimen negati ve Not Available [facility] ed [address] [place] [address], [phone] 11/14/2024 22:31:42 11/14/19 25 11/14/2024 rapid flu (A+B) Flu negati ve Not Available [facility] ed [address] [place], [address] 11/14/2024 22:31:41 Result Notes None recorded. Medical Equipment None Reported. Allergies Allergen ID Allergen Name Allergen Category Reaction Reaction Severity Criticality Documentation Date Start Date Code Code System Note Provider Name and Address Organization Details Recorded Time 45210 Product containin g penicilli n (product) medicatio n Not available Not available Not available 11/14/2024 65620 8001 SNOMED Not Available [facility] - production 5 10:56:19 63866 aspirin medicatio n Not available Not available [...] 5 14 /min 80 /min 167.64 cm 02734.4 g 98 [degF] 98 % 98 % 170/90 mm[Hg] Not Available [employer] 5 20:15:50 Date Recorded Body temperature Heart rate Respiratory rate Oxygen saturation Oxygen saturation in Arterial blood by Pulse oximetry Systolic And Diastolic Provider Name and Address Organization Details Last Updated DateTime 4 98.4 [degF] 83 /min 16 /min 97 % 97 % 144/92 mm[Hg] Not Available [employer] 4 14:52:47 Social History None recorded. Functional Status None recorded. Mental Status None recorded. Family History Nothing Reported. Medical History No medical history recorded. Gynecological HistoryNo gynecological history recorded. Obstetrics History GPAL:G 0 P 0 0 0 0 Past Encounters Encounter ID Performer Location Encounter Start Date Encounter Closed Date Diagnosis/Indication Diagnosis SNOMED-CT Code Diagnosis ICD10 Code Diagnosis Note [id number] MAYRA DONOVAN MD [facility] - [facility] [address] [place] [phone] 02/22/2024 14:52:45 02/23/2024 10:29:44 Contusion of left chest wall [id number] S20.212A Evaluation in the field was performed by my latexer colleague, as noted above, I provided real-time [...] 1000 mg PO x1 given by the latexer. Rx sent to her pharmacy for 30 [...] cough , dizziness or any other concerns. [id number] Soheila Braxton MD Main - [facility] [address] [place] [address] 11/14/2024 20:15:45 11/15/2024 08:43:51 Viral syndrome [id number] B34.9 Health Concerns Section Related Observation LastModified by Organization Detai ls LastModified Time None Recorded Concern Status LastModified by Organization Details LastModified Time None Recorded Advance Directives Directive None Recorded Payers Insurance Date Sequence Insurance Name Policy Number Policy Borjas Covered Member ID Borjas Member ID Guarantor Name 11/14/2024 1 [facility] - DOS ON OR AFTER 2022 - DUAL ELIGIBLE - SHELTER OPTIONS AND ONE CARE (MEDICARE REPLACEMENT/ADV ANTAGE - HMO) Marcela Medellin [id number] Marcela Medellin Notes Date Note Type Note Provider Name and Address Organization Details Recorded Time 02/22/2024 text/html HPI: Molly is a 58 yo Ugandan/Urdu speaking female with hx of asthma, COPD, [...] ..................... ..................... ..................... ..................... ..................... ..................... ............... Computer Support Specialist Instructor Note From Channing Wan: Dispatched to the [...] ..................... ..................... ............... Disposition: Romi DONOVAN MD [address] [place] [address],[address], [place], [address], [employer] 02/22/2024 15:43:17 11/14/2024 text/html CRC Nurse Triage [...] wheezing. She would like to be evaluated. Computer Support Specialist Instructor Organization Information for [employer] Business Legal Name: [facility] Transportation Address: [address] [place] [address], [employer] [address], Lehr Cutter: Amos Gates MD CLIA No.: [id number] Computer Support Specialist Instructor POC Test Results from [employer] Rapid COVID antigen (19:43:42) COVID: - Rapid influenza antigen (19:43:42) Flu: - ..................... ..................... ..................... ..................... ..................... ..................... ............... Computer Support Specialist Instructor Note From [employer] [facility]: Patient alert and [...] for Covid and flu via rapid POC. [facility] advises patient likely viral infection that will pass in 7 to 10 days. Red flags, patient education what to expect next steps, supportive care and others discussed. Patient demonstrates understanding of care and plan. ..................... ..................... ..................... ..................... ..................... ..................... ............... [facility] Consulted: Soheila Braxton ..................... ..................... ..................... ..................... ..................... ..................... ............... Disposition: Romi Braxton MD [address] [place] [address],[address] [facility], [place], [address], [facility] 11/14/2024 22:34:00 OBGyn Episode No OBEpisode recorded.
[2025-04-16 08:30] VITALS: BMI 44.6
--- NOTE | 2025-04-16 08:30 | A.OFFVIS_ITS ---
VS Expanded 04/16/25 08:30 Height 4 ft 11 in Weight 220 lb 10.923 oz BMI 44.6 Intake Visit Reasons: obesity Allergies aspirin Allergy (Severe, Verified 04/12/25 14:39) Swollen penicillamine Allergy (Severe, Verified 03/24/25 18:05) Rash and Hives povidone-iodine (Betadine) Allergy (Severe, Verified 03/24/25 18:05) Rash and Hives soap (Betadine) Allergy (Severe, Verified 03/24/25 18:05) Rash and Hives Peant Butter Allergy (Severe, Uncoded 02/21/25 11:12) Rash and Hives Seafood Allergy (Severe, Uncoded 02/21/25 11:12) Anaphylaxis beta blockers Adverse Reaction (Intermediate, Uncoded 02/21/25 11:12) Unknown Nutrition Presentation Details: Pt presents for MNT f/u for morbid obesity Pt reports following multiple diet instructions for weight loss with minimum success. Pt lacks understanding regarding macronutrients/calories and their relationship to weight 24 hr food recall 3pm 2 chicken breast (garlic/katina seasoning and garlic salt), salad (olive oil and vinegar) and 2 bananas boiled , water cain fried plantain and fried pork (not prepared by self) and cool colada reports switching to fair life and choosing low sugar beverages reports having a meal replacement once a day Pt reports no longer following [employer] meal plan BS Monitoring Most Recent Diabetes Results: Cholesterol, (<200) 170 mg/dL 03/27/25 HDL Cholesterol, (>40) 55 mg/dL 03/27/25 Triglycerides, (<150) 100 mg/dL 03/27/25 Creatinine, (0.5-1.4) 0.72 mg/dL 03/27/25 BUN, (9-16) 33 mg/dL H 03/27/25 Sodium, (135-145) 140 mmol/L 03/27/25 Potassium, (3.3-5.1) 4.2 mmol/L 03/27/25 Chloride, (96-108) 105 mmol/L 03/27/25 Carbon Dioxide, (22-29) 27 mmol/L 03/27/25 Calcium, (8.4-10.2) 9.6 mg/dL 03/27/25 AST, (5-31) 23 U/L 03/27/25 ALT, (0-31) 26 U/L 03/27/25 Total Protein, (6.5-8.0) 7.3 g/dL 03/27/25 Albumin, (3.5-5.0) 4.4 g/dL 03/27/25 [facility] Medical History Bacterial conjunctivitis Acute respiratory disease Conversion disorder MCI (mild cognitive impairment) Asthma Chronic restrictive lung disease TRACI (obstructive sleep apnea) Asthma-COPD overlap syndrome Surgical History History of esophagogastroduodenoscopy (EGD) Hx of colonoscopy History of hernia repair Hx of cholecystectomy History of appendectomy History of hysterectomy Family History Father HTN (hypertension) Stroke Diabetes mellitus Maternal Grandmother Cancer Mother Diabetes mellitus HTN (hypertension) Stroke Brother Stroke Social History Housing: Apartment Alcohol intake: never Patient Tobacco Use Status: Never used Tobacco e-Cigarette/Vaping Use: Never Used Second Hand Smoke Exposure: No service: No Current occupational status: disabled Cognitive needs: Yes (walker sometimes) Hearing needs: Yes (b/l hearing aids) Vision needs: Yes (rx glasses) Assessment & Plan Assessment & Plan (1) Morbid obesity: Code(s): E66.01 - Morbid (severe) obesity due to excess calories Category: Medical Plan: Wt: 98 Kg ( 02/17 ), 99kg(03/20), 100kg(04/19) Est kcal needs as per MSJ: 1700 (40% carb, 30% protein/fat) Est fluid needs as per 25-30 ml/d: 2900 Est prot per day as per 1 g/kg bw: 98 Recommend fiber intake : 8-10 g per day and gradually increase to 25-28 g per day for women and 35-38 g for men or as tolerated Recommend sodium intake per day : less than 1500 mg less than 2000 mg Educated patient on: ( R = reviewed V = verbalizes understanding N/R = needs review N/A = not applicable * Food sources of carbohydrate, adequate serving sizes and its role in various health conditions: R * Differences between complex carbohydrates a simple carbohydrates, role of fiber in diet: R * Lean protein sources of foods: R * Differences between types of fats and role in diet (mono on saturated fat fatty acids, saturated fatty acids, trans fats): R * Food sources of sodium in salt and healthy modifications for heart health in kidney health: R V R/V * Vitamins and minerals: R V N/R * Healthy plate method concept: R * Physical activity: Benefits a precaution: R Patient Instructions: REDUCE on salt intake: use garlic/onion powder NOT SALT, choose low sodium seasoning - see list of options Choose lower sodium food options - see list of lowsodium meal options and adequate portion sizes (1700 vane) Coding Level of Care Code Nutr Indiv Subseq (07647) Diagnoses Morbid obesity E66.01 Time Spent (min) 20
== END 2025-04-16 09:16 | disposition home or self-care (01) ==
LOC: HO.ENCR 07:59
PROVIDERS: PCP Nurse Practitioner Family; Visit Provider Dietitian, Registered
DX: E66.01 Morbid (severe) obesity due to excess calories (principal)

== ENCOUNTER → 2025-04-16 07:59 | Outpatient (BNVA) | payer OTHER, SELFPAY | PROVIDERS: PCP Nurse Practitioner Family; Visit Provider Dietitian, Registered | DX: Z71.3 Dietary counseling and surveillance (principal); E66.01 Morbid (severe) obesity due to excess calories | CPT/HCPCS: 97803 ==

== ENCOUNTER 2025-05-07 07:49 | Outpatient (AMB) | payer OTHER, SELFPAY ==
[2025-05-07 08:34] VITALS: BMI 44.6
--- NOTE | 2025-05-07 08:34 | A.OFFVIS_ITS ---
VS Expanded 05/07/25 08:34 Height 4 ft 11 in Weight 220 lb 14.451 oz BMI 44.6 Intake Visit Reasons: morbid obesity Allergies aspirin Allergy (Severe, Verified 04/12/25 14:39) Swollen penicillamine Allergy (Severe, Verified 03/24/25 18:05) Rash and Hives povidone-iodine (Betadine) Allergy (Severe, Verified 03/24/25 18:05) Rash and Hives soap (Betadine) Allergy (Severe, Verified 03/24/25 18:05) Rash and Hives Peant Butter Allergy (Severe, Uncoded 02/21/25 11:12) Rash and Hives Seafood Allergy (Severe, Uncoded 02/21/25 11:12) Anaphylaxis beta blockers Adverse Reaction (Intermediate, Uncoded 02/21/25 11:12) Unknown Nutrition Presentation Details: Pt presents for MNT f/u for obesity Pt admits to increased appetite, challenges with balancing meals and having meal routine Pt reports understanding food source of protein, gradually learning portion sizes and difference in calorie content of types of foods Typical meal B: eggs/ham or cheese no bread or oatmeal with water rosalind lunch: chicken pie with peas and carrots , water bedtime 1/2 protein shake (15 g protein) twice/day dinner salad with protein 2 protein and potato 2 times/day fluids: water 36 oz/d BS Monitoring Most Recent Diabetes Results: Cholesterol, (<200) 170 mg/dL 03/27/25 HDL Cholesterol, (>40) 55 mg/dL 03/27/25 Triglycerides, (<150) 100 mg/dL 03/27/25 Creatinine, (0.5-1.4) 0.72 mg/dL 03/27/25 BUN, (9-16) 33 mg/dL H 03/27/25 Sodium, (135-145) 140 mmol/L 03/27/25 Potassium, (3.3-5.1) 4.2 mmol/L 03/27/25 Chloride, (96-108) 105 mmol/L 03/27/25 Carbon Dioxide, (22-29) 27 mmol/L 03/27/25 Calcium, (8.4-10.2) 9.6 mg/dL 03/27/25 AST, (5-31) 23 U/L 03/27/25 ALT, (0-31) 26 U/L 03/27/25 Total Protein, (6.5-8.0) 7.3 g/dL 03/27/25 Albumin, (3.5-5.0) 4.4 g/dL 03/27/25 PFSH Medical History Bacterial conjunctivitis Acute respiratory disease Conversion disorder MCI (mild cognitive impairment) Asthma Chronic restrictive lung disease TRACI (obstructive sleep apnea) Asthma-COPD overlap syndrome Surgical History History of esophagogastroduodenoscopy (EGD) Hx of colonoscopy History of hernia repair Hx of cholecystectomy History of appendectomy History of hysterectomy Family History Father HTN (hypertension) Stroke Diabetes mellitus Maternal Grandmother Cancer Mother Diabetes mellitus HTN (hypertension) Stroke Brother Stroke Social History Housing: Apartment Alcohol intake: never Patient Tobacco Use Status: Never used Tobacco e-Cigarette/Vaping Use: Never Used Second Hand Smoke Exposure: No service: No Current occupational status: disabled Cognitive needs: Yes (walker sometimes) Hearing needs: Yes (b/l hearing aids) Vision needs: Yes (rx glasses) Assessment & Plan Assessment & Plan (1) Morbid obesity: Code(s): E66.01 - Morbid (severe) obesity due to excess calories Category: Medical Plan: Wt: 98 Kg ( 02/17 ), 99kg(03/20), 100kg(04/19), 05/20 Est kcal needs as per MSJ: 1700 (40% carb, 30% protein/fat) Est fluid needs as per 25-30 ml/d: 2900 Est prot per day as per 1 g/kg bw: 98 Recommend fiber intake : 8-10 g per day and gradually increase to 25-28 g per day for women and 35-38 g for men or as tolerated Recommend sodium intake per day : less than 1500 mg less than 2000 mg Educated patient on: ( R = reviewed V = verbalizes understanding N/R = needs review N/A = not applicable * Food sources of carbohydrate, adequate serving sizes and its role in various health conditions: R * Differences between complex carbohydrates a simple carbohydrates, role of fiber in diet: R * Lean protein sources of foods: R * Differences between types of fats and role in diet (mono on saturated fat fatty acids, saturated fatty acids, trans fats): R * Food sources of sodium in salt and healthy modifications for heart health in kidney health: R * Vitamins and minerals: R V N/R * Healthy plate method concept: R * Physical activity: Benefits a precaution: R Patient Instructions: Continue on choosing low salt/sodium cooking methods, food choices Make a routine of 3 small meals/day : Breakfast 10 am Meal replacement snack : fruit or yogurt 2-3 pm Lunch: 1 cup of cooked starch with non starchy vegetables and 3 oz of lean protein , water 7 pm : salad with 3-4 oz of lean protein fruit or cup of milk as snack Coding Level of Care Code Nutr Indiv Subseq (25402) Diagnoses Morbid obesity E66.01 Time Spent (min) 20
== END 2025-05-07 09:16 | disposition home or self-care (01) ==
LOC: HO.ENCR 07:50
PROVIDERS: PCP Nurse Practitioner Family; Visit Provider Dietitian, Registered
DX: E66.01 Morbid (severe) obesity due to excess calories (principal)

== ENCOUNTER → 2025-05-07 07:49 | Outpatient (BNVA) | payer OTHER, SELFPAY | PROVIDERS: PCP Nurse Practitioner Family; Visit Provider Dietitian, Registered | DX: E66.01 Morbid (severe) obesity due to excess calories (principal); Z68.41 Body mass index [BMI] 40.0-44.9, adult; Z71.3 Dietary counseling and surveillance | CPT/HCPCS: 97803 ==

== ENCOUNTER 2025-05-22 10:00 | Outpatient (AMB) | payer OTHER, MEDICAID, SELFPAY ==
--- NOTE | 2025-05-22 10:16 | A.OFFVIS_ITS ---
Vital Signs 05/22/25 10:16 Height 4 ft 11 in Intake Visit Reasons: 6 month F/u Allergies aspirin Allergy (Severe, Verified 05/22/25 10:21) Swollen penicillamine Allergy (Severe, Verified 05/22/25 10:21) Rash and Hives povidone-iodine (Betadine) Allergy (Severe, Verified 05/22/25 10:21) Rash and Hives soap (Betadine) Allergy (Severe, Verified 05/22/25 10:21) Rash and Hives Peant Butter Allergy (Severe, Uncoded 05/22/25 10:21) Rash and Hives Seafood Allergy (Severe, Uncoded 05/22/25 10:21) Anaphylaxis beta blockers Adverse Reaction (Intermediate, Uncoded 05/22/25 10:21) Unknown Medication List - Last Reconciled 05/22/25 by Brenda Stephen CNP albuterol sulfate 90 mcg/actuation 2 inhalations inhalation Q6H PRN 30 days amitriptyline 100 mg PO BEDTIME aripiprazole 15 mg PO DAILY ascorbic acid (vitamin C) mg PO atorvastatin 10 mg PO BEDTIME blood pressure monitor (Blood Pressure Kit) As directed-brachial blood pressure monitor to check blood pressure daily. bupropion HCl XL 300 mg PO QAM cane As directed cholecalciferol (vitamin D3) 50 mcg PO DAILY CPAP As directed CPAP (CPAP Machine/Device) As directed diclofenac potassium 50 mg PO BID PRN diclofenac sodium 1% (Arthritis Pain (diclofenac)) 2 grams topical QID epinephrine (EpiPen 2-John) 0.3 mg (0.3 mL) IM Q4H PRN fluticasone propionate 50 mcg/actuation 2 sprays intranasal DAILY 30 days folic acid 1 mg PO DAILY 90 days hydroxyzine pamoate 25 mg PO BID levalbuterol HCl 1.25 mg (3 mL) inhalation BID 30 days levothyroxine 25 mcg PO QAM lidocaine 5% 2 patches topical DAILY losartan 50 mg PO DAILY magnesium 250 mg PO DAILY mecobalamin (vitamin B12) (B12 Active) 1,000 mcg PO DAILY montelukast 10 mg PO DAILY 90 days multivitamin (Daily Multi-Vitamin tablet) 1 tab PO DAILY omeprazole 20 mg PO DAILY 30 days [shower chair As directed] Symbicort 160-4.5 mcg/actuation (budesonide-formoterol) 2 puffs PO BID NS thiamine HCl (vitamin B1) 100 mg PO DAILY walker daily use HPI Comments Details: She was doing okay. She was still having some headaches, but better with amitriptyline. She was using Tylenol as needed which helped some. Butalbital was not covered by insurance. Sleep was okay, using CPAP. Stress was okay. Working with therapist and psychiatrist. She was seen by PCP at the end of 03/2025 for swelling in legs and had appointment next month with nephrology. Since 08/11/22 left hemiparesis and numbness. Seen in [facility] and had normal MRI brain. She has a history of anxiety and depression was diagnosed as having epilepsy in 1995 while she was in [place]. It appears to have been related to stress, anxiety and depression. She describes the events as shaking of either the right hand of the left hand of the legs sometimes twitching in the face without any loss of consciousness or convulsive seizure. She was always aware of everything and never passed out. She was put on primidone 250 mg 3 times a day which she took up onto around 12/2019 when she stopped it because of side effects, which included mental grogginess, and mood changes. Since stopping it she feels fine and has not had any episodes. She's not had any of her episodes and more than 5 years and her last EEG on 06/21/19 was reported as being normal. There is no history of head trauma. There is no family history of seizures. [facility] Medical History (Updated 05/22/25 @ 10:21 by Brenda Stephen CNP) Bacterial conjunctivitis Acute respiratory disease Conversion disorder MCI (mild cognitive impairment) Asthma Chronic restrictive lung disease TRACI (obstructive sleep apnea) Asthma-COPD overlap syndrome Surgical History History of esophagogastroduodenoscopy (EGD) Hx of colonoscopy History of hernia repair Hx of cholecystectomy History of appendectomy History of hysterectomy Family History Father HTN (hypertension) Stroke Diabetes mellitus Maternal Grandmother Cancer Mother Diabetes mellitus HTN (hypertension) Stroke Brother Stroke Social History Housing: Apartment Alcohol intake: never Patient Tobacco Use Status: Never used Tobacco e-Cigarette/Vaping Use: Never Used Second Hand Smoke Exposure: No service: No Current occupational status: disabled Cognitive needs: Yes (walker sometimes) Hearing needs: Yes (b/l hearing aids) Vision needs: Yes (rx glasses) Review of Systems Const Denies chills, Denies daytime sleepiness, Reports difficulty sleeping, Denies fatigue, Denies fever(s), Denies frequent falls, Reports headache(s), Denies increased appetite, Denies poor appetite, Denies snoring, Denies weakness, Denies weight gain and Denies weight loss Eyes Denies loss of vision ENT Denies vertigo, Denies dizziness, Reports headache(s) and Denies neck pain Card Denies chest pain at rest, Denies chest pain with activity, Denies syncope, Denies leg edema, Denies palpitations, Denies dyspnea and Denies dyspnea on exertion Resp Denies cough, Denies dyspnea, Denies dyspnea on exertion and Denies snoring GI Denies abdominal pain, Denies constipation, Denies heartburn, Denies diarrhea and Denies nausea Denies urinary frequency, Denies urinary incontinence and Denies urinary urgency Musc Denies abnormal gait, Denies back pain, Denies myalgias, Denies arthralgias, Denies neck pain, Denies numbness and Denies tingling Neuro Denies abnormal gait, Denies vertigo, Denies dizziness, Denies syncope, Denies frequent falls, Reports headache(s), Denies lack of coordination, Denies loss of vision, Denies memory loss, Denies numbness, Denies Other visual disturbances, Denies restless legs, Denies seizure-like activity, Denies tingling, Denies paresthesias, Denies tremor(s) and Denies weakness Psych Reports anxiety, Reports depression, Denies auditory hallucinations, Denies memory loss and Denies visual hallucinations Endo Denies fatigue and Denies palpitations Physical Exam Const Other: General Appearance:? normal, in no acute distress. Heart:? S1, S2 normal, no murmurs. Lungs:? clear anteriorly and posteriorly. Musculoskeletal:? normal. Extremities:? no edema. Psych:? alert, oriented, cognitive function intact, cooperative with exam. Neuro Other: Abnormal Neurological Findings:?Submaximal effort on motor testing LUE. Mental Status: alert and oriented X 3. Normal attention, orientation, memory, and affect. Cranial Nerves: Pupils are equal, round, and reactive to light. External ocular muscles are intact. Visual cruz are full, no ptosis. Face is symmetrical, no facial weakness or droop. Facial sensations are normal. Tongue protrudes in midline. Palate elevates symmetrically. Shoulder shrugging is normal Motor Examination: As above, otherwise normal muscle tone, bulk and strength. No atrophy or fasciculations. No drift of the extended upper extremities. DTR 2+. Plantars are flexor. Sensory Exam: Normal light touch, temperature, pinprick, vibration, and joint- position sensations. Rhomberg sign is absent. Coordination: No ataxia. No titubation. Gait Exam: Within normal limits. Cerebellar Signs: [id number] is okay. Extrapyramidal System: No tremor, rigidity with normal facial expressions. No bradykinesia. No bradyphrenia. Normal arm swing and posture. No propulsion or retropulsion. Speech: Normal. Results Reviewed Results Reviewed: 10/23/20 EEG- WNL Assessment & Plan Assessment & Plan (1) Tension headache: Code(s): G44.209 - Tension-type headache, unspecified, not intractable Category: Medical Plan: Continue amitriptyline 100mg 1 tablet at bedtime. (2) Conversion disorder: Code(s): F44.9 - Dissociative and conversion disorder, unspecified Category: Medical Plan: Left hemiparesis from conversion disorder. (3) MCI (mild cognitive impairment): Code(s): G31.84 - Mild cognitive impairment of uncertain or unknown etiology Category: Medical (4) Psychogenic nonepileptic seizure: Code(s): F44.5 - Conversion disorder with seizures or convulsions Category: Medical Plan . Medications: Changed From amitriptyline 100 mg PO BEDTIME To amitriptyline 100 mg PO BEDTIME 90 tabs 1RF 90 days Coding Level of Care Code Est Pt Level 4 (46751) Diagnoses Tension headache G44.209 Conversion disorder F44.9 MCI (mild cognitive impairment) G31.84 Psychogenic nonepileptic seizure F44.5
== END 2025-05-22 10:33 | disposition home or self-care (01) ==
LOC: HO.HSM 10:01
PROVIDERS: PCP Nurse Practitioner Family; Referring Provider Nurse Practitioner Family; Visit Provider Registered Nurse
DX: G44.209 Tension-type headache, unspecified, not intractable (principal); F44.9 Dissociative and conversion disorder, unspecified; G31.84 Mild cognitive impairment of uncertain or unknown etiology; F44.5 Conversion disorder with seizures or convulsions
CPT/HCPCS: 99214

== ENCOUNTER → 2025-05-22 10:00 | Outpatient (BNVA) | payer OTHER, SELFPAY | PROVIDERS: PCP Nurse Practitioner Family; Referring Provider Nurse Practitioner Family; Visit Provider Registered Nurse | DX: G44.209 Tension-type headache, unspecified, not intractable (principal); G31.84 Mild cognitive impairment of uncertain or unknown etiology; F44.5 Conversion disorder with seizures or convulsions; F44.9 Dissociative and conversion disorder, unspecified | CPT/HCPCS: 99212 ==

== ENCOUNTER 2025-05-30 12:44 | Outpatient (AMB) | payer OTHER, SELFPAY ==
[2025-05-30 13:16] VITALS: BP 126/86; PULSE 84; O2SAT 100; BMI 44.4
--- NOTE | 2025-05-30 13:16 | HO.NEPHOV_ITS ---
Vital Signs 05/30/25 13:16 Height 4 ft 11 in Weight 220 lb BMI 44.4 BP 126/86 Blood Pressure Location Lt radial Position Sitting Pulse 84 Pulse Source Pulse Oximeter Pulse Oximetry (%) 100 Oxygen Delivery Method Room Air Intake Visit Reasons: Self referral/ New Screening for Elevated Bun-Conf Gallery Or Museum Technician Required: Yes Gallery Or Museum Technician Name: Alok [id number] Accompanied by: Self / Same As Patient Allergies aspirin Allergy (Severe, Verified 05/30/25 13:18) Swollen penicillamine Allergy (Severe, Verified 05/30/25 13:18) Rash and Hives povidone-iodine (Betadine) Allergy (Severe, Verified 05/30/25 13:18) Rash and Hives soap (Betadine) Allergy (Severe, Verified 05/30/25 13:18) Rash and Hives Peant Butter Allergy (Severe, Uncoded 05/22/25 10:21) Rash and Hives Seafood Allergy (Severe, Uncoded 05/22/25 10:21) Anaphylaxis beta blockers Adverse Reaction (Intermediate, Uncoded 05/22/25 10:21) Unknown HPI Comments Details: 59 years old lady with PMH of Hypertension, asthma, hypothyroidism and other comorbidities is here for elevated BUN. She drinks all day but has only 2-3 urine movements in a day. [facility] Medical History (Updated 05/30/25 @ 13:21 by Mino Pollack MD) Bacterial conjunctivitis Acute respiratory disease Conversion disorder MCI (mild cognitive impairment) Asthma Chronic restrictive lung disease TRACI (obstructive sleep apnea) Asthma-COPD overlap syndrome Surgical History History of esophagogastroduodenoscopy (EGD) Hx of colonoscopy History of hernia repair Hx of cholecystectomy History of appendectomy History of hysterectomy Family History Father HTN (hypertension) Stroke Diabetes mellitus Maternal Grandmother Cancer Mother Diabetes mellitus HTN (hypertension) Stroke Brother Stroke Social History Housing: Apartment Alcohol intake: never Patient Tobacco Use Status: Never used Tobacco e-Cigarette/Vaping Use: Never Used Second Hand Smoke Exposure: No service: No Current occupational status: disabled Cognitive needs: Yes (walker sometimes) Hearing needs: Yes (b/l hearing aids) Vision needs: Yes (rx glasses) Review of Systems Const Details: Const : + body aches, no chills, no excessive sweating and + fatigue Eyes: no blurry vision and no change in vision ENT: no bleeding gums and no change in voice, no dizziness Card: no chest pain, no shortness of breath, no orthopnea, no PND Resp: no cough, no excessive phlegm production, no SOB GI: no abdominal pain and no nausea, no vomiting : no hematuria, no urinary frequency and no difficulty voiding Musc: no abnormal gait, no bone pain Neuro: no abnormal movements, no weakness, no dizziness, no abnormal gait and no behavioral changes Psych: no behavioral changes and no change in appetite Endo: no change in body appearance, no cold intolerance, no excessive sweating and no fatigue Physical Exam General: not in any acute distress, comfortable, sitting on the chair Nutritional Appearance: well nourished and overweight Eyes: normal position, no icterus Neck: No lymphadenopathy, no thyromegaly Resp: bilateral air entry equal, no added sounds present Cardio: normal S1, S2 heard, no murmur heard, no edema GI: soft, nontender, no guarding, no hepatosplenomegaly : bladder normal to inspection, bladder normal to palpation, no renal angle tenderness Skin: no rashes or lesions noted and elasticity normal Neuro: oriented to person, oriented to place, oriented to time and moves all extremities Results Reviewed Nephrology Results: Hgb, (12.0-16.0) 13.1 g/dl 03/27/25 WBC, (4.8-10.8) 5.9 X10*3/uL 03/27/25 Plt Count, (160-400) 266 X10*3/uL 03/27/25 Sodium, (135-145) 140 mmol/L 03/27/25 Potassium, (3.3-5.1) 4.2 mmol/L 03/27/25 Chloride, (96-108) 105 mmol/L 03/27/25 Carbon Dioxide, (22-29) 27 mmol/L 03/27/25 BUN, (9-16) 33 mg/dL H 03/27/25 Creatinine, (0.5-1.4) 0.72 mg/dL 03/27/25 Calcium, (8.4-10.2) 9.6 mg/dL 03/27/25 Urine Protein, (Neg-Trace) Negative mg/dL 03/27/25 Assessment & Plan Assessment & Plan (1) Elevated BUN: Code(s): R79.9 - Abnormal finding of blood chemistry, unspecified Category: Medical (2) Morbid obesity: Code(s): E66.01 - Morbid (severe) obesity due to excess calories Category: Medical Plan Has family history of CKD She had a CT abdomen done on 03/24/2025 which showed Both kidneys are unremarkable. No renal calculi or hydronephrosis. No calculi in the ureters and urinary bladder. Urinary bladder is distended. Urinalysis done on 03/27/2025 showed no protein, no blood no active sediments or cells. Hypertension well controlled on losartan 50mg Advised her to loose some weight as might lead to proteinuria and eventually renal dysfunction. Will refer her to medical weight management clinic. No need for followup unless she has proteinuria Orders: Orders Microalbumin, Random (w Creat) Today E66.01 - Morbid (severe) obesity due to excess calories Total Protein Urine Random Today E66.01 - Morbid (severe) obesity due to excess calories Creatinine Urine Today E66.01 - Morbid (severe) obesity due to excess calories Referrals Medical Weight Management Referral E66.01 - Morbid (severe) obesity due to excess calories Coding Level of Care Code New Pt Level 4 (52119) Diagnoses Elevated BUN R79.9 Morbid obesity E66.01
== END 2025-05-30 13:48 | disposition home or self-care (01) ==
LOC: HO.HKA 12:45
PROVIDERS: PCP Nurse Practitioner Family; Visit Provider Internal Medicine Critical Care Medicine
DX: R79.9 Abnormal finding of blood chemistry, unspecified (principal); E66.01 Morbid (severe) obesity due to excess calories
CPT/HCPCS: 99204

== ENCOUNTER 2025-05-30 12:44 | Outpatient (REF) | payer OTHER, SELFPAY ==
[2025-05-30 15:54] LABS: Total Protein Urine Random < 7 mg/dL (<12)
== END 2025-05-30 12:45 | disposition home or self-care (01) ==
LOC: HO.LAB 12:44
PROVIDERS: PCP Nurse Practitioner Family; Visit Provider Internal Medicine Critical Care Medicine
DX: E66.01 Morbid (severe) obesity due to excess calories (principal); R79.9 Abnormal finding of blood chemistry, unspecified; Z68.44 Body mass index [BMI] 60.0-69.9, adult
CPT/HCPCS: 82043; 82570; 84156; 99202

== ENCOUNTER 2025-06-25 12:01 | Outpatient (AMB) | payer OTHER, SELFPAY ==
[2025-06-25 12:38] VITALS: BMI 44.4
--- NOTE | 2025-06-25 12:38 | A.OFFVIS_ITS ---
VS Expanded 06/25/25 12:38 Height 4 ft 11 in Weight 220 lb 0.341 oz BMI 44.4 Intake Visit Reasons: morbid obesity Allergies aspirin Allergy (Severe, Verified 07/01/25 10:51) Swollen penicillamine Allergy (Severe, Verified 07/01/25 10:51) Rash and Hives povidone-iodine (Betadine) Allergy (Severe, Verified 07/01/25 10:51) Rash and Hives soap (Betadine) Allergy (Severe, Verified 07/01/25 10:51) Rash and Hives Peant Butter Allergy (Severe, Uncoded 05/22/25 10:21) Rash and Hives Seafood Allergy (Severe, Uncoded 05/22/25 10:21) Anaphylaxis beta blockers Adverse Reaction (Intermediate, Uncoded 05/22/25 10:21) Unknown Nutrition Presentation Details: Pt presents for MNT f/u for obesity Pt reports working on diet modifications B: 10m 2 eggs, 1 ham with onions/pepper, water 6 oz or 2 pancakes high protein pancakes with 1 tbsp sugar free syrup (1/2 cup of serving = 15 g prot) 4pm 1 cup mashed potato , 4 oz pork chop and salad (cucumber/lettuce/tamatoe /olive oil ) water 6 oz strawberries Pt reports choosing fruits or yogurt as snack Pt reports stopped having protein shakes physical activity: sedentary (related to knee pain) fruits per day : 2/day vegetables: daily milk or yogurt: has fairlife but not include Pt keeping sedentary - d/t to knee pain BS Monitoring Most Recent Diabetes Results: Microalb/Creat Ratio TNP 05/30/25 PFS Medical History (Updated 06/27/25 @ 08:09 by Aquilino Herrera, [facility]) Esophageal motility disorder Bacterial conjunctivitis Acute respiratory disease Conversion disorder MCI (mild cognitive impairment) Asthma Chronic restrictive lung disease TRACI (obstructive sleep apnea) Asthma-COPD overlap syndrome Surgical History History of esophagogastroduodenoscopy (EGD) Hx of colonoscopy History of hernia repair Hx of cholecystectomy History of appendectomy History of hysterectomy Family History Father HTN (hypertension) Stroke Diabetes mellitus Maternal Grandmother Cancer Mother Diabetes mellitus HTN (hypertension) Stroke Brother Stroke Social History Housing: Apartment Alcohol intake: never Patient Tobacco Use Status: Never used Tobacco e-Cigarette/Vaping Use: Never Used Second Hand Smoke Exposure: No service: No Current occupational status: disabled Cognitive needs: Yes (walker sometimes) Hearing needs: Yes (b/l hearing aids) Vision needs: Yes (rx glasses) Assessment & Plan Assessment & Plan (1) Morbid obesity: Code(s): E66.01 - Morbid (severe) obesity due to excess calories Category: Medical Plan: Wt: 98 Kg ( 02/17 ), 99kg(03/20), 100kg(04/19), 05/20, 06/20 Est kcal needs as per MSJ: 1700 (40% carb, 30% protein/fat) Est fluid needs as per 25-30 ml/d: 2900 Est prot per day as per 1 g/kg bw: 98 Recommend fiber intake : 8-10 g per day and gradually increase to 25-28 g per day for women and 35-38 g for men or as tolerated Recommend sodium intake per day : less than 1500 mg less than 2000 mg Educated patient on: ( R = reviewed V = verbalizes understanding N/R = needs review N/A = not applicable * Food sources of carbohydrate, adequate serving sizes and its role in various health conditions: R * Differences between complex carbohydrates a simple carbohydrates, role of fiber in diet: R * Lean protein sources of foods: R * Differences between types of fats and role in diet (mono on saturated fat fatty acids, saturated fatty acids, trans fats): R * Food sources of sodium in salt and healthy modifications for heart health in kidney health: R * Vitamins and minerals: R * Healthy plate method concept: R * Physical activity: Benefits a precaution: R Patient Instructions: Increase fluid : have 6 oz of water before and after each meal , min of 36 oz of water per day) Have 3 meal per day schedule, total carbs to less than 45 g at meal and include 2-3 oz of lean protein per meal or have a meal replacement) engage in physical activity : walk 30 minutes daily unless otherwise specified by your doctor Coding Level of Care Code Nutr Indiv Subseq (06416) Diagnoses Morbid obesity E66.01 Time Spent (min) 30
== END 2025-06-25 13:13 | disposition home or self-care (01) ==
LOC: HO.ENCR 12:02
PROVIDERS: PCP Nurse Practitioner Family; Visit Provider Dietitian, Registered
DX: E66.01 Morbid (severe) obesity due to excess calories (principal)

== ENCOUNTER → 2025-06-25 12:01 | Outpatient (BNVA) | payer OTHER, SELFPAY | PROVIDERS: PCP Nurse Practitioner Family; Visit Provider Dietitian, Registered | DX: E66.01 Morbid (severe) obesity due to excess calories (principal) | CPT/HCPCS: 97803 ==

== ENCOUNTER 2025-06-27 06:52 | Outpatient (AMB) | payer OTHER, SELFPAY ==
--- NOTE | 2025-06-27 07:17 | MHC.OFFVIS ---
Vital Signs 06/27/25 07:25 Height 4 ft 11 in Weight 217 lb BMI 43.8 BP 136/76 Blood Pressure Location Lt brachial Position Sitting Pulse 86 Pulse Oximetry (%) 95 Oxygen Delivery Method Room Air Intake Visit Reasons: B 12 DEFICIENCY Intake Note: Patient followup for B12 deficiency, also patient saw the Clinical Documentation Nurse Nutrition Patient denies any GI issues. 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 Accompanied by: Self / Same As Patient Allergies aspirin Allergy (Severe, Verified 06/27/25 07:20) Swollen penicillamine Allergy (Severe, Verified 06/27/25 07:20) Rash and Hives povidone-iodine (Betadine) Allergy (Severe, Verified 06/27/25 07:20) Rash and Hives soap (Betadine) Allergy (Severe, Verified 06/27/25 07:20) Rash and Hives Peant Butter Allergy (Severe, Uncoded 05/22/25 10:21) Rash and Hives Seafood Allergy (Severe, Uncoded 05/22/25 10:21) Anaphylaxis beta blockers Adverse Reaction (Intermediate, Uncoded 05/22/25 10:21) Unknown Medication List - Last Reconciled 06/27/25 by Geovany Ulloa MD albuterol sulfate 90 mcg/actuation 2 inhalations inhalation Q6H PRN 30 days amitriptyline 100 mg PO BEDTIME 90 days aripiprazole 12 mg PO DAILY ascorbic acid (vitamin C) mg PO atorvastatin 10 mg PO BEDTIME blood pressure monitor (Blood Pressure Kit) As directed-brachial blood pressure monitor to check blood pressure daily. bupropion HCl XL 300 mg PO QAM cane As directed cholecalciferol (vitamin D3) 50 mcg PO DAILY CPAP As directed CPAP (CPAP Machine/Device) As directed diclofenac sodium 1% (Arthritis Pain (diclofenac)) 2 grams topical QID epinephrine (EpiPen 2-John) 0.3 mg (0.3 mL) IM Q4H PRN fluticasone propionate 50 mcg/actuation 2 sprays intranasal DAILY 30 days hydroxyzine pamoate 25 mg PO BID levalbuterol HCl 1.25 mg (3 mL) inhalation BID 30 days levothyroxine 25 mcg PO QAM lidocaine 5% 2 patches topical DAILY losartan 50 mg PO DAILY magnesium 250 mg PO DAILY mecobalamin (vitamin B12) (B12 Active) 1,000 mcg PO DAILY montelukast 10 mg PO DAILY 90 days multivitamin (Daily Multi-Vitamin tablet) 1 tab PO DAILY [shower chair As directed] Symbicort 160-4.5 mcg/actuation (budesonide-formoterol) 2 puffs PO BID NS walker daily use HPI HPI B 12 DEFICIENCY: Details: f/u dysphagia GERD and B12 deficiency: Details: GI clinic visit for this 60-year-old female for evaluation of dysphagia. 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 Seen by Well Tester and referred to wt management - has an appt on 07/15/25 Patient follow up for B12 deficiency and US result. Doing OK Notes improvement in swallowing with dietary modification Wt gain of 50 lbs over the past 4 years Pt attributes her wt gain to using Prednisone in the past - had it 2-3 times last year Patient returns after hiatus of 2 years (last seen in Sep, 2021) Patient cc: dysphagia, nauseas, acid reflex and she also complain having bad breath. Continues to have dysphagia Intermittent food impaction (approx once a month) and feels dizzy and feels she is going to pass out. Can have a food impaction when she eats meats. Barium swallow results were reviewed EGD and biopsy results were reviewed with the patient Pt complains of dysphagia to solid food for the past two months Dysphagia is associated with hard foods like chicken. She had three episodes of food impaction and felt she was going to pass out. She had to regurgitate the food Mouth gets dry Pt also complains of intermittent heartburn and bad breath and takes TUMS prn. PAST VISITS: Colonoscopy results reviewed with the patient. She notes heartburn associated with intake of spicy foods Denies abd pain, and afraid to eat certain foods associated with choking She admits to wt loss of 5 lbs. Denies recent change in bowel habits, constipation, diarrhea,? black stools or rectal bleeding. ? Patient denies major cardiac? or pulmonary problems, ?Pt has asthma and admits to loud snoring and sleep apnea -? uses a CPAP machine. ?Denies problems with? anesthesia in the past. ?Denies being on chronic? anticoagulation. ?Patient denies known family history of colon cancer? or other GI malignancies. ?Mom had colon polyps in her 50's. ?GM may have? had gastric cancer. ENDOSCOPIC STUDIES:?Col[place]oscopy in [place] 5 yrs ago - negative per patient LABS IN? MEDITECH :12/20/19 REVIEWED 05/30/24: BARIUM SWALLOW SHOWED: 1. Trace laryngeal penetration with thick barium. 2. Mild to moderately disorganized esophageal peristalsis. 3. Mild narrowing of the GE junction that appears to represent a wide open Schatzki's ring. 4. Small type I hiatal hernia with moderate gastroesophageal reflux. 5. There are few small foci of contrast pooling in the fundus of the stomach that could represent small superficial apthous ulcers. Recommend correlation with recent EGD. Of note - pt had an EGD with dilation in December, 01/13/24 EGD SHOWED: ESOPHAGUS: Dysphagia likely due to esophageal motility disorder Esophageal balloon dilation was performed. STOMACH: Antral gastritis and benign-appearing nodule in the fundus DUODENUM: Mild duodenitis in the bulb Plan: If dysphagia persists, I will schedule a barium swallow BIOPSIES SHOWED: A. Gastric antrum, biopsy: Gastric antral mucosa with minimal chronic inactive gastritis; negative for H.pylori, intestinal metaplasia and dysplasia. B. Gastric fundus, nodule, biopsy: Gastric fundic mucosa with focal lymphoid aggregate and rare neutrophil, otherwise no specific change; negative for H pylori, intestinal metaplasia and dysplasia (see comment). C. Esophagus, proximal, biopsy: Squamous mucosa with no specific change; no columnar mucosa present 09/29/21 COLONOSCOPY SHOWED No polyps were detected. Moderate diverticulosis seen in the sigmoid colon Moderate hemorrhoids on retroflexed exam. Plan: Patient has an appointment on 10/15/21 in the GI Clinic with? ? Geovany Ulloa M.D. Repeat Colonoscopy in 5 years due to family hx of colon polyps (Mom in her 50's) [facility] Medical History (Updated 05/30/25 @ 13:21 by Mino Pollack MD) Bacterial conjunctivitis Acute respiratory disease Conversion disorder MCI (mild cognitive impairment) Asthma Chronic restrictive lung disease TRACI (obstructive sleep apnea) Asthma-COPD overlap syndrome Surgical History History of esophagogastroduodenoscopy (EGD) Hx of colonoscopy History of hernia repair Hx of cholecystectomy History of appendectomy History of hysterectomy Family History Father HTN (hypertension) Stroke Diabetes mellitus Maternal Grandmother Cancer Mother Diabetes mellitus HTN (hypertension) Stroke Brother Stroke Social History Housing: Apartment Alcohol intake: never Patient Tobacco Use Status: Never used Tobacco e-Cigarette/Vaping Use: Never Used Second Hand Smoke Exposure: No service: No Current occupational status: disabled Cognitive needs: Yes (walker sometimes) Hearing needs: Yes (b/l hearing aids) Vision needs: Yes (rx glasses) Review of Systems Const All systems reviewed & are unremarkable except as noted in HPI and below Physical Exam Const General: healthy appearing and no acute distress Nutritional Appearance: obese Orientation/consciousness: patient oriented x3 Limitations: no limitations HEENT Head: Yes normal to inspection Ears: hearing grossly normal bilaterally Eyes Sclerae: sclerae normal Pupils: Equal, round and reactive pupils present Neck Neck: Yes normal visual inspection Chest Chest palpation & inspection: normal inspection of the chest Resp Effort & Inspection: normal respiratory effort Auscultation: clear to auscultation bilaterally Cardio Palpation: normal PMI Rate: regular rate Rhythm: regular rhythm Heart sounds: S1 normal heart sound present, S2 normal heart sound present and no murmurs GI Inspection: Yes obesity Palpation (GI): Soft to palpation, nontender and No hepatosplenomegaly present Auscultation: normal bowel sounds Rectal Exam - Female: deferred Skin General skin exam: no rashes or lesions noted Neuro General: patient oriented x3, gait normal and moves all extremities Cranial nerves: Yes Equal, round and reactive pupils present Psych Appearance: grossly normal Mental Status: mental status grossly normal Assessment & Plan Assessment & Plan (1) Colon cancer screening: Comment: 09/29/21 colonoscopy showed moderate diverticulosis and moderate hemorrhoids. No polyps were detected. Plan: Repeat Colonoscopy in 5 years due to family hx of colon polyps (Mom in her 50's) - due in Sep, 2026. Code(s): Z12.11 - Encounter for screening for malignant neoplasm of colon Category: Medical (2) Family history of colonic polyps: Code(s): Z83.71 - Family history of colonic polyps Category: Medical (3) GERD (gastroesophageal reflux disease): Code(s): K21.9 - Gastro-esophageal reflux disease without esophagitis Category: Medical Plan 60 YF with Htn, asthma-COPD overlap syndrome, TRACI seen in GI for evaluation of solid-food dysphagia for the past several months. EGD was performed and findings as noted above. She was advised to start omeprazole 20 mg daily. 01/26/24 FU of solid food dysphagia for the past 6 months with 3 episodes of food impaction No change in symptoms after EGD and dilation Patient advised to schedule a barium swallow for further evaluation - I will contact her with results 06/28/24 Barium swallow results were reviewed Pt advised to chew her food well, cut meat into small pieces, eat slowly and take sips of fluids while eating. Can be scheduled for a repeat EGD when she has her next colonoscopy in Sep, 2026 Pt advised to call if she notices worsening dysphagia Morbid obesity with normal LFTs - advised wt reduction, ultrasound with elastography to rule out occult cirrhosis 12/25/24 Notes improvement in swallowing with dietary modification Wt gain of 50 lbs over the past 4 years Pt attributes her wt gain to using Prednisone in the past - had it 2-3 times last year Ref to Clinical Documentation Nurse for dietary advice regarding wt loss 06/27/25 Seen by Well Tester and referred to wt management - has an appt on 07/15/25 Pt is interested in medical management for wt loss FU in 6 months Coding Level of Care Code Est Pt Level 3 (68502) Diagnoses Colon cancer screening Z12.11 Family history of colonic polyps Z83.71 GERD (gastroesophageal reflux disease) K21.9 Time Spent (min) 17
[2025-06-27 07:25] VITALS: BP 136/76; PULSE 86; O2SAT 95; BMI 43.8
== END 2025-06-27 08:23 | disposition home or self-care (01) ==
LOC: HO.HGI 06:52
PROVIDERS: PCP Nurse Practitioner Family; Visit Provider Internal Medicine Gastroenterology
DX: Z01.818 Encounter for other preprocedural examination (principal); Z12.11 Encounter for screening for malignant neoplasm of colon; Z83.718 Family history of other colon polyps; K21.9 Gastro-esophageal reflux disease without esophagitis
CPT/HCPCS: 99024

== ENCOUNTER → 2025-06-27 06:52 | Outpatient (BNVA) | payer OTHER, SELFPAY | PROVIDERS: PCP Nurse Practitioner Family; Visit Provider Internal Medicine Gastroenterology | DX: Z12.11 Encounter for screening for malignant neoplasm of colon (principal); K21.9 Gastro-esophageal reflux disease without esophagitis; Z83.719 Family history of colon polyps, unspecified | CPT/HCPCS: 99212 ==

== ENCOUNTER 2025-07-01 10:44 | Outpatient (AMB) | payer OTHER, SELFPAY ==
[2025-07-01 10:47] VITALS: BP 126/60; PULSE 84; O2SAT 97; BMI 44.1
--- NOTE | 2025-07-01 10:47 | MHC.OFFVIS ---
Vital Signs 07/01/25 10:47 Height 4 ft 11 in Weight 218 lb 4.122 oz BMI 44.1 BP 126/60 Blood Pressure Location Rt radial Position Sitting Pulse 84 Pulse Source Pulse Oximeter Pulse Oximetry (%) 97 Oxygen Delivery Method Room Air Intake Visit Reasons: Obstructive sleep apnea Accompanied by: Self / Same As Patient Allergies aspirin Allergy (Severe, Verified 07/01/25 10:51) Swollen penicillamine Allergy (Severe, Verified 07/01/25 10:51) Rash and Hives povidone-iodine (Betadine) Allergy (Severe, Verified 07/01/25 10:51) Rash and Hives soap (Betadine) Allergy (Severe, Verified 07/01/25 10:51) Rash and Hives Peant Butter Allergy (Severe, Uncoded 05/22/25 10:21) Rash and Hives Seafood Allergy (Severe, Uncoded 05/22/25 10:21) Anaphylaxis beta blockers Adverse Reaction (Intermediate, Uncoded 05/22/25 10:21) Unknown HPI Comments Details: The patient is a 60-year-old woman with a known history of asthma COPD overlap syndrome in addition to obstructive sleep apnea. She recently moved from [place] back in September of this year. Since then she has been complaining of daytime drowsiness. Her Nova score is elevated 14/24. She did have a sleep study back in 2013 which she was noted to have an AHI around 34. She was placed on CPAP in the CPAP therapy has been affecting beneficial at the time. However, he has noted that her machine was very mold the and in compatible with use so therefore she could not use any longer. At this point the patient is symptomatic she has an underlying history of sleep apnea in needs to undergo a repeat sleep study in order to start CPAP therapy as soon as possible. She also has had respiratory symptoms for most of her life. She had pulmonary function studies demonstrating significant small airways disease. She has been on Symbicort 80 or 4.5 2 puffs twice a day. Although she still waking up with coughing wheezing. We did talk about her use of lisinopril can also worsen the her cough but she has been taking this for many years. We talked about optimizing her respiratory therapy as she continues to have wheezing. I did teacher how to use a spacer as well that she can use with along with her Symbicort. 05/09/2023 the patient is here for pulmonary follow-up visit. The patient overall is doing about the same. Although she is complaining of significant headaches and sinus pressure. the patient has been using her new CPAP. She has a nasal mask. This is likely contributing to the sinus congestion. The patient would benefit from a fullface mask. I did have an F 30 mask available that she tried and she tolerated well. Therefore will go ahead and switch her at this time. The patient also has been using her respiratory therapy with good effect. the patient recently traveled to [place] to see a family member jessica Baldwin in the ICU was gravely ill. 09/05/2023 the patient is here for pulmonary follow-up visit. The patient overall is doing well. She continues uses CPAP every night. She is doing well with a fullface mask. Although she is still snoring. Her sister complained that she was still snoring while using her CPAP. I did download the machine. She is using more than 4 hours a night. Her average pressure is around 9.7 cm and it looks like the maximum pressure is at 10. Therefore likely the machine want to give her additional pressures. Will go ahead and increase her pressures up to 12 cm. I am hopeful that this will improve her snoring. Although her AHI is down to 0.6. As far as her breathing she has been doing well. She does have her inhaler she has not had to use her rescue therapy. She has not had any exacerbations. She continues use home as prescribed. 12/30/2023 the patient is here for pulmonary follow-up visit. Overall the patient has been doing well. She has been using the CPAP every night for more than 4 hours a night. The CPAP therapy has been affecting beneficial. Her AHI is been stable below 5. The patient also continues use respiratory therapy with good effect. Has not had any recent exacerbations. She does not use her rescue inhaler often. Typically this and twice a week. She did have a choking episode back in October. She was taken to [facility]. She had x-rays there. No evidence of any foreign body in the airway. She was able to vomit whenever she had stuck in her esophagus. She is back to her baseline. 01/01/2025 the patient is here for pulmonary follow-up visit. Since we last spoke about a year ago she has been sick about 3 4 time. She had multiple viral syndrome so with the winter. More recently she gets sick again with a respiratory virus. Has significant sinus congestion. Moderate severity. The patient also also having significant chest tightness and wheezing. She has been using her rescue inhaler although has not not been helping much. She also has been using her Symbicort. She picked up [id number] Mucinex although is only slightly helpful. She has been noticing increasing wheezing is bothering her. The patient is also trying to lose weight. She is trying to avoid prednisone because of the weight gain issues. Although right now she does have significant wheezing. Will try to provide her with a nebulizer. I did call [facility] to see they can deliver BATOOL. In addition to that she will start doxycycline for sinusitis and also bronchitis. If the patient is no better she will start a short Medrol pack of 6 days. She is also in the meantime continue to uses CPAP. CPAP therapy has been affecting beneficial. He is actually APAP set up 6-12. Her average pressure is 12. Therefore increase it to maximum 14. The patient is also having a dry mouth. We did talk about how to change her temperature and humidity to avoid drying out the water too quickly. The patient will return 6 months. If she has any issues she will call for an earlier assessment. 07/01/2025 the patient is here for a pulmonary follow-up visit. Overall the patient has been doing well. She has been using her CPAP. CPAP therapy has been affecting beneficial. She has been trying to use it 4 hours a night. Her download was reassuring. She is not getting supplies from her [employer] company, [employer]. Will send a script at this time. From an asthma standpoint the patient is doing well she continues use her respiratory therapy with good effect. She has not had to use her rescue inhaler often typically less than 2 times a week which is good. She is working on her weight. She did have some left-sided flank and side chest discomfort. This was several months ago. She was evaluated with a CAT scan of the abdomen which we personally reviewed. The lungs were fairly normal at least the lung bases of the bottom of the CT scan of the abdomen. Did have some minimal degree of atelectasis but nothing to explain the discomfort. In that area she does have significant degenerative disc disease with arthritis. Likely which was 5 feeling was neuropathic related pain radicular pain. She also was never had varicella that she is aware of. She is with a talk to her primary care doctor regarding getting varicella titers in case she is getting shingles. [facility], [facility] Medical History (Updated 06/27/25 @ 08:09 by Aquilino Herrera, [facility]) Esophageal motility disorder Bacterial conjunctivitis Acute respiratory disease Conversion disorder MCI (mild cognitive impairment) Asthma Chronic restrictive lung disease TRACI (obstructive sleep apnea) Asthma-COPD overlap syndrome Surgical History History of esophagogastroduodenoscopy (EGD) Hx of colonoscopy History of hernia repair Hx of cholecystectomy History of appendectomy History of hysterectomy Family History Father HTN (hypertension) Stroke Diabetes mellitus Maternal Grandmother Cancer Mother Diabetes mellitus HTN (hypertension) Stroke Brother Stroke Social History (Reviewed 07/01/25 @ 10:52 by Dolly Coreas [facility]) Housing: Apartment Alcohol intake: never Patient Tobacco Use Status: Never used Tobacco e-Cigarette/Vaping Use: Never Used Second Hand Smoke Exposure: No service: No Current occupational status: disabled Cognitive needs: Yes (walker sometimes) Hearing needs: Yes (b/l hearing aids) Vision needs: Yes (rx glasses) Review of Systems Const Denies chills, Denies daytime sleepiness, Denies fatigue, Denies fever(s), Denies headache(s) and Reports snoring Eyes Denies blurry vision and Denies diplopia ENT Denies dizziness, Reports dry mouth, Denies headache(s), Denies epistaxis, Reports nasal congestion, Reports nasal discharge, Reports sinus pressure and Reports sore throat Card Denies chest pain, Denies chest pain at rest, Denies chest pain with activity, Denies rapid heart rate, Denies dyspnea and Reports dyspnea on exertion Resp Reports chest congestion, Reports cough, Denies dyspnea, Reports dyspnea on exertion, Reports snoring and Reports wheezing GI Denies abdominal pain, Denies melena, Denies hematochezia, Denies nausea and Denies vomiting Denies hematuria Neuro Denies dizziness, Denies headache(s) and Reports Sensory deficit (Neuro) Endo Denies fatigue Aller/Immun Reports wheezing Physical Exam Vital Signs: Last Vital Signs Pulse 84 07/01/25 10:47 BP 126/60 07/01/25 10:47 Pulse Ox 97 07/01/25 10:47 Oxygen Delivery Method Room Air 07/01/25 10:47 BMI result Body Mass Index 44.1 Const General: alert HEENT Head: Yes normocephalic Face and sinus: Yes sinus tenderness Neck Neck: Yes normal visual inspection, Yes full ROM and Yes no lymphadenopathy Chest Chest palpation & inspection: normal inspection of the chest Resp Effort & Inspection: normal respiratory effort and prolonged expiratory phase Auscultation: no wheezes and diminished lung sounds Cardio Rate: regular rate Rhythm: regular rhythm Heart sounds: S1 normal heart sound present and S2 normal heart sound present GI Palpation (GI): Soft to palpation and nontender Auscultation: normal bowel sounds Skin General skin exam: rashes and/or lesions noted Neuro Sensory Exam: Sensory deficit (Neuro) Assessment & Plan Assessment & Plan (1) Asthma: Code(s): J45.909 - Unspecified asthma, uncomplicated Category: Medical Qualifiers: Asthma complication type: with acute exacerbation Asthma persistence: persistent Asthma severity: moderate Qualified Code(s): J45.41 - Moderate persistent asthma with (acute) exacerbation (2) Chronic restrictive lung disease: Code(s): J98.4 - Other disorders of lung Category: Medical (3) TRACI (obstructive sleep apnea): Code(s): G47.33 - Obstructive sleep apnea (adult) (pediatric) Category: Medical (4) Bronchitis: Code(s): J40 - Bronchitis, not specified as acute or chronic Category: Medical (5) Sinusitis: Code(s): J32.9 - Chronic sinusitis, unspecified Category: Medical Qualifiers: Chronicity: subacute Sinusitis location: unspecified location Qualified Code(s): J01.90 - Acute sinusitis, unspecified Plan Needs a nebulizer for xopenex/albuterol Continue Symbicort FRANNIE as needed Fluticasone nasal spray continue APAP adjusted ramp 6, 8-14 CPAP mask to F30, need supplies F/U 6 months Coding Level of Care Code Est Pt Level 4 (48703) Complex EM visit Add On G2211 Diagnoses Moderate persistent asthma with acute exacerbation J45.41 Asthma complication type: with acute exacerbation Asthma persistence: persistent Asthma severity: moderate Chronic restrictive lung disease J98.4 TRACI (obstructive sleep apnea) G47.33 Bronchitis J40 Subacute sinusitis, unspecified location J01.90 Chronicity: subacute Sinusitis location: unspecified location Time Spent (min) 17
== END 2025-07-01 11:15 | disposition home or self-care (01) ==
LOC: HO.HPS 10:45
PROVIDERS: PCP Nurse Practitioner Family; Visit Provider Hospitalist
DX: J45.41 Moderate persistent asthma with (acute) exacerbation (principal); J98.4 Other disorders of lung; G47.33 Obstructive sleep apnea (adult) (pediatric); J40 Bronchitis, not specified as acute or chronic; J01.90 Acute sinusitis, unspecified
CPT/HCPCS: 99214; G2211

== ENCOUNTER → 2025-07-01 10:44 | Outpatient (BNVA) | payer OTHER, SELFPAY | PROVIDERS: PCP Nurse Practitioner Family; Visit Provider Hospitalist | DX: G47.33 Obstructive sleep apnea (adult) (pediatric) (principal); J45.41 Moderate persistent asthma with (acute) exacerbation; J98.4 Other disorders of lung; J40 Bronchitis, not specified as acute or chronic; J01.90 Acute sinusitis, unspecified | CPT/HCPCS: 99212 ==

== ENCOUNTER 2025-07-26 08:15 | Outpatient (AMB) | payer OTHER, SELFPAY ==
--- OUTSIDE RECORDS SUMMARY | 2025-07-26 08:19 | XMS_ITS | Data Portability ---
Author Organization [facility], [facility] Address [address] [place] [address] Care Team Providers Care Therapy Aide Name Role Phone HIM CCA OTHER Assessment Encounter Date Assessment Date Assessment LastModified by Organization Details LastModified Time 11/14/2024 11/14/2024 I provided real -time medical direction via phone for this encounter and was available for additional phone-based assistance as needed. I have reviewed and agree with the Assessment and Plan as documented by the Change Management Specialist. Patient given the opportunity to ask [...] her eyes have been itchy bilaterally. Per research and development engineer on the scene, vital signs are stable and patient is afebrile. No wheezing heard on exam. COVID and Flu are both negative. See uploaded pictures. No increased work of breathing and no distress. No drainage from either eye. Vision grossly intact. Impression: Common cold and viral URI Plan: Continue with zvxk-zyz-rkskvor medications to control symptoms. Red flags discussed [...] recorded. Lab rapid flu (A+B) [address], [address] [place] [address], [phone] 5 22:31:53 rapid SARS CoV 2 Ag, QL IA, respiratory specimen [address], [address] [place] [address], [phone] 22:31:54 Referral None recorded. Procedures None recorded. Surgeries None recorded. Imaging None recorded. Medication Orders acetaminoph en 500 mg tablet 2023 024 gbaci Not available 14:56:15 acetaminoph en 500 mg tablet 2023 [id number], [address], [place], [id number], 4 14:58:01 diclofenac 1 % topical gel 2023 [facility] #[id number], [address], [place], [id number], 4 14:58:05 Patient TargetsNo targets recorded. Patient InstructionsNo instructions recorded. Reason for Referral None Reported. Results Created Date Observation Date Name Description Value Unit Range Abnormal Flag Note LastModifiedBy Organization Detail LastModifiedTime 11/14/1911/14/2024 rapid SARS CoV 2 Ag, QL IA, respi rator y speci men rapid SARS CoV 2 Ag, QL IA, respiratory specimen negati ve Not Available [facility] ed [address] [place] [address], [phone] 11/14/2024 22:31:42 11/14/19 25 11/14/2024 rapid flu (A+B) Flu negati ve Not Available [facility] [address] [place], [phone] 11/14/2024 22:31:41 Result Notes None recorded. Medical Equipment None Reported. Allergies Allergen ID Allergen Name Allergen Category Reaction Reaction Severity Criticality Documentation Date Start Date Code Code System Note Provider Name and Address Organization Details Recorded Time 88579 Product containin g penicilli n (product) medicatio n Not available Not available Not available 11/14/2024 22052 8001 SNOMED Not Available [facility] - production 5 10:56:19 19435 aspirin medicatio n Not available Not available [...] 5 14 /min 80 /min 167.64 cm 26958.4 g 98 [degF] 98 % 98 % 170/90 mm[Hg] Not Available [facility] 5 20:15:50 Date Recorded Body temperature Heart rate Respiratory rate Oxygen saturation Oxygen saturation in Arterial blood by Pulse oximetry Systolic And Diastolic Provider Name and Address Organization Details Last Updated DateTime 4 98.4 [degF] 83 /min 16 /min 97 % 97 % 144/92 mm[Hg] Not Available [facility] 4 14:52:47 Social History None recorded. Functional Status None recorded. Mental Status None recorded. Family History Nothing Reported. Medical History No medical history recorded. Gynecological HistoryNo gynecological history recorded. Obstetrics History GPAL:G 0 P 0 0 0 0 Past Encounters Encounter ID Performer Location Encounter Start Date Encounter Closed Date Diagnosis/Indication Diagnosis SNOMED-CT Code Diagnosis ICD10 Code Diagnosis IMO Codes Diagnosis Note [id number] MAYRA DONOVAN MD [facility] [address] [place] [phone] 02/22/2024 14:52:45 02/23/2024 10:29:44 Contusion of left chest wall [id number] S20.212A Evaluation in the field was performed by my research and development engineer colleague, as noted above, I provided real-time [...] 1000 mg PO x1 given by the research and development engineer. Rx sent to her pharmacy for 30 [...] cough , dizziness or any other concerns. [id number] Soheila Braxton MD [facility] [address] [place] [phone] 11/14/2024 20:15:45 11/15/2024 08:43:51 Viral syndrome 911509860 B34.9 Health Concerns Section Related Observation LastModified by Organization Giorgi ross LastModified Time None Recorded Concern Status LastModified by Organization Details LastModified Time None Recorded Advance Directives Directive None Recorded Payers Insurance Date Sequence Insurance Name Policy Number Policy Borjas Covered Member ID Borjas Member ID Guarantor Name 11/14/2024 1 [facility] - DOS ON OR AFTER 2022 - DUAL ELIGIBLE - LONGTERM OPTIONS AND ONE CARE (MEDICARE REPLACEMENT/ADV ANTAGE - HMO) Marcela Medellin [id number] Marcela Medellin Notes Date Note Type Note Provider Name and Address Organization Details Recorded Time 02/22/2024 text/html ROS as noted in the HPI HPI: Molly is a 58 yo Korean/German speaking female with hx of asthma, COPD, [...] ..................... ..................... ..................... ..................... ..................... ..................... ............... Change Management Specialist Note From Channing Wan: Dispatched to [...] ..................... ..................... ..................... ..................... ............... Disposition: Romi MAYRA DONOVAN MD [address] [place] [address],[address], [place], [phone], [employer] 02/22/2024 15:43:17 11/14/2024 text/html CRC Nurse Triage Notes (Arianna Stein - RN): Denies: Sudden onset of dental pain, unable to manage own secretions Nosebleed lasting longer than one hour; unable to stop bleeding Throat swelling/difficult swallowing Chief Complaints: Sore throat, Earache PMH: COPD/Asthma, Hyperlipidemia, Hypertension, Hypothyroidism PMH Reviewed at 11/14/202456 Allergies Reviewed at 11/14/2024:56 Comments: Patient calling in to place a referral, identified via name and . In addition to PMH patient has a fatty liver. Patient with an earache, sore throat, headache, red eyes, stuffy nose and chills. She denies fever, no body aches, no chest congestion or wheezing. She would like to be evaluated. Change Management Specialist Organization Information for [facility] Business Legal Name: [facility] Address: [address] [place] [id number], Afternoon Babysitter: Amos Gaets MD CLIA No.: [id number] Change Management Specialist POC Test Results from [facility] Rapid COVID antigen (19:43:42) COVID: - Rapid influenza antigen (19:43:42) Flu: - ..................... ..................... ..................... ..................... ..................... ..................... ............... Change Management Specialist Note From [facility]: Patient alert [...] for Covid and flu via rapid POC. [facility] advises patient likely viral infection that will pass in 7 to 10 days. Red flags, patient education what to expect next steps, supportive care and others discussed. Patient demonstrates understanding of care and plan. ..................... ..................... ..................... ..................... ..................... ..................... ............... [facility] Consulted: Soheila Braxton ..................... ..................... ..................... ..................... ..................... ..................... ............... Disposition: Fulfilled Soheila Braxton MD [address] [place] [address],[address] [facility], [place], [phone], [facility] 11/14/2024 22:34:00 OBGyn Episode No OBEpisode recorded.
--- NOTE | 2025-07-26 12:33 | A.OFFVIS_ITS ---
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 Allergies aspirin Allergy (Severe, Verified 07/26/25 12:33) Swollen penicillamine Allergy (Severe, Verified 07/26/25 12:33) Rash and Hives povidone-iodine (Betadine) Allergy (Severe, Verified 07/26/25 12:33) Rash and Hives soap (Betadine) Allergy (Severe, Verified 07/26/25 12:33) Rash and Hives Peant Butter Allergy (Severe, Uncoded 07/26/25 12:33) Rash and Hives Seafood Allergy (Severe, Uncoded 07/26/25 12:33) Anaphylaxis beta blockers Adverse Reaction (Intermediate, Uncoded 07/26/25 12:33) Unknown Medication List - Last Reconciled 07/26/25 by Marvin Ybarra MD albuterol sulfate 90 mcg/actuation 2 inhalations inhalation Q6H PRN 30 days amitriptyline 100 mg PO BEDTIME 90 days aripiprazole 12 mg PO DAILY ascorbic acid (vitamin C) mg PO atorvastatin 10 mg PO BEDTIME blood pressure monitor (Blood Pressure Kit) As directed-brachial blood pressure monitor to check blood pressure daily. bupropion HCl XL 300 mg PO QAM cane As directed cholecalciferol (vitamin D3) 50 mcg PO DAILY CPAP As directed CPAP (CPAP Machine/Device) As directed diclofenac sodium 1% (Arthritis Pain (diclofenac)) 2 grams topical QID epinephrine (EpiPen 2-John) 0.3 mg (0.3 mL) IM Q4H PRN fluticasone propionate 50 mcg/actuation 2 sprays intranasal DAILY 30 days hydroxyzine pamoate 25 mg PO BID levalbuterol HCl 1.25 mg (3 mL) inhalation BID 30 days levothyroxine 25 mcg PO QAM lidocaine 5% 2 patches topical DAILY losartan 50 mg PO DAILY magnesium 250 mg PO DAILY mecobalamin (vitamin B12) (B12 Active) 1,000 mcg PO DAILY montelukast 10 mg PO DAILY 90 days multivitamin (Daily Multi-Vitamin tablet) 1 tab PO DAILY [shower chair As directed] Symbicort 160-4.5 mcg/actuation (budesonide-formoterol) 2 puffs PO BID NS walker daily use 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 *MILLWORK ESTIMATOR: Details: Start time: 12.30pm, End time: 1.17pm ?I spent 42 minutes speaking with the patient on the phone plus an additional 5 minutes reviewing and updating records for a total of 47 minutes HPI Comments Details: Previous weight loss efforts: self diets and exercise Wakes up: 9am, Sleeps: 10pm Breakfast: 10am x2/wk (eggs, ham, pancakes) Lunch: 2pm (chicken, beef, banana) Dinner: skips Snacks: none Exercise: has a stationary bike and tracks calories Beverages: Coffee: none, Tea: none, Soda: none, Juice: 1/wk, ETOH: none PFSH Medical History (Updated 07/26/25 @ 12:42 by Marvin Ybarra MD) Obstructive sleep apnea on CPAP Anxiety Depression Hypothyroidism Hyperlipidemia Hypertension Esophageal motility disorder Bacterial conjunctivitis Acute respiratory disease Conversion disorder MCI (mild cognitive impairment) Asthma Chronic restrictive lung disease TRACI (obstructive sleep apnea) Asthma-COPD overlap syndrome Surgical History (Updated 07/26/25 @ 12:42 by Marvin Ybarra MD) History of delivery History of esophagogastroduodenoscopy (EGD) Hx of colonoscopy History of hernia repair Hx of cholecystectomy History of appendectomy History of hysterectomy Family History Father HTN (hypertension) Stroke Diabetes mellitus Maternal Grandmother Cancer Mother Diabetes mellitus HTN (hypertension) Stroke Brother Stroke Social History Housing: Apartment Alcohol intake: never Patient Tobacco Use Status: Never used Tobacco e-Cigarette/Vaping Use: Never Used Second Hand Smoke Exposure: No service: No Current occupational status: disabled Cognitive needs: Yes (walker sometimes) Hearing needs: Yes (b/l hearing aids) Vision needs: Yes (rx glasses) Telehealth Telehealth Telehealth Platform: Telephone Location of provider rendering services: practice address Location of patient: address on file Patient Identification confirmed using: Name, : Yes Telehealth method: voice only Patient verbally consented to treatment: Yes Patient verbally consented to billing insurance company: Yes Patient informed of any privacy concerns related to visit: Yes Minutes spent on Phone/Video with Pt.: 47 Assessment & Plan Assessment & Plan (1) Morbid obesity: Code(s): E66.01 - Morbid (severe) obesity due to excess calories Category: Medical Plan: 1.? Plan for lap sleeve gastrectomy. If diaphragmatic or ventral hernias are present at time of surgery, these will be repaired laparoscopically as well. I emphasized the importance of close follow-up, adherence to instructions and go od communication. The surgery does not replace the need to change your lifestlyle which is the cause of the obesity problem. The surgery provides the motivation to try again to change your lifestyle, it reduces the appetite and make the transition to a better lifestyle easier and doubles the amount of weight you would lose compared to doing the lifestyle change without the surgery. You will need to be on a liquid diet with protein shakes for 2 weeks before surgery to maximize weight loss and boost your nutritional status to recover better from surgery and also for the first two weeks after surgery to let the stomach heal before we introduce other foods. After the first 2 weeks we will introduce protein bars and soft foods like scrambled eggs, cottage cheese and yogurt and after the 6th week will introduce meat, fish and cooked vegetables in small amounts. Over time you should be able to eat everything in small amounts. Side effects like nausea, vomiting, heartburn or abdominal pain are not common in the practice unless you are not following in the practice. This operation requires lifetime commitment to following in our practice and communication with me. You will much less weight and experience side effects if you don?t communicate or not following in the practice. Complications are rare and in our practice is about 1/10 of the national average. However, you can develop bleeding that may require transfusion (hasn?t happened for year in the practice), you may from complications (we did not have any deaths in the practice) and infections. Infections are usually a result of breakdown in communication or not understanding or following directions correctly. They are difficult to treat, they can happen during the first 6 weeks, they may require to be in the hospital for weeks or even months, not being able to eat by mouth and you may have drains and surgeries to try and correct the issue. Other risks and complications include possible conversion to an open procedure, leaks, small bowel obstruction, blood clots, cardiac, or pulmonary complications, as ferry terminal supervisor complications such as ulcers, insufficient weight loss and vitamin deficiencies. 2. Nutritional counseling. Start with one premade PREMIER protein (buy at [employer] or [employer]) shake (mix 4oz of Premier mixed with 4oz low fat unsweetened almond milk each) at 10am-12pm, one protein bar (Fit Crunch protein bar, buy at [employer], or [employer]) at 1pm-3pm, dinner at 4pm (8 forks of protein and 8 forks of salad/vegetables), another premade PREMIER protein shake (mix 4oz of Premier mixed with 4oz low fat unsweetened almond milk each) at 6pm-8pm, another HALF [employer]unch protein bar at 9pm-10pm So you do 2 protein shakes, 1.5 protein bars and one meal per day. Meal to include lean meat (beef, fish, pork, turkey, chicken), or moldovan yogurt, or egg whites, or beans with a salad with olive oil and fruits (berries, pears, apples, kiwi). Avoid salt, breads, potatoes, rice, pasta, desserts. 3. Each shake would be drunk slowly, like coffee in a period of 2 hours. 4. Cut each bar in 4 pieces and eat each piece in 30min ?to make each bar last 2 hours. 5. I emphasized the importance of measuring accurately the food portion and measure it when serving the food in plate 6. The meal portions include 10 full-size forks of meat and 10 full-size forks of salad. You always eat the meat portion but you can replace up to 5 forks for salad/vegetables with rice, potatoes or pasta, or a fruit ?if you like. The less you do it the better weight loss will be. 7. One full-size fork is what it can be scooped on the fork without falling aside and not what can be bit with the fork. Use regular forks like those you find in a typical restaurant. 8.? Please buy the body composition scale we discussed and send me weight measurements as soon as possible and then once a week. Always include your diet and exercise plan. 9. Start stationary bike at a resistance level of 0.0 Increase level by 1.0 every 3 min to a max level of 6.0. Stay at this level for 3 min and then return to level 0.0 and repeat same steps until 300 calories are burned. Goal is to burn 2000 calories per week on exercise 10. Goal is to lose at least 1.5-2lbs per week 11. Goal to lose 10% of your weight before surgery, which is about 21lbs. Ultimate weight goal: 192lbs before surgery 12. Please follow the diet plan exactly without any change. If you don't like something about the plan or you feel hungry you need to communicate with me so I can help you revise the plan. You should not change the plan yourself 13. To be scheduled for EGD to assess the stomach's anatomy. The possibility of biopsies was discussed. Patient needs to avoid use of NSAIDs and aspirin for 1 week prior to EGD. You must be on liquids only the day before your endoscopy. Risks of perforation and bleeding was discussed with the patient. This will be an outpatient procedure with IV sedation. Orders: Orders Insulin Today E03.9 - Hypothyroidism, unspecified, E66.01 - Morbid (severe) obesity due to excess calories, E78.5 - Hyperlipidemia, unspecified, G47.33 - Obstructive sleep apnea (adult) (pediatric), I10 - Essential (primary) hypertension, J44.9 - Chronic obstructive pulmonary disease, unspecified, K21.9 - Gastro-esophageal reflux disease without esophagitis, Z68.41 - Body mass index [BMI] 40.0-44.9, adult, Z99.89 - Dependence on other enabling machines and devices Hemoglobin A1c Today E03.9 - Hypothyroidism, unspecified, E66.01 - Morbid (severe) obesity due to excess calories, E78.5 - Hyperlipidemia, unspecified, G47.33 - Obstructive sleep apnea (adult) (pediatric), I10 - Essential (primary) hypertension, J44.9 - Chronic obstructive pulmonary disease, unspecified, K21.9 - Gastro-esophageal reflux disease without esophagitis, Z68.41 - Body mass index [BMI] 40.0-44.9, adult, Z99.89 - Dependence on other enabling machines and devices H Pylori Breath Test Today E03.9 - Hypothyroidism, unspecified, E66.01 - Morbid (severe) obesity due to excess calories, E78.5 - Hyperlipidemia, unspecified, G47.33 - Obstructive sleep apnea (adult) (pediatric), I10 - Essential (primary) hypertension, J44.9 - Chronic obstructive pulmonary disease, unspecified, K21.9 - Gastro-esophageal reflux disease without esophagitis, Z68.41 - Body mass index [BMI] 40.0-44.9, adult, Z99.89 - Dependence on other enabling machines and devices Complete Blood Count Auto Diff Today E03.9 - Hypothyroidism, unspecified, E66.01 - Morbid (severe) obesity due to excess calories, E78.5 - Hyperlipidemia, unspecified, G47.33 - Obstructive sleep apnea (adult) (pediatric), I10 - Essential (primary) hypertension, J44.9 - Chronic obstructive pulmonary disease, unspecified, K21.9 - Gastro-esophageal reflux disease without esophagitis, Z68.41 - Body mass index [BMI] 40.0-44.9, adult, Z99.89 - Dependence on other enabling machines and devices Lipid Panel Today E03.9 - Hypothyroidism, unspecified, E66.01 - Morbid (severe) obesity due to excess calories, E78.5 - Hyperlipidemia, unspecified, G47.33 - Obstructive sleep apnea (adult) (pediatric), I10 - Essential (primary) hypertension, J44.9 - Chronic obstructive pulmonary disease, unspecified, K21.9 - Gastro-esophageal reflux disease without esophagitis, Z68.41 - Body mass index [BMI] 40.0-44.9, adult, Z99.89 - Dependence on other enabling machines and devices IRON PROFILE Today E03.9 - Hypothyroidism, unspecified, E66.01 - Morbid (severe) obesity due to excess calories, E78.5 - Hyperlipidemia, unspecified, G47.33 - Obstructive sleep apnea (adult) (pediatric), I10 - Essential (primary) hypertension, J44.9 - Chronic obstructive pulmonary disease, unspecified, K21.9 - Gastro-esophageal reflux disease without esophagitis, Z68.41 - Body mass index [BMI] 40.0-44.9, adult, Z99.89 - Dependence on other enabling machines and devices Comprehensive Met. Panel Today E03.9 - Hypothyroidism, unspecified, E66.01 - Morbid (severe) obesity due to excess calories, E78.5 - Hyperlipidemia, unspecified, G47.33 - Obstructive sleep apnea (adult) (pediatric), I10 - Essential (primary) hypertension, J44.9 - Chronic obstructive pulmonary disease, unspecified, K21.9 - Gastro-esophageal reflux disease without esophagitis, Z68.41 - Body mass index [BMI] 40.0-44.9, adult, Z99.89 - Dependence on other enabling machines and devices Vitamin B12 and Folate Today E03.9 - Hypothyroidism, unspecified, E66.01 - Morbid (severe) obesity due to excess calories, E78.5 - Hyperlipidemia, unspecified, G47.33 - Obstructive sleep apnea (adult) (pediatric), I10 - Essential (primary) hypertension, J44.9 - Chronic obstructive pulmonary disease, unspecified, K21.9 - Gastro-esophageal reflux disease without esophagitis, Z68.41 - Body mass index [BMI] 40.0-44.9, adult, Z99.89 - Dependence on other enabling machines and devices Zinc Today E03.9 - Hypothyroidism, unspecified, E66.01 - Morbid (severe) obesity due to excess calories, E78.5 - Hyperlipidemia, unspecified, G47.33 - Obstructive sleep apnea (adult) (pediatric), I10 - Essential (primary) hypertension, J44.9 - Chronic obstructive pulmonary disease, unspecified, K21.9 - Gastro-esophageal reflux disease without esophagitis, Z68.41 - Body mass index [BMI] 40.0-44.9, adult, Z99.89 - Dependence on other enabling machines and devices Vitamin A Today E03.9 - Hypothyroidism, unspecified, E66.01 - Morbid (severe) obesity due to excess calories, E78.5 - Hyperlipidemia, unspecified, G47.33 - Obstructive sleep apnea (adult) (pediatric), I10 - Essential (primary) hypertension, J44.9 - Chronic obstructive pulmonary disease, unspecified, K21.9 - Gastro-esophageal reflux disease without esophagitis, Z68.41 - Body mass index [BMI] 40.0-44.9, adult, Z99.89 - Dependence on other enabling machines and devices Ferritin Today E03.9 - Hypothyroidism, unspecified, E66.01 - Morbid (severe) obesity due to excess calories, E78.5 - Hyperlipidemia, unspecified, G47.33 - Obstructive sleep apnea (adult) (pediatric), I10 - Essential (primary) hypertension, J44.9 - Chronic obstructive pulmonary disease, unspecified, K21.9 - Gastro-esophageal reflux disease without esophagitis, Z68.41 - Body mass index [BMI] 40.0-44.9, adult, Z99.89 - Dependence on other enabling machines and devices FL upper GI w air Today E03.9 - Hypothyroidism, unspecified, E66.01 - Morbid (severe) obesity due to excess calories, E78.5 - Hyperlipidemia, unspecified, G47.33 - Obstructive sleep apnea (adult) (pediatric), I10 - Essential (primary) hypertension, J44.9 - Chronic obstructive pulmonary disease, unspecified, K21.9 - Gastro-esophageal reflux disease without esophagitis, Z68.41 - Body mass index [BMI] 40.0-44.9, adult, Z99.89 - Dependence on other enabling machines and devices C Reactive Protein Today E03.9 - Hypothyroidism, unspecified, E66.01 - Morbid (severe) obesity due to excess calories, E78.5 - Hyperlipidemia, unspecified, G47.33 - Obstructive sleep apnea (adult) (pediatric), I10 - Essential (primary) hypertension, J44.9 - Chronic obstructive pulmonary disease, unspecified, K21.9 - Gastro-esophageal reflux disease without esophagitis, Z68.41 - Body mass index [BMI] 40.0-44.9, adult, Z99.89 - Dependence on other enabling machines and devices Vitamin B1 Today E03.9 - Hypothyroidism, unspecified, E66.01 - Morbid (severe) obesity due to excess calories, E78.5 - Hyperlipidemia, unspecified, G47.33 - Obstructive sleep apnea (adult) (pediatric), I10 - Essential (primary) hypertension, J44.9 - Chronic obstructive pulmonary disease, unspecified, K21.9 - Gastro-esophageal reflux disease without esophagitis, Z68.41 - Body mass index [BMI] 40.0-44.9, adult, Z99.89 - Dependence on other enabling machines and devices TSH reflex Free T4 Today E03.9 - Hypothyroidism, unspecified, E66.01 - Morbid (severe) obesity due to excess calories, E78.5 - Hyperlipidemia, unspecified, G47.33 - Obstructive sleep apnea (adult) (pediatric), I10 - Essential (primary) hypertension, J44.9 - Chronic obstructive pulmonary disease, unspecified, K21.9 - Gastro-esophageal reflux disease without esophagitis, Z68.41 - Body mass index [BMI] 40.0-44.9, adult, Z99.89 - Dependence on other enabling machines and devices Vitamin D 25-OH Total Today E03.9 - Hypothyroidism, unspecified, E66.01 - Morbid (severe) obesity due to excess calories, E78.5 - Hyperlipidemia, unspecified, G47.33 - Obstructive sleep apnea (adult) (pediatric), I10 - Essential (primary) hypertension, J44.9 - Chronic obstructive pulmonary disease, unspecified, K21.9 - Gastro-esophageal reflux disease without esophagitis, Z68.41 - Body mass index [BMI] 40.0-44.9, adult, Z99.89 - Dependence on other enabling machines and devices US abdomen comp w elastography Today E03.9 - Hypothyroidism, unspecified, E66.01 - Morbid (severe) obesity due to excess calories, E78.5 - Hyperlipidemia, unspecified, G47.33 - Obstructive sleep apnea (adult) (pediatric), I10 - Essential (primary) hypertension, J44.9 - Chronic obstructive pulmonary disease, unspecified, K21.9 - Gastro-esophageal reflux disease without esophagitis, Z68.41 - Body mass index [BMI] 40.0-44.9, adult, Z99.89 - Dependence on other enabling machines and devices XR chest 2V Today E03.9 - Hypothyroidism, unspecified, E66.01 - Morbid (severe) obesity due to excess calories, E78.5 - Hyperlipidemia, unspecified, G47.33 - Obstructive sleep apnea (adult) (pediatric), I10 - Essential (primary) hypertension, J44.9 - Chronic obstructive pulmonary disease, unspecified, K21.9 - Gastro-esophageal reflux disease without esophagitis, Z68.41 - Body mass index [BMI] 40.0-44.9, adult, Z99.89 - Dependence on other enabling machines and devices ECG 12 lead EKG Today E03.9 - Hypothyroidism, unspecified, E66.01 - Morbid (severe) obesity due to excess calories, E78.5 - Hyperlipidemia, unspecified, G47.33 - Obstructive sleep apnea (adult) (pediatric), I10 - Essential (primary) hypertension, J44.9 - Chronic obstructive pulmonary disease, unspecified, K21.9 - Gastro-esophageal reflux disease without esophagitis, Z68.41 - Body mass index [BMI] 40.0-44.9, adult, Z99.89 - Dependence on other enabling machines and devices Referrals Behavioral Health Referral E03.9 - Hypothyroidism, unspecified, E66.01 - Morbid (severe) obesity due to excess calories, E78.5 - Hyperlipidemia, unspecified, G47.33 - Obstructive sleep apnea (adult) (pediatric), I10 - Essential (primary) hypertension, J44.9 - Chronic obstructive pulmonary disease, unspecified, K21.9 - Gastro-esophageal reflux disease without esophagitis, Z68.41 - Body mass index [BMI] 40.0-44.9, adult, Z99.89 - Dependence on other enabling machines and devices Nutrition/Dietitian Referral E03.9 - Hypothyroidism, unspecified, E66.01 - Morbid (severe) obesity due to excess calories, E78.5 - Hyperlipidemia, unspecified, G47.33 - Obstructive sleep apnea (adult) (pediatric), I10 - Essential (primary) hypertension, J44.9 - Chronic obstructive pulmonary disease, unspecified, K21.9 - Gastro-esophageal reflux disease without esophagitis, Z68.41 - Body mass index [BMI] 40.0-44.9, adult, Z99.89 - Dependence on other enabling machines and devices
[2025-07-26 12:47] VITALS: BMI 43.1
== END 2025-07-26 13:18 | disposition home or self-care (01) ==
LOC: HO.HBS 08:15
PROVIDERS: PCP Nurse Practitioner Family; Visit Provider Surgery
DX: E66.01 Morbid (severe) obesity due to excess calories (principal); Z68.41 Body mass index [BMI] 40.0-44.9, adult
CPT/HCPCS: 99204

== ENCOUNTER 2025-08-02 08:01 | Outpatient (REF) | payer OTHER, SELFPAY ==
--- NOTE | ~2025-08-02 | XR_ITS ---
EXAMINATION: XR CHEST CLINICAL INFORMATION: I10 - Essential (primary) hypertension COMPARISON: November 27, 2020. TECHNIQUE: PA and lateral views. FINDINGS: Pulmonary reticular pattern. Poor inspiration. No consolidation, pleural effusion or pneumothorax. Cardiomediastinal silhouette size is normal with a round cardiac apex. Multilevel thoracolumbar spondylosis. Mild S-shaped curvature of the spine. Degenerative changes in the shoulders pronounced on the left side. Vascular clips right upper quadrant abdomen. Patient's large body habitus/obesity. XR/XR chest 2V IMPRESSION: No acute airspace disease. 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 Scoliosis and multilevel spondylosis. Electronically signed by: Brock Galvez MD 08/02/2025 10:25 AM FIDEL
[2025-08-02 08:16] LABS: MANUAL DIFF FLAG NO
[2025-08-02 08:36] LABS: Hematocrit 43.4 % (37.0-47.0); Hemoglobin 14.0 g/dl (12.0-16.0); Imm Gran Abs Auto 0.04 X10*3/uL (0.00-0.03); Imm Gran Pct Auto 0.7 % (0.0-0.4); Lymphocytes Absolute Auto 1.9 X10*3/uL (1.2-4.9); Mean Corpuscular HGB Conc 32.3 g/dl (31.0-35.0); Mean Corpuscular Hemoglobin 28.2 pg (27.0-33.0); Mean Corpuscular Volume 87.3 fL (80.0-98.0); NRBC Abs Auto 0.000 X10*3/uL (0.0-0.012); NRBC Pct Auto 0.0 /100WBC (0.0-0.2); Platelet Count 303 X10*3/uL (160-400); Red Blood Count 4.97 X10*6/uL (4.20-5.50); White Blood Count 5.4 X10*3/uL (4.8-10.8)
[2025-08-02 09:26] LABS: Alanine Aminotransferase 25 U/L (0-31); Albumin Level 4.9 g/dL (3.5-5.0); Alkaline Phosphatase 94 U/L (39-117); Anion Gap 13 (12-20); Aspartate Amino Transferase 24 U/L (5-31); Blood Urea Nitrogen 22 mg/dL (9-16); Calcium 10.1 mg/dL (8.4-10.2); Carbon Dioxide 27 mmol/L (22-29); Chloride 106 mmol/L (96-108); Cholesterol 185 mg/dL (<200); Estimated Glomerular Filt Rate > 60; HDL Cholesterol 50 mg/dL (>40); Iron 77 mcg/dL (30-160); Percent Iron Saturation 22 % (15-50); Potassium 4.2 mmol/L (3.3-5.1); Sodium 142 mmol/L (135-145); Total Iron Binding Capacity 353 mcg/dL (228-428); Total Protein 8.4 g/dL (6.5-8.0); Triglycerides 79 mg/dL (<150); Unsaturated Iron Binding 276 ug/dL
--- NOTE | 2025-08-02 09:42 | ECG_ITS ---
Test Reason : htn Blood Pressure : */* mmHG Vent. Rate : 78 BPM Atrial Rate : 78 BPM P-R Int : 172 ms QRS Dur : 78 ms QT Int : 388 ms P-R-T Axes : 44 -6 1 degrees QTcB Int : 442 ms Normal sinus rhythm Possible Anterior infarct , age undetermined Abnormal ECG No previous ECGs available Referred By: Marvin Ybarra Electronically Signed By: Kailash Mascorro
[2025-08-02 09:52] LABS: Ferritin 76 ng/mL (10-250)
[2025-08-02 09:54] LABS: Folate 13.3 ng/mL (> or = 4.0); Vitamin B12 1346 pg/mL (200-900)
== END 2025-08-02 08:02 | disposition home or self-care (01) ==
LOC: HO.XRAY 08:01
PROVIDERS: Absent Provider Surgery; PCP Nurse Practitioner Family; Visit Provider Internal Medicine Critical Care Medicine
DX: I10 Essential (primary) hypertension (principal); E78.5 Hyperlipidemia, unspecified; E03.9 Hypothyroidism, unspecified; K21.9 Gastro-esophageal reflux disease without esophagitis; J44.9 Chronic obstructive pulmonary disease, unspecified; G47.33 Obstructive sleep apnea (adult) (pediatric); E66.01 Morbid (severe) obesity due to excess calories; Z68.41 Body mass index [BMI] 40.0-44.9, adult; Z99.89 Dependence on other enabling machines and devices
CPT/HCPCS: 36415; 71046; 80053; 80061; 82306; 82607; 82728; 82746; 83036; 83525; 83540; 84425; 84443; 84590; 84630; 85025; 86140; 93005; 99212

== ENCOUNTER 2025-08-02 08:29 | Outpatient (AMB) | payer OTHER, SELFPAY ==
--- NOTE | 2025-08-02 08:50 | A.OFFVIS_ITS ---
Vital Signs 08/02/25 08:54 Height 4 ft 11 in Weight 213 lb 13.574 oz BMI 43.2 BP 124/60 Blood Pressure Location Rt radial Position Sitting Pulse 71 Pulse Source Monitor Intake Visit Reasons: 1 year f/u Intake Note: 1 yr Sales Counselor Required: No Allergies aspirin Allergy (Severe, Verified 07/26/25 12:33) Swollen penicillamine Allergy (Severe, Verified 07/26/25 12:33) Rash and Hives povidone-iodine (Betadine) Allergy (Severe, Verified 07/26/25 12:33) Rash and Hives soap (Betadine) Allergy (Severe, Verified 07/26/25 12:33) Rash and Hives Peant Butter Allergy (Severe, Uncoded 07/26/25 12:33) Rash and Hives Seafood Allergy (Severe, Uncoded 07/26/25 12:33) Anaphylaxis beta blockers Adverse Reaction (Intermediate, Uncoded 07/26/25 12:33) Unknown Medication List - Last Reconciled 08/02/25 by ZARI HdezC albuterol sulfate 90 mcg/actuation 2 inhalations inhalation Q6H PRN 30 days amitriptyline 100 mg PO BEDTIME 90 days aripiprazole 12 mg PO DAILY ascorbic acid (vitamin C) mg PO atorvastatin 10 mg PO BEDTIME blood pressure monitor (Blood Pressure Kit) As directed-brachial blood pressure monitor to check blood pressure daily. bupropion HCl XL 300 mg PO QAM cane As directed cholecalciferol (vitamin D3) 50 mcg PO DAILY CPAP As directed CPAP (CPAP Machine/Device) As directed diclofenac sodium 1% (Arthritis Pain (diclofenac)) 2 grams topical QID epinephrine (EpiPen 2-John) 0.3 mg (0.3 mL) IM Q4H PRN fluticasone propionate 50 mcg/actuation 2 sprays intranasal DAILY 30 days hydroxyzine pamoate 25 mg PO BID levalbuterol HCl 1.25 mg (3 mL) inhalation BID 30 days levothyroxine 25 mcg PO QAM lidocaine 5% 2 patches topical DAILY losartan 50 mg PO DAILY magnesium 250 mg PO DAILY mecobalamin (vitamin B12) (B12 Active) 1,000 mcg PO DAILY montelukast 10 mg PO DAILY 90 days multivitamin (Daily Multi-Vitamin tablet) 1 tab PO DAILY [shower chair As directed] Symbicort 160-4.5 mcg/actuation (budesonide-formoterol) 2 puffs PO BID NS walker daily use HPI HPI 1 year f/u: Details: Marcela is a 60 year-old female with past medical history of hypertension, hyperlipidemia, obesity, obstructive sleep apnea, prior evaluation for chest discomfort without significant findings, sinus bradycardia, admission to [facility] 08/11/2022 with inability to move left side. Testing did not confirm CVA. Suspected to have complex migraine versus conversion disorder. Her last prior visit was 07/05/2024. She now presents for follow-up. Today she reports that she has been doing generally well in the last year. She still has some weakness in the left arm but overall mobility has improved. She is able to ambulate normally. She has no new neurological symptoms. She denies chest discomfort at rest or with activity. She will get short of breath when going up a hill or stairs. No shortness of breath at rest, PND, orthopnea. She went to urgent care once over the summer for leg edema. It has been controlled since that time with use of compression stockings as needed. No heart palpitations, lightheadedness, presyncope, syncope. Family history of CAD: brother of an MN, age 65. She tells me that her mother had fatal MN at age 63. She has another brother who has diabetes and did have a non fatal MN age 45. Compliant with all meds. Stays busy throughout the day, no routine exercise. [facility] Medical History Obstructive sleep apnea on CPAP Anxiety Depression Hypothyroidism Hyperlipidemia Hypertension Esophageal motility disorder Bacterial conjunctivitis Acute respiratory disease Conversion disorder MCI (mild cognitive impairment) Asthma Chronic restrictive lung disease TRACI (obstructive sleep apnea) Asthma-COPD overlap syndrome Surgical History History of delivery History of esophagogastroduodenoscopy (EGD) Hx of colonoscopy History of hernia repair Hx of cholecystectomy History of appendectomy History of hysterectomy Family History Father HTN (hypertension) Stroke Diabetes mellitus Maternal Grandmother Cancer Mother Diabetes mellitus HTN (hypertension) Stroke Brother Stroke Social History Housing: Apartment Alcohol intake: never Patient Tobacco Use Status: Never used Tobacco e-Cigarette/Vaping Use: Never Used Second Hand Smoke Exposure: No service: No Current occupational status: disabled Cognitive needs: Yes (walker sometimes) Hearing needs: Yes (b/l hearing aids) Vision needs: Yes (rx glasses) Review of Systems Const All systems reviewed & are unremarkable except as noted in HPI and below Denies chills, Denies fatigue, Denies fever(s), Denies frequent falls, Reports weakness (Left arm), Denies weight gain and Denies weight loss ENT Denies dizziness Card Denies chest pain, Denies leg edema, Denies lightheadedness, Denies palpitations, Denies dyspnea and Denies dyspnea on exertion Resp Denies cough, Denies dyspnea and Denies dyspnea on exertion GI Denies hematochezia Musc Denies abnormal gait, Denies muscle weakness, Denies numbness, Denies radiating pain into limb and Denies tingling Neuro Denies abnormal gait, Denies dizziness, Denies frequent falls, Denies numbness, Denies tingling and Reports weakness (Left arm) Endo Denies fatigue and Denies palpitations Physical Exam Vital Signs: BMI result Body Mass Index 43.2 Const Other: Morbid obesity General: cooperative, healthy appearing, comfortable and no acute distress Orientation/consciousness: patient oriented x3 Neck Neck: Yes normal visual inspection Resp Effort & Inspection: normal respiratory effort Auscultation: clear to auscultation bilaterally, no crackles, no rales, no rhon chi and no wheezes Cardio Jugular venous distension: no JVD Rate: regular rate Rhythm: regular rhythm Heart sounds: S1 normal heart sound present, S2 normal heart sound present, no murmurs and no rubs Neuro General: patient oriented x3 Extrem Other: Weakness and limited range of motion left arm General: Yes normal to inspection Psych Appearance: grossly normal Mental Status: mental status grossly normal Office Procedures EKG Details: Today, read by me, sinus rhythm, can not exclude prior anterior infarct, rate 70, QTC 432 milliseconds [id number], Complete Assessment & Plan Assessment & Plan (1) Bradycardia: Code(s): R00.1 - Bradycardia, unspecified Category: Medical Plan: Episode of symptomatic bradycardia during [facility] admission, 07/2022, in the setting of Temazipam and metoprolol. She was evaluated by life coach Dr. Carranza, at [facility], notes reviewed. It was recommended that she not have any AV ridge blocking agents. Holter monitor done 09/01/2022 for 6 days showed sinus rhythm with average heart rate 71, no significant pauses or bradycardia, rare ectopy. A repeat Holter was done 07/08/2023 showing sinus rhythm with average heart rate 73. EKG today showing normal sinus rhythm, rate 70. Continue to avoid all rate slowing agents. (2) Essential hypertension: Code(s): I10 - Essential (primary) hypertension Category: Medical Plan: Blood pressure goal less than 130/80. Well controlled at this time. Labs done today, results still pending. Continue losartan. (3) Left-sided weakness: Code(s): R53.1 - Weakness Category: Medical Plan: C admission on 08/11/2022 with headache, dizziness, left-sided weakness. She did have a complete workup with a CT scan of the head showing no acute findings, MRI of the head and neck showing no occlusions or stenosis, She was evaluated by Neurology which confirms no acute stroke, she is thought to have complex migraine versus conversion disorder. She has followed with Neurology as an outpatient and felt to have more of a conversion disorder. She does have underlying psychiatric issues. Her mobility has improved. She continues to have some weakness in the left shoulder/arm. (4) Family history of early CAD: Code(s): Z82.49 - Family history of ischemic heart disease and other diseases of the circulatory system Category: Medical Plan: She reports family history of early CAD. Patient has no known history of CAD. She reports some shortness of breath with exertion, no chest discomfort. Recent urgent care evaluation for leg edema. She is not fluid overloaded on exam. Will update an echocardiogram to assess EF and wall motion. Signs and symptoms of angina reviewed with her in detail. Continue with risk factor modification including good blood pressure and cholesterol control. She does not have diabetes. Continue activity as tolerated. Benefits a weight loss reviewed. Plan Time spent on chart review, documentation, interview, assessment Orders: Orders CA echo transthoracic complete Today I10 - Essential (primary) hypertension, Z82.49 - Family history of ischemic heart disease and other diseases of the circulatory system Coding Level of Care Code Est Pt Level 4 (07051) Complex EM visit Add On G2211 Diagnoses Bradycardia R00.1 Essential hypertension I10 Left-sided weakness R53.1 Family history of early CAD Z82.49 CPT Codes EKG - CPT: 07162-[id number], Complete ([id number]) Time Spent (min) 30
[2025-08-02 08:54] VITALS: BP 124/60; PULSE 71; BMI 43.2
== END 2025-08-02 09:16 | disposition home or self-care (01) ==
LOC: HO.HCS 08:29
PROVIDERS: PCP Nurse Practitioner Family; Visit Provider Nurse Practitioner Family
DX: I10 Essential (primary) hypertension (principal)
CPT/HCPCS: 93010; 99214; G2211

== ENCOUNTER → 2025-08-02 09:51 | Outpatient (BNV) | payer OTHER, SELFPAY | PROVIDERS: Absent Provider Surgery; PCP Nurse Practitioner Family; Visit Provider Radiology Diagnostic Radiology | DX: I10 Essential (primary) hypertension (principal); M47.814 Spondylosis without myelopathy or radiculopathy, thoracic region; M41.84 Other forms of scoliosis, thoracic region | CPT/HCPCS: 71046 ==

== ENCOUNTER 2025-08-12 09:59 | Day surgery (SDC) | payer OTHER, SELFPAY ==
--- OUTSIDE RECORDS SUMMARY | 2025-08-01 18:15 | XMS_ITS | Data Portability ---
Author Organization [employer], [facility] Address [address] [place] [address] Care Team Providers Care Tire Curer Name Role Phone HIM CCA OTHER Assessment Encounter Date Assessment Date Assessment LastModified by Organization Details LastModified Time 11/14/2024 11/14/2024 I provided real -time medical direction via phone for this encounter and was available for additional phone-based assistance as needed. I have reviewed and agree with the Assessment and Plan as documented by the Computer Networker. Patient given the opportunity to ask questions. [...] her eyes have been itchy bilaterally. Per plumbing foreman on the scene, vital signs are stable and patient is afebrile. No wheezing heard on exam. COVID and Flu are both negative. See uploaded pictures. No increased work of breathing and no distress. No drainage from either eye. Vision grossly intact. Impression: Common cold and viral URI Plan: Continue with sxsi-xfw-pehihet medications to control symptoms. Red flags discussed [...] recorded. Lab rapid flu (A+B) [address], [address] [place] [address], [phone] 5 22:31:53 rapid SARS CoV 2 Ag, QL IA, respiratory specimen [address], [address] [place] [address], [id number] 22:31:54 Referral None recorded. Procedures None recorded. Surgeries None recorded. Imaging None recorded. Medication Orders acetaminoph en 500 mg tablet 2023 024 gbaci Not available 14:56:15 acetaminoph en 500 mg tablet 2023 [facility][id number], [address], [place], [id number], 4 14:58:01 diclofenac 1 % topical gel 2023 [facility] #[id number], [address], [place], [id number], 4 14:58:05 Patient TargetsNo targets recorded. Patient InstructionsNo instructions recorded. Reason for Referral None Reported. Results Created Date Observation Date Name Description Value Unit Range Abnormal Flag Note LastModifiedBy Organization Detail LastModifiedTime 11/14/1911/14/2024 rapid SARS CoV 2 Ag, QL IA, respi rator y speci men rapid SARS CoV 2 Ag, QL IA, respiratory specimen negati ve Not Available [facility] ed [address] [place] [address], [phone] 11/14/2024 22:31:42 11/14/19 25 11/14/2024 rapid flu (A+B) Flu negati ve Not Available [facility] ed [address] [place], [phone] 11/14/2024 22:31:41 Result Notes None recorded. Medical Equipment None Reported. Allergies Allergen ID Allergen Name Allergen Category Reaction Reaction Severity Criticality Documentation Date Start Date Code Code System Note Provider Name and Address Organization Details Recorded Time 05909 Product containin g penicilli n (product) medicatio n Not available Not available Not available 11/14/2024 33018 8001 SNOMED Not Available [facility] - production 5 10:56:19 38121 aspirin medicatio n Not available Not available [...] 5 14 /min 80 /min 167.64 cm 29500.4 g 98 [degF] 98 % 98 % 170/90 mm[Hg] Not Available [facility] 5 20:15:50 Date Recorded Body temperature Heart rate Respiratory rate Oxygen saturation Oxygen saturation in Arterial blood by Pulse oximetry Systolic And Diastolic Provider Name and Address Organization Details Last Updated DateTime 4 98.4 [degF] 83 /min 16 /min 97 % 97 % 144/92 mm[Hg] Not Available [employer] 4 14:52:47 Social History None recorded. Functional Status None recorded. Mental Status None recorded. Family History Nothing Reported. Medical History No medical history recorded. Gynecological HistoryNo gynecological history recorded. Obstetrics History GPAL:G 0 P 0 0 0 0 Past Encounters Encounter ID Performer Location Encounter Start Date Encounter Closed Date Diagnosis/Indication Diagnosis SNOMED-CT Code Diagnosis ICD10 Code Diagnosis IMO Codes Diagnosis Note [id number] MAYRA DONOVAN MD [facility] [address] [place] [phone] 02/22/2024 14:52:45 02/23/2024 10:29:44 Contusion of left chest wall [id number] S20.212A Evaluation in the field was performed by my plumbing foreman colleague, as noted above, I provided real-time [...] 1000 mg PO x1 given by the plumbing foreman. Rx sent to her pharmacy for 30 [...] cough , dizziness or any other concerns. [id number] Soheila Braxton MD [facility] [address] [place] [phone] 11/14/2024 20:15:45 11/15/2024 08:43:51 Viral syndrome 598201095 B34.9 Health Concerns Section Related Observation LastModified by Organization Giorgi ross LastModified Time None Recorded Concern Status LastModified by Organization Details LastModified Time None Recorded Advance Directives Directive None Recorded Payers Insurance Date Sequence Insurance Name Policy Number Policy Borjas Covered Member ID Borjas Member ID Guarantor Name 11/14/2024 1 [facility] - DOS ON OR AFTER 2022 - DUAL ELIGIBLE - HALFWAY OPTIONS AND ONE CARE (MEDICARE REPLACEMENT/ADV ANTAGE - HMO) Marcela Medellin [id number] Marcela Medellin Notes Date Note Type Note Provider Name and Address Organization Details Recorded Time 02/22/2024 text/html ROS as noted in the HPI HPI: Molly is a 58 yo Irish/Russian speaking female with hx of asthma, COPD, [...] ..................... ..................... ..................... ..................... ..................... ............... Computer Networker Note From Channing Wan: Dispatched to the [...] ..................... ............... Disposition: Romi MAYRA DONOVAN MD [address] [place] [address],[address], [place], [phone], [email or web address] 02/22/2024 15:43:17 11/14/2024 text/html CRC Nurse Triage [...] She would like to be evaluated. Computer Networker Organization Information for [employer] Business Legal Name: [facility] Address: [address] [place] [id number], Scrap Carrier: Amos Gates MD CLIA No.: [id number] Computer Networker POC Test Results from [employer] Rapid COVID antigen (19:43:42) COVID: - Rapid influenza antigen (19:43:42) Flu: - ..................... ..................... ..................... ..................... ..................... ..................... ............... Computer Networker Note From Aquilino Edwards: Patient alert and [...] for Covid and flu via rapid POC. [facility] advises patient likely viral infection that will pass in 7 to 10 days. Red flags, patient education what to expect next steps, supportive care and others discussed. Patient demonstrates understanding of care and plan. ..................... ..................... ..................... ..................... ..................... ..................... ............... [facility] Consulted: Soheila Braxton ..................... ..................... ..................... ..................... ..................... ..................... ............... Disposition: Fulfilled Soheila Braxton MD [address] [place] [address],[address] [facility], [place], [phone], [employer] 11/14/2024 22:34:00 OBGyn Episode No OBEpisode recorded.
--- NOTE | 2025-08-07 11:48 | HO.ANESPROP2 ---
Documented by User: Val Lira NP 08/09/25 08:28 HPI - Anesthesia Eval Consult details Narrative: 60 yr old female for upper EGD BMI 44 Follows [facility] cardiology, last visit 08/02, Echo was ordered to assess EF & wall motion; she reported some SOB on exertion, no CP. Per workload, okay to have above procedure prior to echo as pt was not fluid overloaded at visit. TRACI: on CPAP Asthma: follows [facility] pulmo, last visit 06/2025, reported stable symptoms with <2 uses of albuterol weekly PMF Active Problems Active Problems: All Active Problems Abnormal EKG (Acute) Obstructive sleep apnea on CPAP (Acute) Anxiety (Acute) Depression (Acute) Hypothyroidism (Acute) Hyperlipidemia (Acute) Hypertension (Acute) Elevated BUN (Acute) Psychogenic nonepileptic seizure (Acute) MCI (mild cognitive impairment) (Acute) Conversion disorder (Acute) Tension headache (Acute) Vitamin D deficiency (Acute) Bronchitis (Acute) Morbid obesity with BMI of 40.0-44.9, adult (Acute) Bacterial conjunctivitis (Acute) Acute respiratory disease (Acute) Family history of early CAD (Acute) Morbid obesity (Acute) Lower back pain (Acute) Viral illness (Acute) GERD (gastroesophageal reflux disease) (Acute) Left shoulder pain (Acute) Dysphagia (Acute) Palpitations (Acute) Sinusitis (Acute) Decreased urine output (Acute) CVA (cerebral vascular accident) (Acute) Left-sided weakness (Acute) Blurred vision, bilateral (Acute) URI (upper respiratory infection) (Acute) Medicare annual wellness visit, initial (Acute) Family history of colonic polyps (Acute) Colon cancer screening (Acute) Essential hypertension (Acute) Precordial chest pain (Acute) Urinary urgency (Acute) Bradycardia (Acute) Irregular heart rate (Acute) B12 deficiency (Acute) Chest discomfort (Acute) Asthma (Acute) Dyslipidemia (Acute) Chronic restrictive lung disease (Acute) Epilepsy (Acute) Epilepsy, unspecified, intractable, with status epilepticus (Acute) Age related osteoporosis (Acute) Essential (primary) hypertension (Acute) TRACI (obstructive sleep apnea) (Acute) Asthma-COPD overlap syndrome (Acute) Past Medical History Medical History Abnormal EKG Obstructive sleep apnea on CPAP Anxiety Depression Hypothyroidism Hyperlipidemia Hypertension Esophageal motility disorder Bacterial conjunctivitis Acute respiratory disease Conversion disorder MCI (mild cognitive impairment) Asthma Chronic restrictive lung disease TRACI (obstructive sleep apnea) Asthma-COPD overlap syndrome Family History Family History Father HTN (hypertension) Stroke Diabetes mellitus Maternal Grandmother Cancer Mother Diabetes mellitus HTN (hypertension) Stroke Brother Stroke Family history of problems with anesthesia: No Surgical History Surgical History History of delivery History of esophagogastroduodenoscopy (EGD) Hx of colonoscopy History of hernia repair Hx of cholecystectomy History of appendectomy History of hysterectomy History of Problems with Anesthesia: No Social History Social History Housing: Apartment Alcohol intake: never Patient Tobacco Use Status: Never used Tobacco e-Cigarette/Vaping Use: Never Used Second Hand Smoke Exposure: No Use of substances other than those prescribed or required for medical reasons: No Are you DNR?: No Advance Directives: No Advance Directives Information Provided: Yes service: No Current occupational status: disabled Cognitive needs: Yes (walker sometimes) Hearing needs: Yes (b/l hearing aids) Vision needs: Yes (rx glasses) Meds Allergies Allergy/AdvReac Type Severity Reaction Status Date / Time aspirin Allergy Severe Swollen Verified 08/12/25 10:13 penicillamine Allergy Severe Rash and Verified 08/12/25 10:13 Hives povidone-iodine (Betadine) Allergy Severe Rash and Verified 08/12/25 10:13 Hives soap (Betadine) Allergy Severe Rash and Verified 08/12/25 10:13 Hives Seafood Allergy Severe Anaphylaxis Uncoded 07/26/25 12:33 beta blockers AdvReac Intermediate Unknown Uncoded 07/26/25 12:33 Home Medications ?Medication ?Instructions ?Recorded ?Confirmed ?Last Taken ?Type bupropion HCl 300 mg 24 hr tablet, 300 mg PO QAM 08/17/22 08/12/25 Unknown History extended release CPAP (CPAP Machine/Device) 05/09/23 08/12/25 Unknown History CPAP 10/04/23 08/12/25 Unknown History hydroxyzine pamoate 25 mg capsule 25 mg PO BID 10/31/23 08/12/25 Unknown History diclofenac sodium 1 % topical gel 2 g topical QID 04/19/24 08/12/25 Unknown History (Arthritis Pain (diclofenac)) ascorbic acid (vitamin C) 500 mg 500 mg PO DAILY 01/01/25 08/12/25 Unknown History capsule cholecalciferol (vitamin D3) 50 50 mcg PO DAILY 01/01/25 08/12/25 Unknown History mcg (2,000 unit) capsule magnesium 250 mg tablet 250 mg PO DAILY 01/01/25 08/12/25 Unknown History mecobalamin (vitamin B12) 1,000 1,000 mcg PO DAILY 01/01/25 08/12/25 Unknown History mcg chewable tablet (B12 Active) multivitamin (Daily Multi-Vitamin 1 tab PO DAILY 01/01/25 08/12/25 Unknown History tablet) aripiprazole 15 mg tablet 12 mg PO DAILY 06/27/25 08/12/25 Unknown History Exam Pertinent Lab Results Pertinent Lab Results: Laboratory Tests 08/02/25 08:14 WBC 5.4 RBC 4.97 Hgb 14.0 Hct 43.4 Plt Count 303 Sodium 142 Potassium 4.2 Chloride 106 Carbon Dioxide 27 BUN 22 H Creatinine 0.84 Narrative Narrative: EKG 07/2025 Vent. Rate : 78 BPM Atrial Rate : 78 BPM P-R Int : 172 ms QRS Dur : 78 ms QT Int : 388 ms P-R-T Axes : 44 -6 1 degrees QTcB Int : 442 ms Normal sinus rhythm Possible Anterior infarct , age undetermined Abnormal ECG No previous ECGs available Assessment and Plan Final Anesthetic Review Family History of Problems with Anesthesia: No History of Problems with Anesthesia: No Documented by User: Tiffanie Yañez MD 08/12/25 11:04 [facility] Past Medical History Medical History Abnormal EKG Obstructive sleep apnea on CPAP Anxiety Depression Hypothyroidism Hyperlipidemia Hypertension Esophageal motility disorder Bacterial conjunctivitis Acute respiratory disease Conversion disorder MCI (mild cognitive impairment) Asthma Chronic restrictive lung disease TRACI (obstructive sleep apnea) Asthma-COPD overlap syndrome Family History Family History Father HTN (hypertension) Stroke Diabetes mellitus Maternal Grandmother Cancer Mother Diabetes mellitus HTN (hypertension) Stroke Brother Stroke Surgical History Surgical History History of delivery History of esophagogastroduodenoscopy (EGD) Hx of colonoscopy History of hernia repair Hx of cholecystectomy History of appendectomy History of hysterectomy Social History Social History Housing: Apartment Alcohol intake: never Patient Tobacco Use Status: Never used Tobacco e-Cigarette/Vaping Use: Never Used Second Hand Smoke Exposure: No Use of substances other than those prescribed or required for medical reasons: No Are you DNR?: No Advance Directives: No Advance Directives Information Provided: Yes service: No Current occupational status: disabled Cognitive needs: Yes (walker sometimes) Hearing needs: Yes (b/l hearing aids) Vision needs: Yes (rx glasses) Meds Allergies Allergy/AdvReac Type Severity Reaction Status Date / Time aspirin Allergy Severe Swollen Verified 08/12/25 10:13 penicillamine Allergy Severe Rash and Verified 08/12/25 10:13 Hives povidone-iodine (Betadine) Allergy Severe Rash and Verified 08/12/25 10:13 Hives soap (Betadine) Allergy Severe Rash and Verified 08/12/25 10:13 Hives Seafood Allergy Severe Anaphylaxis Uncoded 07/26/25 12:33 beta blockers AdvReac Intermediate Unknown Uncoded 07/26/25 12:33 Home Medications ?Medication ?Instructions ?Recorded ?Confirmed ?Last Taken ?Type bupropion HCl 300 mg 24 hr tablet, 300 mg PO QAM 08/17/22 08/12/25 Unknown History extended release CPAP (CPAP Machine/Device) 05/09/23 08/12/25 Unknown History CPAP 10/04/23 08/12/25 Unknown History hydroxyzine pamoate 25 mg capsule 25 mg PO BID 10/31/23 08/12/25 Unknown History diclofenac sodium 1 % topical gel 2 g topical QID 04/19/24 08/12/25 Unknown History (Arthritis Pain (diclofenac)) ascorbic acid (vitamin C) 500 mg 500 mg PO DAILY 01/01/25 08/12/25 Unknown History capsule cholecalciferol (vitamin D3) 50 50 mcg PO DAILY 01/01/25 08/12/25 Unknown History mcg (2,000 unit) capsule magnesium 250 mg tablet 250 mg PO DAILY 01/01/25 08/12/25 Unknown History mecobalamin (vitamin B12) 1,000 1,000 mcg PO DAILY 01/01/25 08/12/25 Unknown History mcg chewable tablet (B12 Active) multivitamin (Daily Multi-Vitamin 1 tab PO DAILY 01/01/25 08/12/25 Unknown History tablet) aripiprazole 15 mg tablet 12 mg PO DAILY 06/27/25 08/12/25 Unknown History Exam Airway Mallampati Class: III TM Dist: >3cm Neck ROM: Full Loose/Missing/Broken Teeth: No Heart: RRR Lungs: CTA Assessment and Plan Assessment Anesthesia Assessment: Anesthesia Plan Discussed and Chart Reviewed Final Anesthetic Review NPO: Yes ASA Class: III Final Preanesthetic Review: Meds/Allgs Chart Reviewed, Consent Obtained/Reviewed and Anes Risks/Benef Reviewed Patient Risk: Intermediate Procedure Risk: Intermediate Anesthetic Plan Anesthetic Plan: MAC: Disposition: Standard PACU
[2025-08-08 07:45] VITALS: BMI 43.0
[2025-08-12 10:14] VITALS: BMI 42.8
[2025-08-12 10:19] VITALS: BP 127/66; PULSE 70; RESP 16; TEMP 36.4; O2SAT 96
[2025-08-12] MEDS: Lactated Ringers 1,000 ML 80 ML IVCONT (10:32)
--- NOTE | 2025-08-12 10:50 | MHC.SHP ---
Pre-Procedural Eval Section A - 24 Hr Update-Section A only Date of Service: 08/12/25 The patient is an INPATIENT: No The patient has been examined within 24 hours of the surgical procedure. The History & Physical has been completed within 30 days and I have reviewed it.: Yes Section B - Complete if H&P > 30 days Chief Complaint: Morbid (severe) obesity due to excess calories Details of Present Illness: GERD Relevant Family History (Specify if Yes): No Relevant Social History: None Present Medications: None Medical History: No relevant PMH History of Previous Operations: No relevant previous surgery Allergies: Allergies Allergy/AdvReac Type Severity Reaction Status Date / Time aspirin Allergy Severe Swollen Verified 08/12/25 10:13 penicillamine Allergy Severe Rash and Verified 08/12/25 10:13 Hives povidone-iodine (Betadine) Allergy Severe Rash and Verified 08/12/25 10:13 Hives soap (Betadine) Allergy Severe Rash and Verified 08/12/25 10:13 Hives Seafood Allergy Severe Anaphylaxis Uncoded 07/26/25 12:33 beta blockers AdvReac Intermediate Unknown Uncoded 07/26/25 12:33 Review of Systems Sugical H&P ROS: Negative: Constitution, Cardiovascular, Respiratory, Neurological, Psychiatric, Hem-Onc, Allergic/Immunologic, Gastrointestinal, Genitourinary, Musculoskeletal, Integumentary, Endocrine and Eyes/Ears/Nose/Throat Exam Surgical H&P Exam: Normal: HEENT, Normal: Heart, Normal: Lungs, Normal: Extremities, Normal: Abdomen, Normal: Skin and Normal: Neurological Plan Diagnosis/Plan: Unchanged (EGD to assess etiology of GERD. Risks of bleeding and perforation were discussed with the patient and she is in agreement with the plan.) I have reviewed the history and physical and performed a pertinent physical examination on my patient. No changes have occurred unless specified. Time Spent With Patient Time: Total time managing care of this patient today ____ minutes.
--- NOTE | 2025-08-12 10:51 | P.BOP_ITS ---
Brief Operative Note Date of Service: 08/12/25 Pre-op diagnosis: GERD Post-op diagnosis: same (& gastritis) Procedure: PROCEDURE DATE: 08/12/2025 PREOPERATIVE DIAGNOSIS: GERD POSTOPERATIVE DIAGNOSIS: ?Same as above. Gastritis PROCEDURE: [id number] with biopsies Surgeon: Dakotah Ybarra M.D.. Ph.D. Road Contractor: None ? Anesthesia: IV sedation Estimated blood loss: ?Minimal FINDINGS AND PROCEDURE: ? OPERATIVE INDICATIONS: ?The patient is a 30 year old female known to me who is interested in bariatric surgery. The patient has GERD. Based on this information I recommended an upper endoscopy to evaluate the patient's symptoms. Risks and complications of the surgery were discussed with the patient in advance particularly the possibility of perforation or bleeding that may require cervantes rgical intervention. The patient understood the risks and was in agreement with the plan. ? PROCEDURE: After informed consent was obtained by the patient, the patient was ?transferred to the Operating Room and was placed in the supine position.? After successful induction of IV sedation, a mouth block was inserted and the patient was placed in the left lateral decubitus position. An upper endoscopy was performed next, the oropharynx and esophagus appeared within the normal limits. There was no hiatal hernia. The z-line was smooth. Two biopsies were obtained from the distal esophagus 2-3 cm proximal to the GE junction and two additional biopsies from the GE junction. The stomach was entered and it appeared to be of normal size. There was gastritis at the antrum. There was no stricture or ulcer. A biopsy was obtained from the gastric fundus and the antrum. No significant bleeding was noted from any of the biopsy sites. Retroflexion of the scope confirmed the presence of a normal GE junction. The scope was then advanced into the duodenum which appeared to be normal as well. At that point the duodenum ?and the stomach were decompressed and the scope was withdrawn from the patient's mouth. The patient extubated and was transferred in stable condition to the Recovery Room for further care. I was present and performed all steps of the procedure. There were no residents to assist with this case. Geoffrey Ybarra M.D., Ph.D. Surgeon: Marvin Ybarra MD Anesthesia: MAC Was an Road Contractor used for this Procedure?: No Estimated blood loss (mL): 0 IV fluids (mL): 400 Urine output (mL): 0 (No Louis to record output) Pathology: other (1) antrum x1, 2) fundus x1, 3) GE junction x2, 4) distal esophagus x2) Condition: stable Disposition: PACU
[2025-08-12 11:20] VITALS: BP 101/83; PULSE 70; RESP 14; TEMP 36.6; O2SAT 98
[2025-08-12 11:35] VITALS: BP 122/77; PULSE 75; RESP 16; TEMP 36.1; O2SAT 96
== END 2025-08-12 12:11 | disposition home or self-care (01) ==
PROVIDERS: PCP Nurse Practitioner Family; Visit Provider Surgery
PROC: 0DJ08ZZ Inspection of Upper Intestinal Tract, Via Natural or Artificial Opening Endoscopic (ICD-10-PCS; CPT 43235; principal; 2025-08-12 11:40)
DX: K21.9 Gastro-esophageal reflux disease without esophagitis (principal); E66.01 Morbid (severe) obesity due to excess calories; Z68.41 Body mass index [BMI] 40.0-44.9, adult; K29.50 Unspecified chronic gastritis without bleeding; K22.4 Dyskinesia of esophagus; I10 Essential (primary) hypertension; G31.84 Mild cognitive impairment of uncertain or unknown etiology; E03.9 Hypothyroidism, unspecified; E78.5 Hyperlipidemia, unspecified; J98.4 Other disorders of lung; J44.9 Chronic obstructive pulmonary disease, unspecified; F32.A Depression, unspecified; F41.9 Anxiety disorder, unspecified; F44.9 Dissociative and conversion disorder, unspecified; G47.33 Obstructive sleep apnea (adult) (pediatric); Z79.51 Long term (current) use of inhaled steroids; Z79.899 Other long term (current) drug therapy; Z99.89 Dependence on other enabling machines and devices; Z88.0 Allergy status to penicillin; Z88.6 Allergy status to analgesic agent; Z88.8 Allergy status to other drugs, medicaments and biological substances; Z90.49 Acquired absence of other specified parts of digestive tract; Z98.890 Other specified postprocedural states
CPT/HCPCS: 43239; 88305; 88313; 88342; J1100; J1596; J2003; J2704

== ENCOUNTER → 2025-08-12 09:59 | Outpatient (BNV) | payer OTHER, SELFPAY | PROVIDERS: PCP Nurse Practitioner Family; Visit Provider Surgery | DX: K21.9 Gastro-esophageal reflux disease without esophagitis (principal); K29.70 Gastritis, unspecified, without bleeding | CPT/HCPCS: 43239 ==

== ENCOUNTER 2025-08-20 13:30 | Outpatient (AMB) | payer OTHER, SELFPAY ==
--- NOTE | 2025-08-20 13:41 | A.OFFPC_ITS ---
Vital Signs 08/20/25 13:42 Height 4 ft 11 in Weight 214 lb BMI 43.2 BP 128/92 H Blood Pressure Location Lt brachial Position Sitting Respiration 16 Pulse 76 Pulse Source Pulse Oximeter Pulse Oximetry (%) 98 Oxygen Delivery Method Room Air Intake Visit Reasons: 6m follow up Music Executive Required: No Accompanied by: Self / Same As Patient Allergies aspirin Allergy (Severe, Verified 08/12/25 10:13) Swollen penicillamine Allergy (Severe, Verified 08/12/25 10:13) Rash and Hives povidone-iodine (Betadine) Allergy (Severe, Verified 08/12/25 10:13) Rash and Hives soap (Betadine) Allergy (Severe, Verified 08/12/25 10:13) Rash and Hives Seafood Allergy (Severe, Uncoded 07/26/25 12:33) Anaphylaxis beta blockers Adverse Reaction (Intermediate, Uncoded 07/26/25 12:33) Unknown Tobacco use date assessed: 02/21/25 Dental Screening Dental Screen Date: 02/21/25 HPI 6m follow up HPI Details Chief Complaint The patient is here for a follow-up. History of Present Illness The patient is a 60-year-old individual presenting for a follow-up visit with a history of dyslipidemia and hypertension. The patient denies any chest pain, increased shortness of breath, dizziness, or blurred vision. She reports not havign her atorvastatin for quite sometime now? SHe does report her BP at home has been closer to 120s/70s. A recent EKG showed a possible anterior infarct, and the patient has a follow-up appointment scheduled with cardiology next month. The patient is completely asymptomatic regarding this finding and is doing well. The patient reported recently losing their voice (most likely viral). The patient is also morbidly obese and attends an obesity clinic. Social History - Weight Management: The patient is morb idly obese and attends an obesity clinic. Health Maintenance - The patient attends an obesity clinic for management of morbid obesity. - The patient is scheduled to follow up with cardiology on the of next month for an abnormal EKG finding. Review of Systems - Cardiovascular: Denies chest pain. - Respiratory: Denies increased shortnes s of breath. - Neurological: Denies dizziness. - Eyes: Denies blurred vision. - ENT: Reports recent loss of voice. Physical Exam General: Cooperative, healthy appearing, comfortable, no acute distress and well developed, morbidly obese Orientation: Patient oriented x3 Limitations: No limitations Head: Normal to inspection Ears: Hearing grossly normal bilaterally Nose: Normal external nose present Face and sinus: Normal facial exam Eyes: Appearance normal, both eyes and all related structures Neck: Normal visual inspection and Yes full ROM Respiratory: Normal respiratory effort and able to speak in complete sentences. Clear to auscultation bilaterally Cardiovascular: Regular rate and rhythm. Normal S1 and S2 GI: Normal to inspection. Soft to palpation and nontender Skin: No rashes or lesions noted Neuro: Patient oriented x3 Extremities: Normal to inspection Results - Tests and Diagnostics: - EKG: A recent EKG showed a possible an terior infarct. Plan 1. Hypertension The patient has a history of hypertension and was noted to be hypertensive during the visit. Management will continue, with ongoing monitoring as part of this follow-up (monitor at home, with any increases to report to myself) 2. Dyslipidemia The patient has a history of dyslipidemia and is being followed for this condition. atorvastatin restarted today 3. EKG changes A recent EKG suggested a possible anterior infarct, though the patient is currently asymptomatic. The patient will follow up with cardiology on the 6th of next month for further evaluation. 4. Morbid Obesity The patient is morbidly obese and is actively being managed at an obesity clinic. The plan is to continue with the obesity clinic. 5. Dysphonia The patient reported a recent loss of voice. Examination did not reveal lymphadenopathy or swollen tonsils. Discussion Notes Patient Instructions - Please make sure to attend your follow -up appointment with the transmission specialist (cardiology) on the of next month to discuss your recent heart test (EKG) results. - Continue to attend your appointments a t the obesity clinic for weight management. [facility] Medical History Abnormal EKG Obstructive sleep apnea on CPAP Anxiety Depression Hypothyroidism Hyperlipidemia Hypertension Esophageal motility disorder Bacterial conjunctivitis Acute respiratory disease Conversion disorder MCI (mild cognitive impairment) Asthma Chronic restrictive lung disease TRACI (obstructive sleep apnea) Asthma-COPD overlap syndrome Surgical History History of delivery History of esophagogastroduodenoscopy (EGD) Hx of colonoscopy History of hernia repair Hx of cholecystectomy History of appendectomy History of hysterectomy Family History Father HTN (hypertension) Stroke Diabetes mellitus Maternal Grandmother Cancer Mother Diabetes mellitus HTN (hypertension) Stroke Brother Stroke Social History Housing: Apartment Alcohol intake: never Patient Tobacco Use Status: Never used Tobacco e-Cigarette/Vaping Use: Never Used Second Hand Smoke Exposure: No service: No Current occupational status: disabled Cognitive needs: Yes (walker sometimes) Hearing needs: Yes (b/l hearing aids) Vision needs: Yes (rx glasses) Questionnaire Thrive Questionnaire Date Thrive assessed: 02/21/25 I am a: Patient What is your living situation today?: I have a steady place to live Within the past 12 months, did the food you bought not last and you didn't have the money to get more?: Sometimes True Within the past 12 months, did you worry whether your food would run out before you got money to buy more?: Sometimes True Do you have trouble paying for medicines?: No Do you have trouble getting transportation to medical appointments?: Yes Do you have trouble paying your heating and electricity bill?: No Do you have trouble taking care of your child, family member or friend?: Yes Do you have trouble with day-to-day activities such as bathing, preparing meals, shopping, managing finances, etc.?: I choose not to answer this question Are you currently unemployed and looking for a job?: No Are you interested in more education?: No Please select the resources that you would like help with: None THRIVE Score: 3 KIMBERLY-7 AMB Questionnaire KIMBERLY-7 Date KIMBERLY - 7 assessed: 02/21/25 Source: Developed by Drs. Americo Jimenez, Iris Ramirez, Patrick Trevino and colleagues, with an educational prabha from [employer]. Physical exam (Primary Care) Vital Signs: Last Vital Signs Pulse 76 08/20/25 13:42 Resp 16 08/20/25 13:42 BP 128/92 H 08/20/25 13:42 Pulse Ox 98 08/20/25 13:42 Oxygen Delivery Method Room Air 08/20/25 13:42 BMI result Body Mass Index 43.2 Tobacco/Smoking Status: Tobacco use Status Tobacco use date assessed 02/21/25 08/20/25 13:46 Patient Tobacco Use Status Never used Tobacco 08/20/25 13:46 e-Cigarette/Vaping Use Never Used 08/20/25 13:46 Thrive Assessment: Date of Thrive Assessment Date Thrive assessed 02/21/25 08/20/25 13:46 Coding Level of Care Code Est Pt Level 3 (49461) Diagnoses Essential (primary) hypertension I10 Dyslipidemia E78.5 Assessment & Plan Assessment & Plan (1) Essential (primary) hypertension: Code(s): I10 - Essential (primary) hypertension Category: Medical (2) Dyslipidemia: Code(s): E78.5 - Hyperlipidemia, unspecified Category: Medical Plan . Orders: Orders Complete Blood Count Auto Diff 2 Months E78.5 - Hyperlipidemia, unspecified, I10 - Essential (primary) hypertension Comprehensive Adrian. Panel Fast 2 Months E78.5 - Hyperlipidemia, unspecified, I10 - Essential (primary) hypertension UA CC w/rflx Micro + Cult 2 Months E78.5 - Hyperlipidemia, unspecified, I10 - Essential (primary) hypertension Lipid Panel 2 Months E78.5 - Hyperlipidemia, unspecified, I10 - Essential (primary) hypertension TSH reflex Free T4 2 Months E78.5 - Hyperlipidemia, unspecified, I10 - Essent ial (primary) hypertension Pneumococcal 20 Immunization Today Z23 - Encounter for immunization Medications: New pneumoc 20-adrián conj-dip cr(PF) 0.5 mL IM ONCE 0.5 mL 0RF Z23 - Encounter for immunization atorvastatin (Lipitor) 10 mg PO BEDTIME 90 tabs 0RF
[2025-08-20 13:42] VITALS: BP 128/92; PULSE 76; RESP 16; O2SAT 98; BMI 43.2
--- OUTSIDE RECORDS SUMMARY | 2025-08-20 17:23 | XMS_ITS | Data Portability ---
Author Organization [facility], [facility] Address [address] [place] [address] Care Team Providers Care Pleating Machine Operator Name Role Phone HIM CCA OTHER Assessment Encounter Date Assessment Date Assessment LastModified by Organization Details LastModified Time 11/14/2024 11/14/2024 I provided real -time medical direction via phone for this encounter and was available for additional phone-based assistance as needed. I have reviewed and agree with the Assessment and Plan as documented by the Director Of Rooms. Patient given the opportunity to ask questions. [...] her eyes have been itchy bilaterally. Per paramedical aide on the scene, vital signs are stable and patient is afebrile. No wheezing heard on exam. COVID and Flu are both negative. See uploaded pictures. No increased work of breathing and no distress. No drainage from either eye. Vision grossly intact. Impression: Common cold and viral URI Plan: Continue with blkc-vpt-ooafydc medications to control symptoms. Red flags discussed [...] recorded. Lab rapid flu (A+B) [address], [address] [place] [address], [id number] 5 22:31:53 rapid SARS CoV 2 Ag, QL IA, respiratory specimen [address], [address] [place] [address], [id number] 22:31:54 Referral None recorded. Procedures None recorded. Surgeries None recorded. Imaging None recorded. Medication Orders acetaminoph en 500 mg tablet 2023 024 gbaci Not available 14:56:15 acetaminoph en 500 mg tablet 2023 [id number], [address], [place], [id number], 4 14:58:01 diclofenac 1 % topical gel 2023 [facility] #[id number], [address], [place], [id number], 4 14:58:05 Patient TargetsNo targets recorded. Patient InstructionsNo instructions recorded. Reason for Referral None Reported. Results Created Date Observation Date Name Description Value Unit Range Abnormal Flag Note LastModifiedBy Organization Detail LastModifiedTime 11/14/1911/14/2024 rapid SARS CoV 2 Ag, QL IA, respi rator y speci men rapid SARS CoV 2 Ag, QL IA, respiratory specimen negati ve Not Available [facility] ed [address] [place] [address], [id number] 11/14/2024 22:31:42 11/14/19 25 11/14/2024 rapid flu (A+B) Flu negati ve Not Available [facility] [address] [place], [phone] 11/14/2024 22:31:41 Result Notes None recorded. Medical Equipment None Reported. Allergies Allergen ID Allergen Name Allergen Category Reaction Reaction Severity Criticality Documentation Date Start Date Code Code System Note Provider Name and Address Organization Details Recorded Time 89101 Product containin g penicilli n (product) medicatio n Not available Not available Not available 11/14/2024 52216 8001 SNOMED Not Available [facility] - production 5 10:56:19 23873 aspirin medicatio n Not available Not available [...] height Body weight Body temperature Oxygen saturation Systolic And Diastolic Provider Name and Address Organization Details Last Updated DateTime 5 14 /min 80 /min 167.64 cm 77332.4 g 98 [degF] 98 % 170/90 mm[Hg] Not Available [facility] 20:15:50 Date Recorded Body temperature Heart rate Respiratory rate Oxygen saturation Systolic And Diastolic Provider Name and Address Organization Details Last Updated DateTime 4 98.4 [degF] 83 /min 16 /min 97 % 144/92 mm[Hg] Not Available [facility] 4 14:52:47 Social History None recorded. Functional Status None recorded. Mental Status None recorded. Family History Nothing Reported. Medical History No medical history recorded. Gynecological HistoryNo gynecological history recorded. Obstetrics History GPAL:G 0 P 0 0 0 0 Past Encounters Encounter ID Performer Location Encounter Start Date Encounter Closed Date Diagnosis/Indication Diagnosis SNOMED-CT Code Diagnosis ICD10 Code Diagnosis IMO Codes Diagnosis Note [id number] MAYRA DONOVAN MD [facility] [address] [place] [address] 02/22/2024 14:52:45 02/23/2024 10:29:44 Contusion of left chest wall [id number] S20.212A Evaluation in the field was performed by my paramedical aide colleague, as noted above, I provided real-time [...] 1000 mg PO x1 given by the paramedical aide. Rx sent to her pharmacy for 30 [...] cough , dizziness or any other concerns. [id number] Soheila Braxton MD Main - [facility] [address] [place] [phone] 11/14/2024 20:15:45 11/15/2024 08:43:51 Viral syndrome 027477831 B34.9 Health Concerns Section Related Observation LastModified by Organization Detai ls LastModified Time None Recorded Concern Status LastModified by Organization Details LastModified Time None Recorded Advance Directives Directive None Recorded Payers Insurance Date Sequence Insurance Name Policy Number Policy Borjas Covered Member ID Borjas Member ID Guarantor Name 11/14/[address] [facility] - DOS ON OR AFTER 2022 - DUAL ELIGIBLE - ASSISTED OPTIONS AND ONE CARE (MEDICARE REPLACEMENT/ADV ANTAGE - HMO) Marcela Medellin [id number] Marcela Medellin Notes Date Note Type Note Provider Name and Address Organization Details Recorded Time 02/22/2024 text/html ROS as noted in the HPI HPI: Molly is a 58 yo Arabic/Dominican speaking female with hx of asthma, COPD, [...] ..................... ..................... ..................... ..................... ..................... ..................... ............... Director Of Rooms Note From Channing Wan: Dispatched to the [...] ..................... ............... Disposition: Romi DONOVAN MD [address] [facility],[address], [place], [address], [place] 02/22/2024 15:43:17 11/14/2024 text/html CRC Nurse Triage [...] wheezing. She would like to be evaluated. Director Of Rooms Organization Information for [facility] Business Legal Name: [facility] Address: [address] [place] [address], Gathering Worker: Amos Gates MD CLIA No.: [id number] Director Of Rooms POC Test Results from [facility]il[facility] Rapid COVID antigen (19:43:42) COVID: - Rapid influenza antigen (19:43:42) Flu: - ..................... ..................... ..................... ..................... ..................... ..................... ............... Director Of Rooms Note From Aquilino Edwards: Patient alert and [...] Covid and flu via rapid POC. [facility] advises patient likely viral infection that will pass in 7 to 10 days. Red flags, patient education what to expect next steps, supportive care and others discussed. Patient demonstrates understanding of care and plan. ..................... ..................... ..................... ..................... ..................... ..................... ............... [facility] Consulted: Soheila Braxton ..................... ..................... ..................... ..................... ..................... ..................... ............... Disposition: Fulfilled Soheila Braxton MD [address] [facility],[address], [place], [address], [place] [employer]USSO 11/14/2024 22:34:00 OBGyn Episode No OBEpisode recorded.
== END 2025-08-20 14:40 | disposition home or self-care (01) ==
LOC: HO.HMCC 13:31
PROVIDERS: PCP Nurse Practitioner Family; Visit Provider Nurse Practitioner Family
DX: I10 Essential (primary) hypertension (principal); E78.5 Hyperlipidemia, unspecified; Z23 Encounter for immunization

== ENCOUNTER → 2025-08-20 13:30 | Outpatient (BNVA) | payer OTHER, SELFPAY | PROVIDERS: PCP Nurse Practitioner Family; Visit Provider Nurse Practitioner Family | DX: I10 Essential (primary) hypertension (principal); E78.5 Hyperlipidemia, unspecified; E66.01 Morbid (severe) obesity due to excess calories; R49.0 Dysphonia; Z23 Encounter for immunization; Z68.41 Body mass index [BMI] 40.0-44.9, adult | CPT/HCPCS: 90471; 90677; 99212 ==

== ENCOUNTER 2025-08-21 12:10 | Outpatient (AMB) | payer OTHER, SELFPAY ==
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
== END 2025-08-21 14:11 | disposition home or self-care (01) ==
LOC: HO.HBST 12:10
PROVIDERS: PCP Nurse Practitioner Family; Visit Provider Counselor Mental Health
DX: F32.A Depression, unspecified (principal); Z71.89 Other specified counseling
CPT/HCPCS: 90791

== ENCOUNTER → 2025-08-30 07:50 | Outpatient (REF) | payer OTHER, SELFPAY ==
--- NOTE | 2025-08-30 07:55 | CA_ITS ---
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 The calculated ejection fraction is 64% by biplane method. - No obvious valvular pathology seen on this study. Findings Left Ventricle Normal left ventricular cavity size. There is mildly increased left ventricular wall thickness. The left ventricular systolic function is normal. The calculated ejection fraction is 64% by biplane method. There is no evidence of regional wall motion abnormalities. Diastolic function is normal for age. Right Ventricle Normal right ventricular cavity size and systolic function. Atria Both atria are normal in size. Aortic Valve The aortic valve was not well visualized. There is no aortic valve stenosis. There is no aortic valve regurgitation. Mitral Valve The mitral valve appears normal. There is no mitral valve regurgitation. There is no mitral valve stenosis. Pulmonic Valve The pulmonic valve is likely normal. Tricuspid Valve There is trace tricuspid valve regurgitation. There is no evidence of pulmonary hypertension. Great Vessels The asc aorta is normal in size. Venous The inferior vena cava is normal in size and collapses greater than 50% with inspiration. Pericardium/Pleural There is no evidence of pericardial effusion. Prior Study Comparison No prior study available for comparison. Recommendations, Care & Conclusions No obvious valvular pathology seen on this study. Measurements 2D Linear Measurements IVSd: 1.22 0.6-0.9/0.6-1.0 cm LVIDd: 3.74 3.9-5.3/4.2-5.9 cm LVIDd Index: 1.99 2.4-3.2/2.2-3.1 cm/m2 LVIDs: 2.44 2.0-3.6 cm LVPWd: 1.22 0.7-1.1 cm Ao Root: 2.90 2.1-3.5 cm LA Diam: 4.20 2.7-3.8/3.0-4.0 cm LAIDs Index: 2.23 1.5-2.3 cm/m2 LV Mass: 191.06 67-162/88-224 g LV Mass Index: 101.63 43-95/49-115 g/m2 LVOT Diam: 2.10 3.0+(-)1.3 cm 2D Systolic Function EF 4C: 65.60 >55% EF 2C: 61.80 >55% EF BiP: 64.40 >55% Mitral Valve MV VTI: 0.39 MV Pk Lalito: 1.08 MV Mn Lalito: 0.60 MV Pk Grad: 5.00 MV Mn Grad: 2.00 MV Pk E: 1.14 MV PK A: 1.03 MV Decel Time: 247.00 E/A: 1.10 E'Lateral: 7.83 E'Medial: 7.51 E/E' Med: 15.20 E/E' Lat: 14.60 PHT: 72.00 MVA PHT: 3.06 MVA Continuity: 2.06 Decel Maury: 4.59 Aortic Valve AoV Pk Lalito: 1.57 AoV Mn Lalito: 0.95 AoV VTI: 0.37 AoV Pk Grad: 10.00 Aov Mn Grad: 4.00 LENO Cont.VTI: 2.18 LVOT LVOT Pk Lalito: 1.03 LVOT Mn Lalito: 0.68 LVOT VTI: 0.23 LVOT Pk Grad: 4.00 LVOT Mn Grad: 2.00 LVOT Diam: 2.10 LVOT Area: 3.46 Diastolic Function MV Pk E: 1.14 MV Pk A: 1.03 E/A: 1.10 E'Medial: 7.51 E/E' Med: 15.20 E' Laterial: 7.83 E/E' Lat: 14.60 Right Ventricle TAPSE (mm): 27.00 TVS' Lalito: 17.00 Tricuspid Valve TR Pk Lalito: 1.63 TR Pk Grad: 11.00 RA Press: 3.00 RVSP: 14.00 Great Vessels Aorta Ao Root-2D: 2.90 2.0-3.7 cm Ao Asc: 2.70 2.1-3.4 cm Pulmonary Veins Pulm Vein S/D 1.40 Pulmonary Valve PV Pk Lalito: 0.96 Peak PV Grad: 4.00 Updated in Other Vendor System with Status of Final Benedicto Garner MD electronically signed on 08/31/2025 1:57:45 PM with status of Final
== END ==
LOC: HO.CARD 07:50
PROVIDERS: PCP Nurse Practitioner Family; Visit Provider Nurse Practitioner Family
DX: I10 Essential (primary) hypertension (principal); Z82.49 Family history of ischemic heart disease and other diseases of the circulatory system
CPT/HCPCS: 93306

== ENCOUNTER → 2025-08-30 07:55 | Outpatient (BNV) | payer OTHER, SELFPAY | PROVIDERS: PCP Nurse Practitioner Family; Visit Provider Internal Medicine | DX: I10 Essential (primary) hypertension (principal) | CPT/HCPCS: 93306 ==

== ENCOUNTER 2025-09-03 11:16 | Outpatient (AMB) | payer OTHER, SELFPAY ==
[2025-09-03 11:30] VITALS: BMI 43.4
--- NOTE | 2025-09-03 11:30 | A.OFFVIS_ITS ---
VS Expanded 09/03/25 11:30 Height 4 ft 11 in Weight 215 lb BMI 43.4 Intake Visit Reasons: Obesity Allergies aspirin Allergy (Severe, Verified 08/12/25 10:13) Swollen penicillamine Allergy (Severe, Verified 08/12/25 10:13) Rash and Hives povidone-iodine (Betadine) Allergy (Severe, Verified 08/12/25 10:13) Rash and Hives soap (Betadine) Allergy (Severe, Verified 08/12/25 10:13) Rash and Hives Seafood Allergy (Severe, Uncoded 07/26/25 12:33) Anaphylaxis beta blockers Adverse Reaction (Intermediate, Uncoded 07/26/25 12:33) Unknown Nutrition Presentation Details: Pt presents for MNT f/u for obesity, last visit was in May 2025 Pt reports working with the weight Management physician and weighing self at home, wt was 210 lbs pt reports having stopped b supplement d/t elevated b level Pt reports working on having 2 o protein shakes, 1.5 protein bar a day and 1 meal with 7 forks of protein as prescribed by Dr Lopes from weight management Patient reports consuming water: 40 oz, 2 times/day (as low sugar Flavors at times) Patient reports noticing less frequent bowel movements since starting meal replacements as above BS Monitoring Most Recent Diabetes Results: Cholesterol, (<200) 185 mg/dL 08/02/25 HDL Cholesterol, (>40) 50 mg/dL 08/02/25 Triglycerides, (<150) 79 mg/dL 08/02/25 Creatinine, (0.5-1.4) 0.84 mg/dL 08/02/25 BUN, (9-16) 22 mg/dL H 08/02/25 Sodium, (135-145) 142 mmol/L 08/02/25 Potassium, (3.3-5.1) 4.2 mmol/L 08/02/25 Chloride, (96-108) 106 mmol/L 08/02/25 Carbon Dioxide, (22-29) 27 mmol/L 08/02/25 Calcium, (8.4-10.2) 10.1 mg/dL 08/02/25 AST, (5-31) 24 U/L 08/02/25 ALT, (0-31) 25 U/L 08/02/25 Total Protein, (6.5-8.0) 8.4 g/dL H 08/02/25 Albumin, (3.5-5.0) 4.9 g/dL 08/02/25 PFSH Medical History Abnormal EKG Obstructive sleep apnea on CPAP Anxiety Depression Hypothyroidism Hyperlipidemia Hypertension Esophageal motility disorder Bacterial conjunctivitis Acute respiratory disease Conversion disorder MCI (mild cognitive impairment) Asthma Chronic restrictive lung disease TRACI (obstructive sleep apnea) Asthma-COPD overlap syndrome Surgical History History of delivery History of esophagogastroduodenoscopy (EGD) Hx of colonoscopy History of hernia repair Hx of cholecystectomy History of appendectomy History of hysterectomy Family History Father HTN (hypertension) Stroke Diabetes mellitus Maternal Grandmother Cancer Mother Diabetes mellitus HTN (hypertension) Stroke Brother Stroke Social History Housing: Apartment Alcohol intake: never Patient Tobacco Use Status: Never used Tobacco e-Cigarette/Vaping Use: Never Used Second Hand Smoke Exposure: No service: No Current occupational status: disabled Cognitive needs: Yes (walker sometimes) Hearing needs: Yes (b/l hearing aids) Vision needs: Yes (rx glasses) Assessment & Plan Assessment & Plan (1) Morbid obesity: Code(s): E66.01 - Morbid (severe) obesity due to excess calories Category: Medical Plan: Wt: 98 Kg ( 02/17 ), 99kg(03/20), 100kg(04/19), 05/20, 06/20, 97.7 (09/19) Est kcal needs as per MSJ: 1700 (40% carb, 30% protein/fat) Est fluid needs as per 25-30 ml/d: 2900 Est prot per day as per 1 g/kg bw: 98 Recommend fiber intake : 8-10 g per day and gradually increase to 25-28 g per day for women and 35-38 g for men or as tolerated Recommend sodium intake per day : less than 1500 mg less than 2000 mg Educated patient on: ( R = reviewed V = verbalizes understanding N/R = needs review N/A = not applicable * Food sources of carbohydrate, adequate serving sizes and its role in various health conditions: R * Differences between complex carbohydrates a simple carbohydrates, role of fiber in diet: R * Lean protein sources of foods: R * Differences between types of fats and role in diet (mono on saturated fat fatty acids, saturated fatty acids, trans fats): R * Food sources of sodium in salt and healthy modifications for heart health in kidney health: R * Vitamins and minerals: R * Healthy plate method concept: R * Physical activity: Benefits a precaution: R Patient Instructions: Incorporate fiber in the diet, choose high-fiber fruits: kiwi, pear, apples Coding Level of Care Code Nutr Indiv Subseq (18221) Diagnoses Morbid obesity E66.01 Time Spent (min) 30
== END 2025-09-03 12:02 | disposition home or self-care (01) ==
LOC: HO.ENCR 11:18
PROVIDERS: PCP Nurse Practitioner Family; Visit Provider Dietitian, Registered
DX: E66.01 Morbid (severe) obesity due to excess calories (principal)

== ENCOUNTER → 2025-09-03 11:16 | Outpatient (BNVA) | payer OTHER, SELFPAY | PROVIDERS: PCP Nurse Practitioner Family; Visit Provider Dietitian, Registered | DX: E66.01 Morbid (severe) obesity due to excess calories (principal); Z68.41 Body mass index [BMI] 40.0-44.9, adult; Z71.3 Dietary counseling and surveillance | CPT/HCPCS: 97803 ==

== ENCOUNTER → 2025-09-13 10:37 | Outpatient (REF) | payer OTHER, SELFPAY ==
--- NOTE | 2025-09-13 10:40 | CA_ITS ---
Acquisition Time: 2025-09-13 11:27:46 Total Exercise Time: 00:07:30 Test Indications: Abnormal ECG,Pre-Op Evaluation Medications: SEE H&P Protocol: LYLE Max HR: 137 BPM 85% of Pred: 160 BPM Max BP: 158/60 mmHG Max Work Load: 7.5 METS Exercise stress test with exercise 7 mins 30 secs of Lyle Protocol held at Stage 2 with increased incline to 14%, achieving 86% MPHR, with reports of SOB, no chest pain, with isolated PVCs, with normotensive response to exercise. Without any EKG changes meeting criteria for ischemia. In recovery, breathing returned to baseline. Echo images obtained by tech at rest and post peak exercise. Definity contrast utilized. Test reviewed with Dr. Mascorro. Referred By: Marvin Ybarra Electronically Signed By: Evelio Vieira
== END ==
LOC: HO.CARD 10:37
PROVIDERS: PCP Nurse Practitioner Family; Visit Provider Surgery
DX: R94.31 Abnormal electrocardiogram [ECG] [EKG] (principal)
CPT/HCPCS: 93350; Q9957

== ENCOUNTER → 2025-09-13 10:40 | Outpatient (BNV) | payer OTHER, SELFPAY | PROVIDERS: PCP Nurse Practitioner Family | DX: I49.3 Ventricular premature depolarization (principal); R06.02 Shortness of breath | CPT/HCPCS: 93016; 93018; 93350; 93352 ==